=== PATIENT | female | born 1940 | race Caucasian/White ===

== ENCOUNTER 2020-06-20 18:23 | Inpatient (IN) ==
[2020-06-20] MEDS ORDERED: SODIUM CHLORIDE 0.9% 1000ML 500 ML IV ONE (19:05)
[2020-06-20] MEDS ORDERED: LORazepam 0.5 MG/1 ML VIAL IV STA (19:07)
[2020-06-20 19:38] LABS: Basophils # (auto) 0.02 K/uL (0-0.2); Basophils % (auto) 0.2 %; Eosinophils # (auto) 0.04 K/uL (0-0.5); Eosinophils % (auto) 0.4 %; Hematocrit (blood only) 38.5 % (37-47); Hemoglobin 12.8 g/dL (12.0-16.0); Immature Granulocytes # (auto) 0.06 K/uL (0.00-0.02); Immature Granulocytes % (auto) 0.6 %; Lymphocytes # (auto) 2.63 K/uL (1.2-3.4); Mean Corpuscular Hemoglobin 27.4 pg (25-34); Mean Corpuscular Hgb Conc 33.2 g/dL (32-36); Mean Corpuscular Volume 82.3 fL (80-100); Mean Platelet Volume 10.4 fL (7.4-10.4); Monocytes # (auto) 1.22 K/uL (0.11-0.59); Monocytes % (auto) 11.6 %; Neutrophils # (auto) 6.55 K/uL (1.4-6.5); Neutrophils % (auto) 62.2 %; Platelet Count 304 K/uL (130-400); RDW Coefficient of Variation 14.6 % (11.5-14.5); RDW Standard Deviation 43.8 fL (36.4-46.3); Red Blood Count 4.68 M/uL (4.2-5.4); White Blood Count 10.52 K/uL (4.8-10.8)
--- NOTE | 2020-06-20 19:46 | XRay Report ---
SINGLE VIEW CHEST CLINICAL HISTORY: Fall. FINDINGS: An AP, portable, upright chest radiograph is compared to study dated 10/11/2017. The heart is enlarged noting atherosclerotic calcification of the thoracic aorta. The pulmonary vasculature is no ncongested. The mitral annulus is densely calcified. Chronic interstitial thickening is similar to pr evious. There is bibasilar scarring/atelectasis. No airspace consolidation or large pleural effusion is identified. No pneumothorax is seen. The skeletal structures are osteopenic. The bony thorax is gr ossly intact. Degenerative change is noted throughout the thoracic spine. IMPRESSION: Cardiomegaly with no acute cardiopulmonary abnormality. ACT 112: Negative or not required by law. Electronically signed by: Joshua Long M.D. 06/20/2020 7:45 PM
--- NOTE | 2020-06-20 19:50 | CT Scan Report ---
CT SCAN OF THE BRAIN WITHOUT IV CONTRAST CLINICAL HISTORY: Fall. Dizziness. COMPARISON STUDY: CT of the brain dated 01/09/2007. TECHNIQUE: Unenhanced axial CT scan of the brain is performed from the vertex to the skull base. A do se lowering technique was utilized adhering to the principles of ALARA. CT DOSE: 537.48 mGy.cm FINDINGS: Brain parenchyma: There are age-related involutional changes noting moderate subcortical and periven tricular microangiopathic change. There is no hemorrhage, mass effect, or evidence of acute territori al ischemia by CT criteria. Strong-white matter differentiation is preserved. No extra-axial fluid selena ection is seen. Mineralization is noted in the basal ganglia. Ventricles, sulci, cisterns: Prominent secondary to involutional change. Intracranial vasculature: There is atherosclerotic calcification of the cavernous carotid and vertebr al arteries. Calvarium: The skeletal structures are osteopenic. No depressed calvarial fracture is identified. Sinuses and mastoids: The visualized paranasal sinuses are clear. The mastoid air cells are well pneu matized. Orbits: The bony orbits are grossly intact. There are bilateral ocular lens implants. IMPRESSION: There is no hemorrhage, mass effect, or evidence of acute territorial ischemia by CT ejssica rose. ACT 112: Negative or not required by law. Electronically signed by: Joshua Long M.D. 06/20/2020 7:49 PM
[2020-06-20 19:55] LABS: Alanine Aminotransferase 42 U/L (12-78); Albumin Level 3.1 gm/dl (3.4-5.0); Aspartate Aminotransferase 33 U/L (15-37); BUN Creatinine Ratio 18.8 (10-20); Blood Urea Nitrogen 50 mg/dl (7-18); Calcium 9.5 mg/dl (8.5-10.1); Carbon Dioxide 25 mmol/L (21-32); Chloride 104 mmol/L (98-107); Creatinine Clr Calc Pharmacy 18.2 ml/min; Est GFR (African American) 18.8; Est GFR (Non-African American) 16.3; Glucose 107 mg/dl (70-99); Potassium 3.5 mmol/L (3.5-5.1); Sodium 136 mmol/L (136-145)
[2020-06-20 19:59] LABS: Albumin Globulin Ratio 0.5 (0.9-2); Alkaline Phosphatase 190 U/L (45-117); Bilirubin,Total 0.7 mg/dl (0.2-1); Total Protein 9.1 gm/dl (6.4-8.2); Troponin I < 0.015 ng/ml (0-0.045)
[2020-06-20] MEDS: SODIUM CHLORIDE 0.9% 500 ML IV SCH (20:46)
[2020-06-20 20:58] LABS: Appearance Urine Cloudy (Clear); Bacteria Urine Automated 1+ (Negative); Bilirubin Urine Negative (Negative); Blood Urine 1+ (Negative); Color Urine Yellow; Epithelial Cell Urine Auto >30 /lpf (0-5); Glucose Urine UA Negative (Negative); Ketones Urine Negative (Negative); Leukocyte Esterase Urine 3+ (Negative); Nitrite Urine Negative (Negative); Protein Urine 1+ (Negative); RBC Urine Automated 0-4 /hpf (0-4); Specific Gravity Urine 1.019 (1.000-1.030); Urobilinogen Urine Negative (Negative); WBC Urine Automated >30 /hpf (0-5)
[2020-06-20] MEDS ORDERED: cefTRIAXone SODIUM 1,000 MG/50 ML BAG IV STA (21:19)
--- NOTE | 2020-06-21 01:09 | History and Physical Report ---
DATE OF ADMISSION: 06/20/2020 CHIEF COMPLAINT: Vertigo. HISTORY OF PRESENT ILLNESS: A 80-year-old female with past medical history significant for type 2 diabetes, Charcot foot, hyperlipidemia, irritable bowel syndrome, generalized anxiety disorder, who presents with a fall and dizziness at home. She says the vertigo has been going on for the last few days. She has a history of vertigo. She says meclizine` helps but sometimes it gets worse. She works in [employer]. She had to go home because of dizziness and she fell and hit the front of the head and right wrist, which is hurting. No loss of consciousness. Denies any fever, chills. No chest pain, no shortness of breath, no cough, no blurred visions, no runny nose, no sore throat. Appetite is okay. No dysphagia, no nausea, no abdominal pain. Normal bowel and bladder movements. No rash. Currently resting comfortably and hemodynamically stable. ALLERGIES: JAC INHIBITORS, LISINOPRIL, AZITHROMYCIN, DIPHENHYDRAMINE, AMOXICILLIN. PAST MEDICAL HISTORY: As mentioned above. PAST SURGICAL HISTORY: Left total knee arthroplasty, biopsy of uterus lining, ligation of oviducts. MEDICATIONS: The patient is on cetirizine 10 mg p.o. daily, Lomotil p.r.n., estradiol 1 mg p.o. a.m., lorazepam 1 mg p.o. t.i.d. p.r.n., meclizine 25 mg p.o. t.i.d. p.r.n., medroxyprogesterone 2.5 mg p.o. a.m., naproxen p.r.n., pravastatin 10 mg p.o. a.m., tramadol 50 mg p.o. q. 6 hours p.r.n., valsartan/hydrochlorothiazide 80/12.5 mg p.o. daily. FAMILY HISTORY: Significant for brother has diabetes and heart disorder; father has heart disorder; mother has heart disorder. SOCIAL HISTORY: Lives with daughter and grandkids. No smoking, alcohol rarely, no drug use. REVIEW OF SYSTEMS: As per HPI. Rest of the review of systems negative. PHYSICAL EXAMINATION: GENERAL: The patient is of moderate build, not in acute distress. VITAL SIGNS: Temperature 36.7, pulse 59, respiratory rate 14, blood pressure 127/67 and oxygen 98% on room air. HEENT: Pupils equal, round, reactive to light. Oral mucosa moist. NECK: No JVD, no neck masses. CARDIOVASCULAR: S1, S2 heard. Regular rate and rhythm. No murmur, no gallop. RESPIRATORY SYSTEM: Normal AP diameter. No accessory muscle use. No wheezing, no crackles. ABDOMEN: Soft, bowel sounds present, nontender. No distention. CENTRAL NERVOUS SYSTEM: Cranial nerves II-XII grossly intact. Nonfocal. EXTREMITIES: Mild pedal edema, no erythema. LABORATORY DATA: WBC 10.5, hemoglobin 12.8, hematocrit 38.5, platelets 304. Sodium 136, potassium 3.5, chloride 104, bicarbonate 25, BUN 50, creatinine 2.6, serum glucose 107, calcium 9.5, total bilirubin 0.7, AST 33, ALT 42, alkaline phosphatase 190. Urinalysis, cloudy, +3 leukocyte esterase. SARS-CoV-2 negative. IMAGING DATA: CT of the head, no acute findings. Chest x-ray, no acute findings. EKG: Sinus rhythm with PACs at the rate of 70, no acute ST changes seen. ASSESSMENT AND PLAN: This is a 80-year-old female who presents with vertigo, dizziness, and fall and found to have urinary tract infection. 1. Vertigo: The patient has history of vertigo and on meclizine prn at home. CT of the head is unremarkable. Urinary tract infection could be contributing. Will admit to med/tele. Closely monitor and will consult neurology in the a.m. Continue meclizine for now and gentle fluids. Check for orthostatics. 2. Urinary tract infection, on Rocephin. We will follow the cultures. 3. Fall secondary to vertigo: Will follow the right wrist and elbow x- ray.Pt/OT 4. Hypertension: Will hold Diovan HCT for richard. We will monitor the blood pressure. 5. Diabetes, not on any medications. Follow HbA1c levels. Placed on diabetic diet.ISS. 6. RICHARD. Presented of Cr 2.68. on fluids. Avoid nephrotoxic drugs. Will follow ct abd/pelvis. 7. Hyperlipidemia, on statin. 8. Generalized anxiety disorder, on Ativan p.r.n. 9. Deep venous thrombosis prophylaxis, sequential compression devices. DISPOSITION: Closely monitor in the med tele. Level 1 full code. Expect to discharge home and follow with family doctor. JENIFFER
--- NOTE | 2020-06-21 02:00 | Emergency Department Note ---
Impression & Plan Acute kidney injury, Orthostasis, Acute UTI, Fall, Sprain and strain of right wrist ED Provider Note NAME: EDGAR BRAUN AGE: 80 SEX: F ARRIVES VIA: Walk-In INFORMANT: Patient ED PROVIDER(S): Tasha Hayden MD CHIEF COMPLAINT: Vertigo, nausea PLAN: Disposition: Inpatient Condition: Fair Referral: Hospitalist MEDICAL DECISION MAKING: This patient was evaluated and appeared to be in no significant distress. IV access was obtained and laboratory work was drawn. An order for cardiac mon itoring was placed and the patient is noted to be in a normal sinus rhythm at 74 bpm. Patient was hydrated with normal saline solution after she was noted to be dry on exam and orthostatics were positive. Pt was noted to have an elevated creatinine at 2.68 which represents an RICHARD, likely prerenal. She was given 0.5 mg of IV Ativan for her complaints of vertigo. Patient is noted to have a UTI, was medicated with 1 g of IV ceftriaxone. Head CT and chest x-ray are negative for acute process. Case was discussed with Dr. Jansen of the hospitalist service who will evaluate the patient for admission and further management. Patient is aware of the plan and agrees. Triage Nursing notes reviewed. Prior medical records reviewed Vital Signs: reviewed and remarkable for no significant abnormalities Differential diagnosis: Benign positional vertigo, dehydration, hypovolemia, anemia, tumor, infection, hypoglycemia, electrolyte abnormalities, cardiac sources, intracerebral event, toxicologic, neurologic, as well as other pathologies. ER treatment provided: IV normal saline solution IV Ativan 0.5 mg IV ceftriaxone Diagnostics interpreted by me: ECG: Sinus rhythm with premature atrial contractions at 70 bpm. QTc is 466. Normal axis. Normal ST segments. Low voltage QRS. Cardiac Monitoring: An order for cardiac monitoring placed and the patient is in to be in a normal sinus rhythm at 74 bpm. Laboratory studies: See below Imaging studies: SINGLE VIEW CHEST CLINICAL HISTORY: Fall. FINDINGS: An AP, portable, upright chest radiograph is compared to study dated 10/11/2017. The heart is enlarged noting atherosclerotic calcification of the thoracic aorta. The pulmonary vasculature is noncongested. The mitral annulus is densely calcified. Chronic interstitial thickening is similar to previous. There is bibasilar scarring/atelectasis. No airspace consolidation or large pleural effusion is identified. No pneumothorax is seen. The skeletal structures are osteopenic. The bony thorax is grossly intact. Degenerative change is noted throughout the thoracic spine. IMPRESSION: Cardiomegaly with no acute cardiopulmonary abnormality. ACT 112: Negative or not required by law. Electronically signed by: Joshua Long M.D. 06/20/2020 7:45 PM Dictated: 06/20/201943Transcribed: 06/20/201943 CT SCAN OF THE BRAIN WITHOUT IV CONTRAST CLINICAL HISTORY: Fall. Dizziness. COMPARISON STUDY: CT of the brain dated 01/09/2007. TECHNIQUE: Unenhanced axial CT scan of the brain is performed from the vertex to the skull base. A dose lowering technique was utilized adhering to the principles of ALARA. CT DOSE: 537.48 mGy.cm FINDINGS: Brain parenchyma: There are age-related involutional changes noting moderate subcortical and periventricular microangiopathic change. There is no hemorrhage, mass effect, or evidence of acute territorial ischemia by CT criteria. Strong- white matter differentiation is preserved. No extra-axial fluid collection is seen. Mineralization is noted in the basal ganglia. Ventricles, sulci, cisterns: Prominent secondary to involutional change. Intracranial vasculature: There is atherosclerotic calcification of the cave rnous carotid and vertebral arteries. Calvarium: The skeletal structures are osteopenic. No depressed calvarial fracture is identified. Sinuses and mastoids: The visualized paranasal sinuses are clear. The mastoid air cells are well pneumatized. Orbits: The bony orbits are grossly intact. There are bilateral ocular lens implants. IMPRESSION: There is no hemorrhage, mass effect, or evidence of acute territorial ischemia by CT criteria. ACT 112: Negative or not required by law. Electronically signed by: Joshua Long M.D. 06/20/2020 7:49 PM Dictated: 06/20/201945Transcribed: 06/20/201945 XR elbow RT min 3V routine CLINICAL HISTORY: Right elbow pain following fall to COMPARISON: None FINDINGS: Alignment of the right elbow is anatomic. There is no acute fracture. There is no evidence for joint effusion. Minimal spurring of the olecranon is noted. IV is incidentally noted. No osseous lesion is identified. IMPRESSION: No acute fracture or joint effusion of the right elbow. ACT 112: Negative or not required by law. Electronically signed by: Rajat Beard M.D. 06/21/2020 7:26 AM Dictated: 06/21/20724Transcribed: 06/21/20724 XR wrist RT min 3V routine CLINICAL HISTORY: Right wrist pain following fall. COMPARISON: None FINDINGS: Alignment of the right wrist is anatomic. No acute fracture is identified. There is no osseous lesion. There is mild to moderate osteoarthritis within the right first carpometacarpal and triscaphe joints. There is mild radiocarpal joint osteoarthritis. IMPRESSION: No acute fracture or dislocation within the right wrist. ACT 112: Negative or not required by law. Electronically signed by: Rajat Beard M.D. 06/21/2020 6:46 AM Dictated: 06/21/20643Transcribed: 06/21/20643 HPI: 80/F arrives for evaluation of dizziness. Pt states she has a h/o vertigo and takes meclizine 25 mg twice a day, on a regular basis. For the last 5 days she has been in bed and hasn't eaten or had much to drink much. She is nauseated. Pt is unsteady when she walks, she did lose her balance today. She fell and hit her head, also c/o R wrist and elbow pain. Pt denies LOC or blood thinners, it seems she got herself up as her family was "downstairs" but the pt is not quite clear with her answers on this. Pt denies speech difficulties or confusion. She denies fever, cough, SOB, vomiting or diarrhea. ROS: See above HPI for pertinent positives & negatives. A total of 10 systems reviewed and were otherwise negative. PAST MEDICAL HISTORY:See Below PAST SURGICAL HISTORY:See Below FAMILY HISTORY:See Below SOCIAL HISTORY:See Below HOME MEDICATIONS:See Below ALLERGIES:See Below VITALS:See Below PHYSICAL EXAMINATION: Vital signs reviewed. Positive orthostatic vital signs. General: Elderly, chronically ill-appearing 80 yo female, in no significant distress. Somewhat disheveled HEENT: No scleral icterus, PERRLA, neck supple. Dry mucous membranes, atraumatic. No nystagmus appreciated. Cardiovascular: Regular rate and rhythm, no extra sounds. Pulmonary: Clear to auscultation bilaterally, normal work of breathing. Abdomen: Soft, nontender, nondistended, positive bowel sounds. Musculoskeletal: Atraumatic, no peripheral edema. 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 Right elbow with full range of motion, nontender. Neurologic: Patient awake alert and oriented x 3, full strength in all 4 extremities. Cranial nerves 2 through 12 grossly intact. Skin: Warm, dry, no rash Tasha Hayden MD Past Med/Surg History Medical History Diabetes mellitus DIET CONTROLLED Hypertension Osteoarthritis Surgical History History of bilateral tubal ligation History of total knee replacement LEFT Hx of right cataract extraction Family History Father Family history of diabetes mellitus Mother Family history of diabetes mellitus Brother Family history of diabetes mellitus Social History Smoking Status: Never smoker Tobacco Type: Cigarettes Second Hand Exposure: No; Do You Dip or Chew Tobacco: No; Tobacco Cessation Education Requested by Patient: No Hx Alcohol Use: No Hx Substance Use: No Preferred Language: [place] Communication Ability: Effective Vegetable I Farmworker Required: No Beliefs That Will Affect Care: Druze Druze Beliefs: Oriental Orthodox Current Living Situation: Family Other Information That Helps Us Care for You: No Feels Safe at Home: Yes Safety Concerns: Feels Safe At This Time Assistive Devices: Cane, Glasses and Walker Allergies Allergies Allergy/AdvReac Type Severity Reaction Status Date / Time JAC Inhibitors Allergy Unknown edema Verified 06/20/20 22:02 face/lips/tongue diphenhydramine AdvReac Unknown flushing, Verified 06/20/20 22:03 hyperactivity azithromycin AdvReac severe Verified 06/20/20 22:03 [From Zithromax Z-Devon] vertigo Home Meds Home Medications Medication Instructions Recorded Confirmed diphenoxylate-atropine 1 tab PO .UD PRN MDD 8 TABS 04/12/18 06/20/20 estradiol 1 mg PO QAM 04/12/18 06/20/20 meclizine 25 mg PO TID PRN 04/12/18 06/20/20 medroxyprogesterone 2.5 mg PO QAM 04/12/18 06/20/20 pravastatin 10 mg PO QAM 04/12/18 06/20/20 valsartan-hydrochlorothiazide 1 tab PO QAM 04/12/18 06/20/20 cetirizine 10 mg PO DAILY 10/11/18 06/20/20 lorazepam 1 mg PO TID PRN 06/20/20 06/20/20 naproxen 220 mg PO Q6H PRN 06/20/20 06/20/20 tramadol 50 mg PO Q6H PRN 06/20/20 06/20/20 Previous Rx's Medication Instructions Recorded cefuroxime axetil 250 mg PO BID 5 Days #10 tab 06/22/20 lorazepam 1 mg PO Q8H PRN #10 tab 06/22/20 Results & Data (ED) Vital Signs Vital Signs - 24 hr 06/20/20 18:26 06/20/20 19:14 06/20/20 20:01 Temperature 36.4 C L Temperature Source Oral Pulse Rate - Lying 74 Pulse Rate - Sitting 90 Pulse Rate - Standing 85 Pulse Rate 74 72 Pulse Rate [Left Apical] Pulse Rate from SpO2 Sensor 69 Pulse Rhythm [Left Apical] Pulse Strength [Left Apical] Respiratory Rate 20 16 Respiratory Effort / Characteristics Non-Labored Spontaneous Respiratory Depth Normal Respiratory Pattern Regular Blood Pressure - Lying 101/65 Blood Pressure - Sitting 108/62 Blood Pressure- Standing 87/60 L Blood Pressure 102/67 120/82 Blood Pressure [Left Arm] Blood Pressure Mean 78 94 Blood Pressure Mean [Left Arm] Blood Pressure Position [Left Arm] Pulse Oximetry 100 98 Oxygen Delivery Method Room Air Sepsis Recent Fever Within 48 Hours No Sepsis New/Unexplained Change in Mental Status N/A Sepsis Action Taken by Nursing No Action Required 06/20/20 21:33 06/20/20 21:34 06/20/20 22:00 Temperature 36.7 C Temperature Source Oral Pulse Rate - Lying Pulse Rate - Sitting Pulse Rate - Standing Pulse Rate 55 L 59 L Pulse Rate [Left Apical] 61 Pulse Rate from SpO2 Sensor 56 L Pulse Rhythm [Left Apical] Regular Pulse Strength [Left Apical] Normal Respiratory Rate 12 16 14 Respiratory Effort / Characteristics Non-Labored Spontaneous Respiratory Depth Normal Respiratory Pattern Regular Blood Pressure - Lying Blood Pressure - Sitting Blood Pressure- Standing Blood Pressure 129/92 127/67 Blood Pressure [Left Arm] 129/92 Blood Pressure Mean 104 87 Blood Pressure Mean [Left Arm] 104 Blood Pressure Position [Left Arm] Lying Pulse Oximetry 96 97 98 Oxygen Delivery Method Room Air Sepsis Recent Fever Within 48 Hours Sepsis New/Unexplained Change in Mental Status Sepsis Action Taken by Nursing 06/20/20 23:00 06/21/20 00:00 Temperature Temperature Source Pulse Rate - Lying Pulse Rate - Sitting Pulse Rate - Standing Pulse Rate 65 67 Pulse Rate [Left Apical] Pulse Rate from SpO2 Sensor Pulse Rhythm [Left Apical] Pulse Strength [Left Apical] Respiratory Rate 20 20 Respiratory Effort / Characteristics Respiratory Depth Respiratory Pattern Blood Pressure - Lying Blood Pressure - Sitting Blood Pressure- Standing Blood Pressure 120/70 Blood Pressure [Left Arm] Blood Pressure Mean 86 Blood Pressure Mean [Left Arm] Blood Pressure Position [Left Arm] Pulse Oximetry 98 Oxygen Delivery Method Sepsis Recent Fever Within 48 Hours Sepsis New/Unexplained Change in Mental Status Sepsis Action Taken by Usp Medications Current Medication List: was personally reviewed by me Laboratory Data Attestation: I reviewed the patient's lab results. Result diagrams: 06/22/20 07:08 06/22/20 07:08 Lab Results 06/20/20 06/20/20 06/20/20 Range/Units 19:20 19:26 20:40 WBC 10.52 (4.8-10.8) K/uL RBC 4.68 (4.2-5.4) M/uL Hgb 12.8 (12.0-16.0) g/dL Hct 38.5 (37-47) % MCV 82.3 (80-100) fL MCH 27.4 (25-34) pg MCHC 33.2 (32-36) g/dL RDW Std Deviation 43.8 (36.4-46.3) fL RDW Coeff of Higinio 14.6 H (11.5-14.5) % Plt Count 304 (130-400) K/uL MPV 10.4 (7.4-10.4) fL Immature Gran % (Auto) 0.6 % Neut % (Auto) 62.2 % Lymph % (Auto) 25.0 % Bladen % (Auto) 11.6 % Eos % (Auto) 0.4 % Baso % (Auto) 0.2 % Neut # (Auto) 6.55 H (1.4-6.5) K/uL Lymph # (Auto) 2.63 (1.2-3.4) K/uL Bladen # (Auto) 1.22 H (0.11-0.59) K/uL Eos # (Auto) 0.04 (0-0.5) K/uL Baso # (Auto) 0.02 (0-0.2) K/uL Immature Gran # (Auto) 0.06 H (0.00-0.02) K/uL Sodium 136 (136-145) mmol/L Potassium 3.5 (3.5-5.1) mmol/L Chloride 104 (98-107) mmol/L Carbon Dioxide 25 (21-32) mmol/L Anion Gap 7.0 (3-11) BUN 50 H (7-18) mg/dl Creatinine 2.68 H (0.6-1.2) mg/dl Est Cr Clr Drug Dosing 18.2 ml/min Est GFR ( Amer) 18.8 Est GFR (Non-Af Amer) 16.3 BUN/Creatinine Ratio 18.8 (10-20) Glucose 107 H (70-99) mg/dl Calcium 9.5 (8.5-10.1) mg/dl Total Bilirubin 0.7 (0.2-1) mg/dl AST 33 (15-37) U/L ALT 42 (12-78) U/L Alkaline Phosphatase 190 H (45-117) U/L Troponin I < 0.015 (0-0.045) ng/ml Total Protein 9.1 H (6.4-8.2) gm/dl Albumin 3.1 L (3.4-5.0) gm/dl Globulin 6.0 H (2.5-4.0) gm/dl Albumin/Globulin Ratio 0.5 L (0.9-2) Urine Color Yellow Urine Appearance Cloudy A (Clear) Urine pH 5.0 (4.5-7.5) Ur Specific [place] 1.019 (1.000-1.030) Urine Protein 1+ H (Negative) Urine Glucose (UA) Negative (Negative) Urine Ketones Negative (Negative) Urine Blood 1+ H (Negative) Urine Nitrite Negative (Negative) Urine Bilirubin Negative (Negative) Urine Urobilinogen Negative (Negative) Ur Leukocyte Esterase 3+ H (Negative) Urine WBC (Auto) >30 H (0-5) /hpf Urine RBC (Auto) 0-4 (0-4) /hpf U Hyaline Cast (Auto) 5-10 H (0-5) /lpf U Epithel Cells (Auto) >30 H (0-5) /lpf Urine Bacteria (Auto) 1+ H (Negative) COVID-19 Eval Order SARS-CoV-2, RNA, NAAT (NEGATIVE) 06/20/20 06/20/20 Range/Units 21:50 21:50 WBC (4.8-10.8) K/uL RBC (4.2-5.4) M/uL Hgb (12.0-16.0) g/dL Hct (37-47) % MCV (80-100) fL MCH (25-34) pg MCHC (32-36) g/dL RDW Std Deviation (36.4-46.3) fL RDW Coeff of Higinio (11.5-14.5) % Plt Count (130-400) K/uL MPV (7.4-10.4) fL Immature Gran % (Auto) % Neut % (Auto) % Lymph % (Auto) % Bladen % (Auto) % Eos % (Auto) % Baso % (Auto) % Neut # (Auto) (1.4-6.5) K/uL Lymph # (Auto) (1.2-3.4) K/uL Bladen # (Auto) (0.11-0.59) K/uL Eos # (Auto) (0-0.5) K/uL Baso # (Auto) (0-0.2) K/uL Immature Gran # (Auto) (0.00-0.02) K/uL Sodium (136-145) mmol/L Potassium (3.5-5.1) mmol/L Chloride (98-107) mmol/L Carbon Dioxide (21-32) mmol/L Anion Gap (3-11) BUN (7-18) mg/dl Creatinine (0.6-1.2) mg/dl Est Cr Clr Drug Dosing ml/min Est GFR ( Amer) Est GFR (Non-Af Amer) BUN/Creatinine Ratio (10-20) Glucose (70-99) mg/dl Calcium (8.5-10.1) mg/dl Total Bilirubin (0.2-1) mg/dl AST (15-37) U/L ALT (12-78) U/L Alkaline Phosphatase (45-117) U/L Troponin I (0-0.045) ng/ml Total Protein (6.4-8.2) gm/dl Albumin (3.4-5.0) gm/dl Globulin (2.5-4.0) gm/dl Albumin/Globulin Ratio (0.9-2) Urine Color Urine Appearance (Clear) Urine pH (4.5-7.5) Ur Specific [place] (1.000-1.030) Urine Protein (Negative) Urine Glucose (UA) (Negative) Urine Ketones (Negative) Urine Blood (Negative) Urine Nitrite (Negative) Urine Bilirubin (Negative) Urine Urobilinogen (Negative) Ur Leukocyte Esterase (Negative) Urine WBC (Auto) (0-5) /hpf Urine RBC (Auto) (0-4) /hpf U Hyaline Cast (Auto) (0-5) /lpf U Epithel Cells (Auto) (0-5) /lpf Urine Bacteria (Auto) (Negative) COVID-19 Eval Order Covid19 IDNow atMWIC SARS-CoV-2, RNA, NAAT NEGATIVE (NEGATIVE) Administered Medications Discontinued Medications Cetirizine HCl (Cetirizine Hcl 10 Mg Tablet) 10 mg PO DAILY [facility] Stop: 07/21/20 08:59 Last Admin: 06/22/20 08:57 Dose: 10 mg Documented by: [id number] Admin: 06/21/20 09:28 Dose: 10 mg Documented by: [id number] Sodium Chloride (Nss 1000ml) 500 mls @ 999 mls/hr IV .Q31M ONE Stop: 06/20/20 19:35 Last Infusion: 06/20/20 20:12 Dose: 0 mls/hr Documented by: [id number] Admin: 06/20/20 19:37 Dose: 999 mls/hr Documented by: [id number] Sodium Chloride (Nss) 500 mls @ 125 mls/hr IV .Q4H BILL Stop: 07/20/20 19:14 Last Admin: 06/21/20 02:06 Dose: Not Given Documented by: [id number] Infusion: 06/21/20 00:54 Dose: 0 mls/hr Documented by: [id number] Admin: 06/20/20 20:46 Dose: 125 mls/hr Documented by: [id number] Lorazepam (Ativan) 0.5 mg in 1 mls @ 1 mls/min IV NOW STA Stop: 06/20/20 19:08 Last Admin: 06/20/20 19:56 Dose: 1 mls/min Documented by: [id number] Ceftriaxone Sodium (Rocephin) 1,000 mg in 50 mls @ 100 mls/hr IV NOW STA Stop: 06/20/20 21:48 Last Infusion: 06/20/20 22:31 Dose: 0 mls/hr Documented by: [id number] Admin: 06/20/20 21:48 Dose: 100 mls/hr Documented by: [id number] Sodium Chloride (Nss 1000ml) 1,000 mls @ 80 mls/hr IV .[id number] BILL Stop: 07/21/20 02:03 Last Admin: 06/21/20 17:43 Dose: Not Given Documented by: [id number] Infusion: 06/21/20 17:41 Dose: 0 mls/hr Documented by: [id number] Infusion: 06/21/20 16:38 Dose: 80 mls/hr Documented by: [id number] Infusion: 06/21/20 13:30 Dose: 0 mls/hr Documented by: [id number] Admin: 06/21/20 02:11 Dose: 80 mls/hr Documented by: [id number] Ceftriaxone Sodium 2,000 mg/ (Dextrose) 70 mls @ 100 mls/hr IV Q24H BILL; Protocol Stop: 06/29/20 19:41 Last Infusion: 06/21/20 20:44 Dose: 0 mls/hr Documented by: [id number] Admin: 06/21/20 19:17 Dose: 100 mls/hr Documented by: [id number] Sodium Chloride (Nss 1000ml) 1,000 mls @ 80 mls/hr IV .[id number] BILL Stop: 07/21/20 21:29 Last Infusion: 06/22/20 09:15 Dose: 0 mls/hr Documented by: [id number] Admin: 06/21/20 22:04 Dose: 80 mls/hr Documented by: [id number] Insulin Aspart (Insulin Aspart 100 Units/Ml 3 Ml Pen) 0 units SC ACHS BILL Stop: 07/21/20 07:29 Last Admin: 06/22/20 11:38 Dose: Not Given Documented by: [id number] Admin: 06/22/20 08:23 Dose: Not Given Documented by: [id number] Admin: 06/21/20 20:45 Dose: Not Given Documented by: [id number] Admin: 06/21/20 17:38 Dose: Not Given Documented by: [id number] Admin: 06/21/20 12:33 Dose: Not Given Documented by: [id number] Admin: 06/21/20 09:30 Dose: Not Given Documented by: [id number] Lactobacillus Acidoph/Casei/Rhamnos (Advanced Probiotic 1250 Mg Capsule) 2 cap PO DAILY BILL Stop: 07/22/20 10:59 Last Admin: 06/22/20 11:56 Dose: 2 cap Documented by: [id number] Potassium Chloride (Potassium Chloride Crtab 20 Meq Tabcr) 40 meq PO NOW STA Stop: 06/21/20 07:07 Last Admin: 06/21/20 09:28 Dose: 40 meq Documented by: [id number] Potassium Chloride (Potassium Chloride Crtab 20 Meq Tabcr) 20 meq PO NOW STA Stop: 06/22/20 08:50 Last Admin: 06/22/20 09:15 Dose: 20 meq Documented by: [id number] Pravastatin Sodium (Pravastatin Sod 10 Mg Tab) 10 mg PO QAM BILL Stop: 07/21/20 08:59 Last Admin: 06/22/20 08:57 Dose: 10 mg Documented by: [id number] Admin: 06/21/20 09:28 Dose: 10 mg Documented by: [id number] Tramadol HCl (Tramadol Hcl 50 Mg Tablet) 50 mg PO Q6H PRN PRN Reason: Pain Stop: 07/21/20 02:03 Last Admin: 06/21/20 02:23 Dose: 50 mg Documented by: [id number] Discharge Plan Visit Data Chief Complaint: Vertigo Stated Complaint: VERTIGO ED Provider: Tasha Hayden Discharge Problem: Acute kidney injury, Orthostasis, Acute UTI, Fall, Sprain and strain of right wrist Patient Disposition: Admitted As Inpatient Discharge Instructions Interventions: ED Discharge Assessment Last Done: 06/21/20 01:25 Discharge Problem: Fall Qualifiers: Encounter type: initial encounter Qualified Code(s): W19.XXXA - Unspecified fall, initial encounter
[2020-06-21] MEDS ORDERED: DIPHENOXYLATE/ATROPINE 2.5/0.025MG TAB PO PRN (02:04)
[2020-06-21] MEDS ORDERED: traMADol HCL 50 MG TABLET PO PRN (02:04)
[2020-06-21] MEDS ORDERED: ACETAMINOPHEN 325 MG TAB PO PRN (02:04)
[2020-06-21] MEDS ORDERED: NITROGLYCERIN SL 0.4 MG/TAB TAB SL PRN (02:04)
[2020-06-21] MEDS ORDERED: POLYETHYLENE (MIRALAX) 17 GM PACK PO PRN (02:04)
[2020-06-21] MEDS ORDERED: ONDANSETRON INJ 2 MG/ML 2 ML VIAL IV PRN (02:04)
[2020-06-21] MEDS: SODIUM CHLORIDE 0.9% 500 ML IV SCH (02:06)
[2020-06-21] MEDS: SODIUM CHLORIDE 0.9% 1000ML 1,000 ML IV SCH ×2 (02:11→17:43)
[2020-06-21] MEDS ORDERED: LORazepam 1 MG TAB PO PRN (02:13)
[2020-06-21] MEDS ORDERED: MECLIZINE HCL 25 MG TAB PO PRN (02:13)
[2020-06-21 06:18] LABS: Basophils # (auto) 0.02 K/uL (0-0.2); Basophils % (auto) 0.2 %; Eosinophils # (auto) 0.12 K/uL (0-0.5); Eosinophils % (auto) 1.1 %; Hematocrit (blood only) 31.7 % (37-47); Hemoglobin 10.6 g/dL (12.0-16.0); Immature Granulocytes # (auto) 0.04 K/uL (0.00-0.02); Immature Granulocytes % (auto) 0.4 %; Lymphocytes # (auto) 2.54 K/uL (1.2-3.4); Lymphocytes % (auto) 23.6 %; Mean Corpuscular Hgb Conc 33.4 g/dL (32-36); Mean Corpuscular Volume 80.9 fL (80-100); Mean Platelet Volume 10.8 fL (7.4-10.4); Monocytes # (auto) 1.23 K/uL (0.11-0.59); Monocytes % (auto) 11.4 %; Neutrophils # (auto) 6.83 K/uL (1.4-6.5); Neutrophils % (auto) 63.3 %; Platelet Count 288 K/uL (130-400); RDW Coefficient of Variation 14.7 % (11.5-14.5); RDW Standard Deviation 43.1 fL (36.4-46.3); Red Blood Count 3.92 M/uL (4.2-5.4); White Blood Count 10.78 K/uL (4.8-10.8)
[2020-06-21 06:42] LABS: BUN Creatinine Ratio 25.9 (10-20); Creatinine Clr Calc Pharmacy 24.8 ml/min; Est GFR (African American) 29.1; Est GFR (Non-African American) 25.1; Magnesium 2.3 mg/dl (1.8-2.4); Potassium 3.2 mmol/L (3.5-5.1)
--- NOTE | 2020-06-21 06:47 | XRay Report ---
XR wrist RT min 3V routine CLINICAL HISTORY: Right wrist pain following fall. COMPARISON: None FINDINGS: Alignment of the right wrist is anatomic. No acute fracture is identified. There is no oss eous lesion. There is mild to moderate osteoarthritis within the right first carpometacarpal and juhi caphe joints. There is mild radiocarpal joint osteoarthritis. IMPRESSION: No acute fracture or dislocation within the right wrist. ACT 112: Negative or not required by law. Electronically signed by: Rajat Beard M.D. 06/21/2020 6:46 AM
[2020-06-21] MEDS ORDERED: POTASSIUM CHLORIDE CRTAB 20 MEQ TABCR PO STA (07:06)
--- NOTE | 2020-06-21 07:21 | CT Scan Report ---
CT OF THE ABDOMEN AND PELVIS WITHOUT CONTRAST CLINICAL HISTORY: Urinary tract infection. Acute kidney injury. COMPARISON STUDY: No previous studies for comparison. TECHNIQUE: Axial images of the abdomen and pelvis were obtained without IV contrast. Images were revi ewed in the axial, sagittal, and coronal planes. Automated exposure control was utilized for the kaia dy. A dose lowering technique was utilized adhering to the principles of ALARA. FINDINGS: No pneumatosis, free air or portal venous gas is present. There is extensive mitral annular calcification. Note is made of a large right renal staghorn calculus. This occupies the majority of the right renal collecting system. There is associated right collecting system dilatation. Extensive adjacent infiltration is noted. There is also urothelial thickening and infiltration adjacent to the proximal right ureter. Moderate to marked right renal atrophy is noted. No ureteral calculi are prese nt. There are no left-sided urinary calculi. Evaluation of the abdomen and pelvis is suboptimal on th is unenhanced examination. The liver, spleen, adrenal glands and pancreas are unremarkable. There are numerous gallstones within the gallbladder. There is no evidence for a bowel obstruction. The append ix is mildly dilated, measuring 8 mm in caliber. However, there is no periappendiceal infiltration. T his extensive colonic diverticulosis. Evidence for acute diverticulitis. Note is made of several mild ly enlarged retroperitoneal lymph nodes. Index aortocaval lymph node on image 144 of 431 measures 1.2 x 1 cm. Fat-containing umbilical hernia is present. There is no acute fracture or suspicious lesion within the visualized skeletal structures. There is no pelvic lymphadenopathy. There is no evidence f or a bowel obstruction. IMPRESSION: 1. Large right renal staghorn calculus with associated collecting system dilatation and extensive uro thelial thickening and adjacent infiltration of the right collecting system and proximal right ureter . These findings are age indeterminate and an acute infectious process cannot be excluded. Moderate t o marked right renal atrophy. No ureteral calculi. 2. Cholelithiasis. 3. Mildly dilated appendix. No adjacent infiltration to strongly suggest acute appendicitis. 4. Colonic diverticulosis without evidence for acute diverticulitis. ACT 112: Negative or not required by law. Electronically signed by: Rajat Beard M.D. 06/21/2020 7:19 AM
--- NOTE | 2020-06-21 07:27 | XRay Report ---
XR elbow RT min 3V routine CLINICAL HISTORY: Right elbow pain following fall to COMPARISON: None FINDINGS: Alignment of the right elbow is anatomic. There is no acute fracture. There is no evidence for joint effusion. Minimal spurring of the olecranon is noted. IV is incidentally noted. No osseous lesion is identified. IMPRESSION: No acute fracture or joint effusion of the right elbow. ACT 112: Negative or not required by law. Electronically signed by: Rajat Beard M.D. 06/21/2020 7:26 AM
[2020-06-21 07:32] LABS: Estimated Average Glucose 137 mg/dl; Hemoglobin A1C 6.4 % (4.5-5.6)
[2020-06-21] MEDS ORDERED: VALSARTAN/HCTZ 80/12.5MG TAB PO SCH (09:00)
[2020-06-21] MEDS: PRAVASTATIN SOD 10 MG TAB PO SCH (09:28)
[2020-06-21] MEDS: CETIRIZINE HCL 10 MG TABLET PO SCH (09:28)
[2020-06-21] MEDS: INSULIN ASPART 100 UNITS/ML 3 ML PEN SC SCH ×4 (09:30→20:45)
--- NOTE | 2020-06-21 10:18 | Hospitalist Progress Note ---
Date of Service June 21, 2020 Assessment & Plan (1) Vertigo: (2) Staghorn renal calculus: (3) Acute kidney injury: (4) Orthostasis: (5) Acute UTI: (6) Fall: This is a 80-year-old female who presents with vertigo, dizziness, and fall and found to have urinary tract infection, and staghorn renal calculus. 1. Vertigo: The patient has a history of vertigo and on meclizine prn at home as well as lorazepam prn. CT of the head unremarkable. MRI brain no acute CVA. Carotid US unremarkable. Orthostatic in the ED. Urinary tract infection could be contributing. Will admit to med/tele. Closely monitor. Neurology consulted. Continue meclizine, lorazepam for now and gentle fluids. Re- check orthostatics. 2. Urinary tract infection, on Rocephin. We will follow the cultures. 3. Fall secondary to vertigo: Right wrist and elbow x-ray unremarkable. PT/OT ordered 4. Hypertension: Will hold Diovan HCT for richard. We will monitor the blood pressure. 5. Diabetes, not on any medications. Current HbA1c 6.4%. Placed on diabetic diet.ISS. 6. RICHARD. Presented with Cr 2.68. Now Cr down to 1.8 after IVF. Partially pre-renal as pt reports poor oral intake for several days due to vertigo. Partially secondary to staghorn calculus and UTI. Urology consulted - plan for close outpt follow up. Cont gentle hydration. Avoid nephrotoxic drugs. Monitor BMP, will need outpt follow up 7. Hyperlipidemia, on statin. 8. Generalized anxiety disorder, on Ativan p.r.n. DVT prophylaxis, SCDs. DISPOSITION: Expect to discharge home and follow with family doctor. PT/OT eval pending Admission and Anticipated Discharge Date Admission Date: June 20, 2020 Subjective Pt seen in follow up of vertigo, fall, RICHARD Currently sitting up and eating, in NAD Reports she was laying flat not eating or drinking for several days due to vertigo, prior to admission No fevers or chills, chest pain, shortness of breath Vertigo better controlled now She is inquiring about going home tomorrow Review of Systems Review of Systems: All systems reviewed & are unremarkable except as noted in HPI & below Constitutional: no fever and no chills Respiratory: no cough and no dyspnea Cardiovascular: no chest pain and no palpitations Gastrointestinal: no abdominal pain, no nausea and no vomiting Neurologic: vertigo improved Physical Exam Physical Exam: GENERAL: The patient is of moderate build, not in acute distress. HEENT: Pupils equal, round, reactive to light. Oral mucosa moist. NECK: No JVD, no neck masses. CARDIOVASCULAR: S1, S2 heard. Regular rate and rhythm. No murmur, no gallop. RESPIRATORY SYSTEM: Normal AP diameter. No accessory muscle use. No wheezing, no crackles. ABDOMEN: Soft, bowel sounds present, nontender. No distention. CENTRAL NERVOUS SYSTEM: Alert and oriented x3, speech fluent, pt is answering questions appropriately, Cranial nerves II-XII grossly intact. Nonfocal. Moves extremities spontaneously EXTREMITIES: Mild pedal edema, no erythema. Results & Data Results & Data ([facility]) Vital Signs (Past 12 Hours) Vital Signs Temp Pulse Pulse Resp BP BP BP 06/21/20 08:00 73 06/21/20 07:40 36.9 C 68 17 114/72 06/21/20 04:30 74 06/21/20 03:42 37.1 C 73 18 129/75 06/21/20 02:03 37.2 C 72 18 135/70 06/21/20 00:00 67 20 120/70 06/20/20 23:00 65 20 Pulse Ox 06/21/20 08:00 06/21/20 07:40 94 06/21/20 04:30 06/21/20 03:42 96 06/21/20 02:03 96 06/21/20 00:00 98 06/20/20 23:00 Laboratory Results 06/21/20 06/21/20 06/21/20 Range/Units 07:47 05:04 05:04 WBC (4.8-10.8) K/uL RBC (4.2-5.4) M/uL Hgb (12.0-16.0) g/dL Hct (37-47) % MCV (80-100) fL MCH (25-34) pg MCHC (32-36) g/dL RDW Std Deviation (36.4-46.3) fL RDW Coeff of Higinio (11.5-14.5) % Plt Count (130-400) K/uL MPV (7.4-10.4) fL Immature Gran % (Auto) % Neut % (Auto) % Lymph % (Auto) % Gibson % (Auto) % Eos % (Auto) % Baso % (Auto) % Neut # (Auto) (1.4-6.5) K/uL Lymph # (Auto) (1.2-3.4) K/uL Gibson # (Auto) (0.11-0.59) K/uL Eos # (Auto) (0-0.5) K/uL Baso # (Auto) (0-0.2) K/uL Immature Gran # (Auto) (0.00-0.02) K/uL Sodium 141 (136-145) mmol/L Potassium 3.2 L (3.5-5.1) mmol/L Chloride 109 H (98-107) mmol/L Carbon Dioxide 23 (21-32) mmol/L Anion Gap 9.0 (3-11) BUN 48 H (7-18) mg/dl Creatinine 1.87 H D (0.6-1.2) mg/dl Est Cr Clr Drug Dosing 24.8 ml/min Est GFR ( Amer) 29.1 Est GFR (Non-Af Amer) 25.1 BUN/Creatinine Ratio 25.9 H (10-20) Glucose 102 H (70-99) mg/dl POC Glucose 101 H (70-99) mg/dl Estimat Average Glucose 137 mg/dl Hemoglobin A1c 6.4 H (4.5-5.6) % Calcium 8.0 L D (8.5-10.1) mg/dl Magnesium 2.3 (1.8-2.4) mg/dl Total Bilirubin (0.2-1) mg/dl AST (15-37) U/L ALT (12-78) U/L Alkaline Phosphatase (45-117) U/L Troponin I (0-0.045) ng/ml Total Protein (6.4-8.2) gm/dl Albumin (3.4-5.0) gm/dl Globulin (2.5-4.0) gm/dl Albumin/Globulin Ratio (0.9-2) Urine Color Urine Appearance (Clear) Urine pH (4.5-7.5) Ur Specific [place] (1.000-1.030) Urine Protein (Negative) Urine Glucose (UA) (Negative) Urine Ketones (Negative) Urine Blood (Negative) Urine Nitrite (Negative) Urine Bilirubin (Negative) Urine Urobilinogen (Negative) Ur Leukocyte Esterase (Negative) Urine WBC (Auto) (0-5) /hpf Urine RBC (Auto) (0-4) /hpf U Hyaline Cast (Auto) (0-5) /lpf U Epithel Cells (Auto) (0-5) /lpf Urine Bacteria (Auto) (Negative) COVID-19 Eval Order SARS-CoV-2, RNA, NAAT (NEGATIVE) 06/21/20 06/20/20 06/20/20 Range/Units 05:04 21:50 21:50 WBC 10.78 (4.8-10.8) K/uL RBC 3.92 L (4.2-5.4) M/uL Hgb 10.6 L (12.0-16.0) g/dL Hct 31.7 L (37-47) % MCV 80.9 (80-100) fL MCH 27.0 (25-34) pg MCHC 33.4 (32-36) g/dL RDW Std Deviation 43.1 (36.4-46.3) fL RDW Coeff of Higinio 14.7 H (11.5-14.5) % Plt Count 288 (130-400) K/uL MPV 10.8 H (7.4-10.4) fL Immature Gran % (Auto) 0.4 % Neut % (Auto) 63.3 % Lymph % (Auto) 23.6 % Gibson % (Auto) 11.4 % Eos % (Auto) 1.1 % Baso % (Auto) 0.2 % Neut # (Auto) 6.83 H (1.4-6.5) K/uL Lymph # (Auto) 2.54 (1.2-3.4) K/uL Gibson # (Auto) 1.23 H (0.11-0.59) K/uL Eos # (Auto) 0.12 (0-0.5) K/uL Baso # (Auto) 0.02 (0-0.2) K/uL Immature Gran # (Auto) 0.04 H (0.00-0.02) K/uL Sodium (136-145) mmol/L Potassium (3.5-5.1) mmol/L Chloride (98-107) mmol/L Carbon Dioxide (21-32) mmol/L Anion Gap (3-11) BUN (7-18) mg/dl Creatinine (0.6-1.2) mg/dl Est Cr Clr Drug Dosing ml/min Est GFR ( Amer) Est GFR (Non-Af Amer) BUN/Creatinine Ratio (10-20) Glucose (70-99) mg/dl POC Glucose (70-99) mg/dl Estimat Average Glucose mg/dl Hemoglobin A1c (4.5-5.6) % Calcium (8.5-10.1) mg/dl Magnesium (1.8-2.4) mg/dl Total Bilirubin (0.2-1) mg/dl AST (15-37) U/L ALT (12-78) U/L Alkaline Phosphatase (45-117) U/L Troponin I (0-0.045) ng/ml Total Protein (6.4-8.2) gm/dl Albumin (3.4-5.0) gm/dl Globulin (2.5-4.0) gm/dl Albumin/Globulin Ratio (0.9-2) Urine Color Urine Appearance (Clear) Urine pH (4.5-7.5) Ur Specific [place] (1.000-1.030) Urine Protein (Negative) Urine Glucose (UA) (Negative) Urine Ketones (Negative) Urine Blood (Negative) Urine Nitrite (Negative) Urine Bilirubin (Negative) Urine Urobilinogen (Negative) Ur Leukocyte Esterase (Negative) Urine WBC (Auto) (0-5) /hpf Urine RBC (Auto) (0-4) /hpf U Hyaline Cast (Auto) (0-5) /lpf U Epithel Cells (Auto) (0-5) /lpf Urine Bacteria (Auto) (Negative) COVID-19 Eval Order Covid19 [facility] SARS-CoV-2, RNA, NAAT NEGATIVE (NEGATIVE) 06/20/20 06/20/20 06/20/20 Range/Units 20:40 19:26 19:20 WBC 10.52 (4.8-10.8) K/uL RBC 4.68 (4.2-5.4) M/uL Hgb 12.8 (12.0-16.0) g/dL Hct 38.5 (37-47) % MCV 82.3 (80-100) fL MCH 27.4 (25-34) pg MCHC 33.2 (32-36) g/dL RDW Std Deviation 43.8 (36.4-46.3) fL RDW Coeff of Higinio 14.6 H (11.5-14.5) % Plt Count 304 (130-400) K/uL MPV 10.4 (7.4-10.4) fL Immature Gran % (Auto) 0.6 % Neut % (Auto) 62.2 % Lymph % (Auto) 25.0 % Gibson % (Auto) 11.6 % Eos % (Auto) 0.4 % Baso % (Auto) 0.2 % Neut # (Auto) 6.55 H (1.4-6.5) K/uL Lymph # (Auto) 2.63 (1.2-3.4) K/uL Gibson # (Auto) 1.22 H (0.11-0.59) K/uL Eos # (Auto) 0.04 (0-0.5) K/uL Baso # (Auto) 0.02 (0-0.2) K/uL Immature Gran # (Auto) 0.06 H (0.00-0.02) K/uL Sodium 136 (136-145) mmol/L Potassium 3.5 (3.5-5.1) mmol/L Chloride 104 (98-107) mmol/L Carbon Dioxide 25 (21-32) mmol/L Anion Gap 7.0 (3-11) BUN 50 H (7-18) mg/dl Creatinine 2.68 H (0.6-1.2) mg/dl Est Cr Clr Drug Dosing 18.2 ml/min Est GFR ( Amer) 18.8 Est GFR (Non-Af Amer) 16.3 BUN/Creatinine Ratio 18.8 (10-20) Glucose 107 H (70-99) mg/dl POC Glucose (70-99) mg/dl Estimat Average Glucose mg/dl Hemoglobin A1c (4.5-5.6) % Calcium 9.5 (8.5-10.1) mg/dl Magnesium (1.8-2.4) mg/dl Total Bilirubin 0.7 (0.2-1) mg/dl AST 33 (15-37) U/L ALT 42 (12-78) U/L Alkaline Phosphatase 190 H (45-117) U/L Troponin I < 0.015 (0-0.045) ng/ml Total Protein 9.1 H (6.4-8.2) gm/dl Albumin 3.1 L (3.4-5.0) gm/dl Globulin 6.0 H (2.5-4.0) gm/dl Albumin/Globulin Ratio 0.5 L (0.9-2) Urine Color Yellow Urine Appearance Cloudy A (Clear) Urine pH 5.0 (4.5-7.5) Ur Specific [place] 1.019 (1.000-1.030) Urine Protein 1+ H (Negative) Urine Glucose (UA) Negative (Negative) Urine Ketones Negative (Negative) Urine Blood 1+ H (Negative) Urine Nitrite Negative (Negative) Urine Bilirubin Negative (Negative) Urine Urobilinogen Negative (Negative) Ur Leukocyte Esterase 3+ H (Negative) Urine WBC (Auto) >30 H (0-5) /hpf Urine RBC (Auto) 0-4 (0-4) /hpf U Hyaline Cast (Auto) 5-10 H (0-5) /lpf U Epithel Cells (Auto) >30 H (0-5) /lpf Urine Bacteria (Auto) 1+ H (Negative) COVID-19 Eval Order SARS-CoV-2, RNA, NAAT (NEGATIVE) Medications Administered Current Inpatient Medications Acetaminophen (Acetaminophen 325 Mg Tab) 650 mg PO Q4H PRN PRN Reason: Pain or Fever Stop: 07/21/20 02:03 Cetirizine HCl (Cetirizine Hcl 10 Mg Tablet) 10 mg PO DAILY [facility] Stop: 07/21/20 08:59 Last Admin: 06/21/20 09:28 Dose: 10 mg Documented by: Diphenoxylate HCl/Atropine (Diphenoxylate/Atropine 2.5/0.025mg Tab) 1 tab PO PRN PRN PRN Reason: Diarrhea Stop: 07/21/20 02:03 Sodium Chloride (Nss 1000ml) 1,000 mls @ 80 mls/hr IV .[id number] [facility] Stop: 07/21/20 02:03 Last Admin: 06/21/20 02:11 Dose: 80 mls/hr Documented by: Ceftriaxone Sodium 2,000 mg/ (Dextrose) 70 mls @ 100 mls/hr IV Q24H [facility]; Protocol Stop: 06/29/20 19:41 Insulin Aspart (Insulin Aspart 100 Units/Ml 3 Ml Pen) 0 units SC ACHS [facility] Stop: 07/21/20 07:29 Last Admin: 06/21/20 09:30 Dose: Not Given Documented by: Lorazepam (Lorazepam 1 Mg Tab) 1 mg PO TID PRN PRN Reason: Anxiety Stop: 07/21/20 02:12 Meclizine HCl (Meclizine Hcl 25 Mg Tab) 25 mg PO TID PRN PRN Reason: Dizziness Or Vertigo Stop: 07/21/20 02:12 Nitroglycerin (Nitroglycerin Sl 0.4 Mg/Tab Tab) 0.4 mg SL UD PRN PRN Reason: Chest Pain Stop: 07/21/20 02:03 Ondansetron HCl (Ondansetron Inj 2 Mg/Ml 2 Ml Vial) 4 mg IV Q6H PRN PRN Reason: Nausea Stop: 07/21/20 02:03 Polyethylene Glycol (Polyethylene (Miralax) 17 Gm Pack) 17 gm PO DAILY PRN PRN Reason: Constipation Stop: 07/21/20 02:03 Pravastatin Sodium (Pravastatin Sod 10 Mg Tab) 10 mg PO QAM [facility] Stop: 07/21/20 08:59 Last Admin: 06/21/20 09:28 Dose: 10 mg Documented by: Tramadol HCl (Tramadol Hcl 50 Mg Tablet) 50 mg PO Q6H PRN PRN Reason: Pain Stop: 07/21/20 02:03 Last Admin: 06/21/20 02:23 Dose: 50 mg Documented by: Valsartan (Valsartan/Hctz 80/12.5mg Tab) 1 tab PO QAM [facility] Stop: 07/21/20 08:59 (1) Fall Encounter type: initial encounter Qualified Code(s): W19.XXXA - Unspecified fall, initial encounter
--- NOTE | 2020-06-21 10:38 | Urology Consultation ---
Date of Consultation June 21, 2020 Assessment & Plan (1) Staghorn renal calculus: (2) Fall: 80 year-old female patient, with multiple comorbidities, admitted s/p fall secondary to dizziness and presumed UTI. -Plan of care reviewed with Dr. Newman. -Patient afebrile, non-toxic on exam. -Labs reviewed - white count normal, creatinine elevated however improving. -Imaging reviewed - large staghorn right renal calculus with right renal atrophy, consistent with chronic disease/infection/stone. -As she is currently without fever or flank pain, recommend continued observation. -Urine culture pending, await results. -Continue with antibiotic therapy while culture pending. -If patient develops fevers or acute changes in clinical status, consider stent placement. -Patient will need close follow-up as outpatient with urology service once discharged. -Will continue to follow while inpatient. Please consult our service urgently if patient develops fever >101F, intractable pain or nausea, as this will necessitate urgent surgical intervention. History of Present Illness Reason for Consultation: Kidney stone Attending Physician: Adrián Foster MD History of Present Illness 80-year-old female patient, with past medical history significant for type 2 diabetes, Charcot foot, hyperlipidemia, irritable bowel syndrome, generalized anxiety disorder, and vertigo, who presented to the emergency room status post fall and secondary to dizziness. Patient reports she fell after work and hit the front of her head at home. Denies loss of consciousness during fall. She was presumed to have a urinary tract infection and was admitted for further evaluation. Urology consulted due to large right staghorn calculus. Patient reports she does not currently follow with urology. She has a remote history of kidney stones roughly 50 years ago after the of her daughter. She did spontaneously pass those stones without any surgical intervention. Chart review: Afebrile. Blood pressure stable. Wbc 10.78 Hgb 10.6 Creatinine 1.87 (previously 2.68 on 06/20) Urinalysis nitrate negative, +3 leukocytes, >30 wbc, 0-4 rbc, >30 epithelial cells, +1 bacteria. Urine culture pending. Patient currently on IV Ceftriaxone. Imaging - CT abd/pelvis without contrast - IMPRESSION: 1. Large right renal staghorn calculus with associated collecting system dilatation and extensive urothelial thickening and adjacent infiltration of the right collecting system and proximal right ureter. These findings are age indeterminate and an acute infectious process cannot be excluded. Moderate to marked right renal atrophy. No ureteral calculi. 2. Cholelithiasis. 3. Mildly dilated appendix. No adjacent infiltration to strongly suggest acute appendicitis. 4. Colonic diverticulosis without evidence for acute diverticulitis. Patient examined at bedside. She was resting comfortably, non-toxic on exam. She currently denies flank or abdominal pain. She denies dysuria or hematuria. Nocturia 0-2 per night on average. Does report baseline urinary frequency, denies urgency. Feels she empties her bladder well. Denies bladder pain or pressure. Denies fevers. Does report pain in her left shoulder. Continues to have some symptoms of vertigo. Denies nausea or vomiting, did eat breakfast this morning. She reports she currently does not feel ill. Denies additional urologic concerns today. Allergies Allergy/AdvReac Type Severity Reaction Status Date / Time JAC Inhibitors Allergy Unknown edema Verified 06/20/20 22:02 face/lips/tongue diphenhydramine AdvReac Unknown flushing, Verified 06/20/20 22:03 hyperactivity azithromycin AdvReac severe Verified 06/20/20 22:03 [From Zithromax Z-Devon] vertigo Home Medications Medication Instructions Recorded Confirmed Type diphenoxylate-atropine 1 tab PO .UD PRN MDD 8 TABS 04/12/18 06/20/20 History estradiol 1 mg PO QAM 04/12/18 06/20/20 History meclizine 25 mg PO TID PRN 04/12/18 06/20/20 History medroxyprogesterone 2.5 mg PO QAM 04/12/18 06/20/20 History pravastatin 10 mg PO QAM 04/12/18 06/20/20 History valsartan-hydrochlorothiazide 1 tab PO QAM 04/12/18 06/20/20 History cetirizine 10 mg PO DAILY 10/11/18 06/20/20 History lorazepam 1 mg PO TID PRN 06/20/20 06/20/20 History naproxen 220 mg PO Q6H PRN 06/20/20 06/20/20 History tramadol 50 mg PO Q6H PRN 06/20/20 06/20/20 History Patient History Medical History (Updated 06/21/20 @ 10:33 by RACHEAL Young) Diabetes mellitus DIET CONTROLLED Hypertension Osteoarthritis Surgical History History of bilateral tubal ligation History of total knee replacement LEFT Hx of right cataract extraction Family History Father Family history of diabetes mellitus Mother Family history of diabetes mellitus Brother Family history of diabetes mellitus Social History Smoking Status: Never smoker Tobacco Type: Cigarettes Second Hand Exposure: No; Do You Dip or Chew Tobacco: No; Tobacco Cessation Education Requested by Patient: No Hx Alcohol Use: No Hx Substance Use: No Preferred Language: Egyptian Communication Ability: Effective Design Director Required: No Beliefs That Will Affect Care: Uatsdin Uatsdin Beliefs: Christianity Current Living Situation: Family Other Information That Helps Us Care for You: No Feels Safe at Home: Yes Safety Concerns: Feels Safe At This Time Assistive Devices: Cane, Glasses and Walker Review of Systems Constitutional: as per Subjective / HPI; no fever and no chills Eyes: no problem reported Ear, Nose, Mouth, Throat: as per Subjective / HPI Respiratory: + dyspnea on exertion; no cough Cardiovascular: no chest pain and no edema Gastrointestinal: as per Subjective / HPI Genitourinary: as per Subjective / HPI Musculoskeletal: as per Subjective / HPI Neurologic: as per Subjective / HPI Endocrine: no problem reported Hematologic / Lymphatic: no easy bleeding and no easy bruising Physical Exam Constitutional: well developed and well nourished; no acute distress and not ill appearing ENMT: Ears: no external ear abnormality Nose: no external nose abnormality Neck: normal visual inspection and trachea midline Respiratory: normal respiratory effort and able to speak in complete sentences; no respiratory distress and no audible wheezes Cardiovascular: Extremities: + edema (Non pitting edema to b/l lower extremities); no calf tenderness Gastrointestinal (Abdomen): Inspection/Auscultation: abdomen normal to inspection; abdomen not distended Percussion/Palpation: abdomen soft; abdomen nontender and no guarding Musculoskeletal: Moves all extremities without difficulty. Skin: No visible rashes, lesions, or wounds noted. Neurologic: moves all extremities and awake Psychiatric: Orientation: alert, oriented x 3 and cooperative Affect: euthymic affect Genitourinary: no CVA tenderness Results & Data ([facility]) Vital Signs (Past 12 Hours) Vital Signs Temp Pulse Pulse Resp BP BP BP 06/21/20 08:00 73 06/21/20 07:40 36.9 C 68 17 114/72 06/21/20 04:30 74 06/21/20 03:42 37.1 C 73 18 129/75 06/21/20 02:03 37.2 C 72 18 135/70 06/21/20 00:00 67 20 120/70 06/20/20 23:00 65 20 06/20/20 22:00 59 L 14 127/67 Pulse Ox 06/21/20 08:00 06/21/20 07:40 94 06/21/20 04:30 06/21/20 03:42 96 06/21/20 02:03 96 06/21/20 00:00 98 06/20/20 23:00 06/20/20 22:00 98 PG Care Time/CCT Total # of Minutes Spent Total Time Spent with Patient: Total time spent is greater than 50% in coordination of care (as documented) at patient's floor/unit and/or counseling patient: Coding Level of Care Code 71329 Initial Inpt Care Lvl 2 Diagnoses Staghorn renal calculus N20.0 Fall W19.XXXA Encounter type: initial encounter (1) Fall Encounter type: initial encounter Qualified Code(s): W19.XXXA - Unspecified fall, initial encounter
--- NOTE | 2020-06-21 14:07 | Magnetic Resonance Report ---
MRI OF THE BRAIN WITHOUT CONTRAST CLINICAL HISTORY: vertigo/ poss. seizure COMPARISON STUDY: CT scan dated 06/20/2020, MRI the brain dated 01/10/2007 FINDINGS: Sagittal T1, axial diffusion, proton density and T2 weighted axial, coronal FLAIR, and axial T1-weigh devin images were acquired. No intra or extra-axial mass lesions are visualized Axial diffusion-weighted images reveal no evidence of acute or subacute infarction. There is no evidence of ventricular dilatation. Proton density T2-weighted and FLAIR images reveal moderate foci of increased T2 signal within the wh ite matter, likely on a small vessel basis. These progressive when compared the preceding 2006 study. There are no abnormal flow voids. There is an enlarging 19 mm cystic lesion within the left parotid gland with dependent debris. This l esion measured 11 mm in 2006. The slow interval growth favors a benign lesion IMPRESSION: 1. No acute intracranial findings 2. No evidence of intracranial mass 3. No evidence of acute or subacute infarction 4. White matter disease likely on a small vessel basis. This is progressive compared the prior 2006 s tudy 5. Enlarging 19 mm cystic left parotid lesion with dependent debris/calcification. ACT 112: Negative or not required by law. Electronically signed by: Neville Murdock M.D. 06/21/2020 2:06 PM
--- NOTE | 2020-06-21 16:08 | Ultrasound Report ---
ULTRASOUND OF THE CAROTID ARTERIES CLINICAL HISTORY: Fall. Vertigo. COMPARISON STUDY: No priors. TECHNIQUE: Real-time, grayscale, and color Doppler sonography of the carotid arteries is performed. I mages are reviewed in the transverse and longitudinal planes. FINDINGS: Blood pressures were not assessed due to the presence of IV catheters. The carotid arteries are patent bilaterally and demonstrate antegrade flow. There is mild atheroscler otic plaque seen in the carotid bulbs, right greater than left. Normal doppler arterial waveforms are seen throughout. Velocity measurements are listed below. Common carotid peak systolic velocity (cm/sec): RIGHT: 84 LEFT: 103 ICA proximal peak systolic velocity (cm/sec): RIGHT: 53 LEFT: 48 ICA mid peak systolic velocity (cm/sec): RIGHT: 27 LEFT: 60 ICA distal peak systolic velocity (cm/sec): RIGHT: 53 LEFT: 64 ICA/CC peak systolic ratio: RIGHT: 0.6 LEFT: 0.6 Antegrade flow was shown in the vertebral arteries. The external carotid arteries are patent. IMPRESSION: 1. There is no sonographic evidence of hemodynamically significant stenosis in the right or left stern tid arterial system. 2. Antegrade flow is shown in the vertebral arteries. ACT 112: Negative or not required by law. Electronically signed by: Joshua Long M.D. 06/21/2020 4:06 PM
--- NOTE | 2020-06-21 16:20 | Neurology Consultation ---
Date of Consultation June 21, 2020 Assessment & Plan (1) Vertigo: 1. continue meclizine TID prn 2. follow up with ENT for further evaluation- if needed 3. lorazapam prn for severe symptoms 4. PT - Davida and home exercises 5. no follow up with neurology needed will sign off for now will be available as needed. Present on Admission?: Yes (2) Acute UTI: 1. 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 She has a number of other medical problems as outlined She was admitted to the hospital for intractable vertigo despite her use of meclizine [id number] at home. She apparently was unable to obtain her usual lorazepam whose prescription had run out and also seemingly has had a urinary tract infection of recent origin based on the laboratory studies We elected to try to establish whether or not she had a vascular event involving the brainstem or cerebellum and an MRI is normal with the exception of some white matter changes of chronic type not inconsistent with her age and a duplex of the carotids shows good vertebral flow. We initially wanted to do a CT angiographic study but her attending physician became a little concerned about the elevated creatinine at 1.8 and canceled the studies and canceled the enhanced portion of the MRI. At this point I think it is essential we try to get these examinations as the noncontrast MRI is essentially clean for an acute CVA and the duplex does not reveal any significant flow reduction Her exam is really pretty stable she does not have any nystagmus she can induce vertigo by rotating her head from side to side but she is able to ambulate in the room and feels that she is much better subjectively and getting close to her old baseline At this point neurology does not have a lot more to offer other than what the in ternal medicine service is already offering i.e. meclizine as needed and Ativan as needed and obviously treatment of the urinary tract infection is felt to be significant as this "toxic" factor could have set off a pre-existing tendency for vertigo which is clearly present historically in his case We are going to sign off and we will be happy to reassess her in the future if necessary during this hospital stay if things change but I do not believe we need to follow her regularly in the clinic Delvin Sánchez MD History of Present Illness Reason for Consultation: vertigo Requesting Physician: Adrián Foster MD Attending Physician: Adrián Foster MD History of Present Illness Marcy is a 80 year old female with PMH- DM2, Charcot foot, HLD, IBS, SAIMA, who presents with a fall and was dizziness at home. She has a history of vertigo has been going on for the last few days. She says meclizine` helps but sometimes it gets worse and still works at [employer]. She had to go home because of dizziness and she fell and hit the front of the head and right wrist, which is hurting. She states the lorazapam usually stops it but she could not find her pills. She has had a significant work up in the past for vertigo and no cause was found. denies CP, SOB, abdominal pain, +R wrist pain. Allergies Allergy/AdvReac Type Severity Reaction Status Date / Time JAC Inhibitors Allergy Unknown edema Verified 06/20/20 22:02 face/lips/tongue diphenhydramine AdvReac Unknown flushing, Verified 06/20/20 22:03 hyperactivity azithromycin AdvReac severe Verified 06/20/20 22:03 [From Zithromax Z-Devon] vertigo Home Medications Medication Instructions Recorded Confirmed Type diphenoxylate-atropine 1 tab PO .UD PRN MDD 8 TABS 04/12/18 06/20/20 History estradiol 1 mg PO QAM 04/12/18 06/20/20 History meclizine 25 mg PO TID PRN 04/12/18 06/20/20 History medroxyprogesterone 2.5 mg PO QAM 04/12/18 06/20/20 History pravastatin 10 mg PO QAM 04/12/18 06/20/20 History valsartan-hydrochlorothiazide 1 tab PO QAM 04/12/18 06/20/20 History cetirizine 10 mg PO DAILY 10/11/18 06/20/20 History lorazepam 1 mg PO TID PRN 06/20/20 06/20/20 History naproxen 220 mg PO Q6H PRN 06/20/20 06/20/20 History tramadol 50 mg PO Q6H PRN 06/20/20 06/20/20 History Patient History Medical History (Updated 06/21/20 @ 16:25 by Bebe Gomes PA-C) Diabetes mellitus DIET CONTROLLED Hypertension Osteoarthritis Surgical History History of bilateral tubal ligation History of total knee replacement LEFT Hx of right cataract extraction Family History Father Family history of diabetes mellitus Mother Family history of diabetes mellitus Brother Family history of diabetes mellitus Social History Smoking Status: Never smoker Tobacco Type: Cigarettes Second Hand Exposure: No; Do You Dip or Chew Tobacco: No; Tobacco Cessation Education Requested by Patient: No Hx Alcohol Use: No Hx Substance Use: No Preferred Language: Russian Communication Ability: Effective Dairy Farm Manager Required: No Beliefs That Will Affect Care: Amish Amish Beliefs: Bahai Current Living Situation: Family Other Information That Helps Us Care for You: No Feels Safe at Home: Yes Safety Concerns: Feels Safe At This Time Assistive Devices: Cane, Glasses and Walker Review of Systems Review of Systems: All systems reviewed & are unremarkable except as noted in HPI & below Physical Exam Physical Exam: Physical Exam: Constitutional: appearance over nourished, healthy Ears, Nose, Mouth and Throat: mucous membranes moist, no injection and skin normal, eyes normal Cardiovascular: normal S-1 and S-2 and regular rate and rhythm Respiratory: clear to auscultation (CTA) and no rales, rhonchi or wheeze Musculoskeletal: no peripheral edema and good distal pulses Skin: no stigmata of neurocutaneous disease noted and normal and intact Eyes: extraocular muscles intact (EOMI) and pupils equal, round and reactive to light (PERRL) no nystagmus NEUROLOGIC EXAMINATION: Mental status: Alert and interactive Oriented to full date and location Oriented to person Speech fluent with no evidence of aphasia Cranial Nerves facial symmetry Sensory: light cool touch Coordination: finger to nose no bi pass Gait/Stance: Posture normal. Gait normal: with steady with steps, base, turning and tandem gait. Motor: Negative for pronator drift of out stretched arms with eyes closed. 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 polisher apprentice biceps triceps 5/5 bilaterally, get up and walks with no assistance Results & Data ([facility]) Vital Signs (Past 12 Hours) Vital Signs Temp Pulse Pulse Resp BP Pulse Ox 06/21/20 15:57 36.6 C 76 18 126/73 95 06/21/20 11:08 37.0 C 77 20 108/67 92 06/21/20 08:00 73 06/21/20 07:40 36.9 C 68 17 114/72 94 06/21/20 04:30 74 Laboratory Results Abnormal lab results 06/20/20 06/20/20 06/20/20 Range/Units 19:20 19:26 20:40 RBC (4.2-5.4) M/uL Hgb (12.0-16.0) g/dL Hct (37-47) % RDW Coeff of Higinio 14.6 H (11.5-14.5) % MPV (7.4-10.4) fL Neut # (Auto) 6.55 H (1.4-6.5) K/uL [place] # (Auto) 1.22 H (0.11-0.59) K/uL Immature Gran # (Auto) 0.06 H (0.00-0.02) K/uL Potassium (3.5-5.1) mmol/L Chloride (98-107) mmol/L BUN 50 H (7-18) mg/dl Creatinine 2.68 H (0.6-1.2) mg/dl BUN/Creatinine Ratio (10-20) Glucose 107 H (70-99) mg/dl POC Glucose (70-99) mg/dl Hemoglobin A1c (4.5-5.6) % Calcium (8.5-10.1) mg/dl Alkaline Phosphatase 190 H (45-117) U/L Total Protein 9.1 H (6.4-8.2) gm/dl Albumin 3.1 L (3.4-5.0) gm/dl Globulin 6.0 H (2.5-4.0) gm/dl Albumin/Globulin Ratio 0.5 L (0.9-2) Urine Appearance Cloudy A (Clear) Urine Protein 1+ H (Negative) Urine Blood 1+ H (Negative) Ur Leukocyte Esterase 3+ H (Negative) Urine WBC (Auto) >30 H (0-5) /hpf U Hyaline Cast (Auto) 5-10 H (0-5) /lpf U Epithel Cells (Auto) >30 H (0-5) /lpf Urine Bacteria (Auto) 1+ H (Negative) 06/21/20 06/21/20 06/21/20 Range/Units 05:04 05:04 05:04 RBC 3.92 L (4.2-5.4) M/uL Hgb 10.6 L (12.0-16.0) g/dL Hct 31.7 L (37-47) % RDW Coeff of Higinio 14.7 H (11.5-14.5) % MPV 10.8 H (7.4-10.4) fL Neut # (Auto) 6.83 H (1.4-6.5) K/uL [place] # (Auto) 1.23 H (0.11-0.59) K/uL Immature Gran # (Auto) 0.04 H (0.00-0.02) K/uL Potassium 3.2 L (3.5-5.1) mmol/L Chloride 109 H (98-107) mmol/L BUN 48 H (7-18) mg/dl Creatinine 1.87 H D (0.6-1.2) mg/dl BUN/Creatinine Ratio 25.9 H (10-20) Glucose 102 H (70-99) mg/dl POC Glucose (70-99) mg/dl Hemoglobin A1c 6.4 H (4.5-5.6) % Calcium 8.0 L D (8.5-10.1) mg/dl Alkaline Phosphatase (45-117) U/L Total Protein (6.4-8.2) gm/dl Albumin (3.4-5.0) gm/dl Globulin (2.5-4.0) gm/dl Albumin/Globulin Ratio (0.9-2) Urine Appearance (Clear) Urine Protein (Negative) Urine Blood (Negative) Ur Leukocyte Esterase (Negative) Urine WBC (Auto) (0-5) /hpf U Hyaline Cast (Auto) (0-5) /lpf U Epithel Cells (Auto) (0-5) /lpf Urine Bacteria (Auto) (Negative) 06/21/20 06/21/20 Range/Units 07:47 11:25 RBC (4.2-5.4) M/uL Hgb (12.0-16.0) g/dL Hct (37-47) % RDW Coeff of Higinio (11.5-14.5) % MPV (7.4-10.4) fL Neut # (Auto) (1.4-6.5) K/uL [place] # (Auto) (0.11-0.59) K/uL Immature Gran # (Auto) (0.00-0.02) K/uL Potassium (3.5-5.1) mmol/L Chloride (98-107) mmol/L BUN (7-18) mg/dl Creatinine (0.6-1.2) mg/dl BUN/Creatinine Ratio (10-20) Glucose (70-99) mg/dl POC Glucose 101 H 117 H (70-99) mg/dl Hemoglobin A1c (4.5-5.6) % Calcium (8.5-10.1) mg/dl Alkaline Phosphatase (45-117) U/L Total Protein (6.4-8.2) gm/dl Albumin (3.4-5.0) gm/dl Globulin (2.5-4.0) gm/dl Albumin/Globulin Ratio (0.9-2) Urine Appearance (Clear) Urine Protein (Negative) Urine Blood (Negative) Ur Leukocyte Esterase (Negative) Urine WBC (Auto) (0-5) /hpf U Hyaline Cast (Auto) (0-5) /lpf U Epithel Cells (Auto) (0-5) /lpf Urine Bacteria (Auto) (Negative) Diagnostic Findings Carotid doppler-There is no sonographic evidence of hemodynamically significant stenosis in the right or left carotid arterial system. Antegrade flow is shown in the vertebral arteries. MRI brain- No acute intracranial findings No evidence of intracranial mass No evidence of acute or subacute infarction White matter disease likely on a small vessel basis. This is progressive compared the prior 2006 study Enlarging 19 mm cystic left parotid lesion with dependent debris/calcification.
[2020-06-21] MEDS ORDERED: cefTRIAXone SODIUM 2,000 MG in DEXTROSE 5% 50 ML IV SCH (19:00)
[2020-06-21] MEDS ORDERED: SODIUM CHLORIDE 0.9% 1000ML 1,000 ML IV SCH (21:30)
[2020-06-21 21:46] LABS: Hematocrit (blood only) 34.1 % (37-47); Hemoglobin 11.3 g/dL (12.0-16.0)
--- NOTE | 2020-06-22 05:40 | Electrocardiogram Report ---
Test Reason : Blood Pressure : / mmHG Vent. Rate : 070 BPM Atrial Rate : 070 BPM P-R Int : 128 ms QRS Dur : 076 ms QT Int : 432 ms P-R-T Axes : 051 032 033 degrees QTc Int : 466 ms Sinus rhythm with Premature atrial complexes Low voltage QRS Borderline ECG When compared with ECG of 11-OCT-2017 11:47, Premature atrial complexes are now Present Confirmed by Chirag Pascual ([id number]) on 06/22/2020 5:39:55 AM Referred By: REFERRED SELF Confirmed By:Chirag Pascual
[2020-06-22 07:34] LABS: Hematocrit (blood only) 31.1 % (37-47); Hemoglobin 10.4 g/dL (12.0-16.0); Mean Corpuscular Hemoglobin 27.2 pg (25-34); Mean Corpuscular Hgb Conc 33.4 g/dL (32-36); Mean Corpuscular Volume 81.4 fL (80-100); Mean Platelet Volume 10.2 fL (7.4-10.4); Platelet Count 266 K/uL (130-400); RDW Coefficient of Variation 14.7 % (11.5-14.5); RDW Standard Deviation 44.1 fL (36.4-46.3); Red Blood Count 3.82 M/uL (4.2-5.4); White Blood Count 10.01 K/uL (4.8-10.8)
--- NOTE | 2020-06-22 07:47 | Urology Progress Note ---
Date of Service June 22, 2020 Assessment & Plan (1) Staghorn renal calculus: (2) Fall: 80 year-old female patient, with multiple comorbidities, admitted s/p fall secondary to dizziness and presumed UTI. -Plan of care reviewed with Dr. Newman. -Patient afebrile, non-toxic on exam. -Labs reviewed - white count remains normal, creatinine now normal. -Imaging reviewed - large staghorn right renal calculus with right renal atrophy, consistent with chronic disease/infection/stone. -As she is currently without fever or flank pain, recommend continued observation. -Preliminary urine culture with gram negative bacilli, await final. -Continue with IV antibiotic therapy while culture pending, transition to PO based on sensitivities. -If patient develops fevers or acute changes in clinical status, consider stent placement. -Patient will need close follow-up as outpatient with urology service once discharged, will arrange. -Will continue to follow while inpatient. Please consult our service urgently if patient develops fever >101F, intractable pain or nausea, as this will necessitate urgent surgical intervention. Admission and Anticipated Discharge Date Admission Date: June 20, 2020 Subjective Patient examined at bedside, alert and awake. She was resting comfortably, non-toxic on exam. She currently denies flank or abdominal pain. She denies dysuria or hematuria. Does report baseline urinary frequency, denies urgency. Denies bladder pain or pressure. Denies fevers or chills. Denies nausea or vomiting. She reports her weakness has significant improved along with the dizziness. Has been up ambulating without significant symptoms. Overall, has had improvement in symptoms. Chart review: Afebrile Wbc 10.01 Hgb 10.4 Creatinine 1.05 (previously 1.87) Preliminary urine culture with gram negative bacilli. Patient currently on IV Ceftriaxone. Denies additional urologic concerns today. Review of Systems Constitutional: as per Subjective / HPI; no fever and no chills Gastrointestinal: as per Subjective / HPI; no nausea and no vomiting Genitourinary: as per Subjective / HPI Neurologic: as per Subjective / HPI Physical Exam Constitutional: well developed and well nourished; no acute distress and not ill appearing Respiratory: normal respiratory effort and able to speak in complete sentences; no respiratory distress and no audible wheezes Gastrointestinal (Abdomen): Inspection/Auscultation: abdomen normal to inspection; abdomen not distended Percussion/Palpation: abdomen soft; abdomen nontender and no guarding Psychiatric: Orientation: alert, oriented x 3 and cooperative Affect: euthymic affect Genitourinary: no CVA tenderness Results & Data ([facility]) Vital Signs (Past 12 Hours) Vital Signs Temp Pulse Pulse Resp BP Pulse Ox 06/22/20 07:13 74 06/22/20 04:00 37.1 C 87 18 105/67 94 06/21/20 23:00 37.0 C 80 18 108/69 94 PG Care Time/CCT Total # of Minutes Spent Total Time Spent with Patient: Total time spent is greater than 50% in coordination of care (as documented) at patient's floor/unit and/or counseling patient: Coding Level of Care Code 49313 Subseq Hosp Care Lvl 2 Diagnoses Staghorn renal calculus N20.0 Fall W19.XXXA Encounter type: initial encounter (1) Fall Encounter type: initial encounter Qualified Code(s): W19.XXXA - Unspecified fall, initial encounter
[2020-06-22 08:19] LABS: BUN Creatinine Ratio 30.6 (10-20); Calcium 8.5 mg/dl (8.5-10.1); Creatinine Clr Calc Pharmacy 44.3 ml/min; Est GFR (African American) 58.5; Est GFR (Non-African American) 50.5; Phosphorus 3.2 mg/dl (2.5-4.9); Potassium 3.7 mmol/L (3.5-5.1)
[2020-06-22] MEDS: INSULIN ASPART 100 UNITS/ML 3 ML PEN SC SCH ×2 (08:23→11:38)
[2020-06-22] MEDS ORDERED: POTASSIUM CHLORIDE CRTAB 20 MEQ TABCR PO STA (08:49)
--- NOTE | 2020-06-22 08:56 | Hospitalist Progress Note ---
Date of Service June 22, 2020 Assessment & Plan (1) Vertigo: (2) Staghorn renal calculus: (3) Acute kidney injury: (4) Orthostasis: (5) Acute UTI: (6) Fall: This is a 80-year-old female who presents with vertigo, dizziness, and fall and found to have urinary tract infection, and staghorn renal calculus. 1. Vertigo: The patient has a history of vertigo and on meclizine prn at home as well as lorazepam prn. CT of the head unremarkable. MRI brain no acute CVA. Carotid US unremarkable. Echo - left ventricle normal in size. Mild concentric LVH. LV wall motion is normal. EF 55 to 60%. Left atrium is mildly dilated. Aortic valve sclerosis mild, without significant aortic valvular stenosis. There is moderate mitral annular calcification. There is trace mitral regurg. Was found Orthostatic in the ED. Urinary tract infection could be contributing. Will admit to med/tele. Closely monitor. Neurology consulted. Continue meclizine, lorazepam for now and gentle fluids. Re- checked orthostatics after IVF - no more orthostatic 2. Urinary tract infection, on Rocephin. Urine culture positive for E. coli, pansensitive, will continue treatment with p.o. antibiotic on discharge, cefuroxime. 3. Fall secondary to vertigo: Right wrist and elbow x-ray unremarkable. PT/OT evaluation obtained, recommend outpatient PT for Bartlett-Daroff habituation exercises for her chronic vertigo and to work on her balance 4. Hypertension: Will hold Diovan HCT for richard. We will monitor the blood pressure. BP on lower side. Recommend to hold Diovan for next 2 days/over the weekend 5. Diabetes, not on any medications. Current HbA1c 6.4%. Placed on diabetic diet.ISS. 6. RICHARD. Presented with Cr 2.68. then Cr down to 1.8 after IVF. Now 1.08 Resolved Partially pre-renal as pt reports poor oral intake for several days due to vertigo. Partially secondary to staghorn calculus and UTI. Urology consulted - plan for close outpt follow up. Cont gentle hydration while inpt. Avoid nephrotoxic drugs. Monitor BMP, will need outpt follow up 7. Hyperlipidemia, on statin. 8. Generalized anxiety disorder, on Ativan p.r.n. DVT prophylaxis, SCDs. DISPOSITION: Plan to discharge home and follow with family doctor. Admission and Anticipated Discharge Date Admission Date: June 20, 2020 Subjective Pt seen in follow up of vertigo, fall, RICHARD Currently laying in bed, in NAD No fevers or chills, chest pain, shortness of breath Vertigo better controlled now She is inquiring about going home today Review of Systems Review of Systems: All systems reviewed & are unremarkable except as noted in HPI & below Constitutional: no fever and no chills Respiratory: no cough and no dyspnea Cardiovascular: no chest pain and no palpitations Gastrointestinal: no abdominal pain, no nausea and no vomiting Physical Exam Physical Exam: GENERAL: The patient is of moderate build, not in acute distress. HEENT: Pupils equal, round, reactive to light. Oral mucosa moist. NECK: No JVD, no neck masses. CARDIOVASCULAR: S1, S2 heard. Regular rate and rhythm. No murmur, no gallop. RESPIRATORY SYSTEM: Normal AP diameter. No accessory muscle use. No wheezing, no crackles. ABDOMEN: Soft, bowel sounds present, nontender. No distention. CENTRAL NERVOUS SYSTEM: Alert and oriented x3, speech fluent, pt is answering questions appropriately, Cranial nerves II-XII grossly intact. Nonfocal. Moves extremities spontaneously EXTREMITIES: Mild pedal edema, no erythema. Results & Data Results & Data ([facility]) Vital Signs (Past 12 Hours) Vital Signs Temp Pulse Pulse Resp BP Pulse Ox 06/22/20 08:00 37.2 C 81 18 103/66 94 06/22/20 07:13 74 06/22/20 04:00 37.1 C 87 18 105/67 94 06/21/20 23:00 37.0 C 80 18 108/69 94 Laboratory Results 06/22/20 06/22/20 06/22/20 Range/Units 07:55 07:08 07:08 WBC 10.01 (4.8-10.8) K/uL RBC 3.82 L (4.2-5.4) M/uL Hgb 10.4 L (12.0-16.0) g/dL Hct 31.1 L (37-47) % MCV 81.4 (80-100) fL MCH 27.2 (25-34) pg MCHC 33.4 (32-36) g/dL RDW Std Deviation 44.1 (36.4-46.3) fL RDW Coeff of Higinio 14.7 H (11.5-14.5) % Plt Count 266 (130-400) K/uL MPV 10.2 (7.4-10.4) fL Sodium 142 (136-145) mmol/L Potassium 3.7 D (3.5-5.1) mmol/L Chloride 112 H (98-107) mmol/L Carbon Dioxide 21 (21-32) mmol/L Anion Gap 8.0 (3-11) BUN 32 H (7-18) mg/dl Creatinine 1.05 (0.6-1.2) mg/dl Est Cr Clr Drug Dosing 44.3 ml/min Est GFR ( Amer) 58.5 Est GFR (Non-Af Amer) 50.5 BUN/Creatinine Ratio 30.6 H (10-20) Glucose 93 (70-99) mg/dl POC Glucose 94 (70-99) mg/dl Calcium 8.5 (8.5-10.1) mg/dl Phosphorus 3.2 (2.5-4.9) mg/dl Magnesium 2.0 (1.8-2.4) mg/dl 06/21/20 06/21/20 06/21/20 Range/Units 21:38 20:37 16:37 WBC (4.8-10.8) K/uL RBC (4.2-5.4) M/uL Hgb 11.3 L (12.0-16.0) g/dL Hct 34.1 L (37-47) % MCV (80-100) fL MCH (25-34) pg MCHC (32-36) g/dL RDW Std Deviation (36.4-46.3) fL RDW Coeff of Higinio (11.5-14.5) % Plt Count (130-400) K/uL MPV (7.4-10.4) fL Sodium (136-145) mmol/L Potassium (3.5-5.1) mmol/L Chloride (98-107) mmol/L Carbon Dioxide (21-32) mmol/L Anion Gap (3-11) BUN (7-18) mg/dl Creatinine (0.6-1.2) mg/dl Est Cr Clr Drug Dosing ml/min Est GFR ( Amer) Est GFR (Non-Af Amer) BUN/Creatinine Ratio (10-20) Glucose (70-99) mg/dl POC Glucose 171 H 127 H (70-99) mg/dl Calcium (8.5-10.1) mg/dl Phosphorus (2.5-4.9) mg/dl Magnesium (1.8-2.4) mg/dl 06/21/20 Range/Units 11:25 WBC (4.8-10.8) K/uL RBC (4.2-5.4) M/uL Hgb (12.0-16.0) g/dL Hct (37-47) % MCV (80-100) fL MCH (25-34) pg MCHC (32-36) g/dL RDW Std Deviation (36.4-46.3) fL RDW Coeff of Higinio (11.5-14.5) % Plt Count (130-400) K/uL MPV (7.4-10.4) fL Sodium (136-145) mmol/L Potassium (3.5-5.1) mmol/L Chloride (98-107) mmol/L Carbon Dioxide (21-32) mmol/L Anion Gap (3-11) BUN (7-18) mg/dl Creatinine (0.6-1.2) mg/dl Est Cr Clr Drug Dosing ml/min Est GFR ( Amer) Est GFR (Non-Af Amer) BUN/Creatinine Ratio (10-20) Glucose (70-99) mg/dl POC Glucose 117 H (70-99) mg/dl Calcium (8.5-10.1) mg/dl Phosphorus (2.5-4.9) mg/dl Magnesium (1.8-2.4) mg/dl Medications Administered Current Inpatient Medications Acetaminophen (Acetaminophen 325 Mg Tab) 650 mg PO Q4H PRN PRN Reason: Pain or Fever Stop: 07/21/20 02:03 Cetirizine HCl (Cetirizine Hcl 10 Mg Tablet) 10 mg PO DAILY [facility] Stop: 07/21/20 08:59 Last Admin: 06/21/20 09:28 Dose: 10 mg Documented by: Diphenoxylate HCl/Atropine (Diphenoxylate/Atropine 2.5/0.025mg Tab) 1 tab PO PRN PRN PRN Reason: Diarrhea Stop: 07/21/20 02:03 Ceftriaxone Sodium 2,000 mg/ (Dextrose) 70 mls @ 100 mls/hr IV Q24H [facility]; Protocol Stop: 06/29/20 19:41 Last Infusion: 06/21/20 20:44 Dose: Infused Documented by: Insulin Aspart (Insulin Aspart 100 Units/Ml 3 Ml Pen) 0 units SC ACHS [facility] Stop: 07/21/20 07:29 Last Admin: 06/22/20 08:23 Dose: Not Given Documented by: Lorazepam (Lorazepam 1 Mg Tab) 1 mg PO TID PRN PRN Reason: Anxiety Stop: 07/21/20 02:12 Meclizine HCl (Meclizine Hcl 25 Mg Tab) 25 mg PO TID PRN PRN Reason: Dizziness Or Vertigo Stop: 07/21/20 02:12 Nitroglycerin (Nitroglycerin Sl 0.4 Mg/Tab Tab) 0.4 mg SL UD PRN PRN Reason: Chest Pain Stop: 07/21/20 02:03 Ondansetron HCl (Ondansetron Inj 2 Mg/Ml 2 Ml Vial) 4 mg IV Q6H PRN PRN Reason: Nausea Stop: 07/21/20 02:03 Polyethylene Glycol (Polyethylene (Miralax) 17 Gm Pack) 17 gm PO DAILY PRN PRN Reason: Constipation Stop: 07/21/20 02:03 Pravastatin Sodium (Pravastatin Sod 10 Mg Tab) 10 mg PO QAM [facility] Stop: 07/21/20 08:59 Last Admin: 06/21/20 09:28 Dose: 10 mg Documented by: Tramadol HCl (Tramadol Hcl 50 Mg Tablet) 50 mg PO Q6H PRN PRN Reason: Pain Stop: 07/21/20 02:03 Last Admin: 06/21/20 02:23 Dose: 50 mg Documented by: Valsartan (Valsartan/Hctz 80/12.5mg Tab) 1 tab PO QAM [facility] Stop: 07/21/20 08:59 (1) Fall Encounter type: initial encounter Qualified Code(s): W19.XXXA - Unspecified fall, initial encounter
[2020-06-22] MEDS: CETIRIZINE HCL 10 MG TABLET PO SCH (08:57)
[2020-06-22] MEDS: PRAVASTATIN SOD 10 MG TAB PO SCH (08:57)
--- NOTE | 2020-06-22 10:46 | Discharge Summary ---
Date of Service June 22, 2020 Admission HPI Per Admitting Provider A 80-year-old female with past medical history significant for type 2 diabetes, Charcot foot, hyperlipidemia, irritable bowel syndrome, generalized anxiety disorder, who presents with a fall and dizziness at home. She says the vertigo has been going on for the last few days. She has a history of vertigo. She says meclizine` helps but sometimes it gets worse. She works in [employer]. She had to go home because of dizziness and she fell and hit the front of the head and right wrist, which is hurting. No loss of consciousness. Denies any fever, chills. No chest pain, no shortness of breath, no cough, no blurred visions, no runny nose, no sore throat. Appetite is okay. No dysphagia, no nausea, no abdominal pain. Normal bowel and bladder movements. No rash. Currently resting comfortably and hemodynamically stable. Admission Exam Per Admitting Provider GENERAL: The patient is of moderate build, not in acute distress. VITAL SIGNS: Temperature 36.7, pulse 59, respiratory rate 14, blood pressure 127/67 and oxygen 98% on room air. HEENT: Pupils equal, round, reactive to light. Oral mucosa moist. NECK: No JVD, no neck masses. CARDIOVASCULAR: S1, S2 heard. Regular rate and rhythm. No murmur, no gallop. RESPIRATORY SYSTEM: Normal AP diameter. No accessory muscle use. No wheezing, no crackles. ABDOMEN: Soft, bowel sounds present, nontender. No distention. CENTRAL NERVOUS SYSTEM: Cranial nerves II-XII grossly intact. Nonfocal. EXTREMITIES: Mild pedal edema, no erythema. Principal Diagnosis Verigo Fall RICHARD UTI Staghorn renal calculus Discharge Exam GENERAL: The patient is of moderate build, not in acute distress. HEENT: Pupils equal, round, reactive to light. Oral mucosa moist. NECK: No JVD, no neck masses. CARDIOVASCULAR: S1, S2 heard. Regular rate and rhythm. No murmur, no gallop. RESPIRATORY SYSTEM: Normal AP diameter. No accessory muscle use. No wheezing, no crackles. ABDOMEN: Soft, bowel sounds present, nontender. No distention. CENTRAL NERVOUS SYSTEM: Alert and oriented x3, speech fluent, pt is answering questions appropriately, Cranial nerves II-XII grossly intact. Nonfocal. Moves extremities spontaneously EXTREMITIES: Mild pedal edema, no erythema. Discharge Data Allergies Allergy/AdvReac Type Severity Reaction Status Date / Time JAC Inhibitors Allergy Unknown edema Verified 06/20/20 22:02 face/lips/tongue diphenhydramine AdvReac Unknown flushing, Verified 06/20/20 22:03 hyperactivity azithromycin AdvReac severe Verified 06/20/20 22:03 [From Zithromax Z-Devon] vertigo Consultations 06/20/20 21:20 ED Decision to Admit Stat 06/21/20 02:04 Consult Case Management - Discharge Planning Routine 06/21/20 08:00 Consult Neurology Routine Consult Urology Routine Ordered Studies 06/20/20 19:06 CT head/brain wo con Stat IMPRESSION: There is no hemorrhage, mass effect, or evidence of acute territorial ischemia by CT criteria. 06/21/20 00:03 CT abd pelvis wo con Urgent IMPRESSION: 1. Large right renal staghorn calculus with associated collecting system dilatation and extensive urothelial thickening and adjacent infiltration of the right collecting system and proximal right ureter. These findings are age indeterminate and an acute infectious process cannot be excluded. Moderate to marked right renal atrophy. No ureteral calculi. 2. Cholelithiasis. 3. Mildly dilated appendix. No adjacent infiltration to strongly suggest acute appendicitis. 4. Colonic diverticulosis without evidence for acute diverticulitis. 06/21/20 08:34 MR brain wo con Routine IMPRESSION: 1. No acute intracranial findings 2. No evidence of intracranial mass 3. No evidence of acute or subacute infarction 4. White matter disease likely on a small vessel basis. This is progressive compared the prior 2006 study 5. Enlarging 19 mm cystic left parotid lesion with dependent debris/calcification. 06/21/20 10:16 US carotid doppler BI Routine IMPRESSION: 1. There is no sonographic evidence of hemodynamically significant stenosis in the right or left carotid arterial system. 2. Antegrade flow is shown in the vertebral arteries. Hospital Course (1) Vertigo: (2) Staghorn renal calculus: (3) Acute kidney injury: (4) Orthostasis: (5) Acute UTI: (6) Fall: This is a 80-year-old female who presents with vertigo, dizziness, and fall and found to have urinary tract infection, and staghorn renal calculus. 1. Vertigo: The patient has a history of vertigo and on meclizine prn at home as well as lorazepam prn. CT of the head unremarkable. MRI brain no acute CVA. Carotid US unremarkable. Echo - left ventricle normal in size. Mild concentric LVH. LV wall motion is normal. EF 55 to 60%. Left atrium is mildly dilated. Aortic valve sclerosis mild, without significant aortic valvular stenosis. There is moderate mitral annular calcification. There is trace mitral regurg. Was found Orthostatic in the ED. Urinary tract infection could be contributing. Will admit to med/tele. Closely monitor. Neurology consulted. Continue meclizine, lorazepam for now and gentle fluids. Re- checked orthostatics after IVF - no more orthostatic 2. Urinary tract infection, on Rocephin. Urine culture positive for E. coli, pansensitive, will continue treatment with p.o. antibiotic on discharge, cefuroxime. 3. Fall secondary to vertigo: Right wrist and elbow x-ray unremarkable. PT/OT evaluation obtained, recommend outpatient PT for Bartlett-Daroff habituation exercises for her chronic vertigo and to work on her balance 4. Hypertension: Will hold Diovan HCT for richard. We will monitor the blood pressure. BP on lower side. Recommend to hold Diovan for next 2 days/over the weekend 5. Diabetes, not on any medications. Current HbA1c 6.4%. Placed on diabetic diet.ISS. 6. RICHARD. Presented with Cr 2.68. then Cr down to 1.8 after IVF. Now 1.08 Resolved Partially pre-renal as pt reports poor oral intake for several days due to v ertigo. Partially secondary to staghorn calculus and UTI. Urology consulted - plan for close outpt follow up. Cont gentle hydration while inpt. Avoid nephrotoxic drugs. Monitor BMP, will need outpt follow up 7. Hyperlipidemia, on statin. 8. Generalized anxiety disorder, on Ativan p.r.n. DISPOSITION: Plan to discharge home and follow with family doctor. Total Time Total Time Spent Total Time Spent (In Minutes): 40 Total Time Includes: Examination of the Patient, Discharge Planning, Medication Reconciliation and Communication With Other Providers Discharge Plan Discharge Items Patient Disposition: Home - Self-Care Reason For Visit: VERTIGO Discharge Diagnosis: Verigo Fall RICHARD UTI Staghorn renal calculus Activity: Per Instructions section Non-emergency contact: Primary Care Provider Call non-emergency contact if: you have any medication questions and your symptoms worsen Follow-up/Referrals: Stu Eisenberg MD [Primary Care Provider] - (Date & Time 06/27/2020 11:00 AM Provider Stu Eisenberg MD Department [facility] ) Diet: Carb Consistent or DM2 and Heart Healthy Addtl Attending Provider Instructions: Follow-up with your primary care provider, the appointment was scheduled for you for June 27. Take antibiotic, cefuroxime, as prescribed for your UTI. Recommend taking probiotics for next week or two, this can be obtained over-the- counter at any pharmacy. Do not take Diovan over the weekend, restart using it on Thursday, June 25. It would be recommended that you check your blood pressure at home if you can and monitor your blood pressure. Discuss with your family doctor if your blood pressure medications need to be adjusted. You may also benefit from further evaluation by physical therapist, regarding your vertigo. You will need to follow-up with urology, you will be contacted about the appointment. Pending Studies at Discharge: No Stand-Alone Forms: My [facility] [employer], Smoking Cessation Medications and DC Order Prescriptions: New cefuroxime axetil 250 mg tablet 250 mg PO BID 5 Days Qty: 10 RF: 0 lorazepam 1 mg tablet 1 mg PO Q8H PRN (Reason: anxiety) Qty: 10 RF: 0 Continued medroxyprogesterone 2.5 mg Tablet 2.5 mg PO QAM RF: 0 diphenoxylate-atropine 2.5-0.025 mg Tablet 1 tab PO .UD MDD 8 TABS PRN (Reason: Diarrhea) RF: 0 valsartan-hydrochlorothiazide 80-12.5 mg Tablet 1 tab PO QAM RF: 0 estradiol 1 mg Tablet 1 mg PO QAM RF: 0 pravastatin 10 mg Tablet 10 mg PO QAM RF: 0 meclizine 25 mg Tablet 25 mg PO TID PRN (Reason: Dizziness Or Vertigo) RF: 0 cetirizine 10 mg Tablet 10 mg PO DAILY RF: 0 lorazepam 1 mg tablet 1 mg PO TID PRN (Reason: Anxiety) RF: 0 tramadol 50 mg tablet 50 mg PO Q6H PRN (Reason: Pain) RF: 0 naproxen tablet 220 mg PO Q6H PRN (Reason: Pain) RF: 0 Discharge Orders: Discharge Order (Routine); Ordered 06/22/20 Ordered By: Adrián Hernandez/Other Patient Handouts: Prediabetes, 5 Steps for Eating Healthier, A1C Admission Data Admit Date/Time: 06/20/20 23:28 Attending Provider: Adrián Foster Admit Provider: Tam Jansen Primary Care Provider: Stu Eisenberg Other Providers: Tam Jansen ; Bebe Gomes ; Delvin Sánchez ; Bebe Perdue ; Mynor Herrera ; Andrea Delgado ; Dean Peralta ; Wolfgang Simpson ; Claudine Whatley ; Francisco Newman ; Bernarda Villatoro ; Shala Lugo ; Dayan Knapp ; Ra Martin ; Fauzia Betancourt ; Alka Cali
[2020-06-22] MEDS ORDERED: ADVANCED PROBIOTIC 1250 MG CAPSULE PO SCH (11:00)
== END 2020-06-22 13:39 | disposition home or self-care (01) | DRG 683 ==
LOC: ED 18:23 → 2N 23:28

== ENCOUNTER 2021-07-25 11:05 | Inpatient (IN) ==
[2021-07-25] MEDS ORDERED: SODIUM CHLORIDE 0.9% 500 ML IV ONE (11:19)
[2021-07-25] MEDS ORDERED: MECLIZINE HCL 25 MG TAB PO STA (11:19)
--- NOTE | 2021-07-25 11:21 | Emergency Department Note ---
Impression & Plan Vertigo, Atrial fibrillation, new onset ADMIT ED Provider Note HPI: The patient is an 81-year-old female with history of hypertension, newly diagnosed type 2 diabetes, presents emergency department with a chief complaint of dizziness for the past 3 days. Patient states that she has felt a sensation of dizziness for 3 days now, states it has been constant, patient states her symptoms were acutely worse this morning to the point where she did not feel that she can ambulate. She has had nausea and vomiting this morning as well. Arrival to the ED the patient is hemodynamically stable, she is in mild distress secondary to her dizziness and nausea on my initial assessment but she is saturating well on room air, she does not exhibit any focal deficits on arrival. ROS: -Neuro: Dizziness x3 days -GI: Vomiting *10 point review systems was conducted and is otherwise negative unless stated above *Outpatient medications and allergy history reviewed PE: General: Alert, NAD HEENT: Normocephalic, atraumatic Eyes: Extraocular eye movement is intact, no scleral erythema Pulmonary: Clear to auscultation bilaterally, no wheezing Cardio: Regular rate and rhythm GI: Abdomen is soft, nontender : No suprapubic tenderness MSK: No evidence of trauma or malformation of the extremities, no edema Skin: No evidence of rash Neuro: Alert, no focal deficits Psychiatric: Cooperative youth nutritional monitor: - An order was placed for continuous cardiac monitoring - Patient was noted to be in atrial fibrillation with rate of 105 EKG: Rate: 109 Rhythm: Atrial fibrillation Intervals: Within normal limits ST changes: No ST elevation Time: 1107 NIH STROKE SCALE: 1A: Level of consciousness Alert; keenly responsive 0 1B: Ask month and age Both questions right 0 1C: 'Blink eyes' & 'squeeze hands' Performs both tasks 0 2: Horizontal extraocular movements Normal 0 3: Visual little No visual loss 0 4: Facial palsy Normal symmetry 0 5A: Left arm motor drift No drift for 10 seconds 0 5B: Right arm motor drift No drift for 10 seconds 0 6A: Left leg motor drift No drift for 5 seconds 0 6B: Right leg motor drift No drift for 5 seconds 0 7: Limb Ataxia No ataxia 0 8: Sensation Normal; no sensory loss 0 9: Language/aphasia Normal; no aphasia 0 10: Dysarthria Normal 0 11: Extinction/inattention No abnormality 0 TOTAL NIH SCORE = 0 Medical Decision Making: Patient presented to the emergency department with a chief complaint of 3 days of ongoing dizziness. She does have a history of vertigo, states that it is usually not this severe, did not respond well to her meclizine which she took this morning at home and therefore she presented to the ED for further evaluation. She has had nausea and vomiting. On arrival here to the ED she is hemodynamically stable, she does not have any focal deficits on my initial evaluation and NIH stroke scale is 0 although the patient is symptomatic from the standpoint of dizziness and nausea. IV was established, lab work obtained, CT imaging of the head as well as CT angiography of the head were ordered and do not show any evidence of acute stroke or large vessel occlusion. Patient was given IV fluids, lab work shows evidence of a leukocytosis greater than 16,000, hypokalemia 3.0 which was repleted orally in the ED, mild acute kidney injury with creatinine 1.48, urinalysis is consistent with infection, blood cultures were drawn and patient was treated with IV ceftriaxone. EKG does not show any acute ischemic changes, does show atrial fibrillation that appears to be new onset, high-sensitivity troponin is slightly elevated at 14.9, will repeat, patient denies any chest pain. Patient was given IV fluids and Zofran for dizziness, on my reassessment she states that she still has some mild symptoms although they are improving. She does have multiple issues including new onset atrial fibrillation in addition to type 2 diabetes, I do feel that she would benefit from further evaluation both for her new onset atrial fibrillation and possibly MRI imaging to rule out posterior circulation stroke. She was ordered aspirin in the ED. Patient is in agreement for admission. Case was discussed with the on-call midlevel provider for [facility], Laurel Barton, and the patient was admitted in stable condition for further care. Diagnosis: 1. Dizziness, acute on chronic 2. Nausea and vomiting 3. Urinary tract infection 4. Leukocytosis 5. Hypokalemia 6. Elevated high-sensitivity troponin level 7. Mild acute kidney injury Disposition: Admission Jose Biswas DO Emergency Medicine Past Med/Surg History Medical History Actinic keratosis Diabetes mellitus Hypertension Osteoarthritis Surgical History History of bilateral tubal ligation History of total knee replacement Hx of right cataract extraction Family History Father Family history of diabetes mellitus Mother Family history of diabetes mellitus Brother Family history of diabetes mellitus Social History Smoking Status: Never smoker Tobacco Type: Cigarettes Second Hand Exposure: No; Hx Alcohol Use: No Hx Substance Use: No Preferred Language: Kittitian Communication Ability: Effective Network Design Architect Required: No Beliefs That Will Affect Care: Druze Druze Beliefs: Sikh Current Living Situation: Family Feels Safe at Home: Yes Assistive Devices: Cane, Glasses and Walker Allergies Allergies Allergy/AdvReac Type Severity Reaction Status Date / Time JAC Inhibitors Allergy Unknown edema Verified 07/25/21 14:01 face/lips/tongue diphenhydramine AdvReac Unknown flushing, Verified 07/25/21 14:01 hyperactivity azithromycin AdvReac severe Verified 07/25/21 14:01 [From Zithromax Z-Devon] vertigo Home Meds Home Medications Medication Instructions Recorded Confirmed diphenoxylate-atropine 2.5 1 tab PO .UD PRN MDD 8 TABS 04/12/18 07/25/21 mg-0.025 mg tablet estradiol 1 mg tablet 1 mg PO QAM 04/12/18 07/25/21 meclizine 25 mg tablet 25 mg PO TID PRN 04/12/18 07/25/21 medroxyprogesterone 2.5 mg tablet 2.5 mg PO QAM 04/12/18 07/25/21 pravastatin 10 mg tablet 10 mg PO QAM 04/12/18 07/25/21 valsartan 80 1 tab PO QAM 04/12/18 07/25/21 mg-hydrochlorothiazide 12.5 mg tablet cetirizine 10 mg tablet 10 mg PO QAM 10/11/18 07/25/21 tramadol 50 mg tablet 50 mg PO Q6H PRN 06/20/20 07/25/21 magnesium 250 mg tablet 0 mg PO QAM 07/25/21 07/25/21 multivitamin 1 tab PO QAM 07/25/21 07/25/21 Previous Rx's Medication Instructions Recorded lorazepam 1 mg tablet 1 mg PO Q8H PRN #10 tab 06/22/20 Results & Data (ED) Vital Signs Vital Signs - 24 hr 07/25/21 11:01 07/25/21 11:18 07/25/21 12:52 Temperature 37.0 C Temperature Source Oral Pulse Rate 113 H Pulse Rate [Left Radial] 106 H 90 Pulse Rhythm Regular Pulse Rhythm [Left Radial] Regular Irregular Pulse Strength Normal Pulse Strength [Left Radial] Normal Respiratory Rate 20 20 20 Respiratory Effort / Characteristics Non-Labored Non-Labored Non-Labored Respiratory Depth Normal Normal Normal Respiratory Pattern Regular Regular Blood Pressure 118/66 Blood Pressure [Left Arm] 119/78 Blood Pressure Mean 83 Blood Pressure Mean [Left Arm] 91 Blood Pressure Position Lying Pulse Oximetry 96 96 97 Oxygen Delivery Method Room Air Room Air Room Air Sepsis Recent Fever Within 48 Hours No Sepsis New/Unexplained Change in Mental Status No Sepsis Action Taken by Nursing No Action Required Laboratory Data Result diagrams: 07/25/21 11:17 07/25/21 11:17 Lab Results 07/25/21 07/25/21 07/25/21 Range/Units 11:17 11:17 11:17 WBC 16.22 H (4.8-10.8) K/uL RBC 3.94 L (4.2-5.4) M/uL Hgb 10.6 L (12.0-16.0) g/dL Hct 32.5 L (37-47) % MCV 82.5 (80-100) fL MCH 26.9 (25-34) pg MCHC 32.6 (32-36) g/dL RDW Std Deviation 46.2 (36.4-46.3) fL RDW Coeff of Higinio 15.2 H (11.5-14.5) % Plt Count 306 (130-400) K/uL MPV 10.1 (7.4-10.4) fL Immature Gran % (Auto) 0.2 % Neut % (Auto) 80.3 % Lymph % (Auto) 9.5 % Ray % (Auto) 9.4 % Eos % (Auto) 0.4 % Baso % (Auto) 0.2 % Neut # (Auto) 13.01 H (1.4-6.5) K/uL Lymph # (Auto) 1.54 (1.2-3.4) K/uL Ray # (Auto) 1.53 H (0.11-0.59) K/uL Eos # (Auto) 0.07 (0-0.5) K/uL Baso # (Auto) 0.03 (0-0.2) K/uL Immature Gran # (Auto) 0.04 H (0.00-0.02) K/uL PT 11.2 (9.0-12.0) Seconds INR 1.1 (0.9-1.1) APTT 24.3 (21.0-31.0) Seconds PTT Ratio 0.9 Sodium 135 L (136-145) mmol/L Potassium 3.0 L (3.5-5.1) mmol/L Chloride 103 (98-107) mmol/L Carbon Dioxide 20 L (21-32) mmol/L Anion Gap 12 H (3-11) BUN 40 H (6-23) mg/dl Creatinine 1.48 H (0.6-1.2) mg/dl Est Cr Clr Drug Dosing 32.5 ml/min Est GFR ( Amer) 38.4 ml/min Est GFR (Non-Af Amer) 33.1 ml/min BUN/Creatinine Ratio 27.0 H (10-20) Glucose 177 H (70-99(Fasting)) mg/dl Calcium 8.5 (8.5-10.1) mg/dl Magnesium 2.0 (1.7-2.4) mg/dl Total Bilirubin 0.7 (0.2-1.0) mg/dl AST 17 (13-39) U/L ALT 16 (7-52) U/L Alkaline Phosphatase 104 (34-104) U/L Troponin I High Sens 14.9 H (0-14) pg/ml Total Protein 7.9 (6.0-8.3) gm/dl Albumin 3.2 L (3.4-5.0) gm/dl Globulin 4.7 H (2.5-4.0) gm/dl Albumin/Globulin Ratio 0.7 L (0.9-2) Urine Color Urine Appearance (Clear) Urine pH (4.5-7.5) Ur Specific [place] (1.000-1.030) Urine Protein (Negative) Urine Glucose (UA) (Negative) Urine Ketones (Negative) Urine Blood (Negative) Urine Nitrite (Negative) Urine Bilirubin (Negative) Urine Urobilinogen (Negative) Ur Leukocyte Esterase (Negative) Urine WBC (Auto) (0-5) /hpf Urine RBC (Auto) (0-4) /hpf U Hyaline Cast (Auto) (0-5) /lpf U Epithel Cells (Auto) (0-5) /lpf Urine Bacteria (Auto) (Negative) 07/25/21 Range/Units 13:03 WBC (4.8-10.8) K/uL RBC (4.2-5.4) M/uL Hgb (12.0-16.0) g/dL Hct (37-47) % MCV (80-100) fL MCH (25-34) pg MCHC (32-36) g/dL RDW Std Deviation (36.4-46.3) fL RDW Coeff of Higinio (11.5-14.5) % Plt Count (130-400) K/uL MPV (7.4-10.4) fL Immature Gran % (Auto) % Neut % (Auto) % Lymph % (Auto) % Ray % (Auto) % Eos % (Auto) % Baso % (Auto) % Neut # (Auto) (1.4-6.5) K/uL Lymph # (Auto) (1.2-3.4) K/uL Ray # (Auto) (0.11-0.59) K/uL Eos # (Auto) (0-0.5) K/uL Baso # (Auto) (0-0.2) K/uL Immature Gran # (Auto) (0.00-0.02) K/uL PT (9.0-12.0) Seconds INR (0.9-1.1) APTT (21.0-31.0) Seconds PTT Ratio Sodium (136-145) mmol/L Potassium (3.5-5.1) mmol/L Chloride (98-107) mmol/L Carbon Dioxide (21-32) mmol/L Anion Gap (3-11) BUN (6-23) mg/dl Creatinine (0.6-1.2) mg/dl Est Cr Clr Drug Dosing ml/min Est GFR ( Amer) ml/min Est GFR (Non-Af Amer) ml/min BUN/Creatinine Ratio (10-20) Glucose (70-99(Fasting)) mg/dl Calcium (8.5-10.1) mg/dl Magnesium (1.7-2.4) mg/dl Total Bilirubin (0.2-1.0) mg/dl AST (13-39) U/L ALT (7-52) U/L Alkaline Phosphatase (34-104) U/L Troponin I High Sens (0-14) pg/ml Total Protein (6.0-8.3) gm/dl Albumin (3.4-5.0) gm/dl Globulin (2.5-4.0) gm/dl Albumin/Globulin Ratio (0.9-2) Urine Color Yellow Urine Appearance Cloudy A (Clear) Urine pH 5.5 (4.5-7.5) Ur Specific [place] 1.014 (1.000-1.030) Urine Protein 1+ H (Negative) Urine Glucose (UA) Negative (Negative) Urine Ketones Negative (Negative) Urine Blood 1+ H (Negative) Urine Nitrite Positive A (Negative) Urine Bilirubin Negative (Negative) Urine Urobilinogen Negative (Negative) Ur Leukocyte Esterase 2+ H (Negative) Urine WBC (Auto) >30 H (0-5) /hpf Urine RBC (Auto) 0-4 (0-4) /hpf U Hyaline Cast (Auto) 0 (0-5) /lpf U Epithel Cells (Auto) 0-5 (0-5) /lpf Urine Bacteria (Auto) 4+ H (Negative) Administered Medications Discontinued Medications Sodium Chloride (Nss) 500 mls @ 999 mls/hr IV .Q31M ONE Stop: 07/25/21 11:49 Last Infusion: 07/25/21 12:01 Dose: 0 mls/hr Documented by: [id number] Admin: 07/25/21 11:29 Dose: 999 mls/hr Documented by: [id number] Meclizine HCl (Meclizine Hcl 25 Mg Tab) 25 mg PO NOW STA Stop: 07/25/21 11:20 Last Admin: 07/25/21 11:29 Dose: Not Given Documented by: [id number] Imaging Data Radiologist's Impression: Head CT 07/25/21 11:18 CT OF THE HEAD WITHOUT CONTRAST CLINICAL HISTORY: Stroke like symptoms. Dizziness, nausea and vomiting. COMPARISON STUDY: Head CT June 20, 2017. MRI of the brain June 21, 2020. TECHNIQUE: Helical axial images of the head were obtained without IV contrast. Automated exposure control was utilized for the study. A dose lowering technique was utilized adhering to the principles of ALARA. FINDINGS: No acute intracranial hemorrhage, midline shift or mass effect is present. White matter hypodensities are similar to prior exam and favor small vessel disease. The ventricular system is unremarkable. The basal cisterns are patent. No extra-axial collections are present. There are no findings to suggest acute dural sinus thrombosis or acute territorial infarct. No significant calvarial abnormalities are present. Visualized portions of the sinuses and mastoid air cells are clear. IMPRESSION: No acute intracranial findings. No change in appearance of the brain. ACT 112: Negative or not required by law. Electronically signed by: Rajat Beard M.D. 07/25/2021 12:54 PM Head CTA 07/25/21 11:18 HEAD CTA HISTORY: Dizziness. Stroke Like Symptoms TECHNIQUE: Multiaxial CT images of the head were performed following the intravenous administration of contrast to evaluate the major cerebral vessels. Maximum intensity projection images were also obtained. A dose lowering technique was utilized adhering to the principles of ALARA. COMPARISON: Noncontrast head CT 07/25/2021. FINDINGS: There is no mass, hematoma, midline shift, or acute infarct. Visualized intracranial internal carotid arteries, distal vertebral arteries, and basilar artery are widely patent. There is no significant stenosis, occlusion, or aneurysm seen within the bilateral ACAs, MCAs, or quality process engineer. There is a partially visualized 1.9 cm nodule within the left parotid gland. This remains stable compared to 2014 examination and is therefore of doubtful clinical significance. Mucosal thickening and a small fluid level within the right maxillary sinus. The mastoid air cells are clear. There is a persistent right posterior circulation considered to be a normal variant. The major dural venous sinuses are patent. IMPRESSION: 1. No significant stenosis, occlusion, or aneurysm within the [place]. 2. Mild acute right maxillary sinusitis. ACT 112: Negative or not required by law. Electronically signed by: Cyril Herrera M.D. 07/25/2021 1:11 PM Neck CTA 07/25/21 11:18 CT ANGIOGRAPHY OF THE NECK WITH CONTRAST CLINICAL HISTORY: Stroke Like Symptoms COMPARISON STUDY: Carotid ultrasound June 21, 2020. Technique: CT angiography of the carotid and vertebral arteries was obtained using Optiray and 3D reconstruction on an independent workstation. NASCET criteria was utilized. Automated exposure control was utilized for the study. A dose lowering technique was utilized adhering to the principles of ALARA. CT DOSE: 985.59 mGy.cm Findings: A 1.9 cm left parotid gland lesion with layering hyperdense material is similar to MRI of June 21, 2020. This was portions of the lung apices are unremarkable. There is no cervical spine fracture. No cervical lymphadenopathy is present. There is moderate calcified plaque within the proximal right internal carotid artery without stenosis. Minimal plaque within the left carotid bifurcation is noted without stenosis. Bilateral vertebral arteries are patent. There is no dissection within the major vessels of the neck. No aneurysm within the neck is noted. CTA of the head will be reported separately. IMPRESSION: No stenosis or dissection within the bilateral common carotid, cervical internal carotid or vertebral arteries. ACT 112: Negative or not required by law. Electronically signed by: Rajat Beard M.D. 07/25/2021 1:11 PM Chest X-Ray 07/25/21 12:03 XR chest 1V portable CLINICAL HISTORY: weak, N/V COMPARISON STUDY: Chest radiograph June 20, 2020. FINDINGS: Lung volumes are diminished. This likely accounts bibasilar opacities. Note is made of cardiomegaly with extensive coronary artery calcification. No evidence for pulmonary edema. No pneumothorax or pleural effusion. IMPRESSION: 1. Lung volumes with bibasilar opacities suggestive of atelectasis. 2. Cardiomegaly. No evidence for pulmonary edema. ACT 112: Negative or not required by law. Electronically signed by: Rajat Beard M.D. 07/25/2021 12:30 PM Discharge Plan Visit Data Chief Complaint: Dizziness ED Provider: Jose Biswas Discharge Problem: Vertigo, Atrial fibrillation, new onset Forms Stand Alone Forms: [facility] [place] [employer] Prescriptions Prescriptions: No Action medroxyprogesterone 2.5 mg Tablet 2.5 mg PO QAM RF: 0 diphenoxylate-atropine 2.5-0.025 mg Tablet 1 tab PO .UD MDD 8 TABS PRN (Reason: Diarrhea) RF: 0 valsartan-hydrochlorothiazide 80-12.5 mg Tablet 1 tab PO QAM RF: 0 estradiol 1 mg Tablet 1 mg PO QAM RF: 0 pravastatin 10 mg Tablet 10 mg PO QAM RF: 0 meclizine 25 mg Tablet 25 mg PO TID PRN (Reason: Dizziness Or Vertigo) RF: 0 cetirizine 10 mg Tablet 10 mg PO QAM RF: 0 tramadol 50 mg tablet 50 mg PO Q6H PRN (Reason: Pain) RF: 0 lorazepam 1 mg tablet 1 mg PO Q8H PRN (Reason: anxiety) Qty: 10 RF: 0 multivitamin Tablet 1 tab PO QAM RF: 0 magnesium 250 mg Tablet 0 mg PO QAM RF: 0 Referrals Referrals: Bhavya Lafleur, [Primary Care Provider] -
[2021-07-25 11:36] LABS: Basophils # (auto) 0.03 K/uL (0-0.2); Basophils % (auto) 0.2 %; Eosinophils # (auto) 0.07 K/uL (0-0.5); Eosinophils % (auto) 0.4 %; Hematocrit (blood only) 32.5 % (37-47); Hemoglobin 10.6 g/dL (12.0-16.0); Immature Granulocytes # (auto) 0.04 K/uL (0.00-0.02); Immature Granulocytes % (auto) 0.2 %; Lymphocytes # (auto) 1.54 K/uL (1.2-3.4); Lymphocytes % (auto) 9.5 %; Mean Corpuscular Hemoglobin 26.9 pg (25-34); Mean Corpuscular Hgb Conc 32.6 g/dL (32-36); Mean Corpuscular Volume 82.5 fL (80-100); Mean Platelet Volume 10.1 fL (7.4-10.4); Monocytes # (auto) 1.53 K/uL (0.11-0.59); Monocytes % (auto) 9.4 %; Neutrophils # (auto) 13.01 K/uL (1.4-6.5); Neutrophils % (auto) 80.3 %; Platelet Count 306 K/uL (130-400); RDW Coefficient of Variation 15.2 % (11.5-14.5); RDW Standard Deviation 46.2 fL (36.4-46.3); Red Blood Count 3.94 M/uL (4.2-5.4); White Blood Count 16.22 K/uL (4.8-10.8)
[2021-07-25 11:49] LABS: INR 1.1 (0.9-1.1); Partial Thromboplastin Ratio 0.9; Partial Thromboplastin Time 24.3 Seconds (21.0-31.0); Prothrombin Time 11.2 Seconds (9.0-12.0)
[2021-07-25 12:08] LABS: Albumin Globulin Ratio 0.7 (0.9-2); Albumin Level 3.2 gm/dl (3.4-5.0); Bilirubin,Total 0.7 mg/dl (0.2-1.0); Calcium 8.5 mg/dl (8.5-10.1); Creatinine Clr Calc Pharmacy 32.5 ml/min; Est GFR (African American) 38.4 ml/min; Est GFR (Non-African American) 33.1 ml/min; Globulin 4.7 gm/dl (2.5-4.0); Total Protein 7.9 gm/dl (6.0-8.3)
[2021-07-25 12:10] LABS: Troponin I High Sensitivity 14.9 pg/ml (0-14)
--- NOTE | 2021-07-25 12:32 | XRay Report ---
XR chest 1V portable CLINICAL HISTORY: weak, N/V COMPARISON STUDY: Chest radiograph June 20, 2020. FINDINGS: Lung volumes are diminished. This likely accounts bibasilar opacities. Note is made of card iomegaly with extensive coronary artery calcification. No evidence for pulmonary edema. No pneumothor ax or pleural effusion. IMPRESSION: 1. Lung volumes with bibasilar opacities suggestive of atelectasis. 2. Cardiomegaly. No evidence for pulmonary edema. ACT 112: Negative or not required by law. Electronically signed by: Rajat Beard M.D. 07/25/2021 12:30 PM
--- NOTE | 2021-07-25 12:55 | CT Scan Report ---
CT OF THE HEAD WITHOUT CONTRAST CLINICAL HISTORY: Stroke like symptoms. Dizziness, nausea and vomiting. COMPARISON STUDY: Head CT June 20, 2017. MRI of the brain June 21, 2020. TECHNIQUE: Helical axial images of the head were obtained without IV contrast. Automated exposure con trol was utilized for the study. A dose lowering technique was utilized adhering to the principles o f ALARA. FINDINGS: No acute intracranial hemorrhage, midline shift or mass effect is present. White matter hyp odensities are similar to prior exam and favor small vessel disease. The ventricular system is unrema rkable. The basal cisterns are patent. No extra-axial collections are present. There are no findings to suggest acute dural sinus thrombosis or acute territorial infarct. No significant calvarial abnorm alities are present. Visualized portions of the sinuses and mastoid air cells are clear. IMPRESSION: No acute intracranial findings. No change in appearance of the brain. ACT 112: Negative or not required by law. Electronically signed by: Rajat Beard M.D. 07/25/2021 12:54 PM
--- NOTE | 2021-07-25 13:12 | CT Scan Report ---
CT ANGIOGRAPHY OF THE NECK WITH CONTRAST CLINICAL HISTORY: Stroke Like Symptoms COMPARISON STUDY: Carotid ultrasound June 21, 2020. Technique: CT angiography of the carotid and vertebral arteries was obtained using Optiray and 3D rec onstruction on an independent workstation. NASCET criteria was utilized. Automated exposure control was utilized for the study. A dose lowering technique was utilized adhering to the principles of ALA RA. CT DOSE: 985.59 mGy.cm Findings: A 1.9 cm left parotid gland lesion with layering hyperdense material is similar to MRI of 2020. This was portions of the lung apices are unremarkable. There is no cervical spine frac ture. No cervical lymphadenopathy is present. There is moderate calcified plaque within the proximal right internal carotid artery without stenosis. Minimal plaque within the left carotid bifurcation is noted without stenosis. Bilateral vertebral arteries are patent. There is no dissection within the m ajor vessels of the neck. No aneurysm within the neck is noted. CTA of the head will be reported sepa rately. IMPRESSION: No stenosis or dissection within the bilateral common carotid, cervical internal carotid or vertebral arteries. ACT 112: Negative or not required by law. Electronically signed by: Rajat Beard M.D. 07/25/2021 1:11 PM
--- NOTE | 2021-07-25 13:12 | CT Scan Report ---
HEAD CTA HISTORY: Dizziness. Stroke Like Symptoms TECHNIQUE: Multiaxial CT images of the head were performed following the intravenous administration o f contrast to evaluate the major cerebral vessels. Maximum intensity projection images were also obta ined. A dose lowering technique was utilized adhering to the principles of ALARA. COMPARISON: Noncontrast head CT 07/25/2021. FINDINGS: There is no mass, hematoma, midline shift, or acute infarct. Visualized intracranial human resource internship al carotid arteries, distal vertebral arteries, and basilar artery are widely patent. There is no sig nificant stenosis, occlusion, or aneurysm seen within the bilateral ACAs, MCAs, or population health coach. There is a p artially visualized 1.9 cm nodule within the left parotid gland. This remains stable compared to 2014 examination and is therefore of doubtful clinical significance. Mucosal thickening and a small fluid level within the right maxillary sinus. The mastoid air cells are clear. There is a persistent right posterior circulation considered to be a normal variant. The major dural venous sinuses are pa tent. IMPRESSION: 1. No significant stenosis, occlusion, or aneurysm within the [place] of [place]. 2. Mild acute right maxillary sinusitis. ACT 112: Negative or not required by law. Electronically signed by: Cyril Herrera M.D. 07/25/2021 1:11 PM
[2021-07-25 13:29] LABS: Appearance Urine Cloudy (Clear); Bacteria Urine Automated 4+ (Negative); Bilirubin Urine Negative (Negative); Blood Urine 1+ (Negative); Cast Urine Automated 0 /lpf (0-5); Color Urine Yellow; Epithelial Cell Urine Auto 0-5 /lpf (0-5); Glucose Urine UA Negative (Negative); Ketones Urine Negative (Negative); Leukocyte Esterase Urine 2+ (Negative); Nitrite Urine Positive (Negative); Protein Urine 1+ (Negative); RBC Urine Automated 0-4 /hpf (0-4); Specific Gravity Urine 1.014 (1.000-1.030); Urobilinogen Urine Negative (Negative); WBC Urine Automated >30 /hpf (0-5); pH Urine 5.5 (4.5-7.5)
[2021-07-25] MEDS ORDERED: ONDANSETRON INJ 2 MG/ML 2 ML VIAL IV STA (13:51)
[2021-07-25] MEDS ORDERED: ASPIRIN CHEW 324 MG PO STA (13:51)
[2021-07-25] MEDS ORDERED: POTASSIUM CHLORIDE CRTAB 20 MEQ TABCR PO STA ×2 (13:53→20:18)
[2021-07-25] MEDS ORDERED: cefTRIAXone SODIUM 1,000 MG/50 ML BAG IV STA (13:54)
--- NOTE | 2021-07-25 14:11 | History & Physical Report ---
Date of Service July 25, 2021 Assessment & Plan (1) Atrial fibrillation, new onset: Plan: - Admit to tele - Appears to be new finding on EKG, rates have been in the low 100s since arrival to the Er - Not on rate controlling medication at baseline, rates in mid 90s at bedside. - Pt is not on anticoagulation at baseline, will start heparin gtt for now. Given full dose asa in the ER. - Consult cardiology - Dr. Lanza - Acute infection with UTI likely potentiating this this but will need to r/o other etiology - Last Echo was from 2007 which was normal, will repeat today - Give another 1L NSS at 100ml/hr, already given 1 L in the ER, if no improvement then consider rate controlling medications - Prolonged QTC seen on EKG, avoid QT prolonging agents - troponin HS is 14-->13 - Check TSH and free T4 (2) Vertigo: Plan: - Taking meclizine, had 3 tablets this morning - Hold tramadol and ibuprofen for now - can resume tramadol if vertigo improves and needs this for arthritis pain. PDMP reviewed personally. - CT head and neck are negative for acute neurological findings - Check MRI brain with new onset afib - Recent upper respiratory cold and sinusitis possibly caused labyrinthitis worsening vertigo - PT/OT consults, walks at baseline without difficulty, no ambulatory devices used, no falls (3) UTI (urinary tract infection): Plan: - UA appears to be grossly infected, will follow culture - Continue ceftriaxone IV - WBC elevated at 16.22 with left shift on admission - Treat with 1x dose of fluconazole for likely yeast infection (4) CKD (chronic kidney disease), stage III: Plan: - Hold valsartan/hctz - may resume pending improvement of sx and cr/GFR - Cr was elevated at 2.0 as outpatient on 07/22, today is 1.48, and appears that her outpatient baseline is around 1.0, will trend - Hx of staghorn calculi which has been followed by urology (5) DM type 2 (diabetes mellitus, type 2): Plan: - ISS with accuchecks achs, last A1C was 6.9 on 07/22/21 - Pt is using diet control, not on any oral antihyperglycemic meds or insulin (6) Hypokalemia: Plan: - K+ is 3.0 on admission, given 40 meq in the ER, follow with am labs - Will give additional 20 meq IV now (7) Obesity (BMI 35.0-39.9 without comorbidity): Plan: - Diet and exercise to be encouraged throughout stay - BMI 35.7 (8) Right maxillary sinusitis: Plan: - Noted on imaging of the CT head, no other acute findings on ROS, possibly related to the vertigo? 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 Pt states " I've barely been able to do anything". She reports ports feeling dizzy whenever she gets up from a lying or sitting position and that causes her more severe symptoms. She has had difficulty tolerating oral intake due to nausea and dizziness, and this morning vomited twice after attempting to drink a small amount of gatorade. She reports a history of vertigo and that typically she uses meclizine which improves her symptoms; this morning she took 3 tablets and it did seem to make things slightly better. She denies any chest complaints including pressure, palpitations, flutter, pain or shortness of breath despite having an irregular rhythm on monitor. To her knowledge, she has no known history of atrial fibrillation. Pt states she's never had any issues with her heart before. Patient lives at home by herself, however has her daughter and grandson in a unit within the home. None of her morning medications were taken today excluding meclizine as mentioned above. She was scheduled to follow-up with her PCP soon in regards to kidney function recently, as she has a staghorn calculi and only 1 working kidney. She denies any recent changes in urination, but admits to chronic incontinence. She wears a large pad daily which she states is changed 2-3 times per day. Denies any burning with urination or increased frequency. With previous UTIs, she does not normally experience these symptoms. She has current complaints of itching of her vaginal area that has been going on for few days, and is requesting something for yeast infection. Last week she had a bad cold but seems to be improving now, her only left over symptoms include minor sinus congestion. Denies any recent fever, chills or sweats. She takes two ibuprofen tablets on a daily basis for her arthritis, and tells me it's like a blood thinner, but isn't on any other form of anticoagulation. Allergies Allergy/AdvReac Type Severity Reaction Status Date / Time JAC Inhibitors Allergy Intermediate edema Verified 07/25/21 15:07 face/lips/tongue azithromycin AdvReac Intermediate severe Verified 07/25/21 15:07 [From Zithromax Z-Devon] vertigo diphenhydramine AdvReac Mild flushing, Verified 07/25/21 15:07 hyperactivity Home Medications Medication Instructions Recorded Confirmed Type diphenoxylate-atropine 2.5 1 tab PO .UD PRN MDD 8 TABS 04/12/18 07/25/21 History mg-0.025 mg tablet estradiol 1 mg tablet 1 mg PO QAM 04/12/18 07/25/21 History meclizine 25 mg tablet 25 mg PO TID PRN 04/12/18 07/25/21 History medroxyprogesterone 2.5 mg tablet 2.5 mg PO QAM 04/12/18 07/25/21 History pravastatin 10 mg tablet 10 mg PO QAM 04/12/18 07/25/21 History valsartan 80 1 tab PO QAM 04/12/18 07/25/21 History mg-hydrochlorothiazide 12.5 mg tablet cetirizine 10 mg tablet 10 mg PO QAM 10/11/18 07/25/21 History tramadol 50 mg tablet 50 mg PO Q6H PRN 06/20/20 07/25/21 History lorazepam 1 mg tablet 1 mg PO Q8H PRN #10 tab 06/22/20 07/25/21 Rx ibuprofen 200 mg tablet 400 mg PO DAILY PRN 07/25/21 07/25/21 History magnesium 250 mg tablet 0 mg PO QAM 07/25/21 07/25/21 History multivitamin 1 tab PO QAM 07/25/21 07/25/21 History Past Med/Surg History Medical History Actinic keratosis Diabetes mellitus Hypertension Osteoarthritis Surgical History History of bilateral tubal ligation History of total knee replacement Hx of right cataract extraction Family History Father Family history of diabetes mellitus Mother Family history of diabetes mellitus Brother Family history of diabetes mellitus Social History Smoking Status: Never smoker Tobacco Type: Cigarettes Second Hand Exposure: No; Do You Dip or Chew Tobacco: No; Tobacco Cessation Education Requested by Patient: No Hx Alcohol Use: No Hx Substance Use: No Preferred Language: Nepali Communication Ability: Effective Tc Operator Required: No Beliefs That Will Affect Care: None Current Living Situation: Alone Current Living Situation Comment: DAUGHTER & GRANDSON NEARBY Other Information That Helps Us Care for You: No Feels Safe at Home: Yes Safety Concerns: Feels Safe At This Time Assistive Devices: Cane Review of Systems Review of Systems: Constitutional: No fever, sweats or chills, + dizziness as per HPI. Eyes: No diplopia, no worsening or blurred vision ENT: normal hearing, no trouble swallowing, + as per HPI, +sinus congestion Respiratory: No cough, sputum, dyspnea at rest or on exertion Cardiovascular: No chest pain, tightness or palpitations Abdomen: No pain,+ nausea, +vomiting, diarrhea, +last BM was a few days ago, reports mild constipation Musculoskeletal: No joint pain, calf pain, swelling Neurologic: No weakness, numbness/tingling, + dizziness, no balance problems at baseline, no use of ambulatory assistive device Psychiatric: No anxiety or depression Skin: No rash or itch Physical Exam Physical Exam: General: awake, alert, no apparent distress, + obese with BMI of 35.7 Head: Normocephalic, atraumatic ENT: PERRL, EOMI, no pharyngeal exudate, mucous membranes slightly dry Chest: Clear to auscultation, on room air, no adventitious breath sounds Cardiac: Irregularly irregular, HR in mid 90s to low 100s at bedside, no murmur, no JVD, normal peripheral pulses, good capillary refill Abdominal: NABS x 4 quadrants, soft, nondistended, nontender to palpation, no rebound or guarding Extremities: Normal inspection, no peripheral edema or erythema, calfs nontender to palpation Psych: Normal mood and affect Neuro: AAO x 3, strength intact bilaterally and rated 5/5, no focal deficits, no gross motor deficits, speech is clear, no peripheral sensory deficits Results & Data Results & Data ([facility]) Vital Signs (Past 12 Hours) Vital Signs Temp Pulse Pulse Resp BP BP Pulse Ox 07/25/21 12:52 90 20 119/78 97 07/25/21 11:18 37.0 C 113 H 20 118/66 96 07/25/21 11:01 106 H 20 96 Laboratory Results 07/25/21 13:03 Urine Culture - Pending Urine,Clean Catch 07/25/21 07/25/21 07/25/21 13:03 11:17 11:17 WBC RBC Hgb Hct MCV MCH MCHC RDW Std Deviation RDW Coeff of Higinio Plt Count MPV Immature Gran % (Auto) Neut % (Auto) Lymph % (Auto) Bartholomew % (Auto) Eos % (Auto) Baso % (Auto) Neut # (Auto) Lymph # (Auto) Bartholomew # (Auto) Eos # (Auto) Baso # (Auto) Immature Gran # (Auto) PT 11.2 INR 1.1 APTT 24.3 PTT Ratio 0.9 Sodium 135 L Potassium 3.0 L Chloride 103 Carbon Dioxide 20 L Anion Gap 12 H BUN 40 H Creatinine 1.48 H Est Cr Clr Drug Dosing 32.5 Est GFR ( Amer) 38.4 Est GFR (Non-Af Amer) 33.1 BUN/Creatinine Ratio 27.0 H Glucose 177 H Calcium 8.5 Magnesium 2.0 Total Bilirubin 0.7 AST 17 ALT 16 Alkaline Phosphatase 104 Troponin I High Sens 14.9 H Total Protein 7.9 Albumin 3.2 L Globulin 4.7 H Albumin/Globulin Ratio 0.7 L Urine Color Yellow Urine Appearance Cloudy A Urine pH 5.5 Ur Specific Weaver 1.014 Urine Protein 1+ H Urine Glucose (UA) Negative Urine Ketones Negative Urine Blood 1+ H Urine Nitrite Positive A Urine Bilirubin Negative Urine Urobilinogen Negative Ur Leukocyte Esterase 2+ H Urine WBC (Auto) >30 H Urine RBC (Auto) 0-4 U Hyaline Cast (Auto) 0 U Epithel Cells (Auto) 0-5 Urine Bacteria (Auto) 4+ H 07/25/21 11:17 WBC 16.22 H RBC 3.94 L Hgb 10.6 L Hct 32.5 L MCV 82.5 MCH 26.9 MCHC 32.6 RDW Std Deviation 46.2 RDW Coeff of Higinio 15.2 H Plt Count 306 MPV 10.1 Immature Gran % (Auto) 0.2 Neut % (Auto) 80.3 Lymph % (Auto) 9.5 Bartholomew % (Auto) 9.4 Eos % (Auto) 0.4 Baso % (Auto) 0.2 Neut # (Auto) 13.01 H Lymph # (Auto) 1.54 Bartholomew # (Auto) 1.53 H Eos # (Auto) 0.07 Baso # (Auto) 0.03 Immature Gran # (Auto) 0.04 H PT INR APTT PTT Ratio Sodium Potassium Chloride Carbon Dioxide Anion Gap BUN Creatinine Est Cr Clr Drug Dosing Est GFR ( Amer) Est GFR (Non-Af Amer) BUN/Creatinine Ratio Glucose Calcium Magnesium Total Bilirubin AST ALT Alkaline Phosphatase Troponin I High Sens Total Protein Albumin Globulin Albumin/Globulin Ratio Urine Color Urine Appearance Urine pH Ur Specific Weaver Urine Protein Urine Glucose (UA) Urine Ketones Urine Blood Urine Nitrite Urine Bilirubin Urine Urobilinogen Ur Leukocyte Esterase Urine WBC (Auto) Urine RBC (Auto) U Hyaline Cast (Auto) U Epithel Cells (Auto) Urine Bacteria (Auto) Diagnostic Findings Head CT 07/25/21 11:18 CT OF THE HEAD WITHOUT CONTRAST CLINICAL HISTORY: Stroke like symptoms. Dizziness, nausea and vomiting. COMPARISON STUDY: Head CT June 20, 2017. MRI of the brain June 21, 2020. TECHNIQUE: Helical axial images of the head were obtained without IV contrast. Automated exposure control was utilized for the study. A dose lowering technique was utilized adhering to the principles of ALARA. FINDINGS: No acute intracranial hemorrhage, midline shift or mass effect is present. White matter hypodensities are similar to prior exam and favor small vessel disease. The ventricular system is unremarkable. The basal cisterns are patent. No extra-axial collections are present. There are no findings to suggest acute dural sinus thrombosis or acute territorial infarct. No significant calvarial abnormalities are present. Visualized portions of the sinuses and mastoid air cells are clear. IMPRESSION: No acute intracranial findings. No change in appearance of the brain. ACT 112: Negative or not required by law. Electronically signed by: Rajat Beard M.D. 07/25/2021 12:54 PM Head CTA 07/25/21 11:18 HEAD CTA HISTORY: Dizziness. Stroke Like Symptoms TECHNIQUE: Multiaxial CT images of the head were performed following the intravenous administration of contrast to evaluate the major cerebral vessels. Maximum intensity projection images were also obtained. A dose lowering technique was utilized adhering to the principles of ALARA. COMPARISON: Noncontrast head CT 07/25/2021. FINDINGS: There is no mass, hematoma, midline shift, or acute infarct. Visualized intracranial internal carotid arteries, distal vertebral arteries, and basilar artery are widely patent. There is no significant stenosis, occl usion, or aneurysm seen within the bilateral ACAs, MCAs, or abnormal psychology teacher. There is a partially visualized 1.9 cm nodule within the left parotid gland. This remains stable compared to 2014 examination and is therefore of doubtful clinical significance. Mucosal thickening and a small fluid level within the right maxillary sinus. The mastoid air cells are clear. There is a persistent right posterior circulation considered to be a normal variant. The major dural venous sinuses are patent. IMPRESSION: 1. No significant stenosis, occlusion, or aneurysm within the saxman of [place]. 2. Mild acute right maxillary sinusitis. ACT 112: Negative or not required by law. Electronically signed by: Cyril Herrera M.D. 07/25/2021 1:11 PM Neck CTA 07/25/21 11:18 CT ANGIOGRAPHY OF THE NECK WITH CONTRAST CLINICAL HISTORY: Stroke Like Symptoms COMPARISON STUDY: Carotid ultrasound June 21, 2020. Technique: CT angiography of the carotid and vertebral arteries was obtained using Optir[employer] and 3D reconstruction on an independent workstation. NASCET criteria was utilized. Automated exposure control was utilized for the study. A dose lowering technique was utilized adhering to the principles of ALARA. CT DOSE: 985.59 mGy.cm Findings: A 1.9 cm left parotid gland lesion with layering hyperdense material is similar to MRI of June 21, 2020. This was portions of the lung apices are unremarkable. There is no cervical spine fracture. No cervical lymphadenopathy is present. There is moderate calcified plaque within the proximal right internal carotid artery without stenosis. Minimal plaque within the left carotid bifurcation is noted without stenosis. Bilateral vertebral arteries are patent. There is no dissection within the major vessels of the neck. No aneurysm within the neck is noted. CTA of the head will be reported separately. IMPRESSION: No stenosis or dissection within the bilateral common carotid, cervical internal carotid or vertebral arteries. ACT 112: Negative or not required by law. Electronically signed by: Rajat Beard M.D. 07/25/2021 1:11 PM Chest X-Ray 07/25/21 12:03 XR chest 1V portable CLINICAL HISTORY: weak, N/V COMPARISON STUDY: Chest radiograph June 20, 2020. FINDINGS: Lung volumes are diminished. This likely accounts bibasilar opacities. Note is made of cardiomegaly with extensive coronary artery calcification. No evidence for pulmonary edema. No pneumothorax or pleural effusion. IMPRESSION: 1. Lung volumes with bibasilar opacities suggestive of atelectasis. 2. Cardiomegaly. No evidence for pulmonary edema. ACT 112: Negative or not required by law. Electronically signed by: Rajat Beard M.D. 07/25/2021 12:30 PM ECG Additional Comments: 25-JUL-2021 11:07:11 [facility]-EDSTAT ROUTINE RETRIEVAL Atrial fibrillation with rapid ventricular response Abnormal ECG When compared with ECG of 20-JUN-2020 19:21, Atrial fibrillation has replaced Sinus rhythm Vent. rate has increased BY 39 BPM 25mm/s10mm/[id number]: [id number] by: REFERRED SELF Unconfirmed Vent. rate 109 BPM AL interval * ms QRS duration 88 ms QT/QTc 364/490 ms Code Status & VTE Plan Code Status DNR/DNI- discussed with the patient at bedside Supervising Physician Co-Signing Physician Notes I have seen and examined the patient and have discussed the case with the provider above. I agree with the assessment and plan as stated with the following exceptions. 81 yo F with a h/o BPPV presents with intermittent vertigo since Thursday morning, associated with two episodes of vomiting in the last 24 hours, and dehydration. She denies any palpitations, chest pain, SOB and was found to have new onset atrial fibrillation with a heart rate in the low 100s. Echo is pending. She denies any neck pain, ear pain, headache, sinus pain, sore throat, fevers or chills. She does report a severe head cold approximately two weeks ago where she had a copious runny nose for two days followed by a small productive cough. These symptoms have resolved. She also was found to have a UTI and reports chronic urinary incontinence without dysuria or pelvic pain. She notably reports that she cut carbs out of her diet two weeks ago in order to improve her blood sugar. She doesn't eat fresh food, depending mostly on frozen foods instead. She lives alone and doesn't cook for herself. On physical exam she is WNWD and is oriented and spry. She is in NAD and is able to sit up independently with ease. Notably she ambulates independently at baseline but gait was not assessed today 2/2 fall risk. There was no maxillary or frontal sinus TTP, OP was clear, no cervical or submandibular LAD, R ear was clear with pearly TM, L TM was dusky however, with a serous fluid in middle ear- no erythema seen. Lungs were clear to auscultation throughout. Cardiac auscultation with S1/2 heard and no murmurs, gallops or rubs. She had an irregularly irregular rhythm and was mildly tachycardic. Abdomen was soft, NTND. Extremities were warm and well perfused and she examined as euvolemic. EOMI, CN 2-12 grossly intact. Strength 5/5 throughout, sensation intact. No gross focal deficits. Lab work was notable for WBC 16K with small left shift, mild anemia with H?H at baseline (10.6/32), K 3.0, and an RICHARD with BUN 40, creat 1.48 (normal baseline). HS trop neg x 2, EKG atrial fibrillation with HR [address] changes, TSH pending. +UA, Echo from 2020 with normal EF and no significant valvular disease. 81 yo F with vertigo, likely of peripheral etiology. Suspect vestibular neuritis, dehydration, electrolyte disturbance, RICHARD, UTI and new onset atrial fibrillation all contributing in setting of known h/o BPPV. Still, with the asymptomatic afib and new vertigo, want to rule out stroke, so will proceed with a noncontrast MRI while continuing with efforts to rehydrate, give abx for UTI, and palliate her so she can eat some food and help us correct her electrolyte deficiency. This may help her to feel better overall. If vertigo persists despite this, prednisone may be helpful, but would not give in the setting of known infection. Repeat echo pending for help with new onset afib workup and she has been started on a heparin drip. Rate fairly stable for now, will defer to cardiology for additional management and recommendations for long-term anticoagulation. DO Jackson
[2021-07-25] MEDS ORDERED: Heparin IV Adult Wt-Based Standard *NO* Bolus Protocol ONE (14:31)
[2021-07-25] MEDS ORDERED: POTASSIUM CHLORIDE / WTR 10 MEQ/100 ML PLCT IV STA (14:31)
[2021-07-25] MEDS ORDERED: FLUCONAZOLE 50 MG TAB PO ONE (15:14)
[2021-07-25] MEDS ORDERED: MECLIZINE HCL 25 MG TAB PO PRN (15:19)
[2021-07-25] MEDS ORDERED: LORazepam 1 MG TAB PO PRN (15:19)
[2021-07-25] MEDS: HEPARIN SODIUM/DEXTROSE 25,000 UNITS/500 ML BAG IV SCH (15:31)
[2021-07-25] MEDS ORDERED: PNEUMOCOCCAL POLYSACCHARIDES 25 MCG/0.5 ML VIAL/SYR IM ONE (16:54)
[2021-07-25] MEDS ORDERED: GLUCOSE 10 TABS/TUBE PO PRN (17:21)
[2021-07-25] MEDS ORDERED: GLUCOSE 40% GEL 15 GM TUBE PO PRN (17:21)
[2021-07-25] MEDS ORDERED: DEXTROSE 50% 50 ML SYRINGE IV PRN (17:21)
[2021-07-25] MEDS ORDERED: GLUCAGON FOR INJ 1 MG VIAL SQ PRN (17:21)
[2021-07-25] MEDS ORDERED: CARBOHYDRATES FOR HYPOGLYCEMIA PO PRN (17:21)
[2021-07-25] MEDS: INSULIN ASPART PER UNIT SC SCH ×2 (17:53→20:42)
--- NOTE | 2021-07-25 18:07 | Electrocardiogram Report ---
Test Reason : Blood Pressure : / mmHG Vent. Rate : 109 BPM Atrial Rate : 086 BPM P-R Int : 000 ms QRS Dur : 088 ms QT Int : 364 ms P-R-T Axes : 000 006 009 degrees QTc Int : 490 ms Atrial fibrillation with rapid ventricular response Abnormal ECG When compared with ECG of 20-JUN-2020 19:21, Atrial fibrillation has replaced Sinus rhythm Vent. rate has increased BY 39 BPM Confirmed by Nixon Chew ([id number]) on 07/25/2021 6:07:22 PM Referred By: REFERRED SELF Confirmed By:Richi Chew
[2021-07-25] MEDS ORDERED: LACTATED RINGER'S 1,000 ML IV ONE (20:18)
--- NOTE | 2021-07-25 20:39 | Magnetic Resonance Report ---
Brain MRI WITHOUT CONTRAST HISTORY: Dizziness. new onset atrial fibrillation, r/o cva TECHNIQUE: Multiplanar multisequence MRI of the brain was performed without the use of contrast. COMPARISON STUDY: Brain MRI 01/10/2007. FINDINGS: There is no mass, hematoma, midline shift, or acute infarct. The mastoid air cells are karina r. The ventricles and sulci demonstrate mild age-related involutional changes. Scattered foci of T2 h yperintensity seen within the periventricular and subcortical white matter are nonspecific but sugges tive of mild microvascular ischemic changes. The major vascular flow voids at the skull base are well -maintained. Evidence for bilateral lens repair. Small fluid level and mild mucosal thickening within the right maxillary sinus. There is a 2.3 cm left parotid cyst. This remains unchanged. IMPRESSION: 1. No acute intracranial abnormality. 2. Scattered foci of T2 hyperintensity seen within the periventricular and subcortical white matter a re nonspecific but favor microvascular ischemic change. 3. Small fluid level within the right maxillary sinus suggesting acute sinusitis. ACT 112: Negative or not required by law. Electronically signed by: Cyril Herrera M.D. 07/25/2021 8:37 PM
[2021-07-25] MEDS ORDERED: INSULIN ASPART PER UNIT SC SCH (21:00)
[2021-07-25] MEDS ORDERED: MELATONIN 3 MG TAB PO PRN (21:31)
[2021-07-25] MEDS ORDERED: POLYETHYLENE (MIRALAX) 17 GM PACK PO PRN (21:31)
[2021-07-25] MEDS ORDERED: POLYETHYLENE (MIRALAX) 17 GM PACK PO STA (21:31)
[2021-07-25] MEDS: DOCUSATE SODIUM/SENNA 50/8.6MG TAB PO SCH (21:48)
[2021-07-25 22:01] LABS: Partial Thromboplastin Ratio 1.2; Partial Thromboplastin Time 32.7 Seconds (21.0-31.0)
[2021-07-26 07:28] LABS: Partial Thromboplastin Ratio 1.5; Partial Thromboplastin Time 41.1 Seconds (21.0-31.0)
[2021-07-26] MEDS: INSULIN ASPART PER UNIT SC SCH ×4 (09:08→20:58)
[2021-07-26] MEDS: MAGNESIUM OXIDE 400 MG TAB PO SCH (09:09)
[2021-07-26] MEDS: DOCUSATE SODIUM/SENNA 50/8.6MG TAB PO SCH (09:09)
[2021-07-26] MEDS: estradioL 1 MG TAB PO SCH (09:09)
[2021-07-26] MEDS: PRAVASTATIN SOD 10 MG TAB PO SCH (09:09)
[2021-07-26] MEDS: MULTIVITAMIN TAB PO SCH (09:09)
[2021-07-26] MEDS: CETIRIZINE HCL 10 MG TABLET PO SCH (09:09)
--- NOTE | 2021-07-26 09:56 | Cardiology Consultation ---
Date of Consultation July 26, 2021 Assessment & Plan (1) Atrial fibrillation, new onset: (2) Vertigo: (3) UTI (urinary tract infection): (4) CKD (chronic kidney disease), stage III: (5) Right maxillary sinusitis: (6) Hypokalemia: (1) Atrial fibrillation, new onset: -Although patient has history of dizziness, she has not had recent falls, and given her risk factors including female sex, age of [age] years old, diabetes, recommend anticoagulation for stroke prophylaxis. Currently she is on a heparin infusion. Given recent variations in her renal function, best approach would likely be to proceed with Coumadin. -No rate control medications were initiated on presentation as her systolic blood pressure is on the lower side in the 90s. And she had subjective dizziness. At present, I believe now, while hospitalized, it is the time to proceed with trial of metoprolol, which anticipate lower her blood pressure to a significant degree. (2) Vertigo: -Improved at present. Question of her right maxillary sinus findings are relat ed to her worsening recent vertigo. She has not had any bradycardia to correlate with the dizziness. (3) UTI (urinary tract infection): Urinalysis suggestive of UTI. Culture currently pending. She received a dose of Rocephin. Will defer whether or not additional antibiotics are indicated to the hospitalist service (4) CKD (chronic kidney disease), stage III: -Per review of outpatient records, her estimated GFR is typically in the upper 50s. She had an acute change however observed on 07/22/2021, with creatinine of 2 mg/dL at that time EGFR 24. Currently creatinine improved to 1.48. As noted, with the varying degrees of renal insufficiency, she is considered to not be an ideal candidate for a direct oral anticoagulant at present, and will therefore start with Coumadin. Depending upon affordability, and the stability of her kidney function in the future, can always consider transitioning her to a direct oral anticoagulant agent in the future as an outpatient. (5) Right maxillary sinusitis: -As noted above (6) Hypokalemia: Potassium level 3 mmol/L on presentation yesterday. Received oral replacement. Repeat level has not yet been resulted. Basic metabolic panel ordered. Anticipate need for ongoing hospital stay. Repeat blood work including INR ordered for tomorrow. History of Present Illness Attending Physician: Jayson Oshea MD History of Present Illness Marcy Lundberg is an 81 year old female seen in cardiology consultation per the request of Prasanth Jameson PA-C for the evaluation of new onset atrial fibrillation. 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 She has a previous longstanding history of dizziness in the past considered consistent with vertigo. Patient notes onset of recurrent debilitating dizziness approximately 5 days ago. She works at [employer], and her symptoms of dizziness were significant enough that she cannot go to work 2 times this week. If she notes the symptoms when she gets up. She takes meclizine on a chronic basis. She denies any dysuria. She does not have any subjective symptoms of feeling like her heart rate is elevated or worsening shortness of breath. She notes a recent "cold "but denies any current sinus pressure or drainage. On arrival to the emergency room yesterday, EKG performed 07/25/2021 at 11:07 AM revealed the presence of atrial fibrillation with mildly elevated ventricular response at [address] changes. Compared to the previous tracing performed 06/20/2020, atrial fibrillation has replaced sinus rhythm and the ventricular rate has increased by 39 bpm. The patient was placed on a heparin infusion. Currently she is feeling well in the bedside chair. Her dizziness is improved. She remains in atrial fibrillation, with ventricular rates ranging from 80 bpm upwards to 160 bpm with ambulation. Allergies Allergy/AdvReac Type Severity Reaction Status Date / Time JAC Inhibitors Allergy Intermediate edema Verified 07/25/21 15:07 face/lips/tongue azithromycin AdvReac Intermediate severe Verified 07/25/21 15:07 [From Zithromax Z-Devon] vertigo diphenhydramine AdvReac Mild flushing, Verified 07/25/21 15:07 hyperactivity Home Medications Medication Instructions Recorded Confirmed Type diphenoxylate-atropine 2.5 1 tab PO .UD PRN MDD 8 TABS 04/12/18 07/25/21 History mg-0.025 mg tablet estradiol 1 mg tablet 1 mg PO QAM 04/12/18 07/25/21 History meclizine 25 mg tablet 25 mg PO TID PRN 04/12/18 07/25/21 History medroxyprogesterone 2.5 mg tablet 2.5 mg PO QAM 04/12/18 07/25/21 History pravastatin 10 mg tablet 10 mg PO QAM 04/12/18 07/25/21 History valsartan 80 1 tab PO QAM 04/12/18 07/25/21 History mg-hydrochlorothiazide 12.5 mg tablet cetirizine 10 mg tablet 10 mg PO QAM 10/11/18 07/25/21 History tramadol 50 mg tablet 50 mg PO Q6H PRN 06/20/20 07/25/21 History lorazepam 1 mg tablet 1 mg PO Q8H PRN #10 tab 06/22/20 07/25/21 Rx ibuprofen 200 mg tablet 400 mg PO DAILY PRN 07/25/21 07/25/21 History magnesium 250 mg tablet 0 mg PO QAM 07/25/21 07/25/21 History multivitamin 1 tab PO QAM 07/25/21 07/25/21 History Patient History Medical History Actinic keratosis Diabetes mellitus DIET CONTROLLED Hypertension Osteoarthritis Surgical History History of bilateral tubal ligation History of total knee replacement LEFT Hx of right cataract extraction Family History Father Family history of diabetes mellitus Mother Family history of diabetes mellitus Brother Family history of diabetes mellitus Social History Smoking Status: Never smoker Tobacco Type: Cigarettes Second Hand Exposure: No; Do You Dip or Chew Tobacco: No; Tobacco Cessation Education Requested by Patient: No Hx Alcohol Use: No Hx Substance Use: No Preferred Language: Icelandic Communication Ability: Effective Data Collection Associate Required: No Beliefs That Will Affect Care: None Current Living Situation: Alone Current Living Situation Comment: DAUGHTER & GRANDSON NEARBY Other Information That Helps Us Care for You: No Feels Safe at Home: Yes Safety Concerns: Feels Safe At This Time Assistive Devices: Cane Review of Systems Review of Systems: All systems reviewed & are unremarkable except as noted in HPI & below Physical Exam Constitutional: WD/WN, vitals as above Respiratory: normal respiratory effort, lungs clear to auscultation Cardiovascular: Rate/Rhythm: + tachycardic and + irregularly irregular Heart Sounds: no murmur Vessels: + JVD Extremities: no edema Gastrointestinal (Abdomen): normal bowel sounds, soft, nontender, no hepatosplenomegaly Neurologic: PERRL, EOMI, accommodation nl, no face palsy, no dysarthria Results & Data ([facility]) Vital Signs (Past 12 Hours) Vital Signs Temp Pulse Pulse Resp BP BP Pulse Ox 07/26/21 07:33 36.9 C 95 H 16 99/60 L 94 07/26/21 04:07 36.8 C 75 17 109/64 98 07/25/21 23:35 83 07/25/21 23:18 36.8 C 78 18 86/48 L 98 Laboratory Results Cardiac Enzymes 07/25/21 Range/Units 11:17 AST 17 (13-39) U/L Coagulation 07/25/21 07/25/21 07/26/21 Range/Units 11:17 21:35 06:12 PT 11.2 (9.0-12.0) Seconds APTT 24.3 32.7 H 41.1 H (21.0-31.0) Seconds CBC 07/25/21 Range/Units 11:17 WBC 16.22 H (4.8-10.8) K/uL RBC 3.94 L (4.2-5.4) M/uL Hgb 10.6 L (12.0-16.0) g/dL Hct 32.5 L (37-47) % Plt Count 306 (130-400) K/uL Neut # (Auto) 13.01 H (1.4-6.5) K/uL Lymph # (Auto) 1.54 (1.2-3.4) K/uL [place] # (Auto) 1.53 H (0.11-0.59) K/uL Eos # (Auto) 0.07 (0-0.5) K/uL Baso # (Auto) 0.03 (0-0.2) K/uL Comprehensive Metabolic Panel 07/25/21 Range/Units 11:17 Sodium 135 L (136-145) mmol/L Potassium 3.0 L (3.5-5.1) mmol/L Chloride 103 (98-107) mmol/L Carbon Dioxide 20 L (21-32) mmol/L BUN 40 H (6-23) mg/dl Creatinine 1.48 H (0.6-1.2) mg/dl Glucose 177 H (70-99(Fasting)) mg/dl Calcium 8.5 (8.5-10.1) mg/dl AST 17 (13-39) U/L ALT 16 (7-52) U/L Alkaline Phosphatase 104 (34-104) U/L Total Protein 7.9 (6.0-8.3) gm/dl Albumin 3.2 L (3.4-5.0) gm/dl Intake and Output 07/25/21 07/26/21 07/26/21 22:59 06:59 14:59 Intake Total 350 / 2281.2 1431.2 / 2281.2 254.7 / 254.7 Balance 350 / 2281.2 1431.2 / 2281.2 254.7 / 254.7 Intake: IV 150 / 1831.2 1181.2 / 1831.2 254.7 / 254.7 Heparin Sodium/Dextrose 25,000 181.2 / 181.2 254.7 / 254.7 units In 500 ml @ 1,350 UNITS/ HR 27 mls/hr IV .[id number] BILL Rx #:[id number] Lactated Ringer's 1,000 ml @ 1000 / 1000 200 mls/hr IV .Q5H ONE Rx#: [id number] Potassium Chloride / Wtr 10 meq 100 / 100 In 100 ml @ 100 mls/hr IV Q1H STA Rx#:[id number] cefTRIAXone SODIUM 1,000 mg In 50 / 50 50 ml @ 100 mls/hr IV NOW STA Rx#:[id number] Oral 200 / 450 250 / 450 Other: # Unmeasured Voids 1 2 Weight 89.6 kg Weight Measurement Method Built in [facility] Diagnostic Findings High-sensitivity troponin measurements 14.9, 13, 11.6, stable. EKG as outlined in the HPI. Echocardiogram performed today and reviewed independently revealed normal left ventricular wall motion, LVEF 55 to 60%, moderate mitral annular calcification, mild aortic valve sclerosis without stenosis. Mild left atrial dilatation. Relatively unchanged compared to the previous study performed 06/22/2020. MRI of the brain, no acute intracranial process per radiology report, microvascular ischemic change noted, small fluid level within the right maxillary sinus suggestive of acute sinusitis
[2021-07-26 10:47] LABS: Hematocrit (blood only) 30.1 % (37-47); Hemoglobin 9.6 g/dL (12.0-16.0); Mean Corpuscular Hgb Conc 31.9 g/dL (32-36); Mean Corpuscular Volume 84.6 fL (80-100); Platelet Count 312 K/uL (130-400); RDW Coefficient of Variation 15.7 % (11.5-14.5); RDW Standard Deviation 48.7 fL (36.4-46.3); Red Blood Count 3.56 M/uL (4.2-5.4); White Blood Count 10.14 K/uL (4.8-10.8)
[2021-07-26 11:07] LABS: BUN Creatinine Ratio 23.6 (10-20); Calcium 8.3 mg/dl (8.5-10.1); Est GFR (Non-African American) 35.4 ml/min; Potassium 3.6 mmol/L (3.5-5.1)
[2021-07-26] MEDS ORDERED: VANCOMYCIN CONSULT ACTIVE PRN (11:27)
[2021-07-26] MEDS ORDERED: VANCOMYCIN HCL 2,000 MG in SODIUM CHLORIDE 0.9% 500 ML IV ONE (11:45)
[2021-07-26] MEDS: HEPARIN SODIUM/DEXTROSE 25,000 UNITS/500 ML BAG IV SCH ×2 (12:41→16:59)
[2021-07-26] MEDS: cefTRIAXone SODIUM 2,000 MG in DEXTROSE 5% 50 ML IV SCH (12:42)
--- NOTE | 2021-07-26 12:58 | Pharmacy Report ---
Pharmacy Vanc AUC Short Note - Date of Service July 26, 2021 - Assessment & Plan Assessment 81 year old F ordered empiric vancomycin and ceftriaxone for treatment of UTI and possible bacteremia vs. contamination (1 of 2 blood cultures). Pertinent microbiologic data includes: 1 of 2 blood cultures (4) - gram-positive cocci. Baseline SCr appears to be near 1 mg/dL, currently 1.4 mg/dL. Improvement in leukocytosis overnight (16 -> 10 K) following one dose of ceftriaxone yesterday. Empiric vancomycin okay for now, follow cultures. Day # 1 of vancomycin therapy. Plan Vancomycin * AUC/DANNY is the preferred PK/PD target for vancomycin * AUC guided dosing is effective and associated with decreased risk of nephrotoxicity compared to traditional trough targets * Loading dose of 2 g (22 mg/kg) IV x 1 * Maintenance dose of 1250 mg IV q24h to be ordered ongoing, predicted to achieve target AUC/DANNY with limited risk of nephrotoxicity * Will reassess renal function tomorrow with AM labs and order and reassess appropriateness of regimen Ceftriaxone * 2 g IV q24h - appropriate Pharmacy will continue to follow and will adjust dose/frequency as necessary. Thank you.
[2021-07-26] MEDS: METOPROLOL TARTRATE 25 MG TAB PO SCH ×3 (13:57→20:58)
[2021-07-26 14:51] LABS: Partial Thromboplastin Ratio 1.4; Partial Thromboplastin Time 39.1 Seconds (21.0-31.0)
[2021-07-26] MEDS: WARFARIN SOD 5 MG TAB PO SCH (17:28)
[2021-07-26] MEDS: MIDODRINE HCL 2.5 MG TAB PO SCH (17:54)
[2021-07-26 21:07] LABS: Partial Thromboplastin Ratio 1.5; Partial Thromboplastin Time 41.8 Seconds (21.0-31.0)
[2021-07-26] MEDS: MELATONIN 3 MG TAB PO PRN (22:29)
--- NOTE | 2021-07-26 23:49 | Hospitalist Progress Note ---
Date of Service July 26, 2021 Assessment & Plan (1) Atrial fibrillation, new onset: Plan: Present on admission with worsening dizziness She was found to be on Afib with RVR on admission Currently rate control Cardiology on board Plan to initiate on low dose metoprolol if BP stable Currently on Heparin drip, starting on coumadin since pt is not a good candidate for the DOAC due to renal failure Echo showed left ventricular wall motion is normal with ejection fraction 55 to 60% Clinically stable Continue monitor in tele (2) Vertigo: Plan: Worsening dizziness possible related to labyrinthitis due to recent URI CT head showed No acute intracranial findings. No change in appearance of the brain. CTA head and neck showed No significant stenosis, occlusion, or aneurysm within the [place]. MRI brain showed no acute intracranial abnormality. Clinically improves Fall precaution (3) UTI (urinary tract infection): Plan: UA positive for nitrite, leukocyte and bacteria Currently on IV ceftriaxone WBC trending down to normal Urine culture positive for gram-negative bacilli We will follow urine sensitivity (4) Bacteremia: Plan: Blood culture grew gram-positive cocci We will start IV vancomycin Patient had echo done that did not note any vegetation We will repeat blood culture in a.m. Continue monitor closely (5) CKD (chronic kidney disease), stage III: Plan: Creatinine on admission 1.4, most recent outpatient on 07/20 creatinine was 2 Continue to hold valsartan/hctz Avoid nephrotoxic agent Continue monitor BMP (6) DM type 2 (diabetes mellitus, type 2): Plan: Most recent hemoglobin A1c 6.9 on 07/22/2021 Pt is using diet control, not on any oral antihyperglycemic meds or insulin (7) Hypokalemia: Plan: K+ is 3.0 on admission Potassium 3.6 Today Stable (8) Obesity (BMI 35.0-39.9 without comorbidity): Plan: - Diet and exercise to be encouraged throughout stay - BMI 35.7 (9) Right maxillary sinusitis: Plan: - Noted on imaging of the CT head Currently on ceftriaxone and IV Vanco for UTI and bacteremia respectively DVT ppx: On IV heparin drip CODE: DNR/DNI Admission and Anticipated Discharge Date Admission Date: July 25, 2021 Subjective Patient was seen and examined for follow-up of dizziness Sitting in chair with no acute distress She said she did not sleep well last night due to being in the hospital Patient said dizziness much better today Denies any chest pain, palpitation, shortness of breath. Review of Systems Review of Systems: All systems reviewed & are unremarkable except as noted in Subjective Physical Exam Physical Exam: General- No acute distress Head- atraumatic Eyes- PERRL, EOMI, ENT- oropharynx clear Neck- supple, no JVD Lungs- clear to auscultation Heart- irregular rhythm; no murmur Abdomen- normal bowel sounds, soft, nontender Extremities- no calf tenderness Neuro- alert, oriented x 3; PERRL, EOMI; no facial palsy; no dysarthria Skin- warm & dry Results & Data Results & Data ([facility]) Vital Signs (Past 12 Hours) Vital Signs Temp Pulse Resp BP Pulse Ox 07/26/21 20:11 36.8 C 87 18 110/64 97 07/26/21 16:22 36.9 C 99 H 18 92/60 L 97 07/26/21 12:36 36.8 C 80 18 91/59 L 97
[2021-07-27 05:34] LABS: Hematocrit (blood only) 27.3 % (37-47); Hemoglobin 8.5 g/dL (12.0-16.0); Mean Corpuscular Hemoglobin 26.3 pg (25-34); Mean Corpuscular Hgb Conc 31.1 g/dL (32-36); Mean Corpuscular Volume 84.5 fL (80-100); Mean Platelet Volume 10.5 fL (7.4-10.4); Platelet Count 358 K/uL (130-400); RDW Coefficient of Variation 15.7 % (11.5-14.5); RDW Standard Deviation 48.7 fL (36.4-46.3); Red Blood Count 3.23 M/uL (4.2-5.4)
[2021-07-27] MEDS: HEPARIN SODIUM/DEXTROSE 25,000 UNITS/500 ML BAG IV SCH ×2 (05:54→23:22)
[2021-07-27 06:06] LABS: Albumin Globulin Ratio 0.7 (0.9-2); Albumin Level 2.7 gm/dl (3.4-5.0); BUN Creatinine Ratio 26.2 (10-20); Bilirubin,Total 0.3 mg/dl (0.2-1.0); Calcium 8.3 mg/dl (8.5-10.1); Creatinine Clr Calc Pharmacy 37.8 ml/min; Est GFR (African American) 46.6 ml/min; Est GFR (Non-African American) 40.2 ml/min; Magnesium 1.9 mg/dl (1.7-2.4); Potassium 3.9 mmol/L (3.5-5.1); Total Protein 6.7 gm/dl (6.0-8.3)
[2021-07-27] MEDS: INSULIN ASPART PER UNIT SC SCH ×4 (08:51→20:40)
[2021-07-27] MEDS: MAGNESIUM OXIDE 400 MG TAB PO SCH (08:55)
[2021-07-27] MEDS: estradioL 1 MG TAB PO SCH (08:55)
[2021-07-27] MEDS: CETIRIZINE HCL 10 MG TABLET PO SCH (08:55)
[2021-07-27] MEDS: DOCUSATE SODIUM/SENNA 50/8.6MG TAB PO SCH (08:55)
[2021-07-27] MEDS: PRAVASTATIN SOD 10 MG TAB PO SCH (08:56)
[2021-07-27] MEDS: MULTIVITAMIN TAB PO SCH (08:56)
[2021-07-27] MEDS ORDERED: VANCOMYCIN HCL 1,250 MG in SODIUM CHLORIDE 0.9% 250 ML IV SCH (09:00)
[2021-07-27 09:23] LABS: Partial Thromboplastin Time 53.8 Seconds (21.0-31.0)
[2021-07-27] MEDS: MIDODRINE HCL 2.5 MG TAB PO SCH ×3 (09:55→17:53)
[2021-07-27] MEDS: METOPROLOL TARTRATE 25 MG TAB PO SCH ×2 (09:55→20:39)
--- NOTE | 2021-07-27 12:48 | Cardiology Progress Note ---
Date of Service July 27, 2021 Assessment & Plan (1) Atrial fibrillation, new onset: (2) Vertigo: (3) UTI (urinary tract infection): (4) CKD (chronic kidney disease), stage III: (5) Right maxillary sinusitis: (6) Hypokalemia: Plan: (1) Atrial fibrillation, new onset: -Early this am 07/27/21, at 3:25 am , pt converted from AF to sinus rhythm with a 1.8 s conversion pause. -Continue heparin and coumadin. Check INR 07/28/21. -Reduce metoprolol tartrate to 12.5 mg BID with holds. (2) Vertigo: -Improved at present. Question of her right maxillary sinus findings are related to her worsening recent vertigo. She has not had any bradycardia to correlate with the dizziness. (3) UTI (urinary tract infection): Urine culture =sensitive Klebsiella. Continue IV rocephin. (4) CKD (chronic kidney disease), stage III: -Creatinine improved to 1.26. Given labile renal function, coumadin favored over DOAC. (5) Right maxillary sinusitis: -As noted above (6) Hypokalemia: Resolved. (7) Low BP. Valsartan , HCTZ on hold. Trial of low dose midodrine started given chronic dizziness. May need diuretic for edema related to venous insufficiency , but hold today. Anticipate need for ongoing hospital stay. Repeat INR ordered for tomorrow. Admission and Anticipated Discharge Date Admission Date: July 25, 2021 Subjective Pt seen in cardiology follow up of atrial fibrillation. Denies complaints. Denies dizziness. Physical Exam Constitutional: WD/WN, vitals as above Respiratory: normal respiratory effort, lungs clear to auscultation Cardiovascular: Rate/Rhythm: + tachycardic and + irregularly irregular Heart Sounds: no murmur Vessels: + JVD Extremities: no edema Gastrointestinal (Abdomen): normal bowel sounds, soft, nontender, no hepatosplenomegaly Neurologic: PERRL, EOMI, accommodation nl, no face palsy, no dysarthria Results & Data ([facility]) Vital Signs (Past 12 Hours) Vital Signs Temp Pulse Resp BP BP Pulse Ox 07/27/21 12:04 36.7 C 66 19 94/58 L 97 07/27/21 07:56 37.1 C 72 19 97/61 L 96 07/27/21 04:33 37.2 C 73 22 95/59 L 96 Laboratory Results Cardiac Enzymes 07/27/21 Range/Units 04:38 AST 50 H (13-39) U/L Coagulation 07/26/21 07/26/21 07/27/21 Range/Units 14:25 20:32 04:38 PT Cancelled APTT 39.1 H 41.8 H (21.0-31.0) Seconds 07/27/21 Range/Units 04:38 PT APTT 53.8 H* (21.0-31.0) Seconds CBC 07/27/21 Range/Units 04:38 WBC 10.80 (4.8-10.8) K/uL RBC 3.23 L (4.2-5.4) M/uL Hgb 8.5 L (12.0-16.0) g/dL Hct 27.3 L (37-47) % Plt Count 358 (130-400) K/uL Comprehensive Metabolic Panel 07/27/21 Range/Units 04:38 Sodium 138 (136-145) mmol/L Potassium 3.9 (3.5-5.1) mmol/L Chloride 108 H (98-107) mmol/L Carbon Dioxide 21 (21-32) mmol/L BUN 33 H (6-23) mg/dl Creatinine 1.26 H (0.6-1.2) mg/dl Glucose 100 H (70-99(Fasting)) mg/dl Calcium 8.3 L (8.5-10.1) mg/dl AST 50 H (13-39) U/L ALT 45 (7-52) U/L Alkaline Phosphatase 103 (34-104) U/L Total Protein 6.7 (6.0-8.3) gm/dl Albumin 2.7 L (3.4-5.0) gm/dl Intake and Output 07/26/21 07/27/21 07/27/21 22:59 06:59 14:59 Intake Total 866.300 / 1643.667 388.567 / 1643.667 275 / 275 Balance 866.300 / 1643.667 388.567 / 1643.667 275 / 275 Intake: IV 766.300 / 1493.667 338.567 / 1493.667 275 / 275 Heparin Sodium/Dextrose 25,000 226.300 / 883.667 338.567 / 883.667 units In 500 ml @ 1,500 UNITS/ HR 30 mls/hr IV .[id number] [facility] Rx #:[id number] Vancomycin HCl 1,250 mg In 275 / 275 Sodium Chloride 0.9% 250 ml @ 200 mls/hr IV Q24H [facility] Rx#: [id number] Vancomycin HCl 2,000 mg In 540 / 540 Sodium Chloride 0.9% 500 ml @ 200 mls/hr IV ONE ONE Rx#: [id number] Oral 100 / 150 50 / 150 Other: # Unmeasured Voids 1 Weight 92.3 kg
[2021-07-27] MEDS: cefTRIAXone SODIUM 2,000 MG in DEXTROSE 5% 50 ML IV SCH (13:22)
--- NOTE | 2021-07-27 17:28 | Hospitalist Progress Note ---
Date of Service July 27, 2021 Assessment & Plan (1) Atrial fibrillation, new onset: Plan: Present on admission with worsening dizziness She was found to be on Afib with RVR on admission Converted to NSR at 3am rate control Cardiology on board Continue low dose metoprolol 12.5 mg BID Currently on Heparin drip bridge with coumadin since pt is not a good candidate for the DOAC due to renal failure Echo showed left ventricular wall motion is normal with ejection fraction 55 to 60% Continue monitor PT/INR Clinically improves (2) Vertigo: Plan: Worsening dizziness possible related to labyrinthitis due to recent URI CT head showed No acute intracranial findings. No change in appearance of the brain. CTA head and neck showed No significant stenosis, occlusion, or aneurysm within the [place] of [place]. MRI brain showed no acute intracranial abnormality. Clinically improves Fall precaution Resolved (3) UTI (urinary tract infection): Plan: UA positive for nitrite, leukocyte and bacteria WBC trending down to normal Urine culture positive for gram-negative bacilli- Klebsiella Continue Rocephin IV (4) Bacteremia: Plan: coag negative staph not lugdunensis and staph species MRSA screen negative On IV vancomycin, will discontinue it Patient had echo done that did not note any vegetation Repeat blood culture collected - Pending Continue monitor closely (5) CKD (chronic kidney disease), stage III: Plan: Creatinine on admission 1.4, most recent outpatient on 07/20 creatinine was 2 Continue to hold valsartan/hctz Creatinine 1.2 today Avoid nephrotoxic agent Continue monitor BMP (6) DM type 2 (diabetes mellitus, type 2): Plan: Most recent hemoglobin A1c 6.9 on 07/22/2021 Pt is using diet control, not on any oral antihyperglycemic meds or insulin (7) Hypokalemia: Plan: K+ is 3.0 on admission Potassium 3.9 Today Stable (8) Obesity (BMI 35.0-39.9 without comorbidity): Plan: - Diet and exercise to be encouraged throughout stay - BMI 35.7 (9) Right maxillary sinusitis: Plan: - Noted on imaging of the CT head Currently on ceftriaxone for UTI and possible bacteremia DVT ppx: On IV heparin drip CODE: DNR/DNI Admission and Anticipated Discharge Date Admission Date: July 25, 2021 Subjective Patient was seen and examined for follow-up of dizziness, bacteremia Lying in bed with no acute distress She said that she is not having any more dizziness She was converted to NSR at 3AM Denies any chest pain, palpitation, shortness of breath. Review of Systems Review of Systems: All systems reviewed & are unremarkable except as noted in Subjective Physical Exam Physical Exam: General- No acute distress Head- atraumatic Eyes- PERRL, EOMI, ENT- oropharynx clear Neck- supple, no JVD Lungs- clear to auscultation Heart- irregular rhythm; no murmur Abdomen- normal bowel sounds, soft, nontender Extremities- no calf tenderness Neuro- alert, oriented x 3; PERRL, EOMI; no facial palsy; no dysarthria Skin- warm & dry Results & Data Results & Data ([facility]) Vital Signs (Past 12 Hours) Vital Signs Temp Pulse Pulse Resp BP Pulse Ox 07/27/21 16:04 36.8 C 68 19 106/66 96 07/27/21 13:48 75 07/27/21 12:04 36.7 C 66 19 94/58 L 97 07/27/21 07:56 37.1 C 72 19 97/61 L 96
[2021-07-27] MEDS: WARFARIN SOD 5 MG TAB PO SCH (18:10)
[2021-07-27] MEDS: MELATONIN 3 MG TAB PO PRN (20:39)
[2021-07-28 07:03] LABS: Hematocrit (blood only) 26.9 % (37-47); Hemoglobin 8.6 g/dL (12.0-16.0); Mean Corpuscular Hemoglobin 26.5 pg (25-34); Mean Platelet Volume 9.9 fL (7.4-10.4); Platelet Count 324 K/uL (130-400); RDW Coefficient of Variation 15.7 % (11.5-14.5); RDW Standard Deviation 47.9 fL (36.4-46.3); Red Blood Count 3.24 M/uL (4.2-5.4)
[2021-07-28 07:19] LABS: INR 1.1 (0.9-1.1); Prothrombin Time 11.4 Seconds (9.0-12.0)
[2021-07-28 07:26] LABS: BUN Creatinine Ratio 25.7 (10-20); Calcium 8.6 mg/dl (8.5-10.1); Creatinine Clr Calc Pharmacy 43.2 ml/min; Est GFR (African American) 53.2 ml/min; Est GFR (Non-African American) 45.9 ml/min; Potassium 4.3 mmol/L (3.5-5.1)
[2021-07-28 07:44] LABS: Partial Thromboplastin Ratio 2.1
[2021-07-28 07:56] LABS: Partial Thromboplastin Time 58.1 Seconds (21.0-31.0)
[2021-07-28] MEDS: CETIRIZINE HCL 10 MG TABLET PO SCH (08:14)
[2021-07-28] MEDS: MIDODRINE HCL 2.5 MG TAB PO SCH ×4 (08:14→16:32)
[2021-07-28] MEDS: DOCUSATE SODIUM/SENNA 50/8.6MG TAB PO SCH (08:15)
[2021-07-28] MEDS: MAGNESIUM OXIDE 400 MG TAB PO SCH (08:15)
[2021-07-28] MEDS: estradioL 1 MG TAB PO SCH (08:15)
[2021-07-28] MEDS: METOPROLOL TARTRATE 25 MG TAB PO SCH ×2 (08:15→20:08)
[2021-07-28] MEDS: PRAVASTATIN SOD 10 MG TAB PO SCH (08:16)
[2021-07-28] MEDS: INSULIN ASPART PER UNIT SC SCH ×4 (08:38→20:10)
[2021-07-28] MEDS: MULTIVITAMIN TAB PO SCH (08:53)
--- NOTE | 2021-07-28 10:12 | Cardiology Progress Note ---
Date of Service July 28, 2021 Assessment & Plan (1) Atrial fibrillation, new onset: (2) Vertigo: (3) UTI (urinary tract infection): (4) CKD (chronic kidney disease), stage III: (5) Right maxillary sinusitis: (6) Hypokalemia: Plan: (1) Atrial fibrillation, new onset: -Early this am 07/27/21, at 3:25 am , pt converted from AF to sinus rhythm with a 1.8 s conversion pause. -Continue heparin and coumadin. Check INR 07/28/21. Anemia noted. Hgb on 07/25/21 was 10.6 g/dl , down to 8.6 07/28/21. If Hgb declines more, will have low threshold to stop heparin. -metoprolol tartrate to 12.5 mg BID with holds. (2) Vertigo: -Improved at present. Question of her right maxillary sinus findings are related to her worsening recent vertigo. She has not had any bradycardia to correlate with the dizziness. (3) UTI (urinary tract infection): Urine culture =sensitive Klebsiella. Continue IV rocephin. (4) CKD (chronic kidney disease), stage III: -Creatinine improved to 1.13. Given labile renal function, coumadin favored over DOAC. (5) Right maxillary sinusitis: -As noted above (6) Hypokalemia: Resolved. (7) Low BP. Valsartan , HCTZ on hold. Trial of low dose midodrine started given chronic dizziness. May need diuretic for edema related to venous insufficiency , but hold today. Anticipate need for ongoing hospital stay. Repeat INR ordered for tomorrow. Admission and Anticipated Discharge Date Admission Date: July 25, 2021 Subjective Pt seen in cardiology follow up of atrial fibrillation.Pt remains in SR in the 60s. Physical Exam Constitutional: WD/WN, vitals as above Respiratory: normal respiratory effort, lungs clear to auscultation Cardiovascular: Rate/Rhythm: regular rate Heart Sounds: no murmur Vessels: + JVD Extremities: no edema Gastrointestinal (Abdomen): normal bowel sounds, soft, nontender, no hepatosplenomegaly Neurologic: PERRL, EOMI, accommodation nl, no face palsy, no dysarthria Results & Data ([facility]) Vital Signs (Past 12 Hours) Vital Signs Temp Pulse Pulse Resp BP BP Pulse Ox 07/28/21 07:58 71 07/28/21 07:39 37.5 C 70 18 122/72 96 07/28/21 03:00 36.9 C 96 H 20 101/65 92 07/27/21 23:22 37.2 C 72 16 112/69 96 07/27/21 22:20 73
--- NOTE | 2021-07-28 12:04 | Electrocardiogram Report ---
Test Reason : Blood Pressure : / mmHG Vent. Rate : 069 BPM Atrial Rate : 069 BPM P-R Int : 144 ms QRS Dur : 080 ms QT Int : 432 ms P-R-T Axes : 036 040 039 degrees QTc Int : 462 ms Normal sinus rhythm Low voltage QRS Abnormal ECG When compared with ECG of 25-JUL-2021 11:07, Sinus rhythm has replaced Atrial fibrillation Vent. rate has decreased BY 40 BPM T wave amplitude has increased in Anterior leads Confirmed by Sam Wilkins ([id number]) on 07/28/2021 12:03:52 PM Referred By: REFERRED SELF Confirmed By:Sam Wilkins
[2021-07-28] MEDS: cefTRIAXone SODIUM 2,000 MG in DEXTROSE 5% 50 ML IV SCH (12:23)
[2021-07-28] MEDS: HEPARIN SODIUM/DEXTROSE 25,000 UNITS/500 ML BAG IV SCH ×2 (16:30→16:44)
[2021-07-28] MEDS: WARFARIN SOD 5 MG TAB PO SCH (16:32)
[2021-07-28] MEDS: MELATONIN 3 MG TAB PO PRN (20:12)
--- NOTE | 2021-07-28 23:40 | Hospitalist Progress Note ---
Date of Service July 28, 2021 Assessment & Plan (1) Atrial fibrillation, new onset: Plan: Present on admission with worsening dizziness She was found to be on Afib with RVR on admission Converted to NSR at 3am rate control Cardiology on board Continue low dose metoprolol 12.5 mg BID Currently on Heparin drip bridge with coumadin since pt is not a good candidate for the DOAC due to renal failure Echo showed left ventricular wall motion is normal with ejection fraction 55 to 60% Continue monitor PT/INR Clinically improves (2) Vertigo: Plan: Worsening dizziness possible related to labyrinthitis due to recent URI CT head showed No acute intracranial findings. No change in appearance of the brain. CTA head and neck showed No significant stenosis, occlusion, or aneurysm within the [place]. MRI brain showed no acute intracranial abnormality. Clinically improves Fall precaution Resolved (3) UTI (urinary tract infection): Plan: UA positive for nitrite, leukocyte and bacteria WBC trending down to normal Urine culture positive for gram-negative bacilli- Klebsiella Continue Rocephin IV (4) Bacteremia: Plan: coag negative staph not lugdunensis and staph species ( mostly contamination) MRSA screen negative On IV vancomycin, will discontinue it Patient had echo done that did not note any vegetation Repeat blood culture collected - no growth Continue monitor closely (5) Anemia: Plan: Hgb 8.6 today Continue monitor H/H while on heparin drip Check iron study (6) CKD (chronic kidney disease), stage III: Plan: Creatinine on admission 1.4, most recent outpatient on 07/20 creatinine was 2 Continue to hold valsartan/hctz Creatinine 1.2 today Avoid nephrotoxic agent Continue monitor BMP (7) DM type 2 (diabetes mellitus, type 2): Plan: Most recent hemoglobin A1c 6.9 on 07/22/2021 Pt is using diet control, not on any oral antihyperglycemic meds or insulin (8) Hypokalemia: Plan: K+ is 3.0 on admission Potassium 4.3 Today Stable (9) Obesity (BMI 35.0-39.9 without comorbidity): Plan: - Diet and exercise to be encouraged throughout stay - BMI 35.7 (10) Right maxillary sinusitis: Plan: - Noted on imaging of the CT head Currently on ceftriaxone for UTI and possible bacteremia DVT ppx: On IV heparin drip CODE: DNR/DNI Admission and Anticipated Discharge Date Admission Date: July 25, 2021 Subjective Patient was seen and examined for follow-up of dizziness, bacteremia Lying in bed with no acute distress Denies any chest pain, palpitation, shortness of breath and dizziness Review of Systems Review of Systems: All systems reviewed & are unremarkable except as noted in Subjective Physical Exam Physical Exam: General- No acute distress Head- atraumatic Eyes- PERRL, EOMI, ENT- oropharynx clear Neck- supple, no JVD Lungs- clear to auscultation Heart- irregular rhythm; no murmur Abdomen- normal bowel sounds, soft, nontender Extremities- no calf tenderness Neuro- alert, oriented x 3; PERRL, EOMI; no facial palsy; no dysarthria Skin- warm & dry Results & Data Results & Data ([facility]) Vital Signs (Past 12 Hours) Vital Signs Temp Pulse Pulse Resp BP Pulse Ox 07/28/21 23:02 36.7 C 72 18 121/75 96 07/28/21 22:42 66 07/28/21 15:58 36.7 C 76 18 130/72 97 07/28/21 14:48 67
[2021-07-29] MEDS: HEPARIN SODIUM/DEXTROSE 25,000 UNITS/500 ML BAG IV SCH (05:31)
[2021-07-29 07:35] LABS: Hematocrit (blood only) 26.2 % (37-47); Hemoglobin 8.3 g/dL (12.0-16.0); Mean Corpuscular Hemoglobin 26.9 pg (25-34); Mean Corpuscular Hgb Conc 31.7 g/dL (32-36); Mean Corpuscular Volume 85.1 fL (80-100); Mean Platelet Volume 9.7 fL (7.4-10.4); Platelet Count 334 K/uL (130-400); RDW Standard Deviation 49.2 fL (36.4-46.3); Red Blood Count 3.08 M/uL (4.2-5.4); White Blood Count 11.61 K/uL (4.8-10.8)
[2021-07-29 07:55] LABS: BUN Creatinine Ratio 20.2 (10-20); Calcium 8.5 mg/dl (8.5-10.1); Creatinine Clr Calc Pharmacy 44.8 ml/min; Est GFR (African American) 55.5 ml/min; Est GFR (Non-African American) 47.9 ml/min; Potassium 4.1 mmol/L (3.5-5.1)
[2021-07-29] MEDS: INSULIN ASPART PER UNIT SC SCH ×3 (07:55→16:46)
[2021-07-29] MEDS: MIDODRINE HCL 2.5 MG TAB PO SCH (08:00)
[2021-07-29] MEDS: CETIRIZINE HCL 10 MG TABLET PO SCH (08:00)
[2021-07-29] MEDS: METOPROLOL TARTRATE 25 MG TAB PO SCH (08:01)
[2021-07-29] MEDS: estradioL 1 MG TAB PO SCH (08:01)
[2021-07-29] MEDS: DOCUSATE SODIUM/SENNA 50/8.6MG TAB PO SCH (08:01)
[2021-07-29] MEDS: MAGNESIUM OXIDE 400 MG TAB PO SCH (08:01)
[2021-07-29] MEDS: MULTIVITAMIN TAB PO SCH (08:02)
[2021-07-29] MEDS: PRAVASTATIN SOD 10 MG TAB PO SCH (08:03)
[2021-07-29 08:04] LABS: INR 1.2 (0.9-1.1); Partial Thromboplastin Ratio 2.2; Prothrombin Time 12.4 Seconds (9.0-12.0)
[2021-07-29 08:20] LABS: Partial Thromboplastin Time 61.7 Seconds (21.0-31.0)
--- NOTE | 2021-07-29 11:46 | Cardiology Progress Note ---
Date of Service July 29, 2021 Assessment & Plan (1) Atrial fibrillation, new onset: Plan: -spontaneously converted to SR on oral metoprolol. Stop heparin out of caution given Hgb of 8.3. INR 1.2. Continue coumadin. Coumadin chosen over DOAC given recent labile creatinine levels. Increase activity today. Discharge on coumadin 5 mg , follow up with Anticoag clinic as outpatient ([facility] or ). Discharge on metoprolol succinate 25 mg daily, HCTZ 12.5 mg daily. DC PATTERN SETTER valsartan. DC midodrine. Antibiotics for UTI as per hospitalist service. Outpt cardio follow up within a month. Admission and Anticipated Discharge Date Admission Date: July 25, 2021 Subjective Pt seen in follow up. Feeling well. Telemetry reveals ongoing SR in the 60s. Physical Exam Constitutional: WD/WN, vitals as above Respiratory: normal respiratory effort, lungs clear to auscultation Cardiovascular: RRR, no murmur, no edema Neurologic: PERRL, EOMI, accommodation nl, no face palsy, no dysarthria Results & Data ([facility]) Vital Signs (Past 12 Hours) Vital Signs Temp Pulse Pulse Resp BP Pulse Ox 07/29/21 07:38 36.7 C 65 18 122/74 93 07/29/21 07:31 69 07/29/21 03:41 36.9 C 72 18 112/67 94
[2021-07-29] MEDS: cefTRIAXone SODIUM 2,000 MG in DEXTROSE 5% 50 ML IV SCH (12:34)
[2021-07-29] MEDS: WARFARIN SOD 5 MG TAB PO SCH (16:53)
[2021-07-30] MEDS ORDERED: METOPROLOL SUCC 25MG EXT REL TAB PO SCH (09:00)
--- NOTE | 2021-08-01 08:32 | Discharge Summary ---
Date of Service July 29, 2021 Admission HPI Per Admitting Provider This is an 81 yo F with PMhx of DM type II, HLD, CKD stage III, vertigo, irritable bowel syndrome, Charcot foot due to diabetes, who presents with acute onset of dizziness, nausea and vomiting for the past 3-4 days. Pt states " I've barely been able to do anything". She reports ports feeling dizzy whenever she gets up from a lying or sitting position and that causes her more severe symptoms. She has had difficulty tolerating oral intake due to nausea and dizziness, and this morning vomited twice after attempting to drink a small amount of gatorade. She reports a history of vertigo and that typically she uses meclizine which improves her symptoms; this morning she took 3 tablets and it did seem to make things slightly better. She denies any chest complaints including pressure, palpitations, flutter, pain or shortness of breath despite having an irregular rhythm on monitor. To her knowledge, she has no known history of atrial fibrillation. Pt states she's never had any issues with her heart before. Patient lives at home by herself, however has her daughter and grandson in a unit within the home. None of her morning medications were taken today excluding meclizine as mentioned above. She was scheduled to follow-up with her PCP soon in regards to kidney function recently, as she has a staghorn calculi and only 1 working kidney. She denies any recent changes in urination, but admits to chronic incontinence. She wears a large pad daily which she states is changed 2-3 times per day. Denies any burning with urination or increased frequency. With previous UTIs, she does not normally experience these symptoms. She has current complaints of itching of her vaginal area that has been going on for few days, and is requesting something for yeast infection. Last week she had a bad cold but seems to be improving now, her only left over symptoms include minor sinus congestion. Denies any recent fever, chills or sweats. She takes two ibuprofen tablets on a daily basis for her arthritis, and tells me it's like a blood thinner, but isn't on any other form of anticoagulation. Admission Exam Per Admitting Provider General: awake, alert, no apparent distress, + obese with BMI of 35.7 Head: Normocephalic, atraumatic ENT: PERRL, EOMI, no pharyngeal exudate, mucous membranes slightly dry Chest: Clear to auscultation, on room air, no adventitious breath sounds Cardiac: Irregularly irregular, HR in mid 90s to low 100s at bedside, no murmur, no JVD, normal peripheral pulses, good capillary refill Abdominal: NABS x 4 quadrants, soft, nondistended, nontender to palpation, no rebound or guarding Extremities: Normal inspection, no peripheral edema or erythema, calfs nontender to palpation Psych: Normal mood and affect Neuro: AAO x 3, strength intact bilaterally and rated 5/5, no focal deficits, no gross motor deficits, speech is clear, no peripheral sensory deficits Principal Diagnosis Atrial fibrillation, new onset: Vertigo: UTI (urinary tract infection): Anemia: CKD (chronic kidney disease), stage III: DM type 2 (diabetes mellitus, type 2): Hypokalemia: Right maxillary sinusitis: Discharge Exam General- No acute distress Head- atraumatic Eyes- PERRL, EOMI, ENT- oropharynx clear Neck- supple, no JVD Lungs- clear to auscultation Heart- irregular rhythm; no murmur Abdomen- normal bowel sounds, soft, nontender Extremities- no calf tenderness Neuro- alert, oriented x 3; PERRL, EOMI; no facial palsy; no dysarthria Skin- warm & dry Discharge Data Allergies Allergy/AdvReac Type Severity Reaction Status Date / Time JAC Inhibitors Allergy Intermediate edema Verified 07/25/21 15:07 face/lips/tongue azithromycin AdvReac Intermediate severe Verified 07/25/21 15:07 [From Zithromax Z-Devon] vertigo diphenhydramine AdvReac Mild flushing, Verified 07/25/21 15:07 hyperactivity Consultations 07/25/21 14:08 ED Decision to Admit Stat 07/25/21 14:31 Consult Cardiology Routine 07/25/21 14:34 ED Decision to Admit Stat Ordered Studies 07/25/21 11:18 CT angio head w con Stat CT angio neck with con Stat CT head/brain wo con Stat 07/25/21 15:40 MR brain wo con Stat Brain MRI WITHOUT CONTRAST HISTORY: Dizziness. new onset atrial fibrillation, r/o cva TECHNIQUE: Multiplanar multisequence MRI of the brain was performed without the use of contrast. COMPARISON STUDY: Brain MRI 01/10/2007. FINDINGS: There is no mass, hematoma, midline shift, or acute infarct. The mastoid air cells are clear. The ventricles and sulci demonstrate mild age- related involutional changes. Scattered foci of T2 hyperintensity seen within the periventricular and subcortical white matter are nonspecific but suggestive of mild microvascular ischemic changes. The major vascular flow voids at the skull base are well-maintained. Evidence for bilateral lens repair. Small fluid level and mild mucosal thickening within the right maxillary sinus. There is a 2.3 cm left parotid cyst. This remains unchanged. IMPRESSION: 1. No acute intracranial abnormality. 2. Scattered foci of T2 hyperintensity seen within the periventricular and subcortical white matter are nonspecific but favor microvascular ischemic change. 3. Small fluid level within the right maxillary sinus suggesting acute sinusitis. ACT 112: Negative or not required by law. Electronically signed by: Cyril Herrera M.D. 07/25/2021 8:37 PM Dictated:07/25/212029 Transcribed: 07/25/212029 XR chest 1V portable CLINICAL HISTORY: weak, N/V COMPARISON STUDY: Chest radiograph June 20, 2020. FINDINGS: Lung volumes are diminished. This likely accounts bibasilar opacities. Note is made of cardiomegaly with extensive coronary artery calcification. No evidence for pulmonary edema. No pneumothorax or pleural effusion. IMPRESSION: 1. Lung volumes with bibasilar opacities suggestive of atelectasis. 2. Cardiomegaly. No evidence for pulmonary edema. ACT 112: Negative or not required by law. Electronically signed by: Rajat Beard M.D. 07/25/2021 12:30 PM Dictated:07/25/21 1230 Transcribed: 07/25/[address] ANGIOGRAPHY OF THE NECK WITH CONTRAST CLINICAL HISTORY: Stroke Like Symptoms COMPARISON STUDY: Carotid ultrasound June 21, 2020. Technique: CT angiography of the carotid and vertebral arteries was obtained using Optir[employer] and 3D reconstruction on an independent workstation. NASCET criteria was utilized. Automated exposure control was utilized for the study. A dose lowering technique was utilized adhering to the principles of ALARA. CT DOSE: 985.59 mGy.cm Findings: A 1.9 cm left parotid gland lesion with layering hyperdense material is similar to MRI of June 21, 2020. This was portions of the lung apices are unremarkable. There is no cervical spine fracture. No cervical lymphadenopathy is present. There is moderate calcified plaque within the proximal right internal carotid artery without stenosis. Minimal plaque within the left carotid bifurcation is noted without stenosis. Bilateral vertebral arteries are patent. There is no dissection within the major vessels of the neck. No aneurysm within the neck is noted. CTA of the head will be reported separately. IMPRESSION: No stenosis or dissection within the bilateral common carotid, cervical internal carotid or vertebral arteries. ACT 112: Negative or not required by law. Electronically signed by: Rajat Beard M.D. 07/25/2021 1:11 PM Dictated:07/25/21 1254 Transcribed: 07/25/21 1306 HEAD CTA HISTORY: Dizziness. Stroke Like Symptoms TECHNIQUE: Multiaxial CT images of the head were performed following the intravenous administration of contrast to evaluate the major cerebral vessels. Maximum intensity projection images were also obtained. A dose lowering technique was utilized adhering to the principles of ALARA. COMPARISON: Noncontrast head CT 07/25/2021. FINDINGS: There is no mass, hematoma, midline shift, or acute infarct. Visualized intracranial internal carotid arteries, distal vertebral arteries, and basilar artery are widely patent. There is no significant stenosis, occlusion, or aneurysm seen within the bilateral ACAs, MCAs, or wiener packer. There is a partially visualized 1.9 cm nodule within the left parotid gland. This remains stable compared to 2014 examination and is therefore of doubtful clinical significance. Mucosal thickening and a small fluid level within the right maxillary sinus. The mastoid air cells are clear. There is a persistent right posterior circulation considered to be a normal variant. The major dural venous sinuses are patent. IMPRESSION: 1. No significant stenosis, occlusion, or aneurysm within the [place]. 2. Mild acute right maxillary sinusitis. ACT 112: Negative or not required by law. Electronically signed by: Cyril Herrera M.D. 07/25/2021 1:11 PM Dictated:07/25/21 1259 Transcribed: 07/25/[address] OF THE HEAD WITHOUT CONTRAST CLINICAL HISTORY: Stroke like symptoms. Dizziness, nausea and vomiting. COMPARISON STUDY: Head CT June 20, 2017. MRI of the brain June 21, 2020. TECHNIQUE: Helical axial images of the head were obtained without IV contrast. Automated exposure control was utilized for the study. A dose lowering technique was utilized adhering to the principles of ALARA. FINDINGS: No acute intracranial hemorrhage, midline shift or mass effect is present. White matter hypodensities are similar to prior exam and favor small vessel disease. The ventricular system is unremarkable. The basal cisterns are patent. No extra-axial collections are present. There are no findings to suggest acute dural sinus thrombosis or acute territorial infarct. No significant calvarial abnormalities are present. Visualized portions of the sinuses and mastoid air cells are clear. IMPRESSION: No acute intracranial findings. No change in appearance of the brain. ACT 112: Negative or not required by law. Electronically signed by: Rajat Beard M.D. 07/25/2021 12:54 PM Dictated:07/25/21 1250 Transcribed: 07/25/21 1250 Hospital Course (1) Atrial fibrillation, new onset: Present on admission with worsening dizziness She was found to be on Afib with RVR on admission Converted to NSR at 3am rate control Cardiology on board Continue low dose metoprolol 12.5 mg BID Currently on Heparin drip bridge with coumadin since pt is not a good candidate for the DOAC due to renal failure Echo showed left ventricular wall motion is normal with ejection fraction 55 to 60% Hgb 8.3 today Case discussed with cardiology. Will D/C heparin drip and continue coumadin o up with the coumadin clinic to monitor PT/INR OK from cardiology standpoint to discharge home (2) Vertigo: Worsening dizziness possible related to labyrinthitis due to recent URI CT head showed No acute intracranial findings. No change in appearance of the brain. CTA head and neck showed No significant stenosis, occlusion, or aneurysm within the [place]. MRI brain showed no acute intracranial abnormality. Clinically improves Fall precaution Resolved (3) UTI (urinary tract infection): UA positive for nitrite, leukocyte and bacteria WBC trending down to normal Urine culture positive for gram-negative bacilli- Klebsiella On Rocephin IV, will transition to Keflex to complete the course (4) Bacteremia: coag negative staph not lugdunensis and staph species ( mostly contamination) MRSA screen negative She was on IV vancomycin that was discontinued Patient had echo done that did not note any vegetation Repeat blood culture collected - no growth Continue monitor closely (5) Anemia: Hgb 8.3 today Continue monitor H/H while on anticoagulant Check iron study outpatient (6) CKD (chronic kidney disease), stage III: Creatinine on admission 1.4, most recent outpatient on 07/20 creatinine was 2 Continue to hold valsartan/hctz Creatinine 1.2 today Valsartan discontinued on discharge Will resume HCTZ on discharge Avoid nephrotoxic agent Continue monitor BMP (7) DM type 2 (diabetes mellitus, type 2): Most recent hemoglobin A1c 6.9 on 07/22/2021 Pt is using diet control, not on any oral antihyperglycemic meds or insulin (8) Hypokalemia: K+ is 3.0 on admission Potassium 4.3 Today Stable (9) Obesity (BMI 35.0-39.9 without comorbidity): - Diet and exercise to be encouraged throughout stay - BMI 35.7 (10) Right maxillary sinusitis: - Noted on imaging of the CT head Received ceftriaxone for UTI , will transition to keflex DVT ppx: On IV heparin drip CODE: DNR/DNI Total Time Total Time Spent Total Time Spent (In Minutes): 35 minutes Discharge Plan Discharge Items Patient Disposition: Home - Self-Care Reason For Visit: AFIB RVR, UTI, HYPOKALEMIA Discharge Diagnosis: Atrial fibrillation, new onset: Vertigo: UTI (urinary tract infection): Bacteremia: Anemia: CKD (chronic kidney disease), stage III: DM type 2 (diabetes mellitus, type 2): Hypokalemia: Right maxillary sinusitis: Activity: Resume your previous activity Non-emergency contact: Primary Care Provider and Dock Guard Call non-emergency contact if: you have any medication questions and your symptoms worsen Follow-up/Referrals: Usman Hancock DO [Dock Guard] - Bhavya Lafleur DO [Primary Care Provider] - 08/01/21 2:00 pm (Date & Time 08/01/2021 2:00 PM Provider Itzel Ortiz PA-C Department [facility] ) Diet: Carb Consistent or DM2 Addtl Attending Provider Instructions: Follow up with primary care provider Angel FARR on 08/01/2021 @ 2:00 PM @ [facility] Follow up with cardiology Dr. Hancock or his colleagues in 4 weeks Follow up with the coumadin clinic to monitor your PT/INR (Check INR in 3 to 4 days) Check CBC within 1 week week to monitor your hemoglobin Check BMP in 1 week to monitor your electrolytes Complete the course of the antibiotic with keflex Seek medical attention if you develop any abnormal bleeding ( such as blood in stool and urine ) Avoid any NSAID (Such as Motrin, Aleve, Naproxen, Ibuprofen, Advil,...) due to risk of bleeding while on coumadin Valsartan/hydrochlorothiazide changed to Hydrochlorothiazide 12.5 mg daily Medication Instructions: Coumadin Warfarin is a medicine prescribed to prevent clots and stroke Warfarin will thin your blood and help prevent new clots Take your medications exactly as directed Never skip a dose. Never take a double dose. If you miss a dose, take it as soon as you remember It is important for your doctor to monitor your prothrombin time (PT). This is a lab test Keep your appointment for lab tests Risk of Adverse Drug Reactions and Interactions: Warfarin increases your risk of bleeding The food you eat and other medications you take can affect how Warfarin works in your body Ask your doctor about daily aspirin therapy It is very important to talk with your doctor about all of the other medicines, antibiotics, vitamins or herbal products that you are taking All of your medication must be approved by your doctor, including new medicines, as well as medicines you have taken before you started taking Warfarin Avoid NSAIDs (Motrin, Aleve, Naproxen, Ibuprofen, Advil, Meloxicam,..) due to risks of bleeding Diet: In order for Warfarin to work properly, it is important to keep your intake of Vitamin K as consistent as possible You should avoid any sudden change in Vitamin K intake Report any significant changes in your diet or weight to your doctor Call your Primary Care doctor if you experience any of the following: Swelling or Pain in your leg Sudden, continuous pain deep in a muscle Pain that worsens when you are active or when you stand still for a long time Chest Pain Sudden Shortness of Breath Rapid or pounding heart beat Fainting Dizziness Cough with blood or bloody sputum Sweating more than normal Bruises Heavy or uncontrolled bleeding Blood in your urine, stool or vomit Black or tarry stools Pending Studies at Discharge: No Stand-Alone Forms: My [employer], Smoking Cessation Medications and DC Order Prescriptions: New metoprolol succinate 25 mg Tablet Extended Release 24 Hr 25 mg PO QAM 30 Days Qty: 30 RF: 0 hydrochlorothiazide 12.5 mg tablet 12.5 mg PO DAILY Qty: 30 RF: 0 warfarin 5 mg tablet 5 mg PO DAILY Qty: 30 RF: 0 Continued medroxyprogesterone 2.5 mg Tablet 2.5 mg PO QAM RF: 0 diphenoxylate-atropine 2.5-0.025 mg Tablet 1 tab PO .UD MDD 8 TABS PRN (Reason: Diarrhea) RF: 0 estradiol 1 mg Tablet 1 mg PO QAM RF: 0 pravastatin 10 mg Tablet 10 mg PO QAM RF: 0 meclizine 25 mg Tablet 25 mg PO TID PRN (Reason: Dizziness Or Vertigo) RF: 0 cetirizine 10 mg Tablet 10 mg PO QAM RF: 0 tramadol 50 mg tablet 50 mg PO Q6H PRN (Reason: Pain) RF: 0 lorazepam 1 mg tablet 1 mg PO Q8H PRN (Reason: anxiety) Qty: 10 RF: 0 multivitamin Tablet 1 tab PO QAM RF: 0 magnesium 250 mg Tablet 0 mg PO QAM RF: 0 Discontinued valsartan-hydrochlorothiazide 80-12.5 mg Tablet 1 tab PO QAM RF: 0 ibuprofen 200 mg Tablet 400 mg PO DAILY PRN (Reason: Pain) RF: 0 Discharge Orders: Discharge Order (Routine); Ordered 07/29/21 Ordered By: Jayson Hernandez/Other Patient Handouts: 5 Steps for Eating Healthier, Exercise: Why Fitness Matters, Type 2 Diabetes Admission Data Admit Date/Time: 07/25/21 14:31 Attending Provider: Jayson Oshea Admit Provider: Cuca Paz Primary Care Provider: Bhavya Lafleur Other Providers: Cuca Paz ; Alex Lanza Other Interventions: Discharge Summary Assessment (RN) Last Done: 07/29/21 17:33
== END 2021-07-29 18:29 | disposition home or self-care (01) | DRG 309 ==
LOC: ED 11:05 → 2S 14:31 → SUATTDRO 14:31 → 2S 16:21

== ENCOUNTER 2022-04-21 15:08 | Inpatient (IN) ==
--- NOTE | 2022-04-21 15:27 | Emergency Department Note ---
Impression & Plan Acute right ankle pain, Fall, Hyperglycemia, Leukocytosis ED Provider Note ED Provider Note NAME: EDGAR BRAUN AGE:81 SEX: Female : 1940 ARRIVES VIA: EMS INFORMANT: Patient ED PROVIDER(s): Rina Narvaez DO CHIEF COMPLAINT: Fall, right ankle pain HPI: This is an 81-year-old female brought in by EMS from home after a fall with subsequent concern for acute right ankle pain and deformity. Patient states she usually uses a cane with ambulation as she has a history of vertigo and becomes unsteady. She states she was walking out a sliding door and believes her cane got caught in the track which caused her to wobble and fall. Patient states her right ankle is chronically weak and chronically slightly deformed/rotated. She states when she fell that deformity appeared more severe and she had increased pain. She denies any head injury or LOC with the fall. Denies any other pain or concern for injury. Patient states she does use anticoagulation due to history of atrial fibrillation. PAST MEDICAL HISTORY:See Below PAST SURGICAL HISTORY:See Below FAMILY HISTORY:See Below SOCIAL HISTORY:See Below HOME MEDICATIONS:See Below, includes Eliquis ALLERGIES:See Below VITALS:See Below PHYSICAL EXAMINATION: GENERAL: alert, unwell appearing, well nourished, no distress, non-toxic EYE EXAM: normal conjunctiva, PERRL and EOM's grossly intact OROPHARYNX: no exudate, no erythema, lips, buccal mucosa, and tongue normal and mucous membranes are moist NECK: supple, no nuchal rigidity, no adenopathy, non-tender LUNGS: Clear to auscultation. Normal chest wall mechanics, no w/r/r HEART: no murmurs, S1 normal and S2 normal ABDOMEN: abdomen soft, non-tender, normo-active bowel sounds, no masses, no rebound or guarding. BACK: Back is symmetrical on inspection and there is no deformity, no midline tenderness, no CVA tenderness. SKIN: no rashes, petechiae, orbruising UPPER EXTREMITIES: upper extremities are grossly normal. FROM, nml pulses b/l. LOWER EXTREMITIES: No pitting edema. FROM LLE, nml pulses b/l. Sensation intact bilaterally. Obvious deformity noted at right ankle. No pain or deformity more proximal in the right lower extremity. No pain with palpation of the right knee or right hip. No joint effusions. NEURO EXAM: Normal sensorium, cranial nerves II-XII grossly intact, normal speech, no facial droop,nogross weakness of arms, no gross weakness of legs. Gross sensation intact. No ataxia. Vital Signs: reviewed and remarkable Differential Diagnosis: Fracture, subluxation, dislocation, contusion, ligamentous injury, neurovascular, compartment syndrome, rhabdomyolysis, as well as other pathologie s. MEDICAL DECISION MAKING: This is an 81-year-old female who presents via EMS following a fall with concern for acute right ankle injury and pain. IV established, labs drawn and sent, patient given IV fentanyl for pain. X-ray obtained which did reveal bimalleolar fracture. Patient was neurovascularly intact. Patient given additional fentanyl and IV acetaminophen prior to splinting. Splinting performed at bedside by myself and EITAN Sheridan. Patient neurovascularly intact following splinting he did report improvement of pain. Case discussed with on-call ortho pedics as well as hospitalist service. Hyperglycemia noted in the patient is a known diabetic, no evidence of DKA. Leukocytosis noted, likely reactive secondary to fall and trauma. At this time I have low suspicion for any additional occult traumatic injury. Consultation(s): 1700: Discussed with melva Crespo. 1730: Discussed with RICHAR Gaytan hospitalist service. ER Treatment Provided: NSS, fentanyl, IV acetaminophen, splinting Diagnostics Interpreted By Me: -ECG: Atrial fibrillation at 94, normal QRS and QTc, normal axis, nonspecific ST/T wave change -Cardiac Monitoring: An order was placed for continuous cardiac monitoring. The monitor shows a rate of 108 with atrial fibrillation rhythm. -Laboratory studies: As stated above and show below. -Imaging studies: X-rays as below Triage Nursing Note Reviewed Prior/Outside Records Reviewed Procedures: Past Med/Surg History Medical History Actinic keratosis Atrial fibrillation, new onset Diabetes mellitus DIET CONTROLLED DM type 2 (diabetes mellitus, type 2) Hypertension Osteoarthritis Vertigo Surgical History History of bilateral tubal ligation History of total knee replacement LEFT Hx of right cataract extraction Family History Father Family history of diabetes mellitus Mother Family history of diabetes mellitus Brother Family history of diabetes mellitus Social History Smoking Status: Never smoker Tobacco Type: Cigarettes Second Hand Exposure: No; Hx Alcohol Use: No Hx Substance Use: No Preferred Language: Bruneian Communication Ability: Effective Access Services Librarian Required: No Beliefs That Will Affect Care: None Current Living Situation: Alone Current Living Situation Comment: DAUGHTER & GRANDSON NEARBY Other Information That Helps Us Care for You: No Feels Safe at Home: Yes Safety Concerns: Feels Safe At This Time Assistive Devices: Cane and Walker Allergies Allergies Allergy/AdvReac Type Severity Reaction Status Date / Time JAC Inhibitors Allergy Intermediate edema Verified 04/21/22 17:24 face/lips/tongue azithromycin AdvReac Intermediate severe Verified 04/21/22 17:24 [From Zithromax Z-Devon] vertigo diphenhydramine AdvReac Mild flushing, Verified 04/21/22 17:24 hyperactivity Home Meds Home Medications Medication Instructions Recorded Confirmed diphenoxylate-atropine 2.5 1 tab PO .UD PRN Diarrhea 04/12/18 04/21/22 mg-0.025 mg tablet meclizine 25 mg tablet 25 mg PO TID PRN Dizziness Or 04/12/18 04/21/22 Vertigo tramadol 50 mg tablet 50 mg PO Q6H PRN Pain,severe' 06/20/20 04/21/22 multivitamin 1 tab PO QAM 07/25/21 04/21/22 apixaban 2.5 mg tablet (Eliquis) 2.5 mg PO AMHS 04/21/22 04/21/22 diltiazem HCl 240 mg 240 mg PO QAM 04/21/22 04/21/22 capsule,extended release 24 hr (Cardizem CD) lorazepam 1 mg tablet 1 mg PO TID PRN extreme vertigo 04/21/22 04/21/22 rosuvastatin 10 mg tablet 10 mg PO QAM 04/21/22 04/21/22 Results & Data (ED) Vital Signs Vital Signs - 24 hr 04/21/22 15:21 Temperature 36.9 C Temperature Source Oral Pulse Rate 110 H Pulse Rhythm Regular Pulse Strength Normal Respiratory Rate 19 Respiratory Effort / Characteristics Non-Labored Spontaneous Respiratory Depth Normal Respiratory Pattern Regular Blood Pressure 112/83 Blood Pressure Mean 92 Blood Pressure Position Lying Pulse Oximetry 97 Oxygen Delivery Method Room Air Sepsis Recent Fever Within 48 Hours No Sepsis New/Unexplained Change in Mental Status No Sepsis Action Taken by Nursing No Action Required Laboratory Data 04/21/22 15:41 04/21/22 15:41 Lab Results 04/21/22 04/21/22 04/21/22 Range/Units 15:41 15:41 15:41 WBC 14.68 H (4.8-10.8) K/ul RBC 4.35 (3.93-5.22) M/uL Hgb 11.0 L (12.0-16.0) g/dl Hct 35.1 (34.1-44.9) % MCV 80.7 (80.0-100.0) fL MCH 25.3 (25.0-34.0) pg MCHC 31.3 L (32.0-36.0) g/dL RDW Std Deviation 48.2 H (36.4-46.3) fL RDW Coeff of Higinio 16.3 H (11.5-14.5) % Plt Count 453 H (130-400) K/uL MPV 9.2 L (9.4-12.3) fL Immature Gran % (Auto) 0.5 % Neut % (Auto) 74.6 % Lymph % (Auto) 18.7 % [place] % (Auto) 5.3 % Eos % (Auto) 0.5 % Baso % (Auto) 0.4 % Neut # (Auto) 10.95 H (1.4-6.5) K/uL Lymph # (Auto) 2.74 (1.2-3.4) K/uL [place] # (Auto) 0.78 (0.24-0.82) K/uL Eos # (Auto) 0.07 (0-0.50) K/uL Baso # (Auto) 0.06 (0-0.2) K/uL Immature Gran # (Auto) 0.08 H (0.00-0.02) K/uL PT 12.1 H (9.0-12.0) Seconds INR 1.1 (0.9-1.1) Sodium 135 L (136-145) mmol/L Potassium 3.9 (3.5-5.1) mmol/L Chloride 100 (98-107) mmol/L Carbon Dioxide 24 (21-32) mmol/L Anion Gap 11 (3-11) BUN 12 (6-23) mg/dl Creatinine 1.04 (0.6-1.2) mg/dl Est Cr Clr Drug Dosing 40.5 ml/min Est GFR ( Amer) 58.8 ml/min Est GFR (Non-Af Amer) 50.7 ml/min BUN/Creatinine Ratio 11.5 (10-20) Glucose 221 H (70-99(Fasting)) mg/dl Calcium 9.6 (8.5-10.1) mg/dl Magnesium 1.8 (1.7-2.4) mg/dl Total Bilirubin 0.7 (0.2-1.0) mg/dl AST 15 (13-39) U/L ALT 7 (7-52) U/L Alkaline Phosphatase 175 H (34-104) U/L Total Creatine Kinase 29 (26-192) U/L Troponin I High Sens 12.1 (0-14) pg/ml Total Protein 8.1 (6.0-8.3) gm/dl Albumin 2.8 L (3.4-5.0) gm/dl Globulin 5.3 H (2.5-4.0) gm/dl Albumin/Globulin Ratio 0.5 L (0.9-2) TSH (0.300-4.500) uIu/ml SARS-CoV-2, RNA, NAAT (NEGATIVE) 04/21/22 04/21/22 Range/Units 15:41 17:05 WBC (4.8-10.8) K/ul RBC (3.93-5.22) M/uL Hgb (12.0-16.0) g/dl Hct (34.1-44.9) % MCV (80.0-100.0) fL MCH (25.0-34.0) pg MCHC (32.0-36.0) g/dL RDW Std Deviation (36.4-46.3) fL RDW Coeff of Higinio (11.5-14.5) % Plt Count (130-400) K/uL MPV (9.4-12.3) fL Immature Gran % (Auto) % Neut % (Auto) % Lymph % (Auto) % [place] % (Auto) % Eos % (Auto) % Baso % (Auto) % Neut # (Auto) (1.4-6.5) K/uL Lymph # (Auto) (1.2-3.4) K/uL [place] # (Auto) (0.24-0.82) K/uL Eos # (Auto) (0-0.50) K/uL Baso # (Auto) (0-0.2) K/uL Immature Gran # (Auto) (0.00-0.02) K/uL PT (9.0-12.0) Seconds INR (0.9-1.1) Sodium (136-145) mmol/L Potassium (3.5-5.1) mmol/L Chloride (98-107) mmol/L Carbon Dioxide (21-32) mmol/L Anion Gap (3-11) BUN (6-23) mg/dl Creatinine (0.6-1.2) mg/dl Est Cr Clr Drug Dosing ml/min Est GFR ( Amer) ml/min Est GFR (Non-Af Amer) ml/min BUN/Creatinine Ratio (10-20) Glucose (70-99(Fasting)) mg/dl Calcium (8.5-10.1) mg/dl Magnesium (1.7-2.4) mg/dl Total Bilirubin (0.2-1.0) mg/dl AST (13-39) U/L ALT (7-52) U/L Alkaline Phosphatase (34-104) U/L Total Creatine Kinase (26-192) U/L Troponin I High Sens (0-14) pg/ml Total Protein (6.0-8.3) gm/dl Albumin (3.4-5.0) gm/dl Globulin (2.5-4.0) gm/dl Albumin/Globulin Ratio (0.9-2) TSH 2.558 (0.300-4.500) uIu/ml SARS-CoV-2, RNA, NAAT NEGATIVE (NEGATIVE) Administered Medications Sodium Chloride (Nss 1000ml) 1,000 mls @ 125 mls/hr IV .Q8H BILL Stop: 05/21/22 15:29 Last Admin: 04/21/22 21:28 Dose: 125 mls/hr Documented By: Infusion: 04/21/22 21:28 Dose: 125 mls/hr Documented By: Admin: 04/21/22 15:45 Dose: 125 mls/hr Documented By: ROYA Tramadol HCl (Tramadol Hcl 50 Mg Tablet) 50 mg PO Q6H PRN PRN Reason: Pain,severe' Stop: 05/21/22 21:08 Last Admin: 04/21/22 21:27 Dose: 50 mg Documented By: FRANCES Discontinued Medications Fentanyl Citrate (Fentanyl Citrate 100 Mcg/2 Ml Vial) 25 mcg IV Q15M PRN PRN Reason: Pain Stop: 05/05/22 15:22 Last Admin: 04/21/22 17:35 Dose: 25 mcg Documented By: Admin: 04/21/22 15:48 Dose: 25 mcg Documented By: ROYA Acetaminophen (Ofirmev) 1,000 mg in 100 mls @ 400 mls/hr IV NOW STA Stop: 04/21/22 16:49 Last Infusion: 04/21/22 17:19 Dose: 0 mls/hr Documented By: Admin: 04/21/22 16:55 Dose: 400 mls/hr Documented By: ART Imaging Data Radiologist's Impression: Ankle X-Ray 04/21/22 15:23 XR ankle RT min 3V routine CLINICAL HISTORY: pain, trauma TECHNIQUE: 3 views of the right ankle were obtained. Comparison: None available at the time of this dictation. FINDINGS: Exam is limited due to patient positioning. There is a fracture of the fibula at the level of the ankle mortise. There is a fracture of the medial malleolus as well. Degenerative changes are seen. Ankle mortise is difficult to evaluate due to limitations in patient positioning. Soft tissue swelling is seen about the ankle. IMPRESSION: Bimalleolar fracture is seen with a Dyer B fracture of the fibula and medial malleolus fracture. Exam is limited by patient positioning. ACT 112: Negative or not required by law. Electronically signed by: Miki Ren M.D. 04/21/2022 4:06 PM Discharge Plan Visit Data Chief Complaint: Fall ED Provider: Rina Narvaez Discharge Problem: Acute right ankle pain, Fall, Hyperglycemia, Leukocytosis Patient Disposition: Admitted As Inpatient Discharge Instructions Interventions: ED Discharge Assessment Last Done: 04/21/22 18:18
[2022-04-21] MEDS: SODIUM CHLORIDE 0.9% 1000ML 1,000 ML IV SCH ×2 (15:45→21:28)
[2022-04-21] MEDS: fentaNYL citrate 100 MCG/2 ML VIAL IV PRN ×2 (15:48→17:35)
[2022-04-21 15:53] LABS: Basophils # (auto) 0.06 K/uL (0-0.2); Basophils % (auto) 0.4 %; Eosinophils # (auto) 0.07 K/uL (0-0.50); Eosinophils % (auto) 0.5 %; Hematocrit (blood only) 35.1 % (34.1-44.9); Immature Granulocytes # (auto) 0.08 K/uL (0.00-0.02); Immature Granulocytes % (auto) 0.5 %; Lymphocytes # (auto) 2.74 K/uL (1.2-3.4); Lymphocytes % (auto) 18.7 %; Mean Corpuscular Hemoglobin 25.3 pg (25.0-34.0); Mean Corpuscular Hgb Conc 31.3 g/dL (32.0-36.0); Mean Corpuscular Volume 80.7 fL (80.0-100.0); Mean Platelet Volume 9.2 fL (9.4-12.3); Monocytes # (auto) 0.78 K/uL (0.24-0.82); Monocytes % (auto) 5.3 %; Neutrophils # (auto) 10.95 K/uL (1.4-6.5); Neutrophils % (auto) 74.6 %; Platelet Count 453 K/uL (130-400); RDW Coefficient of Variation 16.3 % (11.5-14.5); RDW Standard Deviation 48.2 fL (36.4-46.3); Red Blood Count 4.35 M/uL (3.93-5.22); White Blood Count 14.68 K/ul (4.8-10.8)
--- NOTE | 2022-04-21 16:08 | XRay Report ---
XR ankle RT min 3V routine CLINICAL HISTORY: pain, trauma TECHNIQUE: 3 views of the right ankle were obtained. Comparison: None available at the time of this dictation. FINDINGS: Exam is limited due to patient positioning. There is a fracture of the fibula at the level of the ank le mortise. There is a fracture of the medial malleolus as well. Degenerative changes are seen. Ankle mortise is difficult to evaluate due to limitations in patient positioning. Soft tissue swelling is seen about the ankle. IMPRESSION: Bimalleolar fracture is seen with a Dyer B fracture of the fibula and medial malleolus fracture. Exa m is limited by patient positioning. ACT 112: Negative or not required by law. Electronically signed by: Miki Ren M.D. 04/21/2022 4:06 PM
[2022-04-21 16:12] LABS: INR 1.1 (0.9-1.1); Prothrombin Time 12.1 Seconds (9.0-12.0)
[2022-04-21 16:23] LABS: Troponin I High Sensitivity 12.1 pg/ml (0-14)
[2022-04-21 16:35] LABS: Albumin Globulin Ratio 0.5 (0.9-2); Albumin Level 2.8 gm/dl (3.4-5.0); BUN Creatinine Ratio 11.5 (10-20); Bilirubin,Total 0.7 mg/dl (0.2-1.0); Calcium 9.6 mg/dl (8.5-10.1); Creatinine Clr Calc Pharmacy 40.5 ml/min; Est GFR (African American) 58.8 ml/min; Est GFR (Non-African American) 50.7 ml/min; Globulin 5.3 gm/dl (2.5-4.0); Magnesium 1.8 mg/dl (1.7-2.4); Potassium 3.9 mmol/L (3.5-5.1); Total Protein 8.1 gm/dl (6.0-8.3)
[2022-04-21] MEDS ORDERED: ACETAMINOPHEN 1,000 MG/100 ML VIAL IV STA (16:35)
[2022-04-21] MEDS ORDERED: MAGNESIUM HYDROXIDE SUSP 30 ML UDC PO PRN (17:35)
[2022-04-21] MEDS ORDERED: POLYETHYLENE (MIRALAX) 17 GM PACK PO PRN (17:35)
[2022-04-21] MEDS ORDERED: ALUMINUM/MAGNESIUM SUSP 30 ML UDC PO PRN (17:35)
[2022-04-21] MEDS ORDERED: ONDANSETRON INJ 2 MG/ML 2 ML VIAL IV PRN (17:35)
--- NOTE | 2022-04-21 18:14 | History & Physical Report ---
Date of Service April 21, 2022 Assessment & Plan (1) Closed right ankle fracture: Plan: 81-year-old female with history of diabetes type 2, atrial fibrillation on Eliquis, irritable bowel syndrome, CKD stage III, vertigo, etc. Presenting with mechanical fall, and resultant ankle fracture. Right ankle fracture Status post mechanical fall Right ankle x-ray: Bimalleolar fracture is seen with a Dyer B fracture of the fibula and medial malleolus fracture. Exam is limited by patient positioning. Pain control, bedrest for now Orthopedic service consult N.p.o. after midnight No medical contraindications for possible orthopedic surgery, patient low to moderate risk for cardiopulmonary complications given age, and other comorbidities Atrial fibrillation on Eliquis EKG pending Continue diltiazem 240 mg daily Hold Eliquis 2.5 mg twice daily for possible surgery tomorrow CKD stage III At baseline History of diabetes type 2 Not on any medications History of vertigo As needed meclizine DVT prophylaxis SCDs for now Disposition May need acute rehab or fdc facility History of Present Illness Chief Complaint: R ankle pain Primary Care Provider: Bhavya Lafleur DO 81-year-old female with history of diabetes type 2, atrial fibrillation on Eliquis, irritable bowel syndrome, CKD stage III, vertigo, etc. Presenting with mechanical fall, and resultant ankle fracture. Patient was walking with her cane, tripped over her sliding door, and fell on the ground. Patient then developed pain over the right foot. Denies head trauma, loss of consciousness, chest pain, shortness of breath, palpitations, dizziness. At the ER, patient was found to have bimalleolar fracture on the right ankle per x-ray. Orthopedic service noted. Hospitalist consulted for admission. Seen resting in bed, comfortable, not in distress States right ankle pain is improving after splinting done No active shortness of breath, chest pain, palpitations, dizziness, nausea vomiting No chest pain, shortness of breath while ambulating at home Allergies Allergy/AdvReac Type Severity Reaction Status Date / Time JAC Inhibitors Allergy Intermediate edema Verified 04/21/22 17:24 face/lips/tongue azithromycin AdvReac Intermediate severe Verified 04/21/22 17:24 [From Zithromax Z-Devon] vertigo diphenhydramine AdvReac Mild flushing, Verified 04/21/22 17:24 hyperactivity Home Medications Medication Instructions Recorded Confirmed Type diphenoxylate-atropine 2.5 1 tab PO .UD PRN Diarrhea 04/12/18 04/21/22 History mg-0.025 mg tablet meclizine 25 mg tablet 25 mg PO TID PRN Dizziness Or 04/12/18 04/21/22 History Vertigo tramadol 50 mg tablet 50 mg PO Q6H PRN Pain,severe' 06/20/20 04/21/22 History multivitamin 1 tab PO QAM 07/25/21 04/21/22 History apixaban 2.5 mg tablet (Eliquis) 2.5 mg PO AMHS 04/21/22 04/21/22 History diltiazem HCl 240 mg 240 mg PO QAM 04/21/22 04/21/22 History capsule,extended release 24 hr (Cardizem CD) lorazepam 1 mg tablet 1 mg PO TID PRN extreme vertigo 04/21/22 04/21/22 History rosuvastatin 10 mg tablet 10 mg PO QAM 04/21/22 04/21/22 History Past Med/Surg History Medical History Actinic keratosis Diabetes mellitus DIET CONTROLLED Hypertension Osteoarthritis Surgical History History of bilateral tubal ligation History of total knee replacement LEFT Hx of right cataract extraction Family History Father Family history of diabetes mellitus Mother Family history of diabetes mellitus Brother Family history of diabetes mellitus Social History Smoking Status: Never smoker Tobacco Type: Cigarettes Second Hand Exposure: No; Hx Alcohol Use: No Hx Substance Use: No Preferred Language: Citizen Of [place] Communication Ability: Effective Lithographic Plate Maker Required: No Beliefs That Will Affect Care: None Current Living Situation: Alone Current Living Situation Comment: DAUGHTER & GRANDSON NEARBY Feels Safe at Home: Yes Assistive Devices: Cane Review of Systems Review of Systems: all noted and negative except for above Physical Exam Physical Exam: General- oriented x 3, not in distress, speaks in sentences with no effort or accessory muscle use Head- atraumatic Eyes- PERRL, EOMI, anicteric ENT- oropharynx clear Neck- supple, no JVD, no adenopathy, no thyromegaly; carotids +2/2, no bruits appreciated Lungs- clear to auscultation bilaterally, no rales/wheezes Heart- normal rate, regular rhythm; no murmur, no gallop, no rub appreciated Abdomen- normal bowel sounds, nondistended, soft, nontender, no masses or hepatosplenomegaly Extremities- Neuro- alert, oriented x 3; CN 2-12 grossly intact; motor 5/5 bilaterally;sensation 100% on all extremities; no other gross focal neurologic deficits Skin- warm & dry Results & Data Results & Data ([facility]) Vital Signs (Past 12 Hours) Vital Signs Temp Pulse Resp BP Pulse Ox O2 Del Method 04/21/22 15:21 36.9 C 110 H 19 112/83 97 Room Air all noted and reviewed including below Code Status & VTE Plan VTE Prophylaxis Plan VTE Prophylaxis will be ordered: Yes
[2022-04-21 19:52] LABS: Appearance Urine Turbid (Clear); Bacteria Urine Automated Negative (Negative); Bilirubin Urine Negative (Negative); Blood Urine 1+ (Negative); Cast Urine Automated 0 /lpf (0-5); Color Urine Dark Yellow; Glucose Urine UA Negative (Negative); Ketones Urine Negative (Negative); Leukocyte Esterase Urine 2+ (Negative); Nitrite Urine Negative (Negative); Protein Urine 1+ (Negative); RBC Urine Automated 0-4 /hpf (0-4); Specific Gravity Urine 1.023 (1.000-1.030); Urobilinogen Urine Negative (Negative); WBC Urine Automated >30 /hpf (0-5)
--- NOTE | 2022-04-21 20:32 | XRay Report ---
SINGLE VIEW CHEST CLINICAL HISTORY: Preoperative examination FINDINGS: An AP, portable, upright chest radiograph is compared to study dated 12/10/2021. The heart is mildly enlarged noting atherosclerotic calcification of the thoracic aorta. Pulmonary vasculature is noncongested. Chronic interstitial thickening is similar to previous. The lungs and pleural spaces a re clear noting bibasilar atelectasis. No pneumothorax is seen. The skeletal structures are osteopeni c. The bony thorax is grossly intact. IMPRESSION: No active disease in the chest. ACT 112: Negative or not required by law. Electronically signed by: Joshua Long M.D. 04/21/2022 8:31 PM
[2022-04-21] MEDS: traMADol HCL 50 MG TABLET PO PRN (21:27)
[2022-04-22 04:15] LABS: Hematocrit (blood only) 31.7 % (34.1-44.9); Hemoglobin 9.9 g/dl (12.0-16.0); Mean Corpuscular Hemoglobin 24.9 pg (25.0-34.0); Mean Corpuscular Hgb Conc 31.2 g/dL (32.0-36.0); Mean Corpuscular Volume 79.8 fL (80.0-100.0); Mean Platelet Volume 9.6 fL (9.4-12.3); Platelet Count 457 K/uL (130-400); RDW Coefficient of Variation 16.4 % (11.5-14.5); RDW Standard Deviation 47.1 fL (36.4-46.3); Red Blood Count 3.97 M/uL (3.93-5.22); White Blood Count 11.24 K/ul (4.8-10.8)
[2022-04-22 04:44] LABS: BUN Creatinine Ratio 21.3 (10-20); Calcium 8.8 mg/dl (8.5-10.1); Creatinine Clr Calc Pharmacy 56.1 ml/min; Est GFR (African American) 87.3 ml/min; Est GFR (Non-African American) 75.3 ml/min; Magnesium 1.8 mg/dl (1.7-2.4); Phosphorus 3.7 mg/dl (2.5-4.9); Potassium 3.7 mmol/L (3.5-5.1)
[2022-04-22] MEDS ORDERED: POTASSIUM CHLORIDE CRTAB 20 MEQ TABCR PO STA (04:49)
[2022-04-22] MEDS ORDERED: LACTATED RINGER'S 1,000 ML IV ONE (04:49)
[2022-04-22] MEDS ORDERED: ACETAMINOPHEN 325 MG TAB PO STA (04:50)
--- NOTE | 2022-04-22 04:50 | Communication Note ---
Date of Service: April 22, 2022 Patient with temperature elevation and tachycardic. UA WBC positive Patient denies abdominal/flank pain as per RN. AP Sepsis secondary to complicated UTI Past history ESBL E. coli UTI (2014) CS, Ertapenem on the basis of microbiologic history
[2022-04-22] MEDS ORDERED: MAGNESIUM SULFATE / D5W 1 GM/100 ML BAG IV ONE (05:15)
[2022-04-22] MEDS: ERTAPENEM SODIUM 1,000 MG in SYRINGE 0 ML IV SCH (05:24)
[2022-04-22] MEDS: traMADol HCL 50 MG TABLET PO PRN (06:32)
[2022-04-22] MEDS: LORazepam 1 MG TAB PO PRN (07:00)
[2022-04-22] MEDS ORDERED: MoRPHine SULFATE 2 MG/ML CARP IV PRN (07:05)
[2022-04-22] MEDS ORDERED: KETOROLAC TROMETHAMINE 15 MG/ML VIAL IV ONE (07:06)
[2022-04-22] MEDS: dilTIAZem HCL 240 MG CAPCR PO SCH (07:25)
[2022-04-22] MEDS: MULTIVITAMIN TAB PO SCH (07:26)
[2022-04-22] MEDS: ROSUVASTATIN CALCIUM 10 MG TAB PO SCH (07:26)
--- NOTE | 2022-04-22 13:00 | Hospitalist Progress Note ---
Date of Service April 22, 2022 Assessment & Plan (1) Closed right ankle fracture: Plan: per Dr. Melvin's notes with addendum: 81-year-old female with history of diabetes type 2, atrial fibrillation on Eliquis, irritable bowel syndrome, CKD stage III, vertigo, etc. Presenting with mechanical fall, and resultant ankle fracture. Right ankle fracture Status post mechanical fall Age-related osteoporosis with current pathologic fracture, R bimalleolar Right ankle x-ray: Bimalleolar fracture is seen with a Dyer B fracture of the fibula and medial malleolus fracture. Exam is limited by patient positioning. Pain control, bedrest for now Orthopedic service consult N.p.o. after midnight No medical contraindications for possible orthopedic surgery, patient low to moderate risk for cardiopulmonary complications given age, and other comorbidities 05/01 Fever likely secondary to Pneumonia denies cough, dysphagia blood culture pending urine culture pending IV Cefepime Day 1 IV fluids repeat CXR in 2-3 days to monitor effusion Ch[place] Atrial fibrillation on Eliquis Permanent Atrial Fibrillation Continue diltiazem 240 mg daily on Eliquis CKD stage III At baseline History of diabetes type 2 Not on any medications History of vertigo As needed meclizine DVT prophylaxis Eliquis Disposition will need acute rehab or longterm facility Admission and Anticipated Discharge Date Admission Date: April 21, 2022 Subjective ff up for s/p R ankle surgery, etc seen resting in bed, comfortable states she feels ok overall, just bored spiking fever denies shortness of breath, cough, problems with swallowing denies abdominal pain, dysuria, nausea/vomiting, diarrhea no other symptoms Review of Systems Review of Systems: all noted and negative except for above Physical Exam Physical Exam: General- oriented x 3, not in distress, speaks in sentences with no effort or accessory muscle use Eyes- anicteric Neck- no JVD Lungs- clear BS bilaterally, no rales/wheezes Heart- normal rate, regular rhythm; no murmurs Abdomen- normal bowel sounds, nondistended, soft, nontender Extremities- no pretibial edema, no calf tenderness RLE- cast in place no edema Neuro- alert, oriented x 3; no gross focal neurologic deficits Skin- warm & dry Results & Data Results & Data ([facility]) Vital Signs (Past 12 Hours) Vital Signs Temp Pulse Resp BP Pulse Ox 04/22/22 09:00 124 H 18 92 04/22/22 08:00 117 H 15 97 04/22/22 08:00 111/84 04/22/22 07:00 118 H 34 H 97 04/22/22 09:11 125 H 04/22/22 08:00 36.8 C 04/22/22 04:41 37.6 C H 04/22/22 04:00 38.0 C H 104 H 12 134/80 97 04/22/22 01:26 112 H all noted and reviewed including below
--- NOTE | 2022-04-22 16:01 | Orthopedic Consultation ---
Date of Consultation April 22, 2022 Assessment & Plan (1) Closed right ankle fracture: Right bimalleolar ankle fracture. X-rays reviewed with Dr. Payne. Initially it was found that the patient was on twice daily Eliquis. However, the patient states that she has not had her Eliquis since the weekend secondary to immobility. Dr. Payne has been discussing the case with [facility] podiatry. Patient will need an ORIF of her bimalleolar ankle fracture however with her current deformity, question of need for hindfoot reconstruction or ankle fusion. After discussing it with the patient early on, she has been dealing with this foot for approximately 10 years and instead of any kind of corrective surgery, stated she would like to get the ankle fracture fixed and return to her normal state with the possibility of getting a new orthotic for that foot. Patient was sent to the surgical ICU for question of sepsis. We will need to await blood cultures before doing any internal fixation of her ankle. Most likely this will be . We will follow for now and plan for ORIF on with [facility] Physician. History of Present Illness Reason for Consultation: Right bimalleolar ankle fracture Attending Physician: Jeffry Morris MD History of Present Illness Patient is a 81-year-old female with history of diabetes type 2, atrial fibrillation on Eliquis, irritable bowel syndrome, CKD stage III, vertigo, etc. patient presented to the emergency room with painful right ankle. She states that she was ambulating in her home and as she was going through a certain doorway, her cane caught in the door jam area on the floor and she lost her balance. This caused her ankle to buckle and she fell to the floor. She had immediate pain in her right ankle and was unable to ambulate. She was brought to the emergency room here at [facility] and was seen by the staff. X-rays were taken and was found that she had bimalleolar ankle fracture of the right ankle. She was admitted by the hospitalist service and we have been asked to take care of her. 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 She states that her right foot has turned to the lateral aspect for many years. She has dealt with it for 10 years and at one point had an offset brace/boot sometime ago but she no longer has it. She has been able to bear weight on that right foot and ankle but notes that it is her weaker foot and ankle. Currently her pain is controlled and she has no other complaints. Allergies Allergy/AdvReac Type Severity Reaction Status Date / Time JAC Inhibitors Allergy Intermediate edema Verified 04/21/22 17:24 face/lips/tongue azithromycin AdvReac Intermediate severe Verified 04/21/22 17:24 [From Zithromax Z-Devon] vertigo diphenhydramine AdvReac Mild flushing, Verified 04/21/22 17:24 hyperactivity Home Medications Medication Instructions Recorded Confirmed Type diphenoxylate-atropine 2.5 1 tab PO .UD PRN Diarrhea 04/12/18 04/21/22 History mg-0.025 mg tablet meclizine 25 mg tablet 25 mg PO TID PRN Dizziness Or 04/12/18 04/21/22 History Vertigo tramadol 50 mg tablet 50 mg PO Q6H PRN Pain,severe' 06/20/20 04/21/22 History multivitamin 1 tab PO QAM 07/25/21 04/21/22 History apixaban 2.5 mg tablet (Eliquis) 2.5 mg PO AMHS 04/21/22 04/21/22 History diltiazem HCl 240 mg 240 mg PO QAM 04/21/22 04/21/22 History capsule,extended release 24 hr (Cardizem CD) lorazepam 1 mg tablet 1 mg PO TID PRN extreme vertigo 04/21/22 04/21/22 History rosuvastatin 10 mg tablet 10 mg PO QAM 04/21/22 04/21/22 History Patient History Medical History Actinic keratosis Atrial fibrillation, new onset Diabetes mellitus DIET CONTROLLED DM type 2 (diabetes mellitus, type 2) Hypertension Osteoarthritis Vertigo Surgical History History of bilateral tubal ligation History of total knee replacement LEFT Hx of right cataract extraction Family History Father Family history of diabetes mellitus Mother Family history of diabetes mellitus Brother Family history of diabetes mellitus Social History Smoking Status: Never smoker Tobacco Type: Cigarettes Second Hand Exposure: No; Hx Alcohol Use: No Hx Substance Use: No Preferred Language: Polish Communication Ability: Effective Waste Reclaimer Required: No Beliefs That Will Affect Care: None Current Living Situation: Alone Current Living Situation Comment: DAUGHTER & GRANDSON NEARBY Other Information That Helps Us Care for You: No Feels Safe at Home: Yes Safety Concerns: Feels Safe At This Time Assistive Devices: Cane Physical Exam Physical Exam: On examination, the patient is lying in bed in the surgical ICU awake and alert. She is oriented to person and place. No acute distress. Pleasant cooperative. On examination of her right lower extremity, she has a splint/dressing on the right foot and ankle. There is a posterior splint with medial/lateral stirrup. Toes are pink and warm. She is able to move the toes well. She has good sensation. She denies pain in the right knee and/or hip. Left lower extremity and bilateral upper extremities are unaffected at this time and range of motion is within normal limits. She denies any new or increased cervical, thoracic, low back pain. No gross motor or sensory loss at this time. Results & Data ([facility]) Vital Signs (Past 12 Hours) Vital Signs Temp Pulse Resp BP Pulse Ox O2 Del Method 04/22/22 12:01 99/55 L 04/22/22 12:01 77 13 97 Room Air 04/22/22 12:00 77 18 86 L Room Air 04/22/22 10:00 101 H 16 94 Room Air 04/22/22 10:00 106/62 04/22/22 09:00 124 H 18 92 04/22/22 08:00 117 H 15 97 04/22/22 08:00 111/84 04/22/22 07:00 118 H 34 H 97 04/22/22 09:11 125 H 04/22/22 08:00 36.8 C 04/22/22 04:41 37.6 C H 04/22/22 04:00 38.0 C H 104 H 12 134/80 97 Laboratory Results Laboratory Results WBC 11.24 K/ul (4.8-10.8) H 04/22/22 03:46 RBC 3.97 M/uL (3.93-5.22) 04/22/22 03:46 Hgb 9.9 g/dl (12.0-16.0) L 04/22/22 03:46 Hct 31.7 % (34.1-44.9) L 04/22/22 03:46 MCV 79.8 fL (80.0-100.0) L 04/22/22 03:46 MCH 24.9 pg (25.0-34.0) L 04/22/22 03:46 MCHC 31.2 g/dL (32.0-36.0) L 04/22/22 03:46 RDW Std Deviation 47.1 fL (36.4-46.3) H 04/22/22 03:46 RDW Coeff of Higinio 16.4 % (11.5-14.5) H 04/22/22 03:46 Plt Count 457 K/uL (130-400) H 04/22/22 03:46 MPV 9.6 fL (9.4-12.3) 04/22/22 03:46 Immature Gran % (Auto) 0.5 % 04/21/22 15:41 Neut % (Auto) 74.6 % 04/21/22 15:41 Lymph % (Auto) 18.7 % 04/21/22 15:41 [place] % (Auto) 5.3 % 04/21/22 15:41 Eos % (Auto) 0.5 % 04/21/22 15:41 Baso % (Auto) 0.4 % 04/21/22 15:41 Neut # (Auto) 10.95 K/uL (1.4-6.5) H 04/21/22 15:41 Lymph # (Auto) 2.74 K/uL (1.2-3.4) 04/21/22 15:41 [place] # (Auto) 0.78 K/uL (0.24-0.82) 04/21/22 15:41 Eos # (Auto) 0.07 K/uL (0-0.50) 04/21/22 15:41 Baso # (Auto) 0.06 K/uL (0-0.2) 04/21/22 15:41 Immature Gran # (Auto) 0.08 K/uL (0.00-0.02) H 04/21/22 15:41 PT 12.1 Seconds (9.0-12.0) H 04/21/22 15:41 INR 1.1 (0.9-1.1) 04/21/22 15:41 Sodium 138 mmol/L (136-145) 04/22/22 03:46 Potassium 3.7 mmol/L (3.5-5.1) 04/22/22 03:46 Chloride 103 mmol/L (98-107) 04/22/22 03:46 Carbon Dioxide 29 mmol/L (21-32) 04/22/22 03:46 Anion Gap 6 (3-11) 04/22/22 03:46 BUN 16 mg/dl (6-23) 04/22/22 03:46 Creatinine 0.75 mg/dl (0.6-1.2) 04/22/22 03:46 Est Cr Clr Drug Dosing 56.1 ml/min 04/22/22 03:46 Est GFR ( Amer) 87.3 ml/min 04/22/22 03:46 Est GFR (Non-Af Amer) 75.3 ml/min 04/22/22 03:46 BUN/Creatinine Ratio 21.3 (10-20) H 04/22/22 03:46 Glucose 100 mg/dl (70-99(Fasting)) H 04/22/22 03:46 POC Glucose 114 mg/dl (70-99) H 04/22/22 12:59 Lactate 0.9 mmol/L (0.4-2.0) 04/22/22 05:54 Calcium 8.8 mg/dl (8.5-10.1) 04/22/22 03:46 Phosphorus 3.7 mg/dl (2.5-4.9) 04/22/22 03:46 Magnesium 1.8 mg/dl (1.7-2.4) 04/22/22 03:46 Total Bilirubin 0.7 mg/dl (0.2-1.0) 04/21/22 15:41 AST 15 U/L (13-39) 04/21/22 15:41 ALT 7 U/L (7-52) 04/21/22 15:41 Alkaline Phosphatase 175 U/L (34-104) H 04/21/22 15:41 Total Creatine Kinase 29 U/L (26-192) 04/21/22 15:41 Troponin I High Sens 12.1 pg/ml (0-14) 04/21/22 15:41 Total Protein 8.1 gm/dl (6.0-8.3) 04/21/22 15:41 Albumin 2.8 gm/dl (3.4-5.0) L 04/21/22 15:41 Globulin 5.3 gm/dl (2.5-4.0) H 04/21/22 15:41 Albumin/Globulin Ratio 0.5 (0.9-2) L 04/21/22 15:41 Procalcitonin 0.15 ng/ml (0-0.5) 04/22/22 03:46 TSH 2.558 uIu/ml (0.300-4.500) 04/21/22 15:41 Urine Color Dark Yellow 04/21/22 19:30 Urine Appearance Turbid (Clear) A 04/21/22 19:30 Urine pH 6.0 (4.5-7.5) 04/21/22 19:30 Ur Specific [place] 1.023 (1.000-1.030) 04/21/22 19:30 Urine Protein 1+ (Negative) H 04/21/22 19:30 Urine Glucose (UA) Negative (Negative) 04/21/22 19: Urine Ketones Negative (Negative) 04/21/22 19: Urine Blood 1+ (Negative) H 04/21/22 19:30 Urine Nitrite Negative (Negative) 04/21/22 19:30 Urine Bilirubin Negative (Negative) 04/21/22 19: Urine Urobilinogen Negative (Negative) 04/21/22 19:30 Ur Leukocyte Esterase 2+ (Negative) H 04/21/22 19:30 Urine WBC (Auto) >30 /hpf (0-5) H 04/21/22 19:30 Urine RBC (Auto) 0-4 /hpf (0-4) 04/21/22 19: U Hyaline Cast (Auto) 0 /lpf (0-5) 04/21/22 19:30 U Epithel Cells (Auto) 5-10 /lpf (0-5) H 04/21/22 19:30 Urine Bacteria (Auto) Negative (Negative) 04/21/22 19: Urine Yeast Not Reportable 04/21/22 19:30 Nasal Screen MRSA (PCR) Negative (Negative) 04/22/22 00:00 SARS-CoV-2, RNA, NAAT NEGATIVE (NEGATIVE) 04/21/22 17:05 Impressions Ankle X-Ray 04/21/22 15:23 XR ankle RT min 3V routine CLINICAL HISTORY: pain, trauma TECHNIQUE: 3 views of the right ankle were obtained. Comparison: None available at the time of this dictation. FINDINGS: Exam is limited due to patient positioning. There is a fracture of the fibula at the level of the ankle mortise. There is a fracture of the medial malleolus as well. Degenerative changes are seen. Ankle mortise is difficult to evaluate due to limitations in patient positioning. Soft tissue swelling is seen about the ankle. IMPRESSION: Bimalleolar fracture is seen with a Dyer B fracture of the fibula and medial malleolus fracture. Exam is limited by patient positioning. ACT 112: Negative or not required by law. Electronically signed by: Miki Ren M.D. 04/21/2022 4:06 PM
[2022-04-22] MEDS: SODIUM CHLORIDE 0.9% 1000ML 1,000 ML IV SCH (19:55)
[2022-04-23] MEDS: ERTAPENEM SODIUM 1,000 MG in SYRINGE 0 ML IV SCH (04:22)
[2022-04-23] MEDS: LORazepam 1 MG TAB PO PRN (07:04)
[2022-04-23] MEDS: ROSUVASTATIN CALCIUM 10 MG TAB PO SCH (09:27)
[2022-04-23] MEDS: dilTIAZem HCL 240 MG CAPCR PO SCH (09:27)
[2022-04-23] MEDS: MULTIVITAMIN TAB PO SCH (09:27)
[2022-04-23] MEDS ORDERED: MoRPHine SULFATE 2 MG/ML CARP IV PRN (10:32)
--- NOTE | 2022-04-23 13:11 | Communication Note ---
Date of Service: April 23, 2022 Pt lying in bed sleeping. Easily awoken. States he has good pain control at rest currently. Dressings split over the dorsum of the foot and ankle to assess swelling. Some swelling over the anterior aspect of the leg but medial/lateral sides don't seem to have too much swelling. Cap refill less than 2 seconds. Sensation intact. Afshin wrap and additional cotton roll placed on the splint. Plan for OR tomorrow for ORIF Right ankle at 1600.
[2022-04-23 13:29] LABS: Partial Thromboplastin Time 27.3 Seconds (21.0-31.0)
[2022-04-23] MEDS: SODIUM CHLORIDE 0.9% 1000ML 1,000 ML IV SCH (13:54)
--- NOTE | 2022-04-23 15:06 | Hospitalist Progress Note ---
Date of Service April 23, 2022 Assessment & Plan (1) Closed right ankle fracture: Plan: 81-year-old female with history of diabetes type 2, atrial fibrillation on Eliquis, irritable bowel syndrome, CKD stage III, vertigo, etc. Presenting with mechanical fall, and resultant ankle fracture. Right ankle fracture Status post mechanical fall Age-related osteoporosis with current pathologic fracture, R bimalleolar Right ankle x-ray: Bimalleolar fracture is seen with a Dyer B fracture of the fibula and medial malleolus fracture. Exam is limited by patient positioning. Pain control, bedrest for now Orthopedics on board; plan for OR tomorrow for ORIF of right ankle. No medical contraindications for possible orthopedic surgery, patient low to moderate risk for cardiopulmonary complications given age, and other comorbidities Chornic Atrial fibrillation on Eliquis Permanent Atrial Fibrillation Atrial fibrillation with controlled ventricular rate on Cardizem Eliquis on hold for possible surgery. Elevated temperature Low-grade temperature of 38.0 C Blood culture does not show any growth in last 24 hours. Urine culture showed different organisms; repeat urine culture ordered. Currently on ertapenem; will DC if blood culture continues to be negative till tomorrow. CKD stage III At baseline History of diabetes type 2 Not on any medications History of vertigo As needed meclizine DVT prophylaxis SCDs for now Disposition May need acute rehab or fdc facility. PT OT after surgery. Admission and Anticipated Discharge Date Admission Date: April 21, 2022 Subjective Patient seen and examined at bedside. Still sleepy but awake able to voice. She reports that pain is well controlled on current medication. Telemetry showed atrial fibrillation with controlled ventricular rate. Review of Systems Review of Systems: All systems reviewed & are unremarkable except as noted in Subjective Physical Exam Physical Exam: Constitutional: Sleepy but awake able to voice. Respiratory: normal respiratory effort, lungs clear to auscultation, no wheeze, rales, rhonchi. Normal insp/exp effort, no accessory muscle use Cardiovascular: Irregular, no murmur, no edema Vessels: no JVD or carotid bruit Chest: normal inspection of chest Abdomen: normal bowel sounds, soft, nontender, no hepatosplenomegaly Musculoskeletal: Right foot externally rotated; Kerlix bandages in place. Skin: no rashes, warm and dry normal turgor Neurologic: PERRL, EOMI, accommodation nl, no face palsy, no dysarthria CN's II- XI intact bilaterally and moves all extremities Psychiatric: A+Ox3, euthymic affect : deferred Results & Data Results & Data ([facility]) Vital Signs (Past 12 Hours) Vital Signs Temp Pulse Resp BP Pulse Ox 04/23/22 14:00 38.0 C H 78 22 93 04/23/22 14:00 103/59 L 04/23/22 12:00 37.8 C H 93 H 17 94 04/23/22 12:00 124/68 04/23/22 11:00 87 22 91 04/23/22 10:00 101 H 22 93 04/23/22 10:00 104/63 04/23/22 08:00 105 H 24 91 04/23/22 08:00 104/66 04/23/22 07:00 108 H 20 95 04/23/22 08:00 146 H 04/23/22 06:00 108 H 19 91 04/23/22 06:00 114/69 04/23/22 05:00 107 H 18 91 04/23/22 04:00 97 H 20 93 04/23/22 04:00 118/65 04/23/22 03:00 91 H 18 93 04/23/22 03:00 36.7 C Laboratory Results Laboratory Results WBC 11.24 K/ul (4.8-10.8) H 04/22/22 03:46 RBC 3.97 M/uL (3.93-5.22) 04/22/22 03:46 Hgb 9.9 g/dl (12.0-16.0) L 04/22/22 03:46 Hct 31.7 % (34.1-44.9) L 04/22/22 03:46 MCV 79.8 fL (80.0-100.0) L 04/22/22 03:46 MCH 24.9 pg (25.0-34.0) L 04/22/22 03:46 MCHC 31.2 g/dL (32.0-36.0) L 04/22/22 03:46 RDW Std Deviation 47.1 fL (36.4-46.3) H 04/22/22 03:46 RDW Coeff of Higinio 16.4 % (11.5-14.5) H 04/22/22 03:46 Plt Count 457 K/uL (130-400) H 04/22/22 03:46 MPV 9.6 fL (9.4-12.3) 04/22/22 03:46 Immature Gran % (Auto) 0.5 % 04/21/22 15:41 Neut % (Auto) 74.6 % 04/21/22 15:41 Lymph % (Auto) 18.7 % 04/21/22 15:41 [place] % (Auto) 5.3 % 04/21/22 15:41 Eos % (Auto) 0.5 % 04/21/22 15:41 Baso % (Auto) 0.4 % 04/21/22 15:41 Neut # (Auto) 10.95 K/uL (1.4-6.5) H 04/21/22 15:41 Lymph # (Auto) 2.74 K/uL (1.2-3.4) 04/21/22 15:41 [place] # (Auto) 0.78 K/uL (0.24-0.82) 04/21/22 15:41 Eos # (Auto) 0.07 K/uL (0-0.50) 04/21/22 15:41 Baso # (Auto) 0.06 K/uL (0-0.2) 04/21/22 15:41 Immature Gran # (Auto) 0.08 K/uL (0.00-0.02) H 04/21/22 15:41 PT 12.1 Seconds (9.0-12.0) H 04/21/22 15:41 INR 1.1 (0.9-1.1) 04/21/22 15:41 APTT 27.3 Seconds (21.0-31.0) 04/23/22 12:42 PTT Ratio 1.0 04/23/22 12:42 Sodium 138 mmol/L (136-145) 04/22/22 03:46 Potassium 3.7 mmol/L (3.5-5.1) 04/22/22 03:46 Chloride 103 mmol/L (98-107) 04/22/22 03:46 Carbon Dioxide 29 mmol/L (21-32) 04/22/22 03:46 Anion Gap 6 (3-11) 04/22/22 03:46 BUN 16 mg/dl (6-23) 04/22/22 03:46 Creatinine 0.75 mg/dl (0.6-1.2) 04/22/22 03:46 Est Cr Clr Drug Dosing 56.1 ml/min 04/22/22 03:46 Est GFR ( Amer) 87.3 ml/min 04/22/22 03:46 Est GFR (Non-Af Amer) 75.3 ml/min 04/22/22 03:46 BUN/Creatinine Ratio 21.3 (10-20) H 04/22/22 03:46 Glucose 100 mg/dl (70-99(Fasting)) H 04/22/22 03:46 POC Glucose 100 mg/dl (70-99) H 04/23/22 11:23 Lactate 0.9 mmol/L (0.4-2.0) 04/22/22 05:54 Calcium 8.8 mg/dl (8.5-10.1) 04/22/22 03:46 Phosphorus 3.7 mg/dl (2.5-4.9) 04/22/22 03:46 Magnesium 1.8 mg/dl (1.7-2.4) 04/22/22 03:46 Total Bilirubin 0.7 mg/dl (0.2-1.0) 04/21/22 15:41 AST 15 U/L (13-39) 04/21/22 15:41 ALT 7 U/L (7-52) 04/21/22 15:41 Alkaline Phosphatase 175 U/L (34-104) H 04/21/22 15:41 Total Creatine Kinase 29 U/L (26-192) 04/21/22 15:41 Troponin I High Sens 12.1 pg/ml (0-14) 04/21/22 15:41 Total Protein 8.1 gm/dl (6.0-8.3) 04/21/22 15:41 Albumin 2.8 gm/dl (3.4-5.0) L 04/21/22 15:41 Globulin 5.3 gm/dl (2.5-4.0) H 04/21/22 15:41 Albumin/Globulin Ratio 0.5 (0.9-2) L 04/21/22 15:41 Procalcitonin 0.15 ng/ml (0-0.5) 04/22/22 03:46 TSH 2.558 uIu/ml (0.300-4.500) 04/21/22 15:41 Urine Color Dark Yellow 04/21/22 19:30 Urine Appearance Turbid (Clear) A 04/21/22 19:30 Urine pH 6.0 (4.5-7.5) 04/21/22 19:30 Ur Specific [place] 1.023 (1.000-1.030) 04/21/22 19:30 Urine Protein 1+ (Negative) H 04/21/22 19:30 Urine Glucose (UA) Negative (Negative) 04/21/22 19:30 Urine Ketones Negative (Negative) 04/21/22 19: Urine Blood 1+ (Negative) H 04/21/22 19:30 Urine Nitrite Negative (Negative) 04/21/22 19: Urine Bilirubin Negative (Negative) 04/21/22 19: Urine Urobilinogen Negative (Negative) 04/21/22 19:30 Ur Leukocyte Esterase 2+ (Negative) H 04/21/22 19:30 Urine WBC (Auto) >30 /hpf (0-5) H 04/21/22 19:30 Urine RBC (Auto) 0-4 /hpf (0-4) 04/21/22 19: U Hyaline Cast (Auto) 0 /lpf (0-5) 04/21/22 19:30 U Epithel Cells (Auto) 5-10 /lpf (0-5) H 04/21/22 19:30 Urine Bacteria (Auto) Negative (Negative) 04/21/22 19:30 Urine Yeast Not Reportable 04/21/22 19:30 Nasal Screen MRSA (PCR) Negative (Negative) 04/22/22 00:00 SARS-CoV-2, RNA, NAAT NEGATIVE (NEGATIVE) 04/21/22 17:05 Impressions Ankle X-Ray 04/21/22 15:23 XR ankle RT min 3V routine CLINICAL HISTORY: pain, trauma TECHNIQUE: 3 views of the right ankle were obtained. Comparison: None available at the time of this dictation. FINDINGS: Exam is limited due to patient positioning. There is a fracture of the fibula at the level of the ankle mortise. There is a fracture of the medial malleolus as well. Degenerative changes are seen. Ankle mortise is difficult to evaluate due to limitations in patient positioning. Soft tissue swelling is seen about the ankle. IMPRESSION: Bimalleolar fracture is seen with a Dyer B fracture of the fibula and medial malleolus fracture. Exam is limited by patient positioning. ACT 112: Negative or not required by law. Electronically signed by: Miki Ren M.D. 04/21/2022 4:06 PM Chest X-Ray 04/21/22 19:06 SINGLE VIEW CHEST CLINICAL HISTORY: Preoperative examination FINDINGS: An AP, portable, upright chest radiograph is compared to study dated 12/10/2021. The heart is mildly enlarged noting atherosclerotic calcification of the thoracic aorta. Pulmonary vasculature is noncongested. Chronic interstitial thickening is similar to previous. The lungs and pleural spaces are clear noting bibasilar atelectasis. No pneumothorax is seen. The skeletal structures are osteopenic. The bony thorax is grossly intact. IMPRESSION: No active disease in the chest. ACT 112: Negative or not required by law. Electronically signed by: Joshua Long M.D. 04/21/2022 8:31 PM
[2022-04-24] MEDS ORDERED: ACETAMINOPHEN 1,000 MG/100 ML VIAL IV STA (02:15)
[2022-04-24 03:40] LABS: Basophils # (auto) 0.03 K/uL (0-0.2); Basophils % (auto) 0.2 %; Eosinophils # (auto) 0.13 K/uL (0-0.50); Hematocrit (blood only) 29.1 % (34.1-44.9); Immature Granulocytes # (auto) 0.07 K/uL (0.00-0.02); Immature Granulocytes % (auto) 0.6 %; Lymphocytes # (auto) 2.99 K/uL (1.2-3.4); Lymphocytes % (auto) 23.8 %; Mean Corpuscular Hemoglobin 24.6 pg (25.0-34.0); Mean Corpuscular Hgb Conc 30.9 g/dL (32.0-36.0); Mean Corpuscular Volume 79.5 fL (80.0-100.0); Mean Platelet Volume 9.5 fL (9.4-12.3); Neutrophils # (auto) 8.35 K/uL (1.4-6.5); Neutrophils % (auto) 66.4 %; Platelet Count 447 K/uL (130-400); RDW Coefficient of Variation 16.3 % (11.5-14.5); RDW Standard Deviation 47.2 fL (36.4-46.3); Red Blood Count 3.66 M/uL (3.93-5.22); White Blood Count 12.57 K/ul (4.8-10.8)
[2022-04-24 04:12] LABS: Albumin Level 2.5 gm/dl (3.4-5.0); Bilirubin,Total 0.5 mg/dl (0.2-1.0); Calcium 8.7 mg/dl (8.5-10.1); Potassium 4.2 mmol/L (3.5-5.1)
[2022-04-24 04:18] LABS: Albumin Globulin Ratio 0.5 (0.9-2); BUN Creatinine Ratio 15.9 (10-20); Creatinine Clr Calc Pharmacy 54.1 ml/min; Est GFR (African American) 78.3 ml/min; Est GFR (Non-African American) 67.6 ml/min; Globulin 4.7 gm/dl (2.5-4.0); Total Protein 7.2 gm/dl (6.0-8.3)
--- NOTE | 2022-04-24 05:39 | Electrocardiogram Report ---
Test Reason : Blood Pressure : / mmHG Vent. Rate : 094 BPM Atrial Rate : 156 BPM P-R Int : 000 ms QRS Dur : 086 ms QT Int : 376 ms P-R-T Axes : 000 023 030 degrees QTc Int : 470 ms Atrial fibrillation Low voltage QRS Abnormal ECG When compared with ECG of 10-DEC-2021 15:34, No significant change was found Confirmed by Chirag Pascual ([id number]) on 04/24/2022 5:38:33 AM Referred By: REFERRED SELF Confirmed By:Chirag Pascual
[2022-04-24] MEDS: ERTAPENEM SODIUM 1,000 MG in SYRINGE 0 ML IV SCH (05:56)
[2022-04-24] MEDS: dilTIAZem HCL 240 MG CAPCR PO SCH (08:15)
[2022-04-24] MEDS: MULTIVITAMIN TAB PO SCH (08:15)
[2022-04-24] MEDS: ROSUVASTATIN CALCIUM 10 MG TAB PO SCH (08:15)
--- NOTE | 2022-04-24 08:51 | Anesthesiology Consultation ---
Date of Service April 24, 2022 Assessment & Plan Chart Review Chart Review: Acceptable Risk for Surgery and Patient NOT seen in Pre Admission Testing Consults Requested none History Surgery Operation Date: 04/24/22 08:20 Proposed Procedures p Right Open Reduction Internal Fixation Ankle - Chivo Payne DO Height/Weight Height: 5 ft 3 in Weight: 73.8 kg Allergies Allergy/AdvReac Type Severity Reaction Status Date / Time JAC Inhibitors Allergy Intermediate edema Verified 04/21/22 17:24 face/lips/tongue azithromycin AdvReac Intermediate severe Verified 04/21/22 17:24 [From Zithromax Z-Devon] vertigo diphenhydramine AdvReac Mild flushing, Verified 04/21/22 17:24 hyperactivity Medications Home Medications Medication Instructions Recorded Confirmed Last Taken diphenoxylate-atropine 2.5 1 tab PO .UD PRN Diarrhea 04/12/18 04/21/22 07/24/21 mg-0.025 mg tablet meclizine 25 mg tablet 25 mg PO TID PRN Dizziness Or 04/12/18 04/21/22 04/21/22 Vertigo am tramadol 50 mg tablet 50 mg PO Q6H PRN Pain,severe' 06/20/20 04/21/22 04/21/22 am multivitamin 1 tab PO QAM 07/25/21 04/21/22 04/21/22 apixaban 2.5 mg tablet (Eliquis) 2.5 mg PO AMHS 04/21/22 04/21/22 04/21/22 am diltiazem HCl 240 mg 240 mg PO QAM 04/21/22 04/21/22 04/21/22 capsule,extended release 24 hr (Cardizem CD) lorazepam 1 mg tablet 1 mg PO TID PRN extreme vertigo 04/21/22 04/21/22 Unknown rosuvastatin 10 mg tablet 10 mg PO QAM 04/21/22 04/21/22 04/21/22 Active Medications Generic Name Dose Route Start Last Admin Trade Name Freq PRN Reason Stop Dose Admin Diltiazem HCl 240 mg 04/22/22 09:00 04/24/22 08:15 Diltiazem Hcl 240 Mg Capcr PO 05/22/22 08:59 [facility] Ertapenem 1,000 mg/ Syringe 10 mls @ 2 mls/min 04/22/22 05:00 04/24/22 05:56 IV 05/02/22 04:59 2 mls/min Q24H BILL Administration Multivitamins 1 tab 04/22/22 09:00 04/24/22 08:15 Multivitamin Tab PO 05/22/22 08:59 Not Given QAM BILL Rosuvastatin Calcium 10 mg 04/22/22 09:00 04/24/22 08:15 Rosuvastatin Calcium 10 Mg Tab PO 05/22/22 08:59 Not Given QAM BILL Tramadol HCl 50 mg 04/21/22 21:09 04/22/22 06:32 Tramadol Hcl 50 Mg Tablet PO 05/21/22 21:08 50 mg Q6H PRN Administration Pain,severe' Past Medical History Medical History Actinic keratosis Atrial fibrillation, new onset Diabetes mellitus DIET CONTROLLED DM type 2 (diabetes mellitus, type 2) Hypertension Osteoarthritis Vertigo Past Family History Family History Father Family history of diabetes mellitus Mother Family history of diabetes mellitus Brother Family history of diabetes mellitus Past Surgical History Surgical History History of bilateral tubal ligation History of total knee replacement LEFT Hx of right cataract extraction Social History Smoking Status: Never smoker Hx Alcohol Use: No Hx Substance Use: No substance use type: does not use Physical Exam Vital Signs Last Vital Signs Temp 36.2 C L 04/24/22 08:00 Pulse 101 H 04/24/22 08:00 Resp 23 04/24/22 08:00 BP 96/65 L 04/24/22 08:00 Pulse Ox 94 04/24/22 08:00 O2 Del Method 04/24/22 07:00 Testing Laboratory Results 04/24/22 02:55 04/24/22 02:55 PT 12.1 Seconds (9.0-12.0) H 04/21/22 15:41 INR 1.1 (0.9-1.1) 04/21/22 15:41 APTT 27.3 Seconds (21.0-31.0) 04/23/22 12:42 Urine Color Dark Yellow 04/21/22 19:30 Urine Appearance Turbid (Clear) A 04/21/22 19:30 Urine pH 6.0 (4.5-7.5) 04/21/22 19:30 Ur Specific [place] 1.023 (1.000-1.030) 04/21/22 19:30 Urine Protein 1+ (Negative) H 04/21/22 19:30 Urine Glucose (UA) Negative (Negative) 04/21/22 19:30 Urine Ketones Negative (Negative) 04/21/22 19:30 Urine Nitrite Negative (Negative) 04/21/22 19:30 Ur Leukocyte Esterase 2+ (Negative) H 04/21/22 19:30 Urine WBC (Auto) >30 /hpf (0-5) H 04/21/22 19:30 Urine RBC (Auto) 0-4 /hpf (0-4) 04/21/22 19:30 U Hyaline Cast (Auto) 0 /lpf (0-5) 04/21/22 19:30 U Epithel Cells (Auto) 5-10 /lpf (0-5) H 04/21/22 19:30 Urine Bacteria (Auto) Negative (Negative) 04/21/22 19:30 04/22/22 05:46 Aerobic Blood Culture - Preliminary Blood No growth in Aerobic bottle after 48 hours. Anaerobic Blood Culture - Preliminary No growth in Anaerobic bottle after 48 hours. 04/22/22 05:55 Aerobic Blood Culture - Preliminary Blood No growth in Aerobic bottle after 48 hours. Anaerobic Blood Culture - Preliminary No growth in Anaerobic bottle after 48 hours. 04/21/22 19:30 Urine Culture - Final Urine,Clean Catch Three types of organisms present, all moderate counts. Repeat collection recommended. No further identifications or sensitivities to follow. Electrocardiogram Date: 04/21/22 Findings: + AFIB @ Chest X-Ray Date: 04/21/22 Findings: + NAD Echocardiogram Date: 07/26/21 EF: 55-60 LV Function: normal Valvular Disease: + no significant valvular disease rate controlled afib
--- NOTE | 2022-04-24 11:14 | Hospitalist Progress Note ---
Date of Service April 24, 2022 Assessment & Plan (1) Closed right ankle fracture: Plan: 81-year-old female with history of diabetes type 2, atrial fibrillation on Eliquis, irritable bowel syndrome, CKD stage III, vertigo, etc. Presenting with mechanical fall, and resultant ankle fracture. Right ankle fracture Status post mechanical fall Age-related osteoporosis with current pathologic fracture, R bimalleolar Right ankle x-ray: Bimalleolar fracture is seen with a Dyer B fracture of the fibula and medial malleolus fracture. Exam is limited by patient positioning. Pain control, bedrest for now Orthopedics on board; plan for OR tomorrow for ORIF of right ankle. No medical contraindications for possible orthopedic surgery, patient low to moderate risk for cardiopulmonary complications given age, and other comorbidities Chornic Atrial fibrillation on Eliquis Permanent Atrial Fibrillation Atrial fibrillation with controlled ventricular rate on Cardizem Eliquis on hold for possible surgery. Elevated temperature Low-grade temperature of 38.0 C Blood culture does not show any growth in last 47 hours. Urine culture showed different organisms; repeat urine culture ordered. Currently on ertapenem; will discontinue if blood cultures are negative. CKD stage III At baseline History of diabetes type 2 Not on any medications History of vertigo As needed meclizine DVT prophylaxis SCDs for now Disposition May need acute rehab or fdc facility. PT OT after surgery. Admission and Anticipated Discharge Date Admission Date: April 21, 2022 Subjective Patient seen and examined at bedside. She is awake, alert, oriented to time place and person. She is n.p.o. for surgery today. Review of Systems Review of Systems: All systems reviewed & are unremarkable except as noted in Subjective Physical Exam Physical Exam: Constitutional: Awake, alert orient x3. Comfortable. Respiratory: normal respiratory effort, lungs clear to auscultation, no wheeze, rales, rhonchi. Normal insp/exp effort, no accessory muscle use Cardiovascular: Irregular, no murmur, no edema Vessels: no JVD or carotid bruit Chest: normal inspection of chest Abdomen: normal bowel sounds, soft, nontender, no hepatosplenomegaly Musculoskeletal: Right foot externally rotated; Kerlix bandages in place. Skin: no rashes, warm and dry normal turgor Neurologic: PERRL, EOMI, accommodation nl, no face palsy, no dysarthria CN's II- XI intact bilaterally and moves all extremities Psychiatric: A+Ox3, euthymic affect : deferred Results & Data Results & Data ([facility]) Vital Signs (Past 12 Hours) Vital Signs Temp Pulse Resp BP Pulse Ox O2 Del Method 04/24/22 08:00 81 04/24/22 10:00 36.0 C L 73 14 97 Room Air 04/24/22 10:00 105/64 04/24/22 09:00 36.2 C L 76 18 94 04/24/22 08:00 36.2 C L 101 H 23 94 04/24/22 08:00 96/65 L 04/24/22 07:44 101/63 04/24/22 07:44 82 20 04/24/22 07:00 36.3 C L 72 19 96/65 L 95 Room Air 04/24/22 06:01 110/64 04/24/22 06:01 36.4 C L 98 H 16 97 04/24/22 06:00 36.4 C L 96 H 17 95 04/24/22 05:00 36.8 C 84 19 92 04/24/22 04:00 37.9 C H 77 20 92 04/24/22 04:00 100/60 04/24/22 03:00 38.1 C H 84 20 95 04/24/22 02:00 38.0 C H 81 19 91 04/24/22 02:00 108/65 04/24/22 01:00 37.7 C H 80 18 91 04/24/22 00:00 37.6 C H 89 18 93 04/24/22 00:00 100/61 04/24/22 00:00 87 Laboratory Results Laboratory Results WBC 12.57 K/ul (4.8-10.8) H 04/24/22 02:55 RBC 3.66 M/uL (3.93-5.22) L 04/24/22 02:55 Hgb 9.0 g/dl (12.0-16.0) L 04/24/22 02:55 Hct 29.1 % (34.1-44.9) L 04/24/22 02:55 MCV 79.5 fL (80.0-100.0) L 04/24/22 02:55 MCH 24.6 pg (25.0-34.0) L 04/24/22 02:55 MCHC 30.9 g/dL (32.0-36.0) L 04/24/22 02:55 RDW Std Deviation 47.2 fL (36.4-46.3) H 04/24/22 02:55 RDW Coeff of Higinio 16.3 % (11.5-14.5) H 04/24/22 02:55 Plt Count 447 K/uL (130-400) H 04/24/22 02:55 MPV 9.5 fL (9.4-12.3) 04/24/22 02:55 Immature Gran % (Auto) 0.6 % 04/24/22 02:55 Neut % (Auto) 66.4 % 04/24/22 02:55 Lymph % (Auto) 23.8 % 04/24/22 02:55 [place] % (Auto) 8.0 % 04/24/22 02:55 Eos % (Auto) 1.0 % 04/24/22 02:55 Baso % (Auto) 0.2 % 04/24/22 02:55 Neut # (Auto) 8.35 K/uL (1.4-6.5) H 04/24/22 02:55 Lymph # (Auto) 2.99 K/uL (1.2-3.4) 04/24/22 02:55 [place] # (Auto) 1.00 K/uL (0.24-0.82) H 04/24/22 02:55 Eos # (Auto) 0.13 K/uL (0-0.50) 04/24/22 02:55 Baso # (Auto) 0.03 K/uL (0-0.2) 04/24/22 02:55 Immature Gran # (Auto) 0.07 K/uL (0.00-0.02) H 04/24/22 02:55 PT 12.1 Seconds (9.0-12.0) H 04/21/22 15:41 INR 1.1 (0.9-1.1) 04/21/22 15:41 APTT 27.3 Seconds (21.0-31.0) 04/23/22 12:42 PTT Ratio 1.0 04/23/22 12:42 Sodium 137 mmol/L (136-145) 04/24/22 02:55 Potassium 4.2 mmol/L (3.5-5.1) 04/24/22 02:55 Chloride 105 mmol/L (98-107) 04/24/22 02:55 Carbon Dioxide 25 mmol/L (21-32) 04/24/22 02:55 Anion Gap 7 (3-11) 04/24/22 02:55 BUN 13 mg/dl (6-23) 04/24/22 02:55 Creatinine 0.82 mg/dl (0.6-1.2) 04/24/22 02:55 Est Cr Clr Drug Dosing 54.1 ml/min 04/24/22 02:55 Est GFR ( Amer) 78.3 ml/min 04/24/22 02:55 Est GFR (Non-Af Amer) 67.6 ml/min 04/24/22 02:55 BUN/Creatinine Ratio 15.9 (10-20) 04/24/22 02:55 Glucose 94 mg/dl (70-99(Fasting)) 04/24/22 02:55 POC Glucose 91 mg/dl (70-99) 04/24/22 11:17 Lactate 0.9 mmol/L (0.4-2.0) 04/22/22 05:54 Calcium 8.7 mg/dl (8.5-10.1) 04/24/22 02:55 Phosphorus 3.7 mg/dl (2.5-4.9) 04/22/22 03:46 Magnesium 1.8 mg/dl (1.7-2.4) 04/22/22 03:46 Total Bilirubin 0.5 mg/dl (0.2-1.0) 04/24/22 02:55 AST 43 U/L (13-39) H 04/24/22 02:55 ALT 16 U/L (7-52) 04/24/22 02:55 Alkaline Phosphatase 156 U/L (34-104) H 04/24/22 02:55 Total Creatine Kinase 29 U/L (26-192) 04/21/22 15:41 Troponin I High Sens 12.1 pg/ml (0-14) 04/21/22 15:41 Total Protein 7.2 gm/dl (6.0-8.3) 04/24/22 02:55 Albumin 2.5 gm/dl (3.4-5.0) L 04/24/22 02:55 Globulin 4.7 gm/dl (2.5-4.0) H 04/24/22 02:55 Albumin/Globulin Ratio 0.5 (0.9-2) L 04/24/22 02:55 Procalcitonin 0.15 ng/ml (0-0.5) 04/22/22 03:46 TSH 2.558 uIu/ml (0.300-4.500) 04/21/22 15:41 Urine Color Dark Yellow 04/21/22 19:30 Urine Appearance Turbid (Clear) A 04/21/22 19:30 Urine pH 6.0 (4.5-7.5) 04/21/22 19:30 Ur Specific [place] 1.023 (1.000-1.030) 04/21/22 19:30 Urine Protein 1+ (Negative) H 04/21/22 19:30 Urine Glucose (UA) Negative (Negative) 04/21/22 19:30 Urine Ketones Negative (Negative) 04/21/22 19:30 Urine Blood 1+ (Negative) H 04/21/22 19:30 Urine Nitrite Negative (Negative) 04/21/22 19:30 Urine Bilirubin Negative (Negative) 04/21/22 19:30 Urine Urobilinogen Negative (Negative) 04/21/22 19:30 Ur Leukocyte Esterase 2+ (Negative) H 04/21/22 19:30 Urine WBC (Auto) >30 /hpf (0-5) H 04/21/22 19:30 Urine RBC (Auto) 0-4 /hpf (0-4) 04/21/22 19:30 U Hyaline Cast (Auto) 0 /lpf (0-5) 04/21/22 19:30 U Epithel Cells (Auto) 5-10 /lpf (0-5) H 04/21/22 19:30 Urine Bacteria (Auto) Negative (Negative) 04/21/22 19:30 Urine Yeast Not Reportable 04/21/22 19:30 Nasal Screen MRSA (PCR) Negative (Negative) 04/22/22 00:00 SARS-CoV-2, RNA, NAAT NEGATIVE (NEGATIVE) 04/21/22 17:05 Impressions Ankle X-Ray 04/21/22 15:23 XR ankle RT min 3V routine CLINICAL HISTORY: pain, trauma TECHNIQUE: 3 views of the right ankle were obtained. Comparison: None available at the time of this dictation. FINDINGS: Exam is limited due to patient positioning. There is a fracture of the fibula at the level of the ankle mortise. There is a fracture of the medial malleolus as well. Degenerative changes are seen. Ankle mortise is difficult to evaluate due to limitations in patient positioning. Soft tissue swelling is seen about the ankle. IMPRESSION: Bimalleolar fracture is seen with a Dyer B fracture of the fibula and medial malleolus fracture. Exam is limited by patient positioning. ACT 112: Negative or not required by law. Electronically signed by: Miki Ren M.D. 04/21/2022 4:06 PM Chest X-Ray 04/21/22 19:06 SINGLE VIEW CHEST CLINICAL HISTORY: Preoperative examination FINDINGS: An AP, portable, upright chest radiograph is compared to study dated 12/10/2021. The heart is mildly enlarged noting atherosclerotic calcification of the thoracic aorta. Pulmonary vasculature is noncongested. Chronic interstitial thickening is similar to previous. The lungs and pleural spaces are clear noting bibasilar atelectasis. No pneumothorax is seen. The skeletal structures are osteopenic. The bony thorax is grossly intact. IMPRESSION: No active disease in the chest. ACT 112: Negative or not required by law. Electronically signed by: Joshua Long M.D. 04/21/2022 8:31 PM
[2022-04-24] MEDS ORDERED: ROPIVACAINE 0.5% 5 MG/ML 30 ML VIAL ONE (14:37)
[2022-04-24] MEDS: ACETAMINOPHEN 325 MG TAB PO PRN (21:09)
[2022-04-24] MEDS: HEPARIN SOD 5,000 UNIT/0.5 ML VIAL SQ SCH (21:10)
[2022-04-25 04:57] LABS: Basophils # (auto) 0.04 K/uL (0-0.2); Basophils % (auto) 0.4 %; Eosinophils # (auto) 0.19 K/uL (0-0.50); Eosinophils % (auto) 1.8 %; Immature Granulocytes # (auto) 0.03 K/uL (0.00-0.02); Immature Granulocytes % (auto) 0.3 %; Lymphocytes # (auto) 2.99 K/uL (1.2-3.4); Mean Corpuscular Hemoglobin 24.9 pg (25.0-34.0); Mean Corpuscular Volume 80.3 fL (80.0-100.0); Mean Platelet Volume 9.2 fL (9.4-12.3); Monocytes # (auto) 0.76 K/uL (0.24-0.82); Monocytes % (auto) 7.4 %; Neutrophils % (auto) 61.1 %; Platelet Count 400 K/uL (130-400); RDW Coefficient of Variation 16.3 % (11.5-14.5); RDW Standard Deviation 47.8 fL (36.4-46.3); Red Blood Count 3.61 M/uL (3.93-5.22); White Blood Count 10.31 K/ul (4.8-10.8)
[2022-04-25 05:20] LABS: Albumin Level 2.5 gm/dl (3.4-5.0); Bilirubin,Total 0.5 mg/dl (0.2-1.0); Calcium 8.9 mg/dl (8.5-10.1)
[2022-04-25 05:26] LABS: Albumin Globulin Ratio 0.6 (0.9-2); BUN Creatinine Ratio 15.9 (10-20); Creatinine Clr Calc Pharmacy 52.7 ml/min; Est GFR (African American) 78.3 ml/min; Est GFR (Non-African American) 67.6 ml/min; Globulin 4.2 gm/dl (2.5-4.0); Total Protein 6.7 gm/dl (6.0-8.3)
[2022-04-25] MEDS: ERTAPENEM SODIUM 1,000 MG in SYRINGE 0 ML IV SCH (05:53)
[2022-04-25] MEDS: HEPARIN SOD 5,000 UNIT/0.5 ML VIAL SQ SCH ×2 (05:53→13:34)
[2022-04-25] MEDS: ROSUVASTATIN CALCIUM 10 MG TAB PO SCH (08:44)
[2022-04-25] MEDS: MULTIVITAMIN TAB PO SCH (08:44)
[2022-04-25] MEDS: dilTIAZem HCL 240 MG CAPCR PO SCH (08:44)
--- NOTE | 2022-04-25 09:56 | Communication Note ---
Date of Service: April 25, 2022 Surgery cancelled yesterday due to increased amount of add on cases in the OR. Case timing would have been very late in the evening. Plans to do surgery tomorrow, 04/26/22, in the AM with Dr. Payne. Pt currently resting comfortably. States currently she has good pain control. No new complaints. Splint intact. Toes pink/warm. Sensation intact. Plan for OR tomorrow AM.
[2022-04-25] MEDS ORDERED: Nursing to Pharmacy Communication SCH (14:00)
--- NOTE | 2022-04-25 14:00 | Hospitalist Progress Note ---
Date of Service April 25, 2022 Assessment & Plan (1) Closed right ankle fracture: Plan: 81-year-old female with history of diabetes type 2, atrial fibrillation on Eliquis, irritable bowel syndrome, CKD stage III, vertigo, etc. Presenting with mechanical fall, and resultant ankle fracture. Right ankle fracture Status post mechanical fall Age-related osteoporosis with current pathologic fracture, R bimalleolar Right ankle x-ray: Bimalleolar fracture is seen with a Dyer B fracture of the fibula and medial malleolus fracture. Exam is limited by patient positioning. Pain control, bedrest for now Orthopedics on board; plan for OR tomorrow for ORIF of right ankle. No medical contraindications for possible orthopedic surgery, patient low to moderate risk for cardiopulmonary complications given age, and other comorbidities Chornic Atrial fibrillation on Eliquis Permanent Atrial Fibrillation Atrial fibrillation with controlled ventricular rate on Cardizem Eliquis on hold for possible surgery. Elevated temperature Low-grade temperature of 38.0 C Blood culture does not show any growth. Urine culture showed different organisms; repeat urine culture ordered which is also negative. Currently on ertapenem; will discontinue if latest blood culture is negative for 24 hours. CKD stage III At baseline History of diabetes type 2 Not on any medications History of vertigo As needed meclizine DVT prophylaxis Heparin Disposition May need acute rehab or correction facility. PT OT after surgery. Admission and Anticipated Discharge Date Admission Date: April 21, 2022 Subjective Patient seen and examined at bedside. She is comfortably lying on the bed; not in any distress. Telemetry shows A. fib with well-controlled ventricular rates. Review of Systems Review of Systems: All systems reviewed & are unremarkable except as noted in Subjective Physical Exam Physical Exam: Constitutional: Awake, alert orient x3. Comfortable. Respiratory: normal respiratory effort, lungs clear to auscultation, no wheeze, rales, rhonchi. Normal insp/exp effort, no accessory muscle use Cardiovascular: Irregular, no murmur, no edema Vessels: no JVD or carotid bruit Chest: normal inspection of chest Abdomen: normal bowel sounds, soft, nontender, no hepatosplenomegaly Musculoskeletal: Right foot externally rotated; Kerlix bandages in place. Skin: no rashes, warm and dry normal turgor Neurologic: PERRL, EOMI, accommodation nl, no face palsy, no dysarthria CN's II- XI intact bilaterally and moves all extremities Psychiatric: A+Ox3, euthymic affect : deferred Results & Data Results & Data ([facility]) Vital Signs (Past 12 Hours) Vital Signs Temp Pulse Resp BP Pulse Ox O2 Del Method 04/25/22 11:58 36.8 C 93 H 16 104/67 95 04/25/22 09:49 Room Air 04/25/22 08:00 92 H 04/25/22 07:48 37.4 C 97 H 14 121/78 94 04/25/22 03:20 36.9 C 86 18 109/64 91 Laboratory Results Laboratory Results WBC 10.31 K/ul (4.8-10.8) 04/25/22 04:38 RBC 3.61 M/uL (3.93-5.22) L 04/25/22 04:38 Hgb 9.0 g/dl (12.0-16.0) L 04/25/22 04:38 Hct 29.0 % (34.1-44.9) L 04/25/22 04:38 MCV 80.3 fL (80.0-100.0) 04/25/22 04:38 MCH 24.9 pg (25.0-34.0) L 04/25/22 04:38 MCHC 31.0 g/dL (32.0-36.0) L 04/25/22 04:38 RDW Std Deviation 47.8 fL (36.4-46.3) H 04/25/22 04:38 RDW Coeff of Higinio 16.3 % (11.5-14.5) H 04/25/22 04:38 Plt Count 400 K/uL (130-400) 04/25/22 04:38 MPV 9.2 fL (9.4-12.3) L 04/25/22 04:38 Immature Gran % (Auto) 0.3 % 04/25/22 04:38 Neut % (Auto) 61.1 % 04/25/22 04:38 Lymph % (Auto) 29.0 % 04/25/22 04:38 [place] % (Auto) 7.4 % 04/25/22 04:38 Eos % (Auto) 1.8 % 04/25/22 04:38 Baso % (Auto) 0.4 % 04/25/22 04:38 Neut # (Auto) 6.30 K/uL (1.4-6.5) 04/25/22 04:38 Lymph # (Auto) 2.99 K/uL (1.2-3.4) 04/25/22 04:38 [place] # (Auto) 0.76 K/uL (0.24-0.82) 04/25/22 04:38 Eos # (Auto) 0.19 K/uL (0-0.50) 04/25/22 04:38 Baso # (Auto) 0.04 K/uL (0-0.2) 04/25/22 04:38 Immature Gran # (Auto) 0.03 K/uL (0.00-0.02) H 04/25/22 04:38 PT 12.1 Seconds (9.0-12.0) H 04/21/22 15:41 INR 1.1 (0.9-1.1) 04/21/22 15:41 APTT 27.3 Seconds (21.0-31.0) 04/23/22 12:42 PTT Ratio 1.0 04/23/22 12:42 Sodium 139 mmol/L (136-145) 04/25/22 04:38 Potassium 4.0 mmol/L (3.5-5.1) 04/25/22 04:38 Chloride 106 mmol/L (98-107) 04/25/22 04:38 Carbon Dioxide 28 mmol/L (21-32) 04/25/22 04:38 Anion Gap 5 (3-11) 04/25/22 04:38 BUN 13 mg/dl (6-23) 04/25/22 04:38 Creatinine 0.82 mg/dl (0.6-1.2) 04/25/22 04:38 Est Cr Clr Drug Dosing 52.7 ml/min 04/25/22 04:38 Est GFR ( Amer) 78.3 ml/min 04/25/22 04:38 Est GFR (Non-Af Amer) 67.6 ml/min 04/25/22 04:38 BUN/Creatinine Ratio 15.9 (10-20) 04/25/22 04:38 Glucose 84 mg/dl (70-99(Fasting)) 04/25/22 04:38 POC Glucose 85 mg/dl (70-99) 04/25/22 07:28 Lactate 0.9 mmol/L (0.4-2.0) 04/22/22 05:54 Calcium 8.9 mg/dl (8.5-10.1) 04/25/22 04:38 Phosphorus 3.7 mg/dl (2.5-4.9) 04/22/22 03:46 Magnesium 1.8 mg/dl (1.7-2.4) 04/22/22 03:46 Total Bilirubin 0.5 mg/dl (0.2-1.0) 04/25/22 04:38 AST 37 U/L (13-39) 04/25/22 04:38 ALT 16 U/L (7-52) 04/25/22 04:38 Alkaline Phosphatase 151 U/L (34-104) H 04/25/22 04:38 Total Creatine Kinase 29 U/L (26-192) 04/21/22 15:41 Troponin I High Sens 12.1 pg/ml (0-14) 04/21/22 15:41 Total Protein 6.7 gm/dl (6.0-8.3) 04/25/22 04:38 Albumin 2.5 gm/dl (3.4-5.0) L 04/25/22 04:38 Globulin 4.2 gm/dl (2.5-4.0) H 04/25/22 04:38 Albumin/Globulin Ratio 0.6 (0.9-2) L 04/25/22 04:38 Procalcitonin 0.15 ng/ml (0-0.5) 04/22/22 03:46 TSH 2.558 uIu/ml (0.300-4.500) 04/21/22 15:41 Urine Color Dark Yellow 04/21/22 19:30 Urine Appearance Turbid (Clear) A 04/21/22 19:30 Urine pH 6.0 (4.5-7.5) 04/21/22 19:30 Ur Specific [place] 1.023 (1.000-1.030) 04/21/22 19:30 Urine Protein 1+ (Negative) H 04/21/22 19:30 Urine Glucose (UA) Negative (Negative) 04/21/22 19:30 Urine Ketones Negative (Negative) 04/21/22 19:30 Urine Blood 1+ (Negative) H 04/21/22 19:30 Urine Nitrite Negative (Negative) 04/21/22 19:30 Urine Bilirubin Negative (Negative) 04/21/22 19:30 Urine Urobilinogen Negative (Negative) 04/21/22 19:30 Ur Leukocyte Esterase 2+ (Negative) H 04/21/22 19:30 Urine WBC (Auto) >30 /hpf (0-5) H 04/21/22 19:30 Urine RBC (Auto) 0-4 /hpf (0-4) 04/21/22 19:30 U Hyaline Cast (Auto) 0 /lpf (0-5) 04/21/22 19:30 U Epithel Cells (Auto) 5-10 /lpf (0-5) H 04/21/22 19:30 Urine Bacteria (Auto) Negative (Negative) 04/21/22 19:30 Urine Yeast Not Reportable 04/21/22 19:30 Nasal Screen MRSA (PCR) Negative (Negative) 04/22/22 00:00 SARS-CoV-2, RNA, NAAT NEGATIVE (NEGATIVE) 04/21/22 17:05 Impressions Ankle X-Ray 04/21/22 15:23 XR ankle RT min 3V routine CLINICAL HISTORY: pain, trauma TECHNIQUE: 3 views of the right ankle were obtained. Comparison: None available at the time of this dictation. FINDINGS: Exam is limited due to patient positioning. There is a fracture of the fibula at the level of the ankle mortise. There is a fracture of the medial malleolus as well. Degenerative changes are seen. Ankle mortise is difficult to evaluate due to limitations in patient positioning. Soft tissue swelling is seen about the ankle. IMPRESSION: Bimalleolar fracture is seen with a Dyer B fracture of the fibula and medial malleolus fracture. Exam is limited by patient positioning. ACT 112: Negative or not required by law. Electronically signed by: Miki Ren M.D. 04/21/2022 4:06 PM Chest X-Ray 04/21/22 19:06 SINGLE VIEW CHEST CLINICAL HISTORY: Preoperative examination FINDINGS: An AP, portable, upright chest radiograph is compared to study dated 12/10/2021. The heart is mildly enlarged noting atherosclerotic calcification of the thoracic aorta. Pulmonary vasculature is noncongested. Chronic interstitial thickening is similar to previous. The lungs and pleural spaces are clear noting bibasilar atelectasis. No pneumothorax is seen. The skeletal structures are osteopenic. The bony thorax is grossly intact. IMPRESSION: No active disease in the chest. ACT 112: Negative or not required by law. Electronically signed by: Joshua Long M.D. 04/21/2022 8:31 PM
[2022-04-25] MEDS: traMADol HCL 50 MG TABLET PO PRN ×2 (20:06)
[2022-04-26] MEDS ORDERED: BUPIVACAINE/EPINEPHRINE 0.5% MPF 1:200,000 30 ML VIAL ONE ×2 (06:54→07:43)
[2022-04-26] MEDS ORDERED: fentaNYL citrate 100 MCG/2 ML VIAL ONE ×2 (06:57→09:38)
[2022-04-26] MEDS ORDERED: MIDAZOLAM HCL 1 MG/ML 2ML VIAL ONE (06:58)
[2022-04-26] MEDS ORDERED: LIDOCAINE 2% MPF LOCAL 5 ML VIAL INFIL ONE (07:05)
[2022-04-26] MEDS ORDERED: ONDANSETRON INJ 2 MG/ML 2 ML VIAL ONE (07:05)
[2022-04-26] MEDS ORDERED: PROPOFOL IV EMULSION 10 MG/ML 20 ML VIAL IV ONE (07:05)
[2022-04-26] MEDS ORDERED: ceFAZolin 2000MG 2,000 MG/15 ML SYR IV ONE (07:40)
[2022-04-26 07:47] LABS: Basophils # (auto) 0.04 K/uL (0-0.2); Basophils % (auto) 0.3 %; Eosinophils # (auto) 0.15 K/uL (0-0.50); Eosinophils % (auto) 1.2 %; Hematocrit (blood only) 28.4 % (34.1-44.9); Hemoglobin 8.8 g/dl (12.0-16.0); Immature Granulocytes # (auto) 0.05 K/uL (0.00-0.02); Immature Granulocytes % (auto) 0.4 %; Lymphocytes # (auto) 3.37 K/uL (1.2-3.4); Lymphocytes % (auto) 27.4 %; Mean Corpuscular Hemoglobin 25.1 pg (25.0-34.0); Mean Corpuscular Volume 81.1 fL (80.0-100.0); Mean Platelet Volume 9.7 fL (9.4-12.3); Monocytes # (auto) 0.97 K/uL (0.24-0.82); Monocytes % (auto) 7.9 %; Neutrophils # (auto) 7.71 K/uL (1.4-6.5); Neutrophils % (auto) 62.8 %; Platelet Count 409 K/uL (130-400); RDW Coefficient of Variation 16.4 % (11.5-14.5); RDW Standard Deviation 48.4 fL (36.4-46.3); White Blood Count 12.29 K/ul (4.8-10.8)
--- NOTE | 2022-04-26 07:50 | History & Physical Bridge Note ---
Date of Service April 26, 2022 History & Physical Bridge Note I have examined the patient, reviewed the History & Physical and in the interval since the performance of the History & Physical I have noted the following changes of clinical significance: no changes noted. I do lengthy discussion with the patient regarding risk benefits potential complications of right ankle open reduction internal fixation versus placement of external fixator. These include but are not limited to infection, neurovascular injury, DVT, nonunion, malunion, wound complications and need for future surgery. After reviewing these she has elected proceed with surgical intervention and written consent was obtained.
[2022-04-26 08:16] LABS: Albumin Level 2.4 gm/dl (3.4-5.0); Bilirubin,Total 0.5 mg/dl (0.2-1.0); Calcium 8.8 mg/dl (8.5-10.1)
[2022-04-26 08:22] LABS: Albumin Globulin Ratio 0.6 (0.9-2); BUN Creatinine Ratio 20.3 (10-20); Creatinine Clr Calc Pharmacy 53.3 ml/min; Est GFR (African American) 81.9 ml/min; Est GFR (Non-African American) 70.7 ml/min; Globulin 4.2 gm/dl (2.5-4.0); Total Protein 6.6 gm/dl (6.0-8.3)
[2022-04-26] MEDS ORDERED: ceFAZolin 330 MG/ML 1 GM VIAL ONE (08:27)
[2022-04-26] MEDS ORDERED: NEOSTIGMINE METHYLSULFATE 1 MG/ML 10ML VIAL ONE (08:43)
[2022-04-26] MEDS ORDERED: GLYCOPYRROLATE 0.2 MG/ML VIAL ONE (08:43)
[2022-04-26] MEDS ORDERED: ROCURONIUM BROMIDE 10 MG/ML 5 ML VIAL IV ONE (08:43)
[2022-04-26] MEDS ORDERED: PHENYLEPHRINE 100MCG/ML 5ML SYR ONE (08:44)
[2022-04-26] MEDS ORDERED: PHENYLEPHRINE HCL 10 MG/ML VIAL ONE (08:44)
--- NOTE | 2022-04-26 09:43 | Fluoroscopy Report ---
FL ankle RT min 3V RTN CLINICAL HISTORY: ORIF RT ANKLE TECHNIQUE: 5 views were obtained with the C-arm in the OR with the above procedure. Total fluoroscopy time was 4.7 seconds. Radiation dose was 1.33 mGy. Comparison: None available at the time of this dictation. FINDINGS/IMPRESSION: Intraoperative images were obtained of right ankle open reduction internal fixat ion. Please correlate with intraoperative fluoroscopy and operative report. ACT 112: Negative or not required by law. Electronically signed by: Miki Ren M.D. 04/26/2022 9:41 AM
--- NOTE | 2022-04-26 09:55 | Post Operative Brief Note ---
Immediate Post Op Note v1 Date of Surgery April 26, 2022 Pre & Post Diagnosis Operation Date: 04/26/22 07:30 Pre-Op Diagnosis: Right ankle fracture Post-Op Diagnosis: Right ankle fracture I identified the patient and participated in the time-out.: Yes Procedure Operation Date: 04/26/22 07:30 Actual Procedures p Right Open Reduction Internal Fixation Ankle(Right) - Chivo Payne DO Surgeon Chivo Payne DO Director Of Midwifery/Staff Midwife none Estimated Blood Loss 20 Findings Consistent with Post-Op Diagnosis see dictation Drains Vogel Catheter (remains intact from floor ) Complications none
[2022-04-26] MEDS ORDERED: NALOXONE HCL 0.4 MG/1 ML VIAL/CARP IV PRN (09:57)
--- NOTE | 2022-04-26 10:05 | Operative Report ---
Post Operative Report Pre & Post Diagnosis Operation Date: 04/26/22 07:30 Pre-Op Diagnosis: Right ankle fracture Post-Op Diagnosis: Right ankle fracture I identified the patient and participated in the time-out.: Yes Procedure Operation Date: 04/26/22 07:30 Actual Procedures p Right Open Reduction Internal Fixation Ankle(Right) - Chivo Payne DO Surgeon Chivo Payne DO Tobacco Sampler none Estimated Blood Loss 20 Findings Consistent with Post-Op Diagnosis See dictation Specimens None Complications None Indications 81-year-old female who presented after sustaining a ground-level fall with injury to her right lower extremity. She does have a history of Charcot foot and chronic deformity. Radiographs demonstrate a bimalleolar ankle fracture. She was placed in a splint and admitted to medical service. Orthopedics was consulted for operative management. I do lengthy discussion with her regarding risk benefits potential complications of right ankle open reduction internal fixation. There is include but are not limited to infection, neurovascular injury, DVT, nonunion, malunion, hardware failure and wound complications with need for future surgery. After reviewing these she elected to proceed with surgical intervention and written consent was obtained. Description of Procedure Implants: Synthes 2.7 mm / 3.5 mm 5 hole distal fibular locking plate, 2 3.5 mm cortical screws, one 3.5 mm cortical locking screw, five 2.7 mm locking screws, 2 partially threaded 4.0 mm cannulated screws, one 3.5 mm cortical lag screws. Patient was appropriate identified in the preoperative holding area and the right lower extremity was marked. She received regional anesthesia per anesthesia. She received antibiotics per protocol. She was then taken back to the operative suite and transferred over to the regular OR table. Bone foam was placed under the right lower extremity as well as a nonsterile thigh tourniquet. She was then prepped and draped in the standard orthopedic fashion timeout was then performed. Esmarch was used to exsanguinate the right lower extremity and tourniquet was inflated to 250 mmHg. A 7 cm incision was then made over the distal fibula laterally. Metzenbaum scissors were used to dissect down through subcutaneous tissue down to the lateral aspect of the fibula as well as the fracture site. Fracture hematoma was present. Using a combination of dental pi ck and curette the fracture hematoma was then cleared. The area was then irrigated. A lobster tenaculum was then used to reduce the fracture and a 3.5 mm lag screw was then placed. A 5 hole locking distal fibular plate was then pinned into position and noted to have good fit and placement over the lateral distal fibula. 3.5 cortical screw was then placed proximally and a provisional wire was placed distally. Radiographs confirmed good positioning of the plate and reduction of the fracture. 2 additional 3.5 millimeter screws were placed in the proximal aspect of the plate with 1 of those being a locking screw, five 2.7 millimeter screws were then placed in the distal aspect of the plate. This provided excellent reduction of the fracture. Radiographs were obtained demonstrating good position of the plate with no intra-articular penetration. Attention was then turned to the medial malleolus fragment. A 1 cm incision was made over the medial malleolus and to threaded guidewires were then placed through the tip of the medial malleolus into the distal tibia. Position was confirmed on AP and lateral radiographs. Two 44 mm partially-threaded 4 oh cannulated screws were then placed. This provided excellent compression of the fracture. Guidewires were then removed. Wounds were then copiously irrigated and final radiographs were obtained. Tourniquet was then deflated and any bleeding areas were cauterized using electrocautery. Subcutaneous tissues were then closed using 2-0 Vicryl followed by 3-0 nylon sutures for the skin. A sterile dressing of Xeroform 4 x 4 gauze web roll Padilla cotton and a 3 sided Ortho-Glass trauma splint were then applied. Patient tolerated the procedure well and was taken to recovery room in hemodynamically stable condition. I attest to the content of the Intraoperative Record and any orders documented therein. Any exceptions are noted below.
--- NOTE | 2022-04-26 10:34 | Anesthesiology Consultation ---
Date of Service April 26, 2022 Assessment & Plan Chart Review Chart Review: Acceptable Risk for Surgery Consults Requested none History Surgery Operation Date: 04/26/22 07:30 Proposed Procedures p Right Open Reduction Internal Fixation Aram - Chivo Payne DO Height/Weight Height: 5 ft 3 in Weight: 69.9 kg Allergies Allergy/AdvReac Type Severity Reaction Status Date / Time JAC Inhibitors Allergy Intermediate edema Verified 04/21/22 17:24 face/lips/tongue azithromycin AdvReac Intermediate severe Verified 04/21/22 17:24 [From Zithromax Z-Devon] vertigo diphenhydramine AdvReac Mild flushing, Verified 04/21/22 17:24 hyperactivity Medications Home Medications Medication Instructions Recorded Confirmed Last Taken diphenoxylate-atropine 2.5 1 tab PO .UD PRN Diarrhea 04/12/18 04/21/22 07/24/21 mg-0.025 mg tablet meclizine 25 mg tablet 25 mg PO TID PRN Dizziness Or 04/12/18 04/21/22 04/21/22 Vertigo am tramadol 50 mg tablet 50 mg PO Q6H PRN Pain,severe' 06/20/20 04/21/22 04/21/22 am multivitamin 1 tab PO QAM 07/25/21 04/21/22 04/21/22 apixaban 2.5 mg tablet (Eliquis) 2.5 mg PO AMHS 04/21/22 04/21/22 04/21/22 am diltiazem HCl 240 mg 240 mg PO QAM 04/21/22 04/21/22 04/21/22 capsule,extended release 24 hr (Cardizem CD) lorazepam 1 mg tablet 1 mg PO TID PRN extreme vertigo 04/21/22 04/21/22 Unknown rosuvastatin 10 mg tablet 10 mg PO QAM 04/21/22 04/21/22 04/21/22 Active Medications Generic Name Dose Route Start Last Admin Trade Name Freq PRN Reason Stop Dose Admin Acetaminophen 650 mg 04/21/22 17:35 04/24/22 21:09 Acetaminophen 325 Mg Tab PO 05/21/22 17:34 650 mg Q4H PRN Administration pain/fever Diltiazem HCl 240 mg 04/22/22 09:00 04/25/22 08:44 Diltiazem Hcl 240 Mg Capcr PO 05/22/22 08:59 240 mg QAM BILL Administration Multivitamins 1 tab 04/22/22 09:00 04/25/22 08:44 Multivitamin Tab PO 05/22/22 08:59 1 tab QAM BILL Administration Rosuvastatin Calcium 10 mg 04/22/22 09:00 04/25/22 08:44 Rosuvastatin Calcium 10 Mg Tab PO 05/22/22 08:59 10 mg QAM BILL Administration Tramadol HCl 50 mg 04/21/22 21:09 04/25/22 20:06 Tramadol Hcl 50 Mg Tablet PO 05/21/22 21:08 50 mg Q6H PRN Administration Pain,severe' NPO Date Last Intake of Fluids: 04/25/22 Time Last Intake of Fluids: 22:00 Date Last Intake of Solids: 04/25/22 Time Last Intake of Solids: 22:00 Past Medical History Medical History Actinic keratosis Atrial fibrillation, new onset Diabetes mellitus DIET CONTROLLED DM type 2 (diabetes mellitus, type 2) Hypertension Osteoarthritis Vertigo Past Family History Family History Father Family history of diabetes mellitus Mother Family history of diabetes mellitus Brother Family history of diabetes mellitus Past Surgical History Surgical History History of bilateral tubal ligation History of total knee replacement LEFT Hx of right cataract extraction Social History Smoking Status: Never smoker Hx Alcohol Use: No Hx Substance Use: No substance use type: does not use Physical Exam Vital Signs Last Vital Signs Temp 36.4 C L 04/26/22 10:20 Pulse 87 04/26/22 10:30 Resp 18 04/26/22 10:30 BP 103/54 L 04/26/22 10:30 Pulse Ox 94 04/26/22 10:30 O2 Del Method 04/26/22 10:30 O2 Flow Rate 3 04/26/22 10:30 Testing Laboratory Results 04/26/22 06:33 04/26/22 06:33 PT 12.1 Seconds (9.0-12.0) H 04/21/22 15:41 INR 1.1 (0.9-1.1) 04/21/22 15:41 APTT 27.3 Seconds (21.0-31.0) 04/23/22 12:42 Urine Color Dark Yellow 04/21/22 19:30 Urine Appearance Turbid (Clear) A 04/21/22 19:30 Urine pH 6.0 (4.5-7.5) 04/21/22 19:30 Ur Specific [place] 1.023 (1.000-1.030) 04/21/22 19:30 Urine Protein 1+ (Negative) H 04/21/22 19:30 Urine Glucose (UA) Negative (Negative) 04/21/22 19: Urine Ketones Negative (Negative) 04/21/22 19: Urine Nitrite Negative (Negative) 04/21/22 19: Ur Leukocyte Esterase 2+ (Negative) H 04/21/22 19:30 Urine WBC (Auto) >30 /hpf (0-5) H 04/21/22 19:30 Urine RBC (Auto) 0-4 /hpf (0-4) 04/21/22 19:30 U Hyaline Cast (Auto) 0 /lpf (0-5) 04/21/22 19:30 U Epithel Cells (Auto) 5-10 /lpf (0-5) H 04/21/22 19:30 Urine Bacteria (Auto) Negative (Negative) 04/21/22 19:30 04/24/22 03:05 Aerobic Blood Culture - Preliminary Blood No growth in Aerobic bottle after 48 hours. Anaerobic Blood Culture - Preliminary No growth in Anaerobic bottle after 48 hours. 04/24/22 02:55 Aerobic Blood Culture - Preliminary Blood No growth in Aerobic bottle after 48 hours. Anaerobic Blood Culture - Preliminary No growth in Anaerobic bottle after 48 hours. 04/23/22 Unknown Urine Culture - Final Urine,Clean Catch No growth - less than 1,000 colonies/mL. 04/22/22 05:46 Aerobic Blood Culture - Preliminary Blood No growth in Aerobic bottle after 48 hours. Anaerobic Blood Culture - Preliminary No growth in Anaerobic bottle after 48 hours. 04/22/22 05:55 Aerobic Blood Culture - Preliminary Blood No growth in Aerobic bottle after 48 hours. Anaerobic Blood Culture - Preliminary No growth in Anaerobic bottle after 48 hours. 04/21/22 19:30 Urine Culture - Final Urine,Clean Catch Three types of organisms present, all moderate counts. Repeat collection recommended. No further identifications or sensitivities to follow.
--- NOTE | 2022-04-26 10:41 | Anesthesiology Progress Note ---
Date of Service April 26, 2022 Anesthesia Post Procedure Vital Signs Vital Signs: Temp Pulse Pulse Pulse Resp BP BP 04/26/22 10:30 87 18 103/54 L 04/26/22 10:20 36.4 C L 89 18 102/53 L 04/26/22 10:10 97 H 18 96/68 L 04/26/22 10:00 36.5 C 96 H 12 93/58 L 04/26/22 06:49 81 04/26/22 03:39 37.1 C 77 18 102/59 L 04/25/22 22:57 37.3 C 86 18 102/63 04/25/22 22:05 92 H 04/25/22 19:00 37.2 C 86 18 04/25/22 16:00 80 04/25/22 16:24 37.0 C 81 18 04/25/22 15:06 04/25/22 11:58 36.8 C 93 H 16 104/67 BP Pulse Ox O2 Del Method O2 Flow Rate 04/26/22 10:30 94 Nasal Cannula 3 04/26/22 10:20 94 Room Air 04/26/22 10:10 96 Oxymask 3 04/26/22 10:00 96 Oxymask 3 04/26/22 06:49 04/26/22 03:39 93 Room Air 04/25/22 22:57 93 Room Air 04/25/22 22:05 04/25/22 19:00 102/66 93 Room Air 04/25/22 16:00 04/25/22 16:24 102/66 91 Room Air 04/25/22 15:06 Room Air 04/25/22 11:58 95 Pain Intensity Right Ankle: Pain Intensity: 2 Transfer of Care Handoff Completed per policy Notes Mental Status: alert / awake / arousable and participated in evaluation Patient Amnestic to Procedure: Yes Nausea / Vomiting: adequately controlled Pain: adequately controlled Airway Patency, RR, SpO2: stable & adequate BP & HR: stable & adequate Hydration State: stable & adequate Anesthetic Complications: no major complications apparent
[2022-04-26] MEDS: oxyCODONE HCL IR 5 MG TAB (IMMEDIATE RELEASE) PO PRN ×3 (12:10→22:31)
--- NOTE | 2022-04-26 13:04 | Hospitalist Progress Note ---
Date of Service April 26, 2022 Assessment & Plan (1) Closed right ankle fracture: Plan: 81-year-old female with history of diabetes type 2, atrial fibrillation on Eliquis, irritable bowel syndrome, CKD stage III, vertigo, etc. Presenting with mechanical fall, and resultant ankle fracture. Mechanical fall Right ankle fracture Age-related osteoporosis with current pathologic fracture, R bimalleolar Right ankle x-ray: Bimalleolar fracture is seen with a Dyer B fracture of the fibula and medial malleolus fracture. Exam is limited by patient positioning. Pain control, bedrest for now Underwent open reduction and internal fixation on April 26 2022 Plan: Pain control PT OT evaluation Remove Vogel; trial of void Will start on Eliquis after getting clearance from orthopedic. Chornic Atrial fibrillation on Eliquis Permanent Atrial Fibrillation Atrial fibrillation with controlled ventricular rate on Cardizem Eliquis on hold currently Elevated temperature Low-grade temperature of 38.0 C 2 blood cultures done since admission on April 22 and ; both are negative. Urine culture showed different organisms; repeat urine culture ordered which is also negative. Received ertapenem earlier in the hospitalization; discontinued. CKD stage III At baseline History of diabetes type 2 Not on any medications History of vertigo As needed meclizine DVT prophylaxis SCDs for now; will restart home Eliquis Disposition PT OT evaluation Admission and Anticipated Discharge Date Admission Date: April 21, 2022 Subjective Patient seen and examined after the OR. She is lying in the bed comfortably; not in any distress. She denies any chest pain, shortness of breath, abdominal pain. Review of Systems Review of Systems: All systems reviewed & are unremarkable except as noted in Subjective Physical Exam Physical Exam: Constitutional: Awake, alert orient x3. Comfortable. Respiratory: normal respiratory effort, lungs clear to auscultation, no wheeze, rales, rhonchi. Normal insp/exp effort, no accessory muscle use Cardiovascular: Irregular, no murmur, no edema Vessels: no JVD or carotid bruit Chest: normal inspection of chest Abdomen: normal bowel sounds, soft, nontender, no hepatosplenomegaly Musculoskeletal: Bandage well intact on right foot. Skin: no rashes, warm and dry normal turgor Neurologic: PERRL, EOMI, accommodation nl, no face palsy, no dysarthria CN's II- XI intact bilaterally and moves all extremities Psychiatric: A+Ox3, euthymic affect : deferred Results & Data Results & Data ([facility]) Vital Signs (Past 12 Hours) Vital Signs Temp Pulse Pulse Pulse Resp BP Pulse Ox 04/26/22 12:29 36.5 C 86 20 100/65 98 04/26/22 11:16 97 04/26/22 11:15 36.5 C 71 18 100/65 95 04/26/22 10:56 78 04/26/22 10:48 04/26/22 10:47 36.5 C 89 18 98/62 L 97 04/26/22 10:30 87 18 103/54 L 94 04/26/22 10:20 36.4 C L 89 18 102/53 L 94 04/26/22 10:10 97 H 18 96/68 L 96 04/26/22 10:00 36.5 C 96 H 12 93/58 L 96 04/26/22 06:49 81 04/26/22 03:39 37.1 C 77 18 102/59 L 93 O2 Del Method O2 Flow Rate 04/26/22 12:29 Room Air 04/26/22 11:16 Nasal Cannula 2 04/26/22 11:15 Nasal Cannula 1 04/26/22 10:56 04/26/22 10:48 Nasal Cannula 2 04/26/22 10:47 Nasal Cannula 2 04/26/22 10:30 Nasal Cannula 3 04/26/22 10:20 Room Air 04/26/22 10:10 Oxymask 3 04/26/22 10:00 Oxymask 3 04/26/22 06:49 04/26/22 03:39 Room Air Laboratory Results Laboratory Results WBC 12.29 K/ul (4.8-10.8) H 04/26/22 06:33 RBC 3.50 M/uL (3.93-5.22) L 04/26/22 06:33 Hgb 8.8 g/dl (12.0-16.0) L 04/26/22 06:33 Hct 28.4 % (34.1-44.9) L 04/26/22 06:33 MCV 81.1 fL (80.0-100.0) 04/26/22 06:33 MCH 25.1 pg (25.0-34.0) 04/26/22 06:33 MCHC 31.0 g/dL (32.0-36.0) L 04/26/22 06:33 RDW Std Deviation 48.4 fL (36.4-46.3) H 04/26/22 06:33 RDW Coeff of Higinio 16.4 % (11.5-14.5) H 04/26/22 06:33 Plt Count 409 K/uL (130-400) H 04/26/22 06:33 MPV 9.7 fL (9.4-12.3) 04/26/22 06:33 Immature Gran % (Auto) 0.4 % 04/26/22 06:33 Neut % (Auto) 62.8 % 04/26/22 06:33 Lymph % (Auto) 27.4 % 04/26/22 06:33 [place] % (Auto) 7.9 % 04/26/22 06:33 Eos % (Auto) 1.2 % 04/26/22 06:33 Baso % (Auto) 0.3 % 04/26/22 06:33 Neut # (Auto) 7.71 K/uL (1.4-6.5) H 04/26/22 06:33 Lymph # (Auto) 3.37 K/uL (1.2-3.4) 04/26/22 06:33 [place] # (Auto) 0.97 K/uL (0.24-0.82) H 04/26/22 06:33 Eos # (Auto) 0.15 K/uL (0-0.50) 04/26/22 06:33 Baso # (Auto) 0.04 K/uL (0-0.2) 04/26/22 06:33 Immature Gran # (Auto) 0.05 K/uL (0.00-0.02) H 04/26/22 06:33 PT 12.1 Seconds (9.0-12.0) H 04/21/22 15:41 INR 1.1 (0.9-1.1) 04/21/22 15:41 APTT 27.3 Seconds (21.0-31.0) 04/23/22 12:42 PTT Ratio 1.0 04/23/22 12:42 Sodium 137 mmol/L (136-145) 04/26/22 06:33 Potassium 4.0 mmol/L (3.5-5.1) 04/26/22 06:33 Chloride 103 mmol/L (98-107) 04/26/22 06:33 Carbon Dioxide 29 mmol/L (21-32) 04/26/22 06:33 Anion Gap 5 (3-11) 04/26/22 06:33 BUN 16 mg/dl (6-23) 04/26/22 06:33 Creatinine 0.79 mg/dl (0.6-1.2) 04/26/22 06:33 Est Cr Clr Drug Dosing 53.3 ml/min 04/26/22 06:33 Est GFR ( Amer) 81.9 ml/min 04/26/22 06:33 Est GFR (Non-Af Amer) 70.7 ml/min 04/26/22 06:33 BUN/Creatinine Ratio 20.3 (10-20) H 04/26/22 06:33 Glucose 85 mg/dl (70-99(Fasting)) 04/26/22 06:33 POC Glucose 96 mg/dl (70-99) 04/26/22 11:20 Lactate 0.9 mmol/L (0.4-2.0) 04/22/22 05:54 Calcium 8.8 mg/dl (8.5-10.1) 04/26/22 06:33 Phosphorus 3.7 mg/dl (2.5-4.9) 04/22/22 03:46 Magnesium 1.8 mg/dl (1.7-2.4) 04/22/22 03:46 Total Bilirubin 0.5 mg/dl (0.2-1.0) 04/26/22 06:33 AST 45 U/L (13-39) H 04/26/22 06:33 ALT 20 U/L (7-52) 04/26/22 06:33 Alkaline Phosphatase 174 U/L (34-104) H 04/26/22 06:33 Total Creatine Kinase 29 U/L (26-192) 04/21/22 15:41 Troponin I High Sens 12.1 pg/ml (0-14) 04/21/22 15:41 Total Protein 6.6 gm/dl (6.0-8.3) 04/26/22 06:33 Albumin 2.4 gm/dl (3.4-5.0) L 04/26/22 06:33 Globulin 4.2 gm/dl (2.5-4.0) H 04/26/22 06:33 Albumin/Globulin Ratio 0.6 (0.9-2) L 04/26/22 06:33 Procalcitonin 0.15 ng/ml (0-0.5) 04/22/22 03:46 TSH 2.558 uIu/ml (0.300-4.500) 04/21/22 15:41 Urine Color Dark Yellow 04/21/22 19:30 Urine Appearance Turbid (Clear) A 04/21/22 19:30 Urine pH 6.0 (4.5-7.5) 04/21/22 19:30 Ur Specific [place] 1.023 (1.000-1.030) 04/21/22 19:30 Urine Protein 1+ (Negative) H 04/21/22 19:30 Urine Glucose (UA) Negative (Negative) 04/21/22 19:30 Urine Ketones Negative (Negative) 04/21/22 19:30 Urine Blood 1+ (Negative) H 04/21/22 19:30 Urine Nitrite Negative (Negative) 04/21/22 19:30 Urine Bilirubin Negative (Negative) 04/21/22 19:30 Urine Urobilinogen Negative (Negative) 04/21/22 19:30 Ur Leukocyte Esterase 2+ (Negative) H 04/21/22 19:30 Urine WBC (Auto) >30 /hpf (0-5) H 04/21/22 19:30 Urine RBC (Auto) 0-4 /hpf (0-4) 04/21/22 19:30 U Hyaline Cast (Auto) 0 /lpf (0-5) 04/21/22 19:30 U Epithel Cells (Auto) 5-10 /lpf (0-5) H 04/21/22 19:30 Urine Bacteria (Auto) Negative (Negative) 04/21/22 19: Urine Yeast Not Reportable 04/21/22 19:30 Nasal Screen MRSA (PCR) Negative (Negative) 04/22/22 00:00 SARS-CoV-2, RNA, NAAT NEGATIVE (NEGATIVE) 04/21/22 17:05 Impressions Chest X-Ray 04/21/22 19:06 SINGLE VIEW CHEST CLINICAL HISTORY: Preoperative examination FINDINGS: An AP, portable, upright chest radiograph is compared to study dated 12/10/2021. The heart is mildly enlarged noting atherosclerotic calcification of the thoracic aorta. Pulmonary vasculature is noncongested. Chronic interstitial thickening is similar to previous. The lungs and pleural spaces are clear noting bibasilar atelectasis. No pneumothorax is seen. The skeletal structures are osteopenic. The bony thorax is grossly intact. IMPRESSION: No active disease in the chest. ACT 112: Negative or not required by law. Electronically signed by: Joshua Long M.D. 04/21/2022 8:31 PM Ankle X-Ray 04/26/22 00:00 FL ankle RT min 3V RTN CLINICAL HISTORY: ORIF RT ANKLE TECHNIQUE: 5 views were obtained with the C-arm in the OR with the above procedure. Total fluoroscopy time was 4.7 seconds. Radiation dose was 1.33 mGy. Comparison: None available at the time of this dictation. FINDINGS/IMPRESSION: Intraoperative images were obtained of right ankle open reduction internal fixation. Please correlate with intraoperative fluoroscopy and operative report. ACT 112: Negative or not required by law. Electronically signed by: Miki Ren M.D. 04/26/2022 9:41 AM
[2022-04-26] MEDS: dilTIAZem HCL 240 MG CAPCR PO SCH (14:02)
[2022-04-26] MEDS: ROSUVASTATIN CALCIUM 10 MG TAB PO SCH (14:03)
[2022-04-26] MEDS: MULTIVITAMIN TAB PO SCH (14:03)
[2022-04-26] MEDS: ceFAZolin 2000MG 2,000 MG/15 ML SYR IV SCH (16:16)
[2022-04-27] MEDS: ceFAZolin 2000MG 2,000 MG/15 ML SYR IV SCH (00:07)
[2022-04-27] MEDS: oxyCODONE HCL IR 5 MG TAB (IMMEDIATE RELEASE) PO PRN ×2 (06:32→13:51)
[2022-04-27 07:07] LABS: Basophils # (auto) 0.05 K/uL (0-0.2); Basophils % (auto) 0.4 %; Eosinophils # (auto) 0.13 K/uL (0-0.50); Eosinophils % (auto) 0.9 %; Hematocrit (blood only) 27.6 % (34.1-44.9); Hemoglobin 8.5 g/dl (12.0-16.0); Immature Granulocytes # (auto) 0.07 K/uL (0.00-0.02); Immature Granulocytes % (auto) 0.5 %; Lymphocytes # (auto) 3.64 K/uL (1.2-3.4); Mean Corpuscular Hemoglobin 24.4 pg (25.0-34.0); Mean Corpuscular Hgb Conc 30.8 g/dL (32.0-36.0); Mean Corpuscular Volume 79.3 fL (80.0-100.0); Mean Platelet Volume 9.8 fL (9.4-12.3); Monocytes # (auto) 1.42 K/uL (0.24-0.82); Monocytes % (auto) 10.2 %; Neutrophils # (auto) 8.67 K/uL (1.4-6.5); Platelet Count 358 K/uL (130-400); RDW Coefficient of Variation 16.4 % (11.5-14.5); RDW Standard Deviation 47.1 fL (36.4-46.3); Red Blood Count 3.48 M/uL (3.93-5.22); White Blood Count 13.98 K/ul (4.8-10.8)
[2022-04-27 08:01] LABS: Albumin Level 2.4 gm/dl (3.4-5.0); Bilirubin,Total 0.7 mg/dl (0.2-1.0); Calcium 8.8 mg/dl (8.5-10.1); Potassium 4.2 mmol/L (3.5-5.1)
[2022-04-27 08:06] LABS: Albumin Globulin Ratio 0.6 (0.9-2); BUN Creatinine Ratio 16.8 (10-20); Creatinine Clr Calc Pharmacy 44.7 ml/min; Est GFR (African American) 65.6 ml/min; Est GFR (Non-African American) 56.6 ml/min; Globulin 4.1 gm/dl (2.5-4.0); Total Protein 6.5 gm/dl (6.0-8.3)
--- NOTE | 2022-04-27 09:00 | Orthopedic Progress Note ---
Date of Service April 27, 2022 Assessment & Plan (1) Closed right ankle fracture: Plan: 81 yo female stable POD #1 s/p ORIF right ankle, anemia stable and present on admission 1. Med management 2. DVT prophylaxis- resume Eliquis, SCDs 3. PT/OT 4. D/C planning- pt to require rehab/SNF, ortho to sign off, follow-up with Dr Payne ~ 10-14 days, instructions in discharge Admission and Anticipated Discharge Date Admission Date: April 21, 2022 Subjective Pt resting in bed, denies complaints, pain controlled Physical Exam Physical Exam: Lower leg splint intact, toes mobile, NVI Results & Data ([facility]) Vital Signs (Past 12 Hours) Vital Signs Temp Pulse Pulse Resp BP Pulse Ox O2 Del Method 04/27/22 08:43 37.7 C H 84 22 96/60 L 88 L Nasal Cannula 04/27/22 07:55 Nasal Cannula 04/27/22 07:26 37.7 C H 86 22 92/56 L 93 Nasal Cannula 04/27/22 06:02 94 H 04/27/22 02:58 37.7 C H 92 H 16 103/68 94 Nasal Cannula 04/26/22 22:00 88 04/26/22 21:30 Nasal Cannula 04/26/22 22:37 37.4 C 90 18 102/64 93 Nasal Cannula O2 Flow Rate 04/27/22 08:43 1 04/27/22 07:55 1 04/27/22 07:26 1 04/27/22 06:02 04/27/22 02:58 1 04/26/22 22:00 04/26/22 21:30 1 04/26/22 22:37 1 Laboratory Results 04/27/22 04/27/22 04/27/22 Range/Units 07:27 06:20 06:20 WBC 13.98 H (4.8-10.8) K/ul RBC 3.48 L (3.93-5.22) M/uL Hgb 8.5 L (12.0-16.0) g/dl Hct 27.6 L (34.1-44.9) % MCV 79.3 L (80.0-100.0) fL MCH 24.4 L (25.0-34.0) pg MCHC 30.8 L (32.0-36.0) g/dL RDW Std Deviation 47.1 H (36.4-46.3) fL RDW Coeff of Higinio 16.4 H (11.5-14.5) % Plt Count 358 (130-400) K/uL MPV 9.8 (9.4-12.3) fL Immature Gran % (Auto) 0.5 % Neut % (Auto) 62.0 % Lymph % (Auto) 26.0 % [place] % (Auto) 10.2 % Eos % (Auto) 0.9 % Baso % (Auto) 0.4 % Neut # (Auto) 8.67 H (1.4-6.5) K/uL Lymph # (Auto) 3.64 H (1.2-3.4) K/uL [place] # (Auto) 1.42 H (0.24-0.82) K/uL Eos # (Auto) 0.13 (0-0.50) K/uL Baso # (Auto) 0.05 (0-0.2) K/uL Immature Gran # (Auto) 0.07 H (0.00-0.02) K/uL Sodium 133 L (136-145) mmol/L Potassium 4.2 (3.5-5.1) mmol/L Chloride 99 (98-107) mmol/L Carbon Dioxide 29 (21-32) mmol/L Anion Gap 5 (3-11) BUN 16 (6-23) mg/dl Creatinine 0.95 (0.6-1.2) mg/dl Est Cr Clr Drug Dosing 44.7 ml/min Est GFR ( Amer) 65.6 ml/min Est GFR (Non-Af Amer) 56.6 ml/min BUN/Creatinine Ratio 16.8 (10-20) Glucose 83 (70-99(Fasting)) mg/dl POC Glucose 102 H (70-99) mg/dl Calcium 8.8 (8.5-10.1) mg/dl Total Bilirubin 0.7 (0.2-1.0) mg/dl AST 24 (13-39) U/L ALT 10 (7-52) U/L Alkaline Phosphatase 156 H (34-104) U/L Total Protein 6.5 (6.0-8.3) gm/dl Albumin 2.4 L (3.4-5.0) gm/dl Globulin 4.1 H (2.5-4.0) gm/dl Albumin/Globulin Ratio 0.6 L (0.9-2) 04/26/22 04/26/22 04/26/22 Range/Units 20:34 16:23 11:20 WBC (4.8-10.8) K/ul RBC (3.93-5.22) M/uL Hgb (12.0-16.0) g/dl Hct (34.1-44.9) % MCV (80.0-100.0) fL MCH (25.0-34.0) pg MCHC (32.0-36.0) g/dL RDW Std Deviation (36.4-46.3) fL RDW Coeff of Higinio (11.5-14.5) % Plt Count (130-400) K/uL MPV (9.4-12.3) fL Immature Gran % (Auto) % Neut % (Auto) % Lymph % (Auto) % [place] % (Auto) % Eos % (Auto) % Baso % (Auto) % Neut # (Auto) (1.4-6.5) K/uL Lymph # (Auto) (1.2-3.4) K/uL [place] # (Auto) (0.24-0.82) K/uL Eos # (Auto) (0-0.50) K/uL Baso # (Auto) (0-0.2) K/uL Immature Gran # (Auto) (0.00-0.02) K/uL Sodium (136-145) mmol/L Potassium (3.5-5.1) mmol/L Chloride (98-107) mmol/L Carbon Dioxide (21-32) mmol/L Anion Gap (3-11) BUN (6-23) mg/dl Creatinine (0.6-1.2) mg/dl Est Cr Clr Drug Dosing ml/min Est GFR ( Amer) ml/min Est GFR (Non-Af Amer) ml/min BUN/Creatinine Ratio (10-20) Glucose (70-99(Fasting)) mg/dl POC Glucose 130 H 95 96 (70-99) mg/dl Calcium (8.5-10.1) mg/dl Total Bilirubin (0.2-1.0) mg/dl AST (13-39) U/L ALT (7-52) U/L Alkaline Phosphatase (34-104) U/L Total Protein (6.0-8.3) gm/dl Albumin (3.4-5.0) gm/dl Globulin (2.5-4.0) gm/dl Albumin/Globulin Ratio (0.9-2)
[2022-04-27] MEDS: dilTIAZem HCL 240 MG CAPCR PO SCH (09:29)
[2022-04-27] MEDS: APIXABAN 2.5 MG TAB PO SCH ×2 (10:26→20:48)
[2022-04-27] MEDS: POLYETHYLENE (MIRALAX) 17 GM PACK PO SCH (10:26)
[2022-04-27] MEDS: MULTIVITAMIN TAB PO SCH (10:26)
[2022-04-27] MEDS: MAGNESIUM HYDROXIDE SUSP 30 ML UDC PO SCH (10:26)
[2022-04-27] MEDS: ACETAMINOPHEN 325 MG TAB PO PRN ×2 (10:26→20:48)
[2022-04-27] MEDS: ROSUVASTATIN CALCIUM 10 MG TAB PO SCH (10:26)
[2022-04-27] MEDS ORDERED: LACTATED RINGER'S 500 ML IV ONE (11:21)
[2022-04-27] MEDS: LACTATED RINGER'S 1,000 ML IV SCH ×2 (12:55→19:25)
[2022-04-27] MEDS: MECLIZINE HCL 25 MG TAB PO PRN (13:04)
--- NOTE | 2022-04-27 13:40 | Hospitalist Progress Note ---
Date of Service April 27, 2022 Assessment & Plan (1) Closed right ankle fracture: Plan: 81-year-old female with history of diabetes type 2, atrial fibrillation on Eliquis, irritable bowel syndrome, CKD stage III, vertigo, etc. Presenting with mechanical fall, and resultant ankle fracture. Mechanical fall Right ankle fracture Age-related osteoporosis with current pathologic fracture, R bimalleolar Right ankle x-ray: Bimalleolar fracture is seen with a Dyer B fracture of the fibula and medial malleolus fracture. Exam is limited by patient positioning. Pain control, bedrest for now Underwent open reduction and internal fixation on April 26 2022 Plan: Pain control PT OT evaluation Remove Vogel; trial of void Started on Eliquis. Chornic Atrial fibrillation on Eliquis Permanent Atrial Fibrillation Atrial fibrillation with controlled ventricular rate on Cardizem Eliquis on hold currently Elevated temperature Low-grade temperature of 38.0 C earlier in the admission 2 blood cultures done since admission on April 22 and ; both are negative. Urine culture showed different organisms; repeat urine culture ordered which is also negative. Received ertapenem earlier in the hospitalization; discontinued. CKD stage III At baseline History of diabetes type 2 Not on any medications History of vertigo As needed meclizine DVT prophylaxis Eliquis Disposition PT OT evaluation; will likely need rehab. Admission and Anticipated Discharge Date Admission Date: April 21, 2022 Subjective Patient seen and examined at bedside. She is comfortably lying in the bed; not in any distress. Intermittently hypotensive. Review of Systems Review of Systems: All systems reviewed & are unremarkable except as noted in Subjective Physical Exam Physical Exam: Constitutional: Awake, alert orient x3. Comfortable. Respiratory: normal respiratory effort, lungs clear to auscultation, no wheeze, rales, rhonchi. Normal insp/exp effort, no accessory muscle use Cardiovascular: Irregular, no murmur, no edema Vessels: no JVD or carotid bruit Chest: normal inspection of chest Abdomen: normal bowel sounds, soft, nontender, no hepatosplenomegaly Musculoskeletal: Bandage well intact on right foot. Skin: no rashes, warm and dry normal turgor Neurologic: PERRL, EOMI, accommodation nl, no face palsy, no dysarthria CN's II- XI intact bilaterally and moves all extremities Psychiatric: A+Ox3, euthymic affect : deferred Results & Data Results & Data ([facility]) Vital Signs (Past 12 Hours) Vital Signs Temp Pulse Pulse Pulse Resp BP BP 04/27/22 13:08 37 C 88 18 92/60 L 04/27/22 12:18 37.4 C 97 H 20 92/57 L 04/27/22 11:05 37.8 C H 82 20 88/53 L 04/27/22 10:10 37.3 C 85 85/49 L 04/27/22 09:19 37.1 C 91 H 18 90/53 L 95/55 L 04/27/22 08:43 37.7 C H 84 22 96/60 L 04/27/22 07:55 04/27/22 07:26 37.7 C H 86 22 92/56 L 04/27/22 06:02 94 H 04/27/22 02:58 37.7 C H 92 H 16 103/68 Pulse Ox O2 Del Method O2 Flow Rate 04/27/22 13:08 93 Nasal Cannula 1 04/27/22 12:18 92 Room Air, Nasal Cannula 1 04/27/22 11:05 92 Nasal Cannula 1 04/27/22 10:10 94 Nasal Cannula 1 04/27/22 09:19 92 Nasal Cannula 1 04/27/22 08:43 88 L Nasal Cannula 1 04/27/22 07:55 Nasal Cannula 1 04/27/22 07:26 93 Nasal Cannula 1 04/27/22 06:02 04/27/22 02:58 94 Nasal Cannula 1 Laboratory Results Laboratory Results WBC 13.98 K/ul (4.8-10.8) H 04/27/22 06:20 RBC 3.48 M/uL (3.93-5.22) L 04/27/22 06:20 Hgb 8.5 g/dl (12.0-16.0) L 04/27/22 06:20 Hct 27.6 % (34.1-44.9) L 04/27/22 06:20 MCV 79.3 fL (80.0-100.0) L 04/27/22 06:20 MCH 24.4 pg (25.0-34.0) L 04/27/22 06:20 MCHC 30.8 g/dL (32.0-36.0) L 04/27/22 06:20 RDW Std Deviation 47.1 fL (36.4-46.3) H 04/27/22 06:20 RDW Coeff of Higinio 16.4 % (11.5-14.5) H 04/27/22 06:20 Plt Count 358 K/uL (130-400) 04/27/22 06:20 MPV 9.8 fL (9.4-12.3) 04/27/22 06:20 Immature Gran % (Auto) 0.5 % 04/27/22 06:20 Neut % (Auto) 62.0 % 04/27/22 06:20 Lymph % (Auto) 26.0 % 04/27/22 06:20 [place] % (Auto) 10.2 % 04/27/22 06:20 Eos % (Auto) 0.9 % 04/27/22 06:20 Baso % (Auto) 0.4 % 04/27/22 06:20 Neut # (Auto) 8.67 K/uL (1.4-6.5) H 04/27/22 06:20 Lymph # (Auto) 3.64 K/uL (1.2-3.4) H 04/27/22 06:20 [place] # (Auto) 1.42 K/uL (0.24-0.82) H 04/27/22 06:20 Eos # (Auto) 0.13 K/uL (0-0.50) 04/27/22 06:20 Baso # (Auto) 0.05 K/uL (0-0.2) 04/27/22 06:20 Immature Gran # (Auto) 0.07 K/uL (0.00-0.02) H 04/27/22 06:20 PT 12.1 Seconds (9.0-12.0) H 04/21/22 15:41 INR 1.1 (0.9-1.1) 04/21/22 15:41 APTT 27.3 Seconds (21.0-31.0) 04/23/22 12:42 PTT Ratio 1.0 04/23/22 12:42 Sodium 133 mmol/L (136-145) L 04/27/22 06:20 Potassium 4.2 mmol/L (3.5-5.1) 04/27/22 06:20 Chloride 99 mmol/L (98-107) 04/27/22 06:20 Carbon Dioxide 29 mmol/L (21-32) 04/27/22 06:20 Anion Gap 5 (3-11) 04/27/22 06:20 BUN 16 mg/dl (6-23) 04/27/22 06:20 Creatinine 0.95 mg/dl (0.6-1.2) 04/27/22 06:20 Est Cr Clr Drug Dosing 44.7 ml/min 04/27/22 06:20 Est GFR ( Amer) 65.6 ml/min 04/27/22 06:20 Est GFR (Non-Af Amer) 56.6 ml/min 04/27/22 06:20 BUN/Creatinine Ratio 16.8 (10-20) 04/27/22 06:20 Glucose 83 mg/dl (70-99(Fasting)) 04/27/22 06:20 POC Glucose 114 mg/dl (70-99) H 04/27/22 11:32 Lactate 0.9 mmol/L (0.4-2.0) 04/22/22 05:54 Calcium 8.8 mg/dl (8.5-10.1) 04/27/22 06:20 Phosphorus 3.7 mg/dl (2.5-4.9) 04/22/22 03:46 Magnesium 1.8 mg/dl (1.7-2.4) 04/22/22 03:46 Total Bilirubin 0.7 mg/dl (0.2-1.0) 04/27/22 06:20 AST 24 U/L (13-39) 04/27/22 06:20 ALT 10 U/L (7-52) 04/27/22 06:20 Alkaline Phosphatase 156 U/L (34-104) H 04/27/22 06:20 Total Creatine Kinase 29 U/L (26-192) 04/21/22 15:41 Troponin I High Sens 12.1 pg/ml (0-14) 04/21/22 15:41 Total Protein 6.5 gm/dl (6.0-8.3) 04/27/22 06:20 Albumin 2.4 gm/dl (3.4-5.0) L 04/27/22 06:20 Globulin 4.1 gm/dl (2.5-4.0) H 04/27/22 06:20 Albumin/Globulin Ratio 0.6 (0.9-2) L 04/27/22 06:20 Procalcitonin 0.15 ng/ml (0-0.5) 04/22/22 03:46 TSH 2.558 uIu/ml (0.300-4.500) 04/21/22 15:41 Urine Color Dark Yellow 04/21/22 19:30 Urine Appearance Turbid (Clear) A 04/21/22 19:30 Urine pH 6.0 (4.5-7.5) 04/21/22 19:30 Ur Specific [place] 1.023 (1.000-1.030) 04/21/22 19:30 Urine Protein 1+ (Negative) H 04/21/22 19:30 Urine Glucose (UA) Negative (Negative) 04/21/22 19:30 Urine Ketones Negative (Negative) 04/21/22 19:30 Urine Blood 1+ (Negative) H 04/21/22 19:30 Urine Nitrite Negative (Negative) 04/21/22 19:30 Urine Bilirubin Negative (Negative) 04/21/22 19:30 Urine Urobilinogen Negative (Negative) 04/21/22 19:30 Ur Leukocyte Esterase 2+ (Negative) H 04/21/22 19:30 Urine WBC (Auto) >30 /hpf (0-5) H 04/21/22 19:30 Urine RBC (Auto) 0-4 /hpf (0-4) 04/21/22 19:30 U Hyaline Cast (Auto) 0 /lpf (0-5) 04/21/22 19:30 U Epithel Cells (Auto) 5-10 /lpf (0-5) H 04/21/22 19:30 Urine Bacteria (Auto) Negative (Negative) 04/21/22 19:30 Urine Yeast Not Reportable 04/21/22 19:30 Nasal Screen MRSA (PCR) Negative (Negative) 04/22/22 00:00 SARS-CoV-2, RNA, NAAT NEGATIVE (NEGATIVE) 04/21/22 17:05 Impressions Chest X-Ray 04/21/22 19:06 SINGLE VIEW CHEST CLINICAL HISTORY: Preoperative examination FINDINGS: An AP, portable, upright chest radiograph is compared to study dated 12/10/2021. The heart is mildly enlarged noting atherosclerotic calcification of the thoracic aorta. Pulmonary vasculature is noncongested. Chronic interstitial thickening is similar to previous. The lungs and pleural spaces are clear noting bibasilar atelectasis. No pneumothorax is seen. The skeletal structures are osteopenic. The bony thorax is grossly intact. IMPRESSION: No active disease in the chest. ACT 112: Negative or not required by law. Electronically signed by: Joshua Long M.D. 04/21/2022 8:31 PM Ankle X-Ray 04/26/22 00:00 FL ankle RT min 3V RTN CLINICAL HISTORY: ORIF RT ANKLE TECHNIQUE: 5 views were obtained with the C-arm in the OR with the above procedure. Total fluoroscopy time was 4.7 seconds. Radiation dose was 1.33 mGy. Comparison: None available at the time of this dictation. FINDINGS/IMPRESSION: Intraoperative images were obtained of right ankle open reduction internal fixation. Please correlate with intraoperative fluoroscopy and operative report. ACT 112: Negative or not required by law. Electronically signed by: Miki Ren M.D. 04/26/2022 9:41 AM
[2022-04-28] MEDS: ACETAMINOPHEN 325 MG TAB PO PRN ×3 (02:59→20:43)
[2022-04-28 06:18] LABS: Basophils # (auto) 0.05 K/uL (0-0.2); Basophils % (auto) 0.4 %; Eosinophils # (auto) 0.21 K/uL (0-0.50); Eosinophils % (auto) 1.6 %; Hematocrit (blood only) 25.4 % (34.1-44.9); Hemoglobin 7.9 g/dl (12.0-16.0); Immature Granulocytes # (auto) 0.08 K/uL (0.00-0.02); Immature Granulocytes % (auto) 0.6 %; Lymphocytes % (auto) 16.8 %; Mean Corpuscular Hemoglobin 24.8 pg (25.0-34.0); Mean Corpuscular Hgb Conc 31.1 g/dL (32.0-36.0); Mean Corpuscular Volume 79.9 fL (80.0-100.0); Mean Platelet Volume 9.4 fL (9.4-12.3); Monocytes # (auto) 0.88 K/uL (0.24-0.82); Monocytes % (auto) 6.7 %; Neutrophils # (auto) 9.66 K/uL (1.4-6.5); Neutrophils % (auto) 73.9 %; Platelet Count 324 K/uL (130-400); RDW Coefficient of Variation 16.1 % (11.5-14.5); RDW Standard Deviation 46.8 fL (36.4-46.3); Red Blood Count 3.18 M/uL (3.93-5.22); White Blood Count 13.08 K/ul (4.8-10.8)
[2022-04-28] MEDS: LACTATED RINGER'S 1,000 ML IV SCH (06:26)
[2022-04-28 06:50] LABS: Calcium 8.9 mg/dl (8.5-10.1); Creatinine Clr Calc Pharmacy 53.1 ml/min; Est GFR (African American) 79.5 ml/min; Est GFR (Non-African American) 68.6 ml/min; Potassium 4.1 mmol/L (3.5-5.1)
[2022-04-28 06:54] LABS: Hypochromasia Present; Microcytosis Present
[2022-04-28] MEDS: MAGNESIUM HYDROXIDE SUSP 30 ML UDC PO SCH (08:19)
[2022-04-28] MEDS: POLYETHYLENE (MIRALAX) 17 GM PACK PO SCH (08:19)
[2022-04-28] MEDS: dilTIAZem HCL 240 MG CAPCR PO SCH (08:19)
[2022-04-28] MEDS: APIXABAN 2.5 MG TAB PO SCH ×2 (08:19→20:39)
[2022-04-28] MEDS: MULTIVITAMIN TAB PO SCH (08:19)
[2022-04-28] MEDS: ROSUVASTATIN CALCIUM 10 MG TAB PO SCH (08:19)
[2022-04-28] MEDS: oxyCODONE HCL IR 5 MG TAB (IMMEDIATE RELEASE) PO PRN ×2 (10:13→10:15)
[2022-04-28] MEDS: MECLIZINE HCL 25 MG TAB PO PRN (10:37)
--- NOTE | 2022-04-28 14:54 | Hospitalist Progress Note ---
Date of Service April 28, 2022 Assessment & Plan (1) Closed right ankle fracture: Plan: 81-year-old female with history of diabetes type 2, atrial fibrillation on Eliquis, irritable bowel syndrome, CKD stage III, vertigo, etc. Presenting with mechanical fall, and resultant ankle fracture. Mechanical fall Right ankle fracture Age-related osteoporosis with current pathologic fracture, R bimalleolar Right ankle x-ray: Bimalleolar fracture is seen with a Dyer B fracture of the fibula and medial malleolus fracture. Exam is limited by patient positioning. Pain control, bedrest for now Underwent open reduction and internal fixation on April 26 2022 Plan: Pain control PT OT evaluation Remove Vogel; trial of void successful Started on Eliquis on postop day 1. Chornic Atrial fibrillation on Eliquis Permanent Atrial Fibrillation Atrial fibrillation with controlled ventricular rate on Cardizem On Eliquis Elevated temperature Low-grade temperature of 38.0 C earlier in the admission 2 blood cultures done since admission on April 22 and ; both are negative. Urine culture showed different organisms; repeat urine culture ordered which is also negative. Received ertapenem earlier in the hospitalization; discontinued. CKD stage III At baseline History of diabetes type 2 Not on any medications History of vertigo As needed meclizine DVT prophylaxis Eliquis Disposition PT OT evaluation; will need rehab placement. Case management on board. Admission and Anticipated Discharge Date Admission Date: April 21, 2022 Subjective Patient seen and examined at bedside. She is lying in the bed comfortably; not in any distress. She is voiding well. No bowel movement yet. Pain is well controlled on current medication. Telemetry shows persistent atrial fibrillation with ventricular rate in 80s to 100. Review of Systems Review of Systems: All systems reviewed & are unremarkable except as noted in Subjective Physical Exam Physical Exam: Constitutional: Awake, alert orient x3. Comfortable. Respiratory: normal respiratory effort, lungs clear to auscultation, no wheeze, rales, rhonchi. Normal insp/exp effort, no accessory muscle use Cardiovascular: Irregular, no murmur, no edema Vessels: no JVD or carotid bruit Chest: normal inspection of chest Abdomen: normal bowel sounds, soft, nontender, no hepatosplenomegaly Musculoskeletal: Bandage well intact on right foot. Skin: no rashes, warm and dry normal turgor Neurologic: PERRL, EOMI, accommodation nl, no face palsy, no dysarthria CN's II- XI intact bilaterally and moves all extremities Psychiatric: A+Ox3, euthymic affect : deferred Results & Data Results & Data ([facility]) Vital Signs (Past 12 Hours) Vital Signs Temp Pulse Pulse Resp BP Pulse Ox O2 Del Method 04/28/22 12:30 95 Room Air, Nasal Cannula 04/28/22 11:34 36.9 C 72 18 95/55 L 95 Room Air 04/28/22 10:00 103/56 L 04/28/22 08:00 Nasal Cannula 04/28/22 07:47 36.9 C 78 18 101/65 97 Nasal Cannula 04/28/22 05:58 76 04/28/22 06:00 89 04/28/22 04:54 94/56 L 94 Nasal Cannula 04/28/22 03:30 37.4 C 92 H 18 94/57 L 90 Nasal Cannula O2 Flow Rate 04/28/22 12:30 2 04/28/22 11:34 04/28/22 10:00 04/28/22 08:00 2 04/28/22 07:47 2 04/28/22 05:58 04/28/22 06:00 04/28/22 04:54 2 04/28/22 03:30 2 Laboratory Results Laboratory Results WBC 13.08 K/ul (4.8-10.8) H 04/28/22 05:56 RBC 3.18 M/uL (3.93-5.22) L 04/28/22 05:56 Hgb 7.9 g/dl (12.0-16.0) L 04/28/22 05:56 Hct 25.4 % (34.1-44.9) L 04/28/22 05:56 MCV 79.9 fL (80.0-100.0) L 04/28/22 05:56 MCH 24.8 pg (25.0-34.0) L 04/28/22 05:56 MCHC 31.1 g/dL (32.0-36.0) L 04/28/22 05:56 RDW Std Deviation 46.8 fL (36.4-46.3) H 04/28/22 05:56 RDW Coeff of Higinio 16.1 % (11.5-14.5) H 04/28/22 05:56 Plt Count 324 K/uL (130-400) 04/28/22 05:56 MPV 9.4 fL (9.4-12.3) 04/28/22 05:56 Immature Gran % (Auto) 0.6 % 04/28/22 05:56 Neut % (Auto) 73.9 % 04/28/22 05:56 Lymph % (Auto) 16.8 % 04/28/22 05:56 [place] % (Auto) 6.7 % 04/28/22 05:56 Eos % (Auto) 1.6 % 04/28/22 05:56 Baso % (Auto) 0.4 % 04/28/22 05:56 Neut # (Auto) 9.66 K/uL (1.4-6.5) H 04/28/22 05:56 Lymph # (Auto) 2.20 K/uL (1.2-3.4) 04/28/22 05:56 [place] # (Auto) 0.88 K/uL (0.24-0.82) H 04/28/22 05:56 Eos # (Auto) 0.21 K/uL (0-0.50) 04/28/22 05:56 Baso # (Auto) 0.05 K/uL (0-0.2) 04/28/22 05:56 Immature Gran # (Auto) 0.08 K/uL (0.00-0.02) H 04/28/22 05:56 Hypochromasia Present 04/28/22 05:56 Microcytosis Present 04/28/22 05:56 PT 12.1 Seconds (9.0-12.0) H 04/21/22 15:41 INR 1.1 (0.9-1.1) 04/21/22 15:41 APTT 27.3 Seconds (21.0-31.0) 04/23/22 12:42 PTT Ratio 1.0 04/23/22 12:42 Sodium 135 mmol/L (136-145) L 04/28/22 05:56 Potassium 4.1 mmol/L (3.5-5.1) 04/28/22 05:56 Chloride 100 mmol/L (98-107) 04/28/22 05:56 Carbon Dioxide 32 mmol/L (21-32) 04/28/22 05:56 Anion Gap 3 (3-11) 04/28/22 05:56 BUN 17 mg/dl (6-23) 04/28/22 05:56 Creatinine 0.81 mg/dl (0.6-1.2) 04/28/22 05:56 Est Cr Clr Drug Dosing 53.1 ml/min 04/28/22 05:56 Est GFR ( Amer) 79.5 ml/min 04/28/22 05:56 Est GFR (Non-Af Amer) 68.6 ml/min 04/28/22 05:56 BUN/Creatinine Ratio 21.0 (10-20) H 04/28/22 05:56 Glucose 108 mg/dl (70-99(Fasting)) H 04/28/22 05:56 POC Glucose 117 mg/dl (70-99) H 04/28/22 11:45 Lactate 0.9 mmol/L (0.4-2.0) 04/22/22 05:54 Calcium 8.9 mg/dl (8.5-10.1) 04/28/22 05:56 Phosphorus 3.7 mg/dl (2.5-4.9) 04/22/22 03:46 Magnesium 1.8 mg/dl (1.7-2.4) 04/22/22 03:46 Total Bilirubin 0.7 mg/dl (0.2-1.0) 04/27/22 06:20 AST 24 U/L (13-39) 04/27/22 06:20 ALT 10 U/L (7-52) 04/27/22 06:20 Alkaline Phosphatase 156 U/L (34-104) H 04/27/22 06:20 Total Creatine Kinase 29 U/L (26-192) 04/21/22 15:41 Troponin I High Sens 12.1 pg/ml (0-14) 04/21/22 15:41 Total Protein 6.5 gm/dl (6.0-8.3) 04/27/22 06:20 Albumin 2.4 gm/dl (3.4-5.0) L 04/27/22 06:20 Globulin 4.1 gm/dl (2.5-4.0) H 04/27/22 06:20 Albumin/Globulin Ratio 0.6 (0.9-2) L 04/27/22 06:20 Procalcitonin 0.15 ng/ml (0-0.5) 04/22/22 03:46 TSH 2.558 uIu/ml (0.300-4.500) 04/21/22 15:41 Urine Color Dark Yellow 04/21/22 19:30 Urine Appearance Turbid (Clear) A 04/21/22 19:30 Urine pH 6.0 (4.5-7.5) 04/21/22 19:30 Ur Specific [place] 1.023 (1.000-1.030) 04/21/22 19:30 Urine Protein 1+ (Negative) H 04/21/22 19:30 Urine Glucose (UA) Negative (Negative) 04/21/22 19: Urine Ketones Negative (Negative) 04/21/22 19:30 Urine Blood 1+ (Negative) H 04/21/22 19:30 Urine Nitrite Negative (Negative) 04/21/22 19:30 Urine Bilirubin Negative (Negative) 04/21/22 19:30 Urine Urobilinogen Negative (Negative) 04/21/22 19:30 Ur Leukocyte Esterase 2+ (Negative) H 04/21/22 19:30 Urine WBC (Auto) >30 /hpf (0-5) H 04/21/22 19:30 Urine RBC (Auto) 0-4 /hpf (0-4) 04/21/22 19:30 U Hyaline Cast (Auto) 0 /lpf (0-5) 04/21/22 19:30 U Epithel Cells (Auto) 5-10 /lpf (0-5) H 04/21/22 19:30 Urine Bacteria (Auto) Negative (Negative) 04/21/22 19:30 Urine Yeast Not Reportable 04/21/22 19:30 Nasal Screen MRSA (PCR) Negative (Negative) 04/22/22 00:00 SARS-CoV-2, RNA, NAAT NEGATIVE (NEGATIVE) 04/21/22 17:05 Impressions Chest X-Ray 04/21/22 19:06 SINGLE VIEW CHEST CLINICAL HISTORY: Preoperative examination FINDINGS: An AP, portable, upright chest radiograph is compared to study dated 12/10/2021. The heart is mildly enlarged noting atherosclerotic calcification of the thoracic aorta. Pulmonary vasculature is noncongested. Chronic interstitial thickening is similar to previous. The lungs and pleural spaces are clear noting bibasilar atelectasis. No pneumothorax is seen. The skeletal structures are osteopenic. The bony thorax is grossly intact. IMPRESSION: No active disease in the chest. ACT 112: Negative or not required by law. Electronically signed by: Joshua Long M.D. 04/21/2022 8:31 PM Ankle X-Ray 04/26/22 00:00 FL ankle RT min 3V RTN CLINICAL HISTORY: ORIF RT ANKLE TECHNIQUE: 5 views were obtained with the C-arm in the OR with the above procedure. Total fluoroscopy time was 4.7 seconds. Radiation dose was 1.33 mGy. Comparison: None available at the time of this dictation. FINDINGS/IMPRESSION: Intraoperative images were obtained of right ankle open reduction internal fixation. Please correlate with intraoperative fluoroscopy and operative report. ACT 112: Negative or not required by law. Electronically signed by: Miki Ren M.D. 04/26/2022 9:41 AM
[2022-04-29] MEDS: MELATONIN 3 MG TAB PO PRN ×2 (01:55→21:41)
[2022-04-29] MEDS: ACETAMINOPHEN 325 MG TAB PO PRN (05:51)
[2022-04-29] MEDS: MAGNESIUM HYDROXIDE SUSP 30 ML UDC PO SCH (07:47)
[2022-04-29] MEDS: POLYETHYLENE (MIRALAX) 17 GM PACK PO SCH (07:47)
[2022-04-29] MEDS: MECLIZINE HCL 25 MG TAB PO PRN ×2 (08:07→18:17)
[2022-04-29] MEDS: MULTIVITAMIN TAB PO SCH (08:08)
[2022-04-29] MEDS: APIXABAN 2.5 MG TAB PO SCH ×2 (08:08→21:41)
[2022-04-29] MEDS: ROSUVASTATIN CALCIUM 10 MG TAB PO SCH (08:08)
[2022-04-29] MEDS: dilTIAZem HCL 120 MG CAPCR PO SCH (08:08)
[2022-04-29 08:12] LABS: Basophils # (auto) 0.04 K/uL (0-0.2); Basophils % (auto) 0.3 %; Eosinophils # (auto) 0.18 K/uL (0-0.50); Eosinophils % (auto) 1.5 %; Hematocrit (blood only) 25.2 % (34.1-44.9); Hemoglobin 7.7 g/dl (12.0-16.0); Immature Granulocytes # (auto) 0.06 K/uL (0.00-0.02); Immature Granulocytes % (auto) 0.5 %; Lymphocytes # (auto) 2.26 K/uL (1.2-3.4); Lymphocytes % (auto) 18.3 %; Mean Corpuscular Hemoglobin 24.9 pg (25.0-34.0); Mean Corpuscular Hgb Conc 30.6 g/dL (32.0-36.0); Mean Corpuscular Volume 81.6 fL (80.0-100.0); Mean Platelet Volume 9.9 fL (9.4-12.3); Monocytes # (auto) 0.86 K/uL (0.24-0.82); Neutrophils # (auto) 8.93 K/uL (1.4-6.5); Neutrophils % (auto) 72.4 %; Platelet Count 338 K/uL (130-400); RDW Coefficient of Variation 15.7 % (11.5-14.5); RDW Standard Deviation 46.3 fL (36.4-46.3); Red Blood Count 3.09 M/uL (3.93-5.22); White Blood Count 12.33 K/ul (4.8-10.8)
[2022-04-29 08:33] LABS: Calcium 8.9 mg/dl (8.5-10.1); Potassium 3.9 mmol/L (3.5-5.1)
[2022-04-29 08:37] LABS: Hypochromasia Present; Microcytosis Present
[2022-04-29 08:38] LABS: BUN Creatinine Ratio 16.3 (10-20); Creatinine Clr Calc Pharmacy 53.1 ml/min; Est GFR (African American) 80.7 ml/min; Est GFR (Non-African American) 69.6 ml/min
--- NOTE | 2022-04-29 13:47 | Hospitalist Progress Note ---
Date of Service April 29, 2022 Assessment & Plan (1) Closed right ankle fracture: Plan: 81-year-old female with history of diabetes type 2, atrial fibrillation on Eliquis, irritable bowel syndrome, CKD stage III, vertigo, etc. Presenting with mechanical fall, and resultant ankle fracture. Mechanical fall Right ankle fracture Age-related osteoporosis with current pathologic fracture, R bimalleolar Right ankle x-ray: Bimalleolar fracture is seen with a Dyer B fracture of the fibula and medial malleolus fracture. Exam is limited by patient positioning. Pain control, bedrest for now Underwent open reduction and internal fixation on April 26 2022 Plan: Pain control PT OT evaluation Remove Vogel; trial of void successful Started on Eliquis on postop day 1. [place]orn[place] Atrial fibrillation on Eliquis Permanent Atrial Fibrillation Ventricular rate on lower side note on tele. Hypotensive intermittently Cardizem reduced to 120mg once daily. Elevated temperature Low-grade temperature of 38.0 C earlier in the admission 2 blood cultures done since admission on April 22 and ; both are negative. Urine culture showed different organisms; repeat urine culture ordered which is also negative. Received ertapenem earlier in the hospitalization; discontinued. CKD stage III At baseline History of diabetes type 2 Not on any medications History of vertigo As needed meclizine DVT prophylaxis Eliquis Disposition PT OT evaluation; will need rehab placement. Case management on board. Admission and Anticipated Discharge Date Admission Date: April 21, 2022 Subjective Patient seen and examined at bedside. Pain is well controlled. Regular BM; no complains of fever, chills or SOB. Voiding well. Review of Systems Review of Systems: All systems reviewed & are unremarkable except as noted in Subjective Physical Exam Physical Exam: Constitutional: Awake, alert orient x3. Comfortable. Respiratory: normal respiratory effort, lungs clear to auscultation, no wheeze, rales, rhonchi. Normal insp/exp effort, no accessory muscle use Cardiovascular: Irregular, no murmur, no edema Vessels: no JVD or carotid bruit Chest: normal inspection of chest Abdomen: normal bowel sounds, soft, nontender, no hepatosplenomegaly Musculoskeletal: Bandage well intact on right foot. Skin: no rashes, warm and dry normal turgor Neurologic: PERRL, EOMI, accommodation nl, no face palsy, no dysarthria CN's II- XI intact bilaterally and moves all extremities Psychiatric: A+Ox3, euthymic affect : deferred Results & Data Results & Data ([facility]) Vital Signs (Past 12 Hours) Vital Signs Temp Pulse Pulse Resp BP Pulse Ox O2 Del Method 04/29/22 11:41 36.8 C 52 L 18 102/57 L 93 Room Air 04/29/22 08:05 Nasal Cannula 04/29/22 08:13 94 Nasal Cannula 04/29/22 08:00 36.6 C 73 18 107/70 90 Room Air 04/29/22 07:09 86 04/29/22 03:20 37 C 73 18 95/46 L 94 Nasal Cannula O2 Flow Rate 04/29/22 11:41 04/29/22 08:05 2 04/29/22 08:13 2 04/29/22 08:00 04/29/22 07:09 04/29/22 03:20 2
[2022-04-29] MEDS: oxyCODONE HCL IR 5 MG TAB (IMMEDIATE RELEASE) PO PRN (21:41)
[2022-04-30 07:22] LABS: Basophils # (auto) 0.03 K/uL (0-0.2); Basophils % (auto) 0.3 %; Eosinophils # (auto) 0.16 K/uL (0-0.50); Eosinophils % (auto) 1.3 %; Hematocrit (blood only) 26.3 % (34.1-44.9); Hemoglobin 8.1 g/dl (12.0-16.0); Immature Granulocytes # (auto) 0.05 K/uL (0.00-0.02); Immature Granulocytes % (auto) 0.4 %; Mean Corpuscular Hemoglobin 25.2 pg (25.0-34.0); Mean Corpuscular Hgb Conc 30.8 g/dL (32.0-36.0); Mean Corpuscular Volume 81.7 fL (80.0-100.0); Mean Platelet Volume 9.7 fL (9.4-12.3); Monocytes # (auto) 0.91 K/uL (0.24-0.82); Monocytes % (auto) 7.6 %; Neutrophils # (auto) 7.85 K/uL (1.4-6.5); Neutrophils % (auto) 65.4 %; Platelet Count 376 K/uL (130-400); RDW Coefficient of Variation 16.4 % (11.5-14.5); RDW Standard Deviation 48.5 fL (36.4-46.3); Red Blood Count 3.22 M/uL (3.93-5.22)
[2022-04-30 07:43] LABS: Albumin Globulin Ratio 0.6 (0.9-2); Albumin Level 2.3 gm/dl (3.4-5.0); BUN Creatinine Ratio 14.9 (10-20); Bilirubin,Total 0.5 mg/dl (0.2-1.0); Calcium 8.9 mg/dl (8.5-10.1); Creatinine Clr Calc Pharmacy 57.1 ml/min; Est GFR (African American) 88.7 ml/min; Est GFR (Non-African American) 76.5 ml/min; Globulin 4.1 gm/dl (2.5-4.0); Potassium 4.1 mmol/L (3.5-5.1); Total Protein 6.4 gm/dl (6.0-8.3)
[2022-04-30] MEDS: ROSUVASTATIN CALCIUM 10 MG TAB PO SCH (08:36)
[2022-04-30] MEDS: APIXABAN 2.5 MG TAB PO SCH ×2 (08:36→20:52)
[2022-04-30] MEDS: dilTIAZem HCL 120 MG CAPCR PO SCH (08:36)
[2022-04-30] MEDS: MULTIVITAMIN TAB PO SCH (08:36)
[2022-04-30] MEDS: oxyCODONE HCL IR 5 MG TAB (IMMEDIATE RELEASE) PO PRN (08:43)
[2022-04-30] MEDS: MECLIZINE HCL 25 MG TAB PO PRN (10:45)
[2022-04-30] MEDS ORDERED: LOPERAMIDE HCL 2 MG CAP PO PRN (11:24)
--- NOTE | 2022-04-30 14:43 | Hospitalist Progress Note ---
Date of Service April 30, 2022 Assessment & Plan (1) Closed right ankle fracture: Plan: 81-year-old female with history of diabetes type 2, atrial fibrillation on Eliquis, irritable bowel syndrome, CKD stage III, vertigo, etc. Presenting with mechanical fall, and resultant ankle fracture. Mechanical fall Right ankle fracture Age-related osteoporosis with current pathologic fracture, R bimalleolar Right ankle x-ray: Bimalleolar fracture is seen with a Dyer B fracture of the fibula and medial malleolus fracture. Exam is limited by patient positioning. Pain control, bedrest for now Underwent open reduction and internal fixation on April 26 2022 Plan: Pain control PT OT evaluation Remove Vogel; trial of void successful Started on Eliquis on postop day 1. Chornic Atrial fibrillation on Eliquis Permanent Atrial Fibrillation Ventricular rate on lower side note on tele. Hypotensive intermittently Cardizem reduced to 120mg once daily. Elevated temperature Low-grade temperature of 38.0 C earlier in the admission 2 blood cultures done since admission on April 22 and ; both are negative. Urine culture showed different organisms; repeat urine culture ordered which is also negative. Received ertapenem earlier in the hospitalization; discontinued. CKD stage III At baseline History of diabetes type 2 Not on any medications History of vertigo As needed meclizine DVT prophylaxis Eliquis Disposition PT OT evaluation; will need rehab placement. Case management on board. Discharge when placement available. Admission and Anticipated Discharge Date Admission Date: April 21, 2022 Subjective Patient is comfortable; not in any distress. Awaiting placement. Review of Systems Review of Systems: All systems reviewed & are unremarkable except as noted in Subjective Physical Exam Physical Exam: Constitutional: Awake, alert orient x3. Comfortable. Respiratory: normal respiratory effort, lungs clear to auscultation, no wheeze, rales, rhonchi. Normal insp/exp effort, no accessory muscle use Cardiovascular: Irregular, no murmur, no edema Vessels: no JVD or carotid bruit Chest: normal inspection of chest Abdomen: normal bowel sounds, soft, nontender, no hepatosplenomegaly Musculoskeletal: Bandage well intact on right foot. Foot externally rotated which is chronic. Skin: no rashes, warm and dry normal turgor Neurologic: PERRL, EOMI, accommodation nl, no face palsy, no dysarthria CN's II- XI intact bilaterally and moves all extremities Psychiatric: A+Ox3, euthymic affect : deferred Results & Data Results & Data ([facility]) Vital Signs (Past 12 Hours) Vital Signs Temp Pulse Pulse Resp BP BP Pulse Ox 04/30/22 08:13 36.5 C 74 18 102/63 94 04/30/22 07:16 68 04/30/22 03:48 36.9 C 69 18 116/68 97 O2 Del Method O2 Flow Rate 04/30/22 08:13 Room Air 04/30/22 07:16 04/30/22 03:48 Nasal Cannula 2 Laboratory Results Laboratory Results WBC 12.00 K/ul (4.8-10.8) H 04/30/22 06:27 RBC 3.22 M/uL (3.93-5.22) L 04/30/22 06:27 Hgb 8.1 g/dl (12.0-16.0) L 04/30/22 06:27 Hct 26.3 % (34.1-44.9) L 04/30/22 06:27 MCV 81.7 fL (80.0-100.0) 04/30/22 06:27 MCH 25.2 pg (25.0-34.0) 04/30/22 06:27 MCHC 30.8 g/dL (32.0-36.0) L 04/30/22 06:27 RDW Std Deviation 48.5 fL (36.4-46.3) H 04/30/22 06:27 RDW Coeff of Higinio 16.4 % (11.5-14.5) H 04/30/22 06:27 Plt Count 376 K/uL (130-400) 04/30/22 06:27 MPV 9.7 fL (9.4-12.3) 04/30/22 06:27 Immature Gran % (Auto) 0.4 % 04/30/22 06:27 Neut % (Auto) 65.4 % 04/30/22 06:27 Lymph % (Auto) 25.0 % 04/30/22 06:27 Dent % (Auto) 7.6 % 04/30/22 06:27 Eos % (Auto) 1.3 % 04/30/22 06:27 Baso % (Auto) 0.3 % 04/30/22 06:27 Neut # (Auto) 7.85 K/uL (1.4-6.5) H 04/30/22 06:27 Lymph # (Auto) 3.00 K/uL (1.2-3.4) 04/30/22 06:27 Dent # (Auto) 0.91 K/uL (0.24-0.82) H 04/30/22 06:27 Eos # (Auto) 0.16 K/uL (0-0.50) 04/30/22 06:27 Baso # (Auto) 0.03 K/uL (0-0.2) 04/30/22 06:27 Immature Gran # (Auto) 0.05 K/uL (0.00-0.02) H 04/30/22 06:27 Hypochromasia Present 04/29/22 07:37 Microcytosis Present 04/29/22 07:37 PT 12.1 Seconds (9.0-12.0) H 04/21/22 15:41 INR 1.1 (0.9-1.1) 04/21/22 15:41 APTT 27.3 Seconds (21.0-31.0) 04/23/22 12:42 PTT Ratio 1.0 04/23/22 12:42 Sodium 140 mmol/L (136-145) 04/30/22 06:27 Potassium 4.1 mmol/L (3.5-5.1) 04/30/22 06:27 Chloride 103 mmol/L (98-107) 04/30/22 06:27 Carbon Dioxide 34 mmol/L (21-32) H 04/30/22 06:27 Anion Gap 3 (3-11) 04/30/22 06:27 BUN 11 mg/dl (6-23) 04/30/22 06:27 Creatinine 0.74 mg/dl (0.6-1.2) 04/30/22 06:27 Est Cr Clr Drug Dosing 57.1 ml/min 04/30/22 06:27 Est GFR ( Amer) 88.7 ml/min 04/30/22 06:27 Est GFR (Non-Af Amer) 76.5 ml/min 04/30/22 06:27 BUN/Creatinine Ratio 14.9 (10-20) 04/30/22 06:27 Glucose 78 mg/dl (70-99(Fasting)) 04/30/22 06:27 POC Glucose 103 mg/dl (70-99) H 04/30/22 11:40 Lactate 0.9 mmol/L (0.4-2.0) 04/22/22 05:54 Calcium 8.9 mg/dl (8.5-10.1) 04/30/22 06:27 Phosphorus 3.7 mg/dl (2.5-4.9) 04/22/22 03:46 Magnesium 1.8 mg/dl (1.7-2.4) 04/22/22 03:46 Total Bilirubin 0.5 mg/dl (0.2-1.0) 04/30/22 06:27 AST 17 U/L (13-39) 04/30/22 06:27 ALT 7 U/L (7-52) 04/30/22 06:27 Alkaline Phosphatase 168 U/L (34-104) H 04/30/22 06:27 Total Creatine Kinase 29 U/L (26-192) 04/21/22 15:41 Troponin I High Sens 12.1 pg/ml (0-14) 04/21/22 15:41 Total Protein 6.4 gm/dl (6.0-8.3) 04/30/22 06:27 Albumin 2.3 gm/dl (3.4-5.0) L 04/30/22 06:27 Globulin 4.1 gm/dl (2.5-4.0) H 04/30/22 06:27 Albumin/Globulin Ratio 0.6 (0.9-2) L 04/30/22 06:27 Procalcitonin 0.15 ng/ml (0-0.5) 04/22/22 03:46 TSH 2.558 uIu/ml (0.300-4.500) 04/21/22 15:41 Urine Color Dark Yellow 04/21/22 19:30 Urine Appearance Turbid (Clear) A 04/21/22 19:30 Urine pH 6.0 (4.5-7.5) 04/21/22 19:30 Ur Specific [place] 1.023 (1.000-1.030) 04/21/22 19:30 Urine Protein 1+ (Negative) H 04/21/22 19:30 Urine Glucose (UA) Negative (Negative) 04/21/22 19:30 Urine Ketones Negative (Negative) 04/21/22 19:30 Urine Blood 1+ (Negative) H 04/21/22 19:30 Urine Nitrite Negative (Negative) 04/21/22 19:30 Urine Bilirubin Negative (Negative) 04/21/22 19:30 Urine Urobilinogen Negative (Negative) 04/21/22 19:30 Ur Leukocyte Esterase 2+ (Negative) H 04/21/22 19:30 Urine WBC (Auto) >30 /hpf (0-5) H 04/21/22 19:30 Urine RBC (Auto) 0-4 /hpf (0-4) 04/21/22 19:30 U Hyaline Cast (Auto) 0 /lpf (0-5) 04/21/22 19:30 U Epithel Cells (Auto) 5-10 /lpf (0-5) H 04/21/22 19:30 Urine Bacteria (Auto) Negative (Negative) 04/21/22 19:30 Urine Yeast Not Reportable 04/21/22 19:30 Nasal Screen MRSA (PCR) Negative (Negative) 04/22/22 00:00 SARS-CoV-2, RNA, NAAT NEGATIVE (NEGATIVE) 04/21/22 17:05 Impressions Chest X-Ray 04/21/22 19:06 SINGLE VIEW CHEST CLINICAL HISTORY: Preoperative examination FINDINGS: An AP, portable, upright chest radiograph is compared to study dated 12/10/2021. The heart is mildly enlarged noting atherosclerotic calcification of the thoracic aorta. Pulmonary vasculature is noncongested. Chronic interstitial thickening is similar to previous. The lungs and pleural spaces are clear noting bibasilar atelectasis. No pneumothorax is seen. The skeletal structures are osteopenic. The bony thorax is grossly intact. IMPRESSION: No active disease in the chest. ACT 112: Negative or not required by law. Electronically signed by: Joshua Long M.D. 04/21/2022 8:31 PM Ankle X-Ray 04/26/22 00:00 FL ankle RT min 3V RTN CLINICAL HISTORY: ORIF RT ANKLE TECHNIQUE: 5 views were obtained with the C-arm in the OR with the above procedure. Total fluoroscopy time was 4.7 seconds. Radiation dose was 1.33 mGy. Comparison: None available at the time of this dictation. FINDINGS/IMPRESSION: Intraoperative images were obtained of right ankle open reduction internal fixation. Please correlate with intraoperative fluoroscopy and operative report. ACT 112: Negative or not required by law. Electronically signed by: Miki Ren M.D. 04/26/2022 9:41 AM
[2022-04-30] MEDS: ACETAMINOPHEN 325 MG TAB PO PRN (18:16)
[2022-04-30] MEDS: MELATONIN 3 MG TAB PO PRN (20:52)
[2022-05-01 07:57] LABS: BUN Creatinine Ratio 16.4 (10-20); Calcium 8.9 mg/dl (8.5-10.1); Creatinine Clr Calc Pharmacy 57.9 ml/min; Est GFR (African American) 90.2 ml/min; Est GFR (Non-African American) 77.8 ml/min; Potassium 4.2 mmol/L (3.5-5.1)
[2022-05-01] MEDS: ACETAMINOPHEN 325 MG TAB PO PRN ×2 (09:05→19:25)
[2022-05-01] MEDS: ROSUVASTATIN CALCIUM 10 MG TAB PO SCH (09:05)
[2022-05-01] MEDS: APIXABAN 2.5 MG TAB PO SCH ×2 (09:05→19:26)
[2022-05-01] MEDS: dilTIAZem HCL 120 MG CAPCR PO SCH (09:05)
[2022-05-01] MEDS: MULTIVITAMIN TAB PO SCH (09:05)
[2022-05-01 09:28] LABS: Basophils # (auto) 0.04 K/uL (0-0.2); Basophils % (auto) 0.3 %; Eosinophils # (auto) 0.11 K/uL (0-0.50); Eosinophils % (auto) 0.8 %; Hematocrit (blood only) 26.7 % (37.0-47.0); Hemoglobin 8.1 g/dl (12.0-16.0); Immature Granulocytes # (auto) 0.06 K/uL (0.01-0.20); Immature Granulocytes % (auto) 0.4 %; Lymphocytes % (auto) 16.8 %; Mean Corpuscular Hemoglobin 24.5 pg (25.0-34.0); Mean Corpuscular Hgb Conc 30.3 g/dL (32.0-36.0); Mean Corpuscular Volume 80.9 fL (80.0-100.0); Mean Platelet Volume 9.7 fL (9.4-12.4); Monocytes # (auto) 1.01 K/uL (0.11-0.59); Monocytes % (auto) 7.1 %; Neutrophils # (auto) 10.65 K/uL (1.40-6.50); Neutrophils % (auto) 74.6 %; Platelet Count 427 K/uL (130-400); RDW Coefficient of Variation 16.6 % (11.5-14.5); White Blood Count 14.27 K/ul (4.8-10.8)
[2022-05-01] MEDS: MECLIZINE HCL 25 MG TAB PO PRN (09:53)
[2022-05-01] MEDS ORDERED: SODIUM CHLORIDE 0.9% 1000ML 500 ML IV ONE ×2 (10:18→16:01)
[2022-05-01] MEDS: SODIUM CHLORIDE 0.9% 1000ML 1,000 ML IV SCH ×2 (10:50→22:05)
--- NOTE | 2022-05-01 11:07 | XRay Report ---
XR chest 1V portable CLINICAL HISTORY: fever, r/o pneumonia COMPARISON STUDY: Chest radiograph April 21, 2022. FINDINGS: There is no pneumothorax. Small bilateral pleural effusions have developed. Associated bib asilar opacities are greater on the right. Cardiomediastinal silhouette is stable. There is pulmonary vascular congestion without overt pulmonary edema. IMPRESSION: 1. Interval development of right basilar opacity which favors pneumonia. Radiographic follow-up to en sure resolution is recommended. Left basilar opacity likely reflect atelectasis. 2. Pulmonary vascular congestion. Small bilateral pleural effusions. ACT 112: Negative or not required by law. Electronically signed by: Rajat Beard M.D. 05/01/2022 11:05 AM
[2022-05-01] MEDS: CEFEPIME 2,000 MG in SYRINGE 0 ML IV SCH ×2 (11:57→22:05)
[2022-05-01 14:02] LABS: Appearance Urine Turbid (Clear); Bacteria Urine Automated Negative (Negative); Bilirubin Urine Negative (Negative); Blood Urine 2+ (Negative); Color Urine Yellow; Epithelial Cell Urine Auto >30 /lpf (0-5); Glucose Urine UA Negative (Negative); Ketones Urine Negative (Negative); Leukocyte Esterase Urine 3+ (Negative); Nitrite Urine Positive (Negative); Protein Urine 1+ (Negative); Urobilinogen Urine Negative (Negative); WBC Urine Automated >30 /hpf (0-5)
--- NOTE | 2022-05-01 18:12 | Hospitalist Progress Note ---
Date of Service May 01, 2022 Assessment & Plan (1) Closed right ankle fracture: Plan: per Dr. Melvin's notes with addendum: 81-year-old female with history of diabetes type 2, atrial fibrillation on Eliquis, irritable bowel syndrome, CKD stage III, vertigo, etc. (1) Closed right ankle fracture: Plan: 81-year-old female with history of diabetes type 2, atrial fibrillation on Eliquis, irritable bowel syndrome, CKD stage III, vertigo, etc. Presenting with mechanical fall, and resultant ankle fracture. Mechanical fall Right ankle fracture Age-related osteoporosis with current pathologic fracture, R bimalleolar Right ankle x-ray:Bimalleolar fracture is seen with a Dyer B fracture of the fibula and medial malleolus fracture. Exam is limited by patient positioning. Pain control, bedrest for now Underwent open reduction and internal fixation on April 26 2022 Plan: 05/01 Fever likely secondary to Pneumonia denies cough, dysphagia blood culture pending urine culture pending IV Cefepime Day 1 IV fluids repeat CXR in 2-3 days to monitor effusion Chornic Atrial fibrillation on Eliquis Permanent Atrial Fibrillation Ventricular rate on lower side note on tele. Hypotensive intermittently Cardizem reduced to 120mg once daily. IV fluids Elevated temperature Low-grade temperature of 38.0 C earlier in the admission 2 blood cultures done since admission on April 22 and ; both are negative. Urine culture showed different organisms; repeat urine culture ordered which is also negative. Received ertapenem earlier in the hospitalization; discontinued. 05/01 management per above CKD stage III At baseline History of diabetes type 2 Not on any medications History of vertigo As needed meclizine DVT prophylaxis Eliquis Disposition PT OT evaluation; will need rehab placement. Case management on board. Discharge when placement available.Presenting with mechanical fall, and resultant ankle fracture. Admission and Anticipated Discharge Date Admission Date: April 21, 2022 Subjective ff up for s/p R ankle surgery, etc seen resting in bed, comfortable states she feels ok overall, just bored spiking fever denies shortness of breath, cough, problems with swallowing denies abdominal pain, dysuria, nausea/vomiting, diarrhea no other symptoms Review of Systems Review of Systems: all noted and negative except for above Physical Exam Physical Exam: General- oriented x 3, not in distress, speaks in sentences with no effort or accessory muscle use Eyes- anicteric Neck- no JVD Lungs-decreased breath sounds at right lung base, no crackles or wheezing Clear on the left Heart- normal rate, regular rhythm; no murmurs Abdomen- normal bowel sounds, nondistended, soft, nontender Extremities- no pretibial edema, no calf tenderness Cast over the right lower extremity Neuro- alert, oriented x 3; no gross focal neurologic deficits Skin- warm & dry Results & Data Results & Data ([facility]) Vital Signs (Past 12 Hours) Vital Signs Temp Pulse Pulse Resp BP BP Pulse Ox 05/01/22 16:47 37.0 C 68 18 86/40 L 93/52 L 96 05/01/22 15:00 77 05/01/22 11:10 37.0 C 83 19 95/58 L 95 05/01/22 10:12 37.7 C H 92 H 20 91/48 L 94 05/01/22 07:20 107 H 05/01/22 07:48 38.3 C H 95 H 18 102/63 93 05/01/22 07:51 O2 Del Method O2 Flow Rate 05/01/22 16:47 Nasal Cannula 2 05/01/22 15:00 05/01/22 11:10 Nasal Cannula 05/01/22 10:12 Nasal Cannula 2 05/01/22 07:20 05/01/22 07:48 Room Air 05/01/22 07:51 Nasal Cannula 2 all noted and reviewed including below
[2022-05-01] MEDS: MELATONIN 3 MG TAB PO PRN (19:26)
[2022-05-02] MEDS: SODIUM CHLORIDE 0.9% 1000ML 1,000 ML IV SCH ×2 (07:34→17:21)
[2022-05-02] MEDS: APIXABAN 2.5 MG TAB PO SCH ×2 (07:37→21:58)
[2022-05-02] MEDS: dilTIAZem HCL 120 MG CAPCR PO SCH (07:39)
[2022-05-02] MEDS: MULTIVITAMIN TAB PO SCH (07:39)
[2022-05-02] MEDS: ROSUVASTATIN CALCIUM 10 MG TAB PO SCH (07:39)
[2022-05-02] MEDS: ACETAMINOPHEN 325 MG TAB PO PRN (07:42)
[2022-05-02] MEDS: CEFEPIME 2,000 MG in SYRINGE 0 ML IV SCH ×2 (09:33→22:00)
[2022-05-02] MEDS: MECLIZINE HCL 25 MG TAB PO PRN (09:33)
--- NOTE | 2022-05-02 13:53 | Hospitalist Progress Note ---
Date of Service May 02, 2022 Assessment & Plan (1) Closed right ankle fracture: Plan: per Dr. Melvin's notes with addendum: 81-year-old female with history of diabetes type 2, atrial fibrillation on Eliquis, irritable bowel syndrome, CKD stage III, vertigo, etc. Presenting with mechanical fall, and resultant ankle fracture. Right ankle fracture Status post mechanical fall Age-related osteoporosis with current pathologic fracture, R bimalleolar Right ankle x-ray: Bimalleolar fracture is seen with a Dyer B fracture of the fibula and medial malleolus fracture. Exam is limited by patient positioning. Pain control, bedrest for now Orthopedic service consult N.p.o. after midnight No medical contraindications for possible orthopedic surgery, patient low to moderate risk for cardiopulmonary complications given age, and other comorbidities 05/02 Fever likely secondary to Pneumonia CXR R lower lobe pneumonia denies cough, dysphagia blood culture pending urine culture pending IV Cefepime Day 2 IV fluids improving repeat CXR in 2-3 days to monitor effusion Chornic Atrial fibrillation on Eliquis Permanent Atrial Fibrillation Continue diltiazem 120 mg daily on Eliquis CKD stage III At baseline History of diabetes type 2 Not on any medications History of vertigo As needed meclizine DVT prophylaxis Eliquis Disposition will need acute rehab or jail facility Admission and Anticipated Discharge Date Admission Date: April 21, 2022 Subjective ff up for s/p r ankle surgery, pneumonia, etc seen resting in bed, comfortable on 2L nasal cannula feels fine overall no SOB, cough, fever resolved no other symptoms Review of Systems Review of Systems: all noted and negative except for above Physical Exam Physical Exam: General- oriented x 3, not in distress, speaks in sentences with no effort or accessory muscle use Eyes- anicteric Neck- no JVD Lungs- decreased BS R lower lobe, clear on the L Heart- normal rate, regular rhythm; no murmurs Abdomen- normal bowel sounds, nondistended, soft, nontender Extremities- no pretibial edema, no calf tenderness R LE- cast in place Neuro- alert, oriented x 3; no gross focal neurologic deficits Skin- warm & dry Results & Data Results & Data ([facility]) Vital Signs (Past 12 Hours) Vital Signs Temp Pulse Pulse Resp BP BP Pulse Ox 05/02/22 10:56 36.8 C 85 18 103/64 95 05/02/22 10:06 05/02/22 06:00 81 05/02/22 08:33 37.3 C 85 18 111/74 95 05/02/22 03:15 69 20 93/57 L 98 O2 Del Method O2 Flow Rate 05/02/22 10:56 Nasal Cannula 1 05/02/22 10:06 Nasal Cannula 2 05/02/22 06:00 05/02/22 08:33 Nasal Cannula 1 05/02/22 03:15 Nasal Cannula 2 all noted and reviewed including below
[2022-05-02] MEDS: MELATONIN 3 MG TAB PO PRN (21:58)
[2022-05-03] MEDS: SODIUM CHLORIDE 0.9% 1000ML 1,000 ML IV SCH ×2 (03:18→13:52)
[2022-05-03 07:00] LABS: Creatinine Clr Calc Pharmacy 56.4 ml/min; Est GFR (African American) 87.3 ml/min; Est GFR (Non-African American) 75.3 ml/min
[2022-05-03] MEDS: MECLIZINE HCL 25 MG TAB PO PRN ×3 (07:21→20:56)
[2022-05-03] MEDS: APIXABAN 2.5 MG TAB PO SCH (07:21)
[2022-05-03] MEDS: MULTIVITAMIN TAB PO SCH (07:22)
[2022-05-03] MEDS: ROSUVASTATIN CALCIUM 10 MG TAB PO SCH (07:22)
[2022-05-03] MEDS: dilTIAZem HCL 120 MG CAPCR PO SCH (07:22)
[2022-05-03] MEDS: ACETAMINOPHEN 325 MG TAB PO PRN (08:07)
--- NOTE | 2022-05-03 08:50 | XRay Report ---
XR chest 1V portable HISTORY: Pneumonia. Follow-up. COMPARISON: Chest 05/01/2022. FINDINGS: No pneumothorax. The heart remains enlarged. Bibasilar linear densities persist. Progressiv e hazy appearance to the right lung which may represent a layering pleural effusion with superimposed pneumonitis. No evidence for pulmonary edema. IMPRESSION: Progressive hazy appearance to the right lung which likely represents a layering pleural effusion wit h a superimposed pneumonitis. Partial collapse of the right upper lobe is considered less likely give n the stable appearance of the right minor fissure. This can be confirmed with PA and lateral views o f the chest. ACT 112: Negative or not required by law. Electronically signed by: Cyril Herrera M.D. 05/03/2022 8:48 AM
[2022-05-03] MEDS: CEFEPIME 2,000 MG in SYRINGE 0 ML IV SCH (09:29)
--- NOTE | 2022-05-03 11:07 | CT Scan Report ---
CT chest diagnostic wo con CT DOSE: 253.55 mGy.cm HISTORY: pneumonia, r/o effusion TECHNIQUE: Multiaxial CT images of the chest were performed without contrast. A dose lowering techni que was utilized adhering to the principles of ALARA. COMPARISON: Chest x-ray 05/03/2022. FINDINGS: Partial opacification of the distal right lower lobe bronchi. The remaining central airways are patent. No pneumothorax. There is a moderate layering right pleural effusion which corresponds t he chest x-ray abnormality. There is a small left pleural effusion. Subcentimeter mediastinal and hil ar lymph nodes do not meet CT criteria for pathologic involvement. Normal esophagus. The heart is mil dly enlarged. Trace pericardial effusion is noted. Calcified plaque within the normal caliber thoraci c aorta. Dense mitral annulus calcifications are noted. There are moderate to severe coronary artery calcifications. Limited views the upper abdomen demonstrate normal liver, spleen, left adrenal gland. Multifocal small right perinephric gas and fluid collections are partially visualized. These are con cerning for small perinephric abscesses or recent postoperative changes. These abut the undersurface of the right hemidiaphragm. There is mild thickening of the right posterior basal pleura. These perin ephric fluid collections. Therefore, secondary infection of the pleural/pleural effusion is not exclu ded. Fat stranding surrounding the right adrenal gland is likely reactive to the perinephric abnormal ity. There is a 1.7 cm stone within the right kidney, unchanged. Near-complete consolidation within t he right lower lobe and partial consolidation within the left lower lobe posteriorly favor compressiv e atelectasis from the pleural effusions. A pneumonia could also have a similar appearance in the jaydon ropriate clinical setting. No acute fractures identified. IMPRESSION: 1. Moderate right and small left pleural effusions. 2. Cardiomegaly and a trace pericardial effusion. 3. Partially visualized multifocal small right perinephric gas and fluid collections. These are nonsp ecific but could represent abscesses or could be due to prior surgical intervention. Clinical correla tion recommended. These abut the undersurface of the right hemidiaphragm were there is mild pleural t hickening within the right posterior pleura. Therefore, secondary infection of the right pleural effu sae is not excluded. 4. Bilateral lower lobe consolidation favors compressive atelectasis from the pleural effusions. A pn eumonia could also have a similar appearance in the appropriate clinical setting. 5. Additional findings as described above. ACT 112: Negative or not required by law. Electronically signed by: Cyril Herrera M.D. 05/03/2022 11:05 AM
[2022-05-03] MEDS ORDERED: ERTAPENEM SODIUM 1,000 MG in SYRINGE 0 ML IV SCH (12:30)
--- NOTE | 2022-05-03 13:03 | Pulmonary Consultation ---
Date of Consultation May 03, 2022 Assessment & Plan (1) Volume overload: She is 8.4 L positive since admission. Check BNP and if elevated, initiate low- dose IV Lasix. Discontinue further fluids. Patient able to take p.o. (2) Bilateral pleural effusion: Likely secondary to volume overload. Consider updated echo. Doubt infectious etiology as the patient is afebrile and does not appear septic. There are some small pockets of air below the liver that are concerning for a po ssible intra-abdominal process. Recommend CT abdomen and pelvis for further evaluation. Discussed with Dr. Jarvis at bedside who is seeing her for the possibility of a perinephric infection. I do not think the intra-abdominal process and pleural effusions are related. Procalcitonin ordered to evaluate for infectious process in the lungs. Will hold the evening dose of Eliquis tonight and the morning dose tomorrow and reevaluate need for thoracentesis tomorrow. (3) Atelectasis: Recommend continued use of the incentive spirometer. She used the device in front of me and was able to get approximately 750 mL volumes. I encouraged her to do this 10 times every hour. (4) UTI due to extended-spectrum beta lactamase (ESBL) producing Escherichia coli: Currently on IV ertapenem. Recommend contact isolation precautions due to ESBL organism. Plan Thank you for the consult. Please call with questions. History of Present Illness Reason for Consultation: "pleural effusion, pneumonia, hypoxia" Attending Physician: Jeffry Morris MD History of Present Illness 81-year-old female who presented to the hospital 04/21/2022 due to a mechanical fall which led to a right ankle fracture. She is status post surgical repair on 04/26/2022. She is started spiking fevers soon after and was started on antibiotics. She had a chest x-ray 05/01/2022 which revealed development of a right basilar opacity and left basilar opacity. Subsequent chest x-ray 2 days later revealed progressive haziness of the right lung with layering effusions. CT chest completed yesterday revealed small bilateral effusions, right greater than left. There was some concern of perinephric gas on the CT chest. Patient is currently on ertapenem, normal saline, rosuvastatin, Eliquis 2.5 twice daily and diltiazem 120 p.o. every morning. She currently denies any shortness of breath. She is on 2 L of oxygen saturating 97%. She denies any chest pain. No fevers, chills or night sweats. She did have some subjective fevers a couple of days ago. She denies any prior issues with her lungs except for having COVID-19 in December of last year. She is nonambulatory at this time due to the right ankle fracture. She also had a UA which revealed ESBL E. coli 05/01/2022. Echo 07/26/2022 revealed an LVEF of 55 to 60%. Moderate mitral annular danielle cification. Aortic valve sclerosis which is mild. She is 8.4 L positive since hospital admission. Allergies Allergy/AdvReac Type Severity Reaction Status Date / Time JAC Inhibitors Allergy Intermediate edema Verified 04/21/22 17:24 face/lips/tongue azithromycin AdvReac Intermediate severe Verified 04/21/22 17:24 [From Zithromax Z-Devon] vertigo diphenhydramine AdvReac Mild flushing, Verified 04/21/22 17:24 hyperactivity Home Medications Medication Instructions Recorded Confirmed Type diphenoxylate-atropine 2.5 1 tab PO .UD PRN Diarrhea 04/12/18 04/21/22 History mg-0.025 mg tablet meclizine 25 mg tablet 25 mg PO TID PRN Dizziness Or 04/12/18 04/21/22 History Vertigo tramadol 50 mg tablet 50 mg PO Q6H PRN Pain,severe' 06/20/20 04/21/22 History multivitamin 1 tab PO QAM 07/25/21 04/21/22 History apixaban 2.5 mg tablet (Eliquis) 2.5 mg PO AMHS 04/21/22 04/21/22 History diltiazem HCl 240 mg 240 mg PO QAM 04/21/22 04/21/22 History capsule,extended release 24 hr (Cardizem CD) lorazepam 1 mg tablet 1 mg PO TID PRN extreme vertigo 04/21/22 04/21/22 History rosuvastatin 10 mg tablet 10 mg PO QAM 04/21/22 04/21/22 History Patient History Medical History (Updated 05/03/22 @ 14:30 by Alex Nelson MD) Actinic keratosis Atelectasis Atrial fibrillation, new onset Bilateral pleural effusion Diabetes mellitus DIET CONTROLLED DM type 2 (diabetes mellitus, type 2) Hypertension Osteoarthritis UTI due to extended-spectrum beta lactamase (ESBL) producing Escherichia coli Vertigo Volume overload Surgical History History of bilateral tubal ligation History of total knee replacement LEFT Hx of right cataract extraction Family History Father Family history of diabetes mellitus Mother Family history of diabetes mellitus Brother Family history of diabetes mellitus Social History Smoking Status: Never smoker Tobacco Type: Cigarettes Second Hand Exposure: No; Hx Alcohol Use: No Hx Substance Use: No Preferred Language: Khmer Communication Ability: Effective Section Leader Screen Printing Required: No Beliefs That Will Affect Care: None Current Living Situation: Alone Current Living Situation Comment: DAUGHTER & GRANDSON NEARBY Other Information That Helps Us Care for You: No Feels Safe at Home: Yes Safety Concerns: Feels Safe At This Time Assistive Devices: Cane Review of Systems Review of Systems: All systems reviewed & are unremarkable except as noted in HPI & below Physical Exam Physical Exam: Constitutional: Patient appears to be of their stated age. Patient is in no apparent distress. Patient is well-developed. Eyes: Pupils are equal round and reactive to light. Conjunctivae are normal. Anicteric sclera. Ears nose, mouth and throat: Deferred. Neck: Trachea is midline. Visual inspection is normal. Respiratory: Clear to auscultation bilaterally. No use of accessory muscles. Mildly diminished at the bases bilaterally with crackles. Cardiovascular: Regular rate and rhythm. No murmurs. No edema. Gastrointestinal: Normal bowel sounds, soft, nontender and nondistended. No hepatosplenomegaly noted. Musculoskeletal: No cyanosis. Patient is able to move all extremities. Skin: No rashes, warm dry and intact. Neurologic: No obvious focal neurological deficits seen. Psychiatric: Alert and oriented x3 with a euthymic affect. Results & Data Results & Data ([facility]) Vital Signs (Past 12 Hours) Vital Signs Temp Pulse Pulse Resp BP BP Pulse Ox 05/03/22 12:18 36.8 C 78 18 96/56 L 97 05/03/22 11:24 05/03/22 07:30 37.8 C H 79 16 114/58 L 95 05/03/22 06:00 81 05/03/22 03:07 37.1 C 68 16 107/59 L 95 O2 Del Method O2 Flow Rate 05/03/22 12:18 Nasal Cannula 2 05/03/22 11:24 Nasal Cannula 2 05/03/22 07:30 Nasal Cannula 2 05/03/22 06:00 05/03/22 03:07 Nasal Cannula 2 PG Care Time/CCT Total # of Minutes Spent Total Time Spent with Patient: Total time spent is greater than 50% in coordination of care (as documented) at patient's floor/unit and/or counseling patient: Coding Level of Care Code 69787 INT INP/OBS CARE 3/75MIN Diagnoses Volume overload E87.70 Bilateral pleural effusion J90 Atelectasis J98.11 UTI due to extended-spectrum beta lactamase (ESBL) producing Escherichia coli N39.0; B96.29; Z16.12
--- NOTE | 2022-05-03 14:17 | Urology Consultation ---
Date of Consultation May 03, 2022 Assessment & Plan (1) UTI due to extended-spectrum beta lactamase (ESBL) producing Escherichia coli: Recent urine culture demonstrating E. coli with ESBL. She was switched to ertapenem based on cultures. Currently tolerating the medication well. She has been having intermittent low-grade fevers. (2) Staghorn renal calculus: Known history of right-sided staghorn renal stone. Nuclear medicine identified essentially no function of the right kidney. Stone has not been symptomatic in the past, so has been monitored. Prior discussion included radical nephrectomy. (3) Perinephric abscess: Perinephric gas and fluid collections near the right kidney, also right under the diaphragm currently of unclear etiology. No evidence of gas within the visualized kidney parenchyma or collecting system. I reviewed the images with radiology and there does not appear to be a fluid collection appropriate for percutaneous drainage at this point. Other possible interventions for perinephric infection would include surgical exploration and drainage with possible nephrectomy. She has no recent abdominal surgery to explain gas in this area. It does not have the appearance of free abdominal air to suggest perforated hollow organ. The close proximity to the lung suggests possible pleural process. Prior to any procedural intervention or drainage, I recommend further characterizing the collection and the kidneys with CT scan of the abdomen pelvis with contrast. Plan Recommendations: -Continue ertapenem based on recent culture -CT scan of the abdomen pelvis with contrast -Continue supportive care, hold off on procedural intervention for the moment Urology will follow along History of Present Illness Reason for Consultation: ? Perinephric abscess Attending Physician: Jeffry Morris MD History of Present Illness This is an 81-year-old female previously followed by urology for nephrolithiasis. She has a known staghorn stone in the right kidney. She previously had a nuclear medicine study which demonstrated essentially no function in the right kidney. She has previously discussed radical nephrectomy with Dr. Simpson, but at that time she was asymptomatic and they elected to defer intervention. She was admitted to the hospital on 04/21/2022 after sustaining a mechanical fall and associated right ankle fracture. She subsequently underwent right ORIF on 04/26/2022. Since her surgery, she has had intermittent fevers, thought to be related to pneumonia. She has had persistent supplemental oxygen requirement. She has had a persistent low-grade leukocytosis ranging from 11.214.27. Most recently, hemoglobin has been stable at 8.1. Creatinine from 05/03/2022 was 0.75. Urinal urine culture from 05/01 identified ESBL E. coli. She had previously been on cefepime, but when this culture returned she was switched to ertapenem based on sensitivities. Blood cultures from 05/01/2022 were negative at 48 hours. Due to ongoing oxygen requirement, CT scan of the chest was performed on 05/03/2022. This demonstrated bilateral pleural effusions, but also identified small perinephric gas and fluid collections near the right kidney. I independently reviewed these images. There did not appear to be any gas within the kidney or collecting system. The previously seen stone is still present, comparing it to prior images it is most likely still a staghorn calculus. I did not appreciate any distinct collection that would be a candidate for percutaneous drainage. The collections did not have the appearance of intra- abdominal free air. At the bedside, today she denies any recent dysuria. She denies any flank pain or abdominal pain. She has an umbilical hernia and there have been no changes with that, specifically no induration or ecchymosis. She is not having nausea or vomiting. Allergies Allergy/AdvReac Type Severity Reaction Status Date / Time JAC Inhibitors Allergy Intermediate edema Verified 04/21/22 17:24 face/lips/tongue azithromycin AdvReac Intermediate severe Verified 04/21/22 17:24 [From Zithromax Z-Devon] vertigo diphenhydramine AdvReac Mild flushing, Verified 04/21/22 17:24 hyperactivity Home Medications Medication Instructions Recorded Confirmed Type diphenoxylate-atropine 2.5 1 tab PO .UD PRN Diarrhea 04/12/18 04/21/22 History mg-0.025 mg tablet meclizine 25 mg tablet 25 mg PO TID PRN Dizziness Or 04/12/18 04/21/22 History Vertigo tramadol 50 mg tablet 50 mg PO Q6H PRN Pain,severe' 06/20/20 04/21/22 History multivitamin 1 tab PO QAM 07/25/21 04/21/22 History apixaban 2.5 mg tablet (Eliquis) 2.5 mg PO AMHS 04/21/22 04/21/22 History diltiazem HCl 240 mg 240 mg PO QAM 04/21/22 04/21/22 History capsule,extended release 24 hr (Cardizem CD) lorazepam 1 mg tablet 1 mg PO TID PRN extreme vertigo 04/21/22 04/21/22 History rosuvastatin 10 mg tablet 10 mg PO QAM 04/21/22 04/21/22 History Patient History Medical History Actinic keratosis Atrial fibrillation, new onset Diabetes mellitus DIET CONTROLLED DM type 2 (diabetes mellitus, type 2) Hypertension Osteoarthritis Vertigo Surgical History History of bilateral tubal ligation History of total knee replacement LEFT Hx of right cataract extraction Family History Father Family history of diabetes mellitus Mother Family history of diabetes mellitus Brother Family history of diabetes mellitus Social History Smoking Status: Never smoker Tobacco Type: Cigarettes Second Hand Exposure: No; Hx Alcohol Use: No Hx Substance Use: No Preferred Language: Macedonian Communication Ability: Effective Bias Binding Folder Required: No Beliefs That Will Affect Care: None Current Living Situation: Alone Current Living Situation Comment: DAUGHTER & GRANDSON NEARBY Other Information That Helps Us Care for You: No Feels Safe at Home: Yes Safety Concerns: Feels Safe At This Time Assistive Devices: Cane Review of Systems Review of Systems: 12 point review of systems negative except for otherwise indicated. Physical Exam Physical Exam: Frail-appearing, NAD Constitutional: Well-developed Eyes: Conjugate gaze Respiratory: Breathing comfortably on 2 L supplemental oxygen by nasal cannula Cardiovascular: Well-perfused. Gastrointestinal (Abdomen): Abdomen soft, nontender, nondistended. No ecchymoses. Non-peritonitic. No left CVA tenderness. Mild right CVA tenderness Musculoskeletal: RLE cast in place Skin: No flushing, nondiaphoretic Neurologic: Grossly normal Psychiatric: Appropriate affect Genitourinary: Mild right flank tenderness to percussion Results & Data ([facility]) Vital Signs (Past 12 Hours) Vital Signs Temp Pulse Pulse Resp BP BP Pulse Ox 05/03/22 12:18 36.8 C 78 18 96/56 L 97 05/03/22 11:24 05/03/22 07:30 37.8 C H 79 16 114/58 L 95 05/03/22 06:00 81 05/03/22 03:07 37.1 C 68 16 107/59 L 95 O2 Del Method O2 Flow Rate 05/03/22 12:18 Nasal Cannula 2 05/03/22 11:24 Nasal Cannula 2 05/03/22 07:30 Nasal Cannula 2 05/03/22 06:00 05/03/22 03:07 Nasal Cannula 2 PG Care Time/CCT Total # of Minutes Spent Total Time Spent with Patient: Total time spent is greater than 50% in coordination of care (as documented) at patient's floor/unit and/or counseling patient: Coding Level of Care Code 26143 INT INP/OBS CARE MIN Diagnoses UTI due to extended-spectrum beta lactamase (ESBL) producing Escherichia coli N39.0; B96.29; Z16.12 Staghorn renal calculus N20.0 Perinephric abscess N15.1
[2022-05-03] MEDS ORDERED: FUROSEMIDE INJ 20 MG/2 ML VIAL IV ONE (14:46)
[2022-05-03] MEDS ORDERED: OPTIRAY 320 500ml IV ONE (15:48)
--- NOTE | 2022-05-03 15:48 | Hospitalist Progress Note ---
Date of Service May 03, 2022 Assessment & Plan (1) Closed right ankle fracture: Plan: per Dr. Melvin's notes with addendum: 81-year-old female with history of diabetes type 2, atrial fibrillation on Eliquis, irritable bowel syndrome, CKD stage III, vertigo, etc. Presenting with mechanical fall, and resultant ankle fracture. Right ankle fracture Status post mechanical fall Age-related osteoporosis with current pathologic fracture, R bimalleolar Right ankle x-ray: Bimalleolar fracture is seen with a Dyer B fracture of the fibula and medial malleolus fracture. Exam is limited by patient positioning. Pain control, bedrest for now Orthopedic service consult N.p.o. after midnight No medical contraindications for possible orthopedic surgery, patient low to moderate risk for cardiopulmonary complications given age, and other comorbidities 05/02 Fever likely secondary to Pneumonia, E coli ESBL UTI Patient had a low-grade fever this morning CXR R lower lobe pneumonia CT chest: Bilateral pleural effusion right greater than left, possible pneumonia in the right lower lobe CT abdomen: Possible right kidney abscess Urine culture: E. coli ESBL Blood cultures: Negative Change cefepime to ertapenem day #1 Pulmonology service consulted for pleural effusion with pneumonia Urology service consulted for possible right kidney abscess-recommend CT abdomen pelvis with contrast [place] Atrial fibrillation on Eliquis Permanent Atrial Fibrillation Continue diltiazem 120 mg daily on Eliquis CKD stage III At baseline History of diabetes type 2 Not on any medications History of vertigo As needed meclizine DVT prophylaxis Eliquis Disposition will need acute rehab or [facility] facility Admission and Anticipated Discharge Date Admission Date: April 21, 2022 Subjective Follow-up for status post right ankle surgery, fever, etc. Had low-grade fever this morning Seen resting in bed, sitting up, comfortable, reading a book, on 2 L of oxygen via nasal cannula States she feels okay overall No shortness of breath, cough, fevers or chills, chest pain Denies abdominal pain, nausea vomiting No problems with urination No other symptoms Review of Systems Review of Systems: all noted and negative except for above Physical Exam Physical Exam: General- oriented x 3, not in distress, speaks in sentences with no effort or accessory muscle use Eyes- anicteric Neck- no JVD Lungs-decreased breath sounds right lower lobe, clear on the left Heart- normal rate, regular rhythm; no murmurs Abdomen- normal bowel sounds, nondistended, soft, nontender Extremities- no pretibial edema, no calf tenderness Right lower extremity-cast in place, no edema noted Neuro- alert, oriented x 3; no gross focal neurologic deficits Skin- warm & dry Results & Data Results & Data ([facility]) Vital Signs (Past 12 Hours) Vital Signs Temp Pulse Pulse Resp BP BP Pulse Ox 05/03/22 15:32 37.3 C 81 18 106/62 97 05/03/22 12:18 36.8 C 78 18 96/56 L 97 05/03/22 11:24 05/03/22 07:30 37.8 C H 79 16 114/58 L 95 05/03/22 06:00 81 O2 Del Method O2 Flow Rate 05/03/22 15:32 Nasal Cannula 2 05/03/22 12:18 Nasal Cannula 2 05/03/22 11:24 Nasal Cannula 2 05/03/22 07:30 Nasal Cannula 2 05/03/22 06:00 all noted and reviewed including below
[2022-05-03] MEDS ORDERED: OPTIRAY 350 100ml IV ONE (15:50)
--- NOTE | 2022-05-03 16:38 | CT Scan Report ---
ABDOMEN AND PELVIS CT WITH IV CONTRAST CT DOSE: 964.76 mGycm HISTORY: Abnormal chest CTA. Evaluate right kidney. r/o renal abscess TECHNIQUE: Multiaxial CT images of the abdomen and pelvis were performed following the use of intrave nous contrast. A dose lowering technique was utilized adhering to the principles of ALARA. COMPARISON STUDY: Abdomen and pelvis CT 06/03/2021. FINDINGS: A moderate right and small left pleural effusions are again noted. Consolidation of the elinor ateral lower lobes posteriorly right greater than left. This favors compressive atelectasis from the pleural effusions. A pneumonia could also have a similar appearance. A small pericardial effusion and mitral annulus calcifications are present. Small to moderate size fat-containing umbilical hernia, u nchanged. Cholelithiasis. Trace pericholecystic fluid is noted. This may be reactive. No hepatic or s plenic masses. The pancreas, left kidney, left adrenal gland are unremarkable. Inflammatory change vinson rrounding the right adrenal gland is noted. Mild right retroperitoneal lymphadenopathy which is likel y reactive. The main portal vein is patent. Normal caliber abdominal aorta. Bladder wall thickening i s noted. The uterus and ovaries are unremarkable. Colonic diverticulosis. No evidence for acute diver ticulitis. No bowel obstruction. Normal appendix. There is again noted a large staghorn calculus invo lving the majority of the right renal collecting system. Enlargement and hypodense calyces/medullary pyramids seen within the right kidney which demonstrates near diffuse cortical atrophy. There is infl ammatory change surrounding the right kidney with extensive urothelial thickening within the right re nal pelvis and proximal right ureter. In addition, there are multiloculated right perinephric fluid c ollections which extend into beyond Gerota's fascia and into the right lateral abdominal wall best se en on image 160. These are consistent with multiloculated abscesses. The right lateral abdominal wall abscess measures 3.8 x 2.5 cm. Total size of the multiloculated perinephric abscesses within the rig ht subdiaphragmatic space measure 6.0 x 5.0 cm. There appear to be a small fistulas extending to the right pleural space, ascending colon (image 172), and the duodenum (image 127). Small focus of gas no devin within the superior right perinephric abscess. Hyperdense material within the right ureter could represent hematuria. 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 There is mild thickening within the right posterior basal pleura. IMPRESSION: 1. 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 2. There are multiloculated right perinephric abscesses which extend into the right lateral abdominal wall as described above. These abscesses demonstrate small fistulas extending into the right pleural space, ascending colon, and duodenum. 3. Moderate right and small left pleural effusions. There is a possible fistula to the right pleural space from the right perinephric abscess which raises the possibility of a superinfected right pleura l effusion. 4. Additional findings as described above. 5. This report was called/faxed to the referring physician following dictation. ACT 112: Negative or not required by law. Electronically signed by: Cyril Herrera M.D. 05/03/2022 4:36 PM
--- NOTE | 2022-05-03 18:21 | Hospitalist Progress Note ---
Date of Service May 03, 2022 Assessment & Plan Admission and Anticipated Discharge Date Admission Date: April 21, 2022 Results & Data Results & Data ([facility] Vital Signs (Past 12 Hours) Vital Signs Temp Pulse Pulse Resp BP BP Pulse Ox 05/03/22 15:00 80 05/03/22 15:32 37.3 C 81 18 106/62 97 05/03/22 12:18 36.8 C 78 18 96/56 L 97 05/03/22 11:24 05/03/22 07:30 37.8 C H 79 16 114/58 L 95 O2 Del Method O2 Flow Rate 05/03/22 15:00 05/03/22 15:32 Nasal Cannula 2 05/03/22 12:18 Nasal Cannula 2 05/03/22 11:24 Nasal Cannula 2 05/03/22 07:30 Nasal Cannula 2
--- NOTE | 2022-05-03 18:22 | Discharge Summary ---
Discharge Summary Date of Service May 03, 2022 Notes For Next Care Provider PLEASE REFER TO ASSESSMENT AND PLAN BELOW Medication Changes From Visit ERTAPENEM IV ADDED ELIQUIS ON HOLD DILTIAZEM DECRESEAD TO 120MG DAILY Admission HPI Per Admitting Provider 81-year-old female with history of diabetes type 2, atrial fibrillation on Eliquis, irritable bowel syndrome, CKD stage III, vertigo, etc. Presenting with mechanical fall, and resultant ankle fracture. Patient was walking with her cane, tripped over her sliding door, and fell on the ground. Patient then developed pain over the right foot. Denies head trauma, loss of consciousness, chest pain, shortness of breath, palpitations, dizziness. At the ER, patient was found to have bimalleolar fracture on the right ankle per x-ray. Orthopedic service noted. Hospitalist consulted for admission. Seen resting in bed, comfortable, not in distress States right ankle pain is improving after splinting done No active shortness of breath, chest pain, palpitations, dizziness, nausea vomiting No chest pain, shortness of breath while ambulating at home Admission Exam Per Admitting Provider General- oriented x 3, not in distress, speaks in sentences with no effort or accessory muscle use Head- atraumatic Eyes- PERRL, EOMI, anicteric ENT- oropharynx clear Neck- supple, no JVD, no adenopathy, no thyromegaly; carotids +2/2, no bruits appreciated Lungs- clear to auscultation bilaterally, no rales/wheezes Heart- normal rate, regular rhythm; no murmur, no gallop, no rub appreciated Abdomen- normal bowel sounds, nondistended, soft, nontender, no masses or hepatosplenomegaly Extremities- Neuro- alert, oriented x 3; CN 2-12 grossly intact; motor 5/5 bilaterally;sensation 100% on all extremities; no other gross focal neurologic deficits Skin- warm & dry Principal Dx & Hospital Course #1 = Principal Diagnosis (1) Perinephric abscess: (2) Closed right ankle fracture: (3) UTI due to extended-spectrum beta lactamase (ESBL) producing Escherichia coli: (4) Bilateral pleural effusion: (1) Closed right ankle fracture: per Dr. Melvin's notes with addendum: 81-year-old female with history of diabetes type 2, atrial fibrillation on Eliquis, irritable bowel syndrome, CKD stage III, vertigo, etc. Presenting with mechanical fall, and resultant ankle fracture. Right ankle fracture Status post mechanical fall S/P ORIF 04/26/22 Age-related osteoporosis with current pathologic fracture, R bimalleolar Right ankle x-ray:Bimalleolar fracture is seen with a Dyer B fracture of the fibula and medial malleolus fracture. Exam is limited by patient positioning. s/p ORIF 04/26/[address] Payne non weightbearing R lower extremity ff up with Ortho in 2 weeks 05/01 (+) high grade fever, work up sent 05/03 Fever likely secondary to R Kidney Abscess, with Fistula to the R pleura, Ascending Colon and Duodedum, E coli ESBL UTI Patient had a low-grade fever this morning CXR R lower lobe pneumonia CT chest: Bilateral pleural effusion right greater than left, possible pneumonia in the right lower lobe CT abdomen/pelvis with contrast: . 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 2. There are multiloculated right perinephric abscesses which extend into the right lateral abdominal wall as described above. These abscesses demonstrate small fistulas extending into the right pleural space, ascending colon, and duodenum. 3. Moderate right and small left pleural effusions. There is a possible fistula to the right pleural space from the right perinephric abscess which raises the possibility of a superinfected right pleural effusion. 4. Additional findings as described above. Urine culture: E. coli ESBL Blood cultures: Negative Change cefepime to ertapenem day #1 Pulmonology service consulted for pleural effusion with pneumonia Urology service consulted for right kidney abscess-recommend transfer to Tertiary care center: "Based on these findings I would recommend transfer to a facility with interventional radiology for consideration of percutaneous drain placement to provide some measure of source control. She will likely require nephrectomy for removal of all infected tissue, however with the possible fistulous connections to surrounding tissues, I would recommend this be performed at a tertiary center with urology, colorectal surgery and cardiothoracic surgery all available." Chronic Atrial fibrillation on Eliquis Permanent Atrial Fibrillation diltiazem dose decreased from 240 mg to 120 mg daily due to BP being on the low normal side Eliquis held for possible procedures CKD stage III At baseline History of diabetes type 2 Not on any medications History of vertigo As needed meclizine DVT prophylaxis Eliquis--> on hold Disposition transfer to [facility] plan of care discussed with patient in detail and at length all questions answered she is understanding, agreeable, comfortable with the plan of care Discharge Exam General- oriented x 3, not in distress, speaks in sentences with no effort or accessory muscle use Eyes- anicteric Neck- no JVD Lungs-decreased breath sounds right lower lobe, clear on the left Heart- normal rate, regular rhythm; no murmurs Abdomen- normal bowel sounds, nondistended, soft, nontender Extremities- no pretibial edema, no calf tenderness Right lower extremity-cast in place, no edema noted Neuro- alert, oriented x 3; no gross focal neurologic deficits Skin- warm & dry Updated Medication List Medication Instructions Recorded Confirmed Type diphenoxylate-atropine 2.5 1 tab PO .UD PRN Diarrhea 04/12/18 04/21/22 History mg-0.025 mg tablet meclizine 25 mg tablet 25 mg PO TID PRN Dizziness Or 04/12/18 04/21/22 History Vertigo tramadol 50 mg tablet 50 mg PO Q6H PRN Pain,severe' 06/20/20 04/21/22 History multivitamin 1 tab PO QAM 07/25/21 04/21/22 History apixaban 2.5 mg tablet (Eliquis) 2.5 mg PO AMHS 04/21/22 04/21/22 History diltiazem HCl 240 mg 240 mg PO QAM 04/21/22 04/21/22 History capsule,extended release 24 hr (Cardizem CD) lorazepam 1 mg tablet 1 mg PO TID PRN extreme vertigo 04/21/22 04/21/22 History rosuvastatin 10 mg tablet 10 mg PO QAM 04/21/22 04/21/22 History diltiazem HCl 120 mg 120 mg PO QAM #30 caps 05/03/22 Rx capsule,extended release 24 hr (Cardizem CD) Hospital Stay Data Consultations 04/21/22 17:08 Consult Orthopedic Surgery Routine 04/21/22 17:31 ED Decision to Admit Stat 04/21/22 17:58 Consult Orthopedic Surgery Routine 05/03/22 12:17 Consult Pulmonology Routine 05/03/22 12:18 Consult Urology Routine Procedures Performed Operation Date: 04/26/22 07:30 Actual Procedures p Right Open Reduction Internal Fixation Ankle(Right) - Chivo Payne DO Diagnostic Imagining Performed 04/26/22 [place] ankle RT min 3V RTN Routine US - OR guided needle placemen Routine 05/03/22 09:33 CT chest diagnostic wo con Urgent COMPARISON: Chest x-ray 05/03/2022. FINDINGS: Partial opacification of the distal right lower lobe bronchi. The remaining central airways are patent. No pneumothorax. There is a moderate layering right pleural effusion which corresponds the chest x-ray abnormality. There is a small left pleural effusion. Subcentimeter mediastinal and hilar lymph nodes do not meet CT criteria for pathologic involvement. Normal esophagus. The heart is mildly enlarged. Trace pericardial effusion is noted. Calcified plaque within the normal caliber thoracic aorta. Dense mitral annulus calcifications are noted. There are moderate to severe coronary artery calcifications. Limited views the upper abdomen demonstrate normal liver, spleen, left adrenal gland. Multifocal small right perinephric gas and fluid collections are partially visualized. These are concerning for small perinephric abscesses or recent postoperative changes. These abut the undersurface of the right hemidiaphragm. There is mild thickening of the right posterior basal pleura. These perinephric fluid collections. Therefore, secondary infection of the pleural/pleural effusion is not excluded. Fat stranding surrounding the right adrenal gland is likely reactive to the perinephric abnormality. There is a 1.7 cm stone within the right kidney, unchanged. Near-complete consolidation within the right lower lobe and partial consolidation within the left lower lobe posteriorly favor compressive atelectasis from the pleural effusions. A pneumonia could also have a similar appearance in the appropriate clinical setting. No acute fractures identified. IMPRESSION: 1. Moderate right and small left pleural effusions. 2. Cardiomegaly and a trace pericardial effusion. 3. Partially visualized multifocal small right perinephric gas and fluid c ollections. These are nonspecific but could represent abscesses or could be due to prior surgical intervention. Clinical correlation recommended. These abut the undersurface of the right hemidiaphragm were there is mild pleural thickening within the right posterior pleura. Therefore, secondary infection of the right pleural effusion is not excluded. 4. Bilateral lower lobe consolidation favors compressive atelectasis from the pleural effusions. A pneumonia could also have a similar appearance in the appropriate clinical setting. 5. Additional findings as described above. 05/03/22 14:23 CT abd pelvis IV con only Routine COMPARISON STUDY: Abdomen and pelvis CT 06/03/2021. FINDINGS: A moderate right and small left pleural effusions are again noted. Consolidation of the bilateral lower lobes posteriorly right greater than left. This favors compressive atelectasis from the pleural effusions. A pneumonia could also have a similar appearance. A small pericardial effusion and mitral annulus calcifications are present. Small to moderate size fat-containing umbilical hernia, unchanged. Cholelithiasis. Trace pericholecystic fluid is noted. This may be reactive. No hepatic or splenic masses. The pancreas, left kidney, left adrenal gland are unremarkable. Inflammatory change surrounding the right adrenal gland is noted. Mild right retroperitoneal lymphadenopathy which is likely reactive. The main portal vein is patent. Normal caliber abdominal aorta. Bladder wall thickening is noted. The uterus and ovaries are unremarkable. Colonic diverticulosis. No evidence for acute diverticulitis. No bowel obstruction. Normal appendix. There is again noted a large staghorn calculus involving the majority of the right renal collecting system. Enlargement and hypodense calyces/medullary pyramids seen within the right kidney which demonstrates near diffuse cortical atrophy. There is inflammatory change surrounding the right kidney with extensive urothelial thickening within the right renal pelvis and proximal right ureter. In addition, there are multiloculated right perinephric fluid collections which extend into beyond Gerota's fascia and into the right lateral abdominal wall best seen on image 160. These are consistent with multiloculated abscesses. The right lateral abdominal wall abscess measures 3.8 x 2.5 cm. Total size of the multiloculated perinephric abscesses within the right subdiaphragmatic space measure 6.0 x 5.0 cm. There appear to be a small fistulas extending to the right pleural space, ascending colon (image 172), and the duodenum (image 127). Small focus of gas noted within the superior right perinephric abscess. Hyperdense material within the right ureter could represent hematuria. 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 There is mild thickening within the right posterior basal pleura. IMPRESSION: 1. 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 2. There are multiloculated right perinephric abscesses which extend into the right lateral abdominal wall as described above. These abscesses demonstrate small fistulas extending into the right pleural space, ascending colon, and duodenum. 3. Moderate right and small left pleural effusions. There is a possible fistula to the right pleural space from the right perinephric abscess which raises the possibility of a superinfected right pleural effusion. 4. Additional findings as described above. 5. This report was called/faxed to the referring physician following dictation. ACT 112: Negative or not required by law. Pending Results Patient Have Any Pending Studies at Discharge: Yes Total Time Total Time Spent Total Time Spent (In Minutes): > 30 minutes
[2022-05-03] MEDS: MELATONIN 3 MG TAB PO PRN (20:02)
== END 2022-05-03 21:37 | disposition short-term general hospital (02) | DRG 492 ==
LOC: ED 15:08 → EDINP 17:58 → SUATTDRO 17:58 → EDINP 18:18 → 3W 21:06 → 1E 23:54 → 2W 04-25 14:21

== ENCOUNTER 2024-04-15 09:18 | Observation (INO) ==
--- NOTE | 2024-04-15 09:47 | Emergency Department Note ---
Impression & Plan Vertigo, Bronchitis ED Provider Note NAME: EDGAR BRAUN AGE: 83 SEX: F : 1940 ARRIVES VIA: Ambulance INFORMANT: Patient, ED PROVIDER(S): Sam Jacobson DO CHIEF COMPLAINT: Vomiting HPI: The patient is an 83-year-old female who presented to the emergency department for an evaluation of vomiting. The patient states that she was recently diagnosed with a bronchitis. She was treated with an antibiotic. She thinks the antibiotic made her vertigo worse. She has a history of chronic vertigo in the past. The patient denies having any fever. She denies having any chest pain or abdominal pain. She did have some difficulty breathing and cough and this is why she was treated with the antibiotic. She denies having any headache or ringing in ears. She has a history of chronic vertigo. She has not been able to take her medications for vertigo because of the vomiting today. ROS: See above HPI for pertinent positives & negatives. A total of 10 systems reviewed and were otherwise negative. PAST MEDICAL HISTORY: See Below PAST SURGICAL HISTORY: See Below FAMILY HISTORY: See Below SOCIAL HISTORY: See Below HOME MEDICATIONS: See Below ALLERGIES: See Below VITALS: See Below PHYSICAL EXAMINATION: GENERAL: The patient is awake and alert. The patient is anxious appearing. EYES: The conjunctivae are clear. The pupils are round and reactive. EARS, NOSE, MOUTH AND THROAT: The nose is without any evidence of any deformity. NECK: The neck is nontender and supple. RESPIRATORY: Normal respiratory effort is noted there is no evidence of wheezing rhonchi or rales CARDIOVASCULAR: Regular rate and rhythm noted there no murmurs rubs or gallops normal S1 normal S2. GASTROINTESTINAL: The abdomen is soft. Abdomen is nontender. MUSCULOSKELETAL/EXTREMITIES: There is no evidence of gross deformity full range of motion is noted in the hips and shoulders. SKIN: Pedal edema was noted bilaterally with chronic venous stasis changes. NEUROLOGIC: Patient is awake alert and oriented x3. There is no nystagmus. Strength was symmetric. There is no facial droop. The patient is able to hold each leg off the bed for greater than 5 seconds. MEDICAL DECISION MAKING: The patient is an 83-year-old female who presented to the emergency department for vertigo. The patient states that she has a problem with vertigo anytime she started on certain antibiotics. The patient was started on an antibiotic recently because of bronchitis. She states that she is feeling somewhat improved from the bronchitis but started having problems with her vertigo. She has been trying to take her outpatient medications without significant relief. She was treated in the emergency department in usual fashion. I discussed the patient's laboratory and radiographic studies with her. She has no focal neurologic deficits. After treatment she tried to ambulate and was not doing well. For this reason I discussed her condition with the on-call [facility] hospitalist. Triage Nursing notes reviewed. Prior medical records reviewed Vital Signs: reviewed and remarkable for bradycardia Differential diagnosis: Benign positional vertigo, dehydration, hypovolemia, anemia, tumor, infection, hypoglycemia, electrolyte abnormalities, cardiac sources, intracerebral event, toxicologic, neurologic, as well as other pathologies. ER treatment provided: See below Diagnostics interpreted by me: ECG: EKG was obtained in the emergency department. My interpretation is normal sinus rhythm at 64 bpm. There was no ectopy. There was no acute ST segment abnormalities noted. This was compared to a tracing from April 21, 2022. Atrial fibrillation has been replaced with sinus rhythm compared to the earlier tracing. Cardiac Monitoring: An order was placed for continuous cardiac monitoring. The monitor shows a rate of 56 bpm with sinus bradycardia. Laboratory studies: As stated above and show below. Imaging studies: See below. Radiographic imaging was reviewed by myself Consultation(s): I discussed this case with Dr. Morris who is on-call for the [facility] Hospitalist group. 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) History of vertigo (Chronic) Chronic fatigue syndrome (Chronic) Myalgia and myositis, unspecified (Chronic) S/P tubal ligation (Chronic) Encounter for pre-operative examination Medical History Anemia Bacteremia Obesity (BMI 35.0-39.9 without comorbidity) Right maxillary sinusitis Hypokalemia CKD (chronic kidney disease), stage III Atrial fibrillation, new onset Vertigo Actinic keratosis Diabetes mellitus DIET CONTROLLED Osteoarthritis Hypertension DM type 2 (diabetes mellitus, type 2) Surgical History Hx of right cataract extraction History of bilateral tubal ligation History of total knee replacement LEFT Family History Father Family history of diabetes mellitus Mother Family history of diabetes mellitus Brother Family history of diabetes mellitus Social History Smoking Status: Never smoker Tobacco Type: Cigarettes Second Hand Exposure: No; Do You Dip or Chew Tobacco: No; Hx Alcohol Use: No Hx Substance Use: No Preferred Language: Georgian Communication Ability: Effective Transportation Services Representative Required: No Beliefs That Will Affect Care: None Current Living Situation: Alone Current Living Situation Comment: DAUGHTER & GRANDSON NEARBY Feels Safe at Home: Yes Assistive Devices: Cane Allergies Allergies Allergy/AdvReac Type Severity Reaction Status Date / Time sulfamethoxazole Allergy Severe Vertigo Unverified 04/15/24 14:20 [From Bactrim] trimethoprim [From Bactrim] Allergy Severe Vertigo Unverified 04/15/24 14:20 JAC Inhibitors Allergy Intermediate edema Verified 04/15/24 14:20 face/lips/tongue azithromycin AdvReac Intermediate severe Verified 04/15/24 14:20 [From Zithromax Z-Devon] vertigo diphenhydramine AdvReac Mild flushing, Verified 04/15/24 14:20 hyperactivity Home Meds Home Medications Medication Instructions Recorded Confirmed meclizine 25 mg tablet 25 mg PO TID PRN Dizziness Or 04/12/18 04/15/24 Vertigo multivitamin 1 tab PO QAM 07/25/21 04/15/24 acetaminophen 500 mg tablet 500 mg PO Q6H PRN Pain 04/15/24 04/15/24 apixaban 5 mg tablet (Eliquis) 5 mg PO BID 04/15/24 04/15/24 diltiazem HCl 180 mg 180 mg PO DAILY 04/15/24 04/15/24 capsule,extended release 24 hr loperamide 2 mg capsule 4 mg PO QPM 04/15/24 04/15/24 oxybutynin chloride 10 mg 10 mg PO QAM 04/15/24 04/15/24 tablet,extended release 24 hr tramadol 100 mg tablet 100 mg PO TID PRN Pain 04/15/24 04/15/24 Previous Rx's Medication Instructions Recorded mupirocin 2 % topical ointment 1 applic topical TID #22 grams 12/20/22 Results & Data (ED) Vital Signs Vital Signs - 24 hr 04/15/24 09:13 04/15/24 09:13 04/15/24 09:30 Temperature 36.8 C Temperature Source Oral Pulse Rate - Sitting Pulse Rate - Standing Pulse Rate 68 67 Pulse Rate [Apical] 68 Pulse Rate from SpO2 Sensor Pulse Rhythm Regular Pulse Rhythm [Apical] Regular Pulse Strength Normal Pulse Strength [Apical] Normal Respiratory Rate 12 12 Respiratory Effort / Characteristics Non-Labored Non-Labored Spontaneous Respiratory Depth Normal Normal Respiratory Pattern Regular Regular Blood Pressure - Sitting Blood Pressure- Standing Blood Pressure 137/70 Blood Pressure [Left Arm] 137/70 Blood Pressure Mean 92 Blood Pressure Mean [Left Arm] 92 Pulse Oximetry 97 97 Oxygen Delivery Method Room Air Room Air Oxygen Flow Rate Sepsis Recent Fever Within 48 Hours No Sepsis New/Unexplained Change in Mental Status No Sepsis Action Taken by Nursing No Action Required 04/15/24 09:38 04/15/24 10:00 04/15/24 10:30 Temperature Temperature Source Pulse Rate - Sitting Pulse Rate - Standing Pulse Rate 68 84 59 L Pulse Rate [Apical] Pulse Rate from SpO2 Sensor 84 59 L Pulse Rhythm Regular Pulse Rhythm [Apical] Pulse Strength Pulse Strength [Apical] Respiratory Rate 12 18 17 Respiratory Effort / Characteristics Respiratory Depth Respiratory Pattern Blood Pressure - Sitting Blood Pressure- Standing Blood Pressure 132/65 134/64 Blood Pressure [Left Arm] Blood Pressure Mean 94 87 Blood Pressure Mean [Left Arm] Pulse Oximetry 97 99 91 Oxygen Delivery Method Room Air Nasal Cannula Nasal Cannula Oxygen Flow Rate 2 2 Sepsis Recent Fever Within 48 Hours Sepsis New/Unexplained Change in Mental Status Sepsis Action Taken by Nursing 04/15/24 11:00 04/15/24 11:30 04/15/24 12:03 Temperature Temperature Source Pulse Rate - Sitting Pulse Rate - Standing Pulse Rate 52 L 70 58 L Pulse Rate [Apical] Pulse Rate from SpO2 Sensor 52 L 71 58 L Pulse Rhythm Pulse Rhythm [Apical] Pulse Strength Pulse Strength [Apical] Respiratory Rate 15 21 21 Respiratory Effort / Characteristics Respiratory Depth Respiratory Pattern Blood Pressure - Sitting Blood Pressure- Standing Blood Pressure 141/72 H 138/68 138/60 Blood Pressure [Left Arm] Blood Pressure Mean 103 91 86 Blood Pressure Mean [Left Arm] Pulse Oximetry 98 99 96 Oxygen Delivery Method Nasal Cannula Nasal Cannula Nasal Cannula Oxygen Flow Rate 2 2 2 Sepsis Recent Fever Within 48 Hours Sepsis New/Unexplained Change in Mental Status Sepsis Action Taken by Nursing 04/15/24 12:30 04/15/24 12:42 04/15/24 13:00 Temperature Temperature Source Pulse Rate - Sitting Pulse Rate - Standing Pulse Rate 55 L 62 Pulse Rate [Apical] 64 Pulse Rate from SpO2 Sensor 55 L 62 Pulse Rhythm Pulse Rhythm [Apical] Pulse Strength Pulse Strength [Apical] Respiratory Rate 15 20 15 Respiratory Effort / Characteristics Non-Labored Spontaneous Respiratory Depth Normal Respiratory Pattern Blood Pressure - Sitting Blood Pressure- Standing Blood Pressure 138/69 135/73 Blood Pressure [Left Arm] 138/69 Blood Pressure Mean 117 85 Blood Pressure Mean [Left Arm] 92 Pulse Oximetry 96 99 98 Oxygen Delivery Method Nasal Cannula Nasal Cannula Nasal Cannula Oxygen Flow Rate 2 2 2 Sepsis Recent Fever Within 48 Hours Sepsis New/Unexplained Change in Mental Status Sepsis Action Taken by Nursing 04/15/24 13:27 04/15/24 14:00 Temperature Temperature Source Pulse Rate - Sitting 60 Pulse Rate - Standing 75 Pulse Rate 56 L Pulse Rate [Apical] Pulse Rate from SpO2 Sensor Pulse Rhythm Pulse Rhythm [Apical] Pulse Strength Pulse Strength [Apical] Respiratory Rate Respiratory Effort / Characteristics Respiratory Depth Respiratory Pattern Blood Pressure - Sitting 149/65 H Blood Pressure- Standing 138/76 Blood Pressure Blood Pressure [Left Arm] Blood Pressure Mean Blood Pressure Mean [Left Arm] Pulse Oximetry Oxygen Delivery Method Oxygen Flow Rate Sepsis Recent Fever Within 48 Hours Sepsis New/Unexplained Change in Mental Status Sepsis Action Taken by Longterm Medications Current Medication List: was personally reviewed by me Laboratory Data Attestation: I reviewed the patient's lab results. 04/15/24 10:22 04/15/24 10:22 Lab Results 04/15/24 04/15/24 Range/Units 09:43 10:22 WBC 6.34 (4.8-10.8) K/ul RBC 4.74 (4.20-5.40) M/uL Hgb 13.2 (12.0-16.0) g/dl Hct 41.3 (37.0-47.0) % MCV 87.1 (80.0-100.0) fL MCH 27.8 (25.0-34.0) pg MCHC 32.0 (32.0-36.0) g/dL RDW Std Deviation 46.9 H (36.4-46.3) fL RDW Coeff of Higinio 14.6 H (11.5-14.5) % Plt Count 262 (130-400) K/uL MPV 10.4 (9.4-12.4) fL Immature Gran % (Auto) 0.2 % Neut % (Auto) 58.9 % Lymph % (Auto) 33.0 % [place] % (Auto) 6.8 % Eos % (Auto) 0.6 % Baso % (Auto) 0.5 % Neut # (Auto) 3.74 (1.40-6.50) K/uL Lymph # (Auto) 2.09 (1.20-3.40) K/uL [place] # (Auto) 0.43 (0.11-0.59) K/uL Eos # (Auto) 0.04 (0.00-0.50) K/uL Baso # (Auto) 0.03 (0.00-0.20) K/uL Immature Gran # (Auto) 0.01 (0.01-0.20) K/uL PT 11.1 (9.0-12.0) Seconds INR 1.0 (0.9-1.1) APTT 25 (21-31) Seconds PTT Ratio 0.9 Sodium 141 (136-145) mmol/L Potassium 4.6 (3.5-5.1) mmol/L Chloride 107 (98-107) mmol/L Carbon Dioxide 27 (21-32) mmol/L Anion Gap 7 (3-11) BUN 25 H (6-23) mg/dl Creatinine 0.83 (0.6-1.2) mg/dl Est Cr Clr Drug Dosing 55.2 ml/min eGFR 70.34 BUN/Creatinine Ratio 30.1 H (10-20) Glucose 114 H (70-99(Fasting)) mg/dl Calcium 9.6 (8.6-10.3) mg/dl Total Bilirubin 0.9 (0.2-1.0) mg/dl AST 86 H (13-39) U/L ALT 83 H (7-52) U/L Alkaline Phosphatase 227 H (34-104) U/L Troponin I High Sens 7.7 (0-14) pg/ml Total Protein 8.5 H (6.0-8.3) gm/dl Albumin 4.2 (3.4-5.0) gm/dl Globulin 4.3 H (2.5-4.0) gm/dl Albumin/Globulin Ratio 1.0 (0.9-2) Lipase 9 L (11-82) U/L Adenovirus (PCR) Not Detected (NotDetected) B. pertussis DNA (PCR) Not Detected (NotDetected) B.parapertussis DNA PCR Not Detected (NotDetected) C. pneumoniae DNA (PCR) Not Detected (NotDetected) Coronavirus OC43 (PCR) Not Detected (NotDetected) Coronavirus HKU1 (PCR) Not Detected (NotDetected) Coronavirus 229E (PCR) Not Detected (NotDetected) SARS-CoV-2 (PCR) Not Detected (NotDetected) Coronavirus NL63 (PCR) Not Detected (NotDetected) Human Metapneumovir PCR Not Detected (NotDetected) Influenza Type A (PCR) Not Detected (NotDetected) Influenza Type B (PCR) Not Detected (NotDetected) M. pneumoniae (PCR) Not Detected (NotDetected) Parainfluenza 1 (PCR) Not Detected (NotDetected) Parainfluenza 2 (PCR) Not Detected (NotDetected) Parainfluenza 3 (PCR) Not Detected (NotDetected) Parainfluenza 4 (PCR) Not Detected (NotDetected) RSV (PCR) Not Detected (NotDetected) Entero/Rhino (PCR) Not Detected (NotDetected) Administered Medications Discontinued Medications Sodium Chloride (Nss) 500 mls @ 999 mls/hr IV .Q31M ONE Stop: 04/15/24 12:56 Last Infusion: 04/15/24 13:11 Dose: Infused Documented By: Admin: 04/15/24 12:43 Dose: 999 mls/hr Documented By: Lorazepam (Lorazepam 1 Mg/1 Ml Syr Ed Inj Use) 0.5 mg IV ONE STA Stop: 04/15/24 09:40 Last Admin: 04/15/24 10:38 Dose: 0.5 mg Documented By: AURORA Meclizine HCl (Meclizine Hcl 25 Mg Tab) 25 mg PO NOW STA Stop: 04/15/24 14:03 Last Admin: 04/15/24 14:21 Dose: 25 mg Documented By: AURORA Ondansetron HCl (Ondansetron Inj 2 Mg/Ml 2 Ml Vial) 4 mg IV NOW STA Stop: 04/15/24 09:39 Last Admin: 04/15/24 10:38 Dose: 4 mg Documented By: AURORA Imaging Data Attestation: I personally reviewed and interpreted this imaging study as follows: My Impression: CT the brain was obtained in the emergency department. My interpretation is no intracranial hemorrhage or mass effect, final report below. Chest x-ray was obtained in the emergency department. My interpretation is no free air or definite infiltrate, final report below. Radiologist's Impression: Head CT 04/15/24 09:38 CT head/brain wo con CLINICAL HISTORY: 83 years-old Female with vertigo. Acute vertigo TECHNIQUE: Multiple axial CT images of the head were obtained without contrast. A dose lowering technique was utilized adhering to the principles of ALARA. CT DOSE: 766.29 mGy.cm COMPARISON: 12/10/2021 FINDINGS: No acute intracranial hemorrhage, midline shift, intracranial mass, hydrocephalus, territorial ischemia or abnormal extra-axial collection. Involutional changes with white matter hypodensities suggestive of chronic microvascular ischemic disease. Senescent mineralization of the lentiform nuclei. Cerebral vascular calcifications. The calvarium is intact. Trace right mastoid effusion. The middle ear cavities are clear. Paranasal sinuses are clear. Unremarkable soft tissues. Prior bilateral lens repair. IMPRESSION: No acute intracranial abnormality. ACT 112: Negative or not required by law. The above report was generated using voice recognition software. It may contain grammatical, syntax or spelling errors. Electronically signed by: Chivo Mcallister M.D. 04/15/2024 10:45 AM Chest X-Ray 04/15/24 09:39 XR chest 1V portable CLINICAL HISTORY: vertigo COMPARISON STUDY: Chest radiograph and chest CT May 03, 2022. FINDINGS: Lung volumes are mildly diminished. Lungs are clear. There is no pneumothorax or pleural effusion. The heart is mildly enlarged. Mediastinal contours are normal. There is no evidence for pulmonary edema. Bilateral pleural effusions and airspace opacity shown on prior chest radiograph and chest CT have resolved. IMPRESSION: No acute cardiopulmonary findings. ACT 112: Negative or not required by law. Electronically signed by: Rajat Beard M.D. 04/15/2024 10:30 AM KUB X-Ray 04/15/24 09:39 KUB HISTORY: Acute generalized abdominal pain vertigo COMPARISON: CT 05/03/2022 FINDINGS: Cholecystectomy clips. Cardiomegaly with mitral annular calcifications. Nonobstructive bowel gas pattern. Renal shadows are obscured by bowel gas. No renal calculi. No ureteral calculi. No pneumoperitoneum or pneumatosis. No fracture. IMPRESSION: Nonobstructive bowel gas pattern. ACT 112: Negative or not required by law. The above report was generated using voice recognition software. It may contain grammatical, syntax or spelling errors. Electronically signed by: Chivo Mcallister M.D. 04/15/2024 10:17 AM Discharge Plan Visit Data Chief Complaint: Vertigo Stated Complaint: VERTIGO SX ED Provider: aSm Jacobson Discharge Problem: Vertigo, Bronchitis Patient Disposition: Being Evaluated by Hospitalist Forms Stand Alone Forms: [facility] Prescriptions Prescriptions: No Action meclizine 25 mg Tablet 25 mg PO TID PRN (Reason: Dizziness Or Vertigo) Rx Instructions: takes every morning multivitamin Tablet 1 tab PO QAM mupirocin 2 % ointment 1 applic topical TID Qty: 22 0RF loperamide 2 mg capsule 4 mg PO QPM oxybutynin chloride 10 mg tablet extended release 24hr 10 mg PO QAM diltiazem HCl 180 mg capsule,extended release 24hr 180 mg PO DAILY Eliquis 5 mg tablet 5 mg PO BID tramadol 100 mg tablet 100 mg PO TID PRN (Reason: Pain) acetaminophen [Tylenol Ex Str Rapid Release] 500 mg Tablet 500 mg PO Q6H PRN (Reason: Pain) Referrals Referrals: Stu Eisenberg MD [Primary Care Provider] -
--- NOTE | 2024-04-15 10:19 | XRay Report ---
KUB HISTORY: Acute generalized abdominal pain vertigo COMPARISON: CT 05/03/2022 FINDINGS: Cholecystectomy clips. Cardiomegaly with mitral annular calcifications. Nonobstructive jp l gas pattern. Renal shadows are obscured by bowel gas. No renal calculi. No ureteral calculi. No pn eumoperitoneum or pneumatosis. No fracture. IMPRESSION: Nonobstructive bowel gas pattern. ACT 112: Negative or not required by law. The above report was generated using voice recognition software. It may contain grammatical, syntax o r spelling errors. Electronically signed by: Chivo Mcallister M.D. 04/15/2024 10:17 AM
--- NOTE | 2024-04-15 10:32 | XRay Report ---
XR chest 1V portable CLINICAL HISTORY: vertigo COMPARISON STUDY: Chest radiograph and chest CT May 03, 2022. FINDINGS: Lung volumes are mildly diminished. Lungs are clear. There is no pneumothorax or pleural ef fusion. The heart is mildly enlarged. Mediastinal contours are normal. There is no evidence for pulmo nary edema. Bilateral pleural effusions and airspace opacity shown on prior chest radiograph and ches t CT have resolved. IMPRESSION: No acute cardiopulmonary findings. ACT 112: Negative or not required by law. Electronically signed by: Rajat Beard M.D. 04/15/2024 10:30 AM
[2024-04-15] MEDS: ONDANSETRON INJ 2 MG/ML 2 ML VIAL IV STA (10:38)
[2024-04-15] MEDS: LORazepam 1 MG/1 ML SYR ED Inj Use IV STA (10:38)
[2024-04-15 10:46] LABS: Basophils # (auto) 0.03 K/uL (0.00-0.20); Basophils % (auto) 0.5 %; Eosinophils # (auto) 0.04 K/uL (0.00-0.50); Eosinophils % (auto) 0.6 %; Hematocrit (blood only) 41.3 % (37.0-47.0); Hemoglobin 13.2 g/dl (12.0-16.0); Immature Granulocytes # (auto) 0.01 K/uL (0.01-0.20); Immature Granulocytes % (auto) 0.2 %; Lymphocytes # (auto) 2.09 K/uL (1.20-3.40); Mean Corpuscular Hemoglobin 27.8 pg (25.0-34.0); Mean Corpuscular Volume 87.1 fL (80.0-100.0); Mean Platelet Volume 10.4 fL (9.4-12.4); Monocytes # (auto) 0.43 K/uL (0.11-0.59); Monocytes % (auto) 6.8 %; Neutrophils # (auto) 3.74 K/uL (1.40-6.50); Neutrophils % (auto) 58.9 %; Platelet Count 262 K/uL (130-400); RDW Coefficient of Variation 14.6 % (11.5-14.5); RDW Standard Deviation 46.9 fL (36.4-46.3); Red Blood Count 4.74 M/uL (4.20-5.40); White Blood Count 6.34 K/ul (4.8-10.8)
--- NOTE | 2024-04-15 10:46 | CT Scan Report ---
CT head/brain wo con CLINICAL HISTORY: 83 years-old Female with vertigo. Acute vertigo TECHNIQUE: Multiple axial CT images of the head were obtained without contrast. A dose lowering tech nique was utilized adhering to the principles of ALARA. CT DOSE: 766.29 mGy.cm COMPARISON: 12/10/2021 FINDINGS: No acute intracranial hemorrhage, midline shift, intracranial mass, hydrocephalus, territorial ischem ia or abnormal extra-axial collection. Involutional changes with white matter hypodensities suggestiv e of chronic microvascular ischemic disease. Senescent mineralization of the lentiform nuclei. Cerebr al vascular calcifications. The calvarium is intact. Trace right mastoid effusion. The middle ear cavities are clear. Paranasal sinuses are clear. Unremarkable soft tissues. Prior bilateral lens repair. IMPRESSION: No acute intracranial abnormality. ACT 112: Negative or not required by law. The above report was generated using voice recognition software. It may contain grammatical, syntax o r spelling errors. Electronically signed by: Chivo Mcallister M.D. 04/15/2024 10:45 AM
[2024-04-15 11:08] LABS: Albumin Level 4.2 gm/dl (3.4-5.0); BUN Creatinine Ratio 30.1 (10-20); Bilirubin,Total 0.9 mg/dl (0.2-1.0); Calcium 9.6 mg/dl (8.6-10.3); Creatinine Clr Calc Pharmacy 55.2 ml/min; Globulin 4.3 gm/dl (2.5-4.0); Potassium 4.6 mmol/L (3.5-5.1); Total Protein 8.5 gm/dl (6.0-8.3)
[2024-04-15 11:13] LABS: Partial Thromboplastin Ratio 0.9; Partial Thromboplastin Time 25 Seconds (21-31); Prothrombin Time 11.1 Seconds (9.0-12.0); Troponin I High Sensitivity 7.7 pg/ml (0-14)
[2024-04-15 11:15] LABS: Adenovirus PCR Not Detected (NotDetected); Bordetella parapertussis PCR Not Detected (NotDetected); Bordetella pertussis PCR Not Detected (NotDetected); Chlamydia pneumoniae PCR Not Detected (NotDetected); Coronavirus 229E PCR Not Detected (NotDetected); Coronavirus CoV-2 (COVID19)PCR Not Detected (NotDetected); Coronavirus HKU1 PCR Not Detected (NotDetected); Coronavirus NL63 PCR Not Detected (NotDetected); Coronavirus OC43PCR Not Detected (NotDetected); Human Metapneumovirus PCR Not Detected (NotDetected); Influenza A PCR Not Detected (NotDetected); Influenza B PCR Not Detected (NotDetected); Mycoplasma pneumoniae PCR Not Detected (NotDetected); Parainfluenza Virus 1 PCR Not Detected (NotDetected); Parainfluenza Virus 2 PCR Not Detected (NotDetected); Parainfluenza Virus 3 PCR Not Detected (NotDetected); Parainfluenza Virus 4 PCR Not Detected (NotDetected); Respiratory Syncytial VirusPCR Not Detected (NotDetected); Rhinovirus/Enterovirus PCR Not Detected (NotDetected)
[2024-04-15] MEDS: SODIUM CHLORIDE 0.9% 500 ML IV ONE (12:43)
--- OUTSIDE RECORDS SUMMARY | 2024-04-15 13:30 | External Medical Summary | Summary of Care ---
Author Name Unknown Organization [facility] Address [address] [place] [address] Phone [phone] Care Team Providers Care Instrumentation And Controls Designer Name Role Phone Stu Eisenberg MD Primary Care Provider [phone] Reason for Visit * Reason Comments Congestion Pt here for c/o ches t congestion for the last 10 days. Pt has been taking mucinex at home and does help some. Encounter Details Date Type Department Care Team (Late st Contact Info) Description 04/08/2024 10:00 AM EST Office Visit Family Practice [facility] [address] [facility] [facility] [address] Jl Allison MD [address] [place] [address] Bronchopneumonia*; Venous stasis ulcer of left calf limited to breakdown of skin with varicose veins (HCC); Chronic heart failure with preserved ejection fraction (HFpEF) (HCC); Persistent atrial fibrillation (HCC); Charcot foot due to diabetes mellitus (HCC) Allergies Active Allergy Reactions Criticality Noted Date Comments Afshin Inhibitors Edema face/lips/tongue High 3 Amoxicillin Diarrhea Low 10/13/2017 Azithromycin Neuro complications (Please comment) 05/01/2004 vertigo Sulfamethoxazole-Trimet hoprim Unknown 03/02/2024 Vertigo Diphenhydramine-Zinc Acetate Flushing 04/20/2013 hyperactivity Lisinopril Edema face/lips/tongue High 05/28/2015 Metoprolol Diarrhea 01/10/2022 documented as of this encounter (statuses as of 04/08/2024) Medications LORazepam 1 MG Oral Tablet (Ativan)Indication s:SAIMA (generalized anxiety disorder) TAKE 1 TABLET BY MOUTH 3 TIMES A DAY NEEDED FOR ANXIETY 10 Tab 12/21/19 21 Active OneTouch UltraSoft Lancets Use as directed daily . E11.9 100 Each 3 06/29/19 22 Active OneTouch Ultra Blue In Vitro Strip (Glucose Blood) Use as directed daily . E11.9 100 Strip 3 06/29/19 22 Active OneTouch Ultra 2 w/Device Kit Check sugars once daily E11.9 1 Kit 06/29/19 22 Active Melatonin 3 MG Oral Capsule Take 1 Capsule by mouth at bedtime. Active Iron 325 (65 Fe) MG Oral TabletIndications: Iron deficiency anemia due to chronic blood loss Take 1 Tablet by mouth in the morning and 1 Tablet in the evening. 60 Tablet 06/18/19 23 Active Apixaban 5 MG Oral Tablet (Eliquis)Indicatio ns:Persistent atrial fibrillation (HCC) Take 1 Tablet by mouth in the morning and 1 Tablet before bedtime. 180 Tablet 06/08/19 24 Active dilTIAZem HCl ER Coated Beads 180 MG Oral Capsule Extended Release 24 Hour (Cardizem CD)Indications:Per sistent atrial fibrillation (HCC) Take 1 Capsule by mouth in the morning. 90 Capsule 3 07/07/19 24 Active oxyBUTYnin Chloride ER 10 MG Oral Tablet Extended Release 24 HourIndications:OA B (overactive bladder) Take 1 Tablet by mouth in the morning. Do not cut, crush or chew. 90 Tablet 3 07/14/19 24 Active Meclizine HCl 25 MG Oral Tablet (Antivert)Indicati ons:Benign paroxysmal vertigo, unspecified laterality TAKE 1 TABLET BY MOUTH THREE TIMES A DAY NEEDED FOR DIZZINESS, 90 Tablet 1 12/31/19 24 Active Loperamide HCl 2 MG Oral Capsule (Imodium) TAKE 2 TABLETS BY MOUTH EVERY EVENING 60 Capsule 3 12/31/19 24 Active Rosuvastatin Calcium 10 MG Oral Tablet (Crestor)Indicatio ns:Dyslipidemia TAKE 1 TABLET BY MOUTH EVERY DAY IN THE MORNING 90 Tablet 02/12/20 24 Active traMADol HCl 100 MG Oral TabletIndications: Primary osteoarthritis involving multiple joints Take 100 mg by mouth every 8 hours as needed for Pain, Severe. 90 Tablet 3 02/23/20 24 Active Meclizine HCl 25 MG Oral Tablet (Antivert) Take 1 Tablet by mouth 3 times a day as needed for Dizziness. 90 Tablet 1 03/18/20 24 Active levoFLOXacin 500 MG Oral Tablet (Levaquin) Take 1 Tablet by mouth in the morning for 5 days. until gone.. 5 Tablet 04/08/19 25 025 Active Mupirocin 2 % External Ointment (Bactroban) Apply 1 Application topically to affected area in the morning and 1 Application at noon and 1 Application before bedtime. Do all this for 14 days. Apply to affected area.. 22 g 04/08/19 25 025 Active documented as of this encounter (statuses as of 04/08/2024) Active Problems Problem Noted Date Diagnosed Date Obesity, Class I, BMI 30.0-34.9 (see actual BMI) 01/06/2023 Persistent atrial fibrillation 06/13/2022 Status post nephrectomy 06/13/2022 Chronic heart failure with p reserved ejection fraction (HFpEF) 06/13/2022 Controlled substance agreement signed 01/27/2022 Parotid mass 06/28/2021 Primary osteoarthritis involving multiple joints 12/21/2020 Small vessel disease, cerebrovascular 12/21/2020 Benign paroxysmal positional vertigo due to bilateral vestibular disorder 07/02/2020 Charcot foot due to diabetes mellitus 11/09/2019 SAIMA (generalized anxiety disorder) 10/04/2019 Dyslipidemia 10/04/2019 Irritable bowel syndrome with diarrhea 0 Type 2 diabetes mellitus wit h hemoglobin A1c goal of less than 8.0% documented as of this encounter (statuses as of 04/08/2024) Resolved Problems Problem Noted Date Diagnosed Date Resolved Date Unilateral vestibular schwannoma 04/08/2024 04/08/2024 Overview (10/04/2019): Left sided. No change since 2006 Type 2 diabetes mellitus wit h stage 3a chronic kidney disease, without long-term current use of insulin 06/13/2022 01/06/2023 Perforation of gallbladder 06/13/2022 1 Closed bimalleolar fracture of right ankle 06/13/2022 01/06/2023 Bile leak 05/17/2022 01/06/2023 S/P ERCP 05/17/2022 01/06/2023 Overview (05/17/2022): Sphincterotomy and plastic stent placed. Liver injury, laceration 05/16/202206/2022 Laceration of gallbladder 05/16/2022 S/P cholecystectomy 05/14/2022 01/07/20 Overview (05/16/2022): Open. 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 05/04/2022 01/06/2023 Kidney, perinephric abscess 05/04/2022 01/06/2023 Paroxysmal atrial fibrillation 07/29/2021 01/06/2023 Staghorn calculus 06/28/2021 03/02/2024 Nonfunctioning kidney 12/21/20202022 Vasomotor phenomenon 12/21/2020 023 Prediabetes 11/15/2019 11/15/2019 Stage 3a chronic kidney disease 10/04/2019 04/08/2024 Diabetes mellitus with stage 3 chronic kidney disease 06/14/2018 10/04/2019 Overview: Per CKD protocol #1 Acute sinusitis 03/15/2014 09/04/2015 AFSHIN inhibitor intolerance 09/12/2012 Left facial swelling 08/30/2011 012 Left facial swelling 08/30/2011 014 Lip swelling 08/30/2011 01/31/2014 Cellulitis of face 06/19/2011 4 Obesity, Class II, BMI 35-39 .9, isolated (see actual BMI) 07/02/2009 10/04/2019 Overview (07/02/2009): Per Obesity Taxonomy ADVANCE DIRECTIVE INFORMATION 03/09/2006 10/04/2019 Overview (03/09/2006): Information offered-patient declined Menopause 04/13/2001 01/31/2014 OBESITY, UNSPECIFIED 04/13/2001 010 Overview (07/02/2009): Per Obesity Taxonomy Chronic fatigue syndrome Myalgia and myositis 017 documented as of this encounter (statuses as of 04/08/2024) Immunizations Name Administration Dates Next Due Pneumococcal Conjugate Vacc, 13 Valent (Prevnar) 11/23/2014 Pneumococcal Polysaccharide PPV23 (Pneumovax) 02/04/2008 Seasonal Influenza Vac., MDV , IM, 0.5 mL (Fluzone) 01/31/2014,01/17/2013,03/11/2012,03/04,12/24/2009,01/08/2009,02/04/2008 ,03/09/2006 Seasonal Influenza, High Dos e, Trivalent, PF, IM (Fluzone HD) 02/23/2024 Seasonal Influenza, PF, 6 M & above, IM , (FluLaval or Fluzone) 02/24/2019,02/02/2018,01/12/2017 Seasonal Influenza, Quadriva lent Hd (Fluzone Hd) 01/07/2023,01/27/2022,12/21/2020 Seasonal Influenza, Quadriva lent, No Preserve, IM 12/06/2015,05/24/2015 TDAP (age 10 and older)(Boostrix) 01/17/2013 documented as of this encounter Social History Tobacco Use Types Packs/Day Years Used Date Smoking Tobacco: Never Passive Smoke Exposure: Past Smokeless Tobacco: Never Tobacco Cessation:Counseling Given: Not Answered Alcohol Use Standard Drinks/Week Comments Yes 0 (1 standard drink = 0.6 oz pur e alcohol) rare PHQ-2 Answer Date Recorded PHQ Adult Total Score 0 01/27/2022 Hunger Vital Sign Answer Date Recorded Within the past 12 months, y ou worried that your food would run out before you got the money to buy more. Never true 01/28/20 22 Within the past 12 months, t he food you bought just didn't last and you didn't have money to get more. Never true 01/27/2022 Comments No Sex and Gender Information Value Date Recorded Sex Assigned at Not on file Legal Sex Female 5:57 AM EST Gender Identity Not on file Sexual Orientation Not on file Occupation Industry Job Start Date Job End Date retired Not on file Not on file Not on file documented as of this encounter Last Filed Vital Signs Vital Sign Reading Time Taken Comments Blood Pressure 132/70 04/08/2024 10:04 AM EST Pulse 62 04/08/2024 10:04 AM EST Temperature 36.9 C (98.5 F) 04/08/2024 10:[address] Respiratory Rate 16 04/08/2024 10:04 AM EST Oxygen Saturation 97% 04/08/2024 10:04 AM EST Inhaled Oxygen Concentration - - Weight 83.9 kg (185 lb) 04/08/2024 10:04 AM EST Height 160 cm (5' 3") 04/08/2024 10:04 AM EST Body Mass Index 32.77 04/08/2024 10:04 AM EST documented in this encounter Functional Status * Are you deaf or do you have serious difficulty hearing? Answer Date of Assessment Author No 05/03/2022 10:59 PM Rancho Escobar RN * Are you blind or do you have serious difficulty seeing, even when wearing glasses? Answer Date of Assessment Author No 05/03/2022 10:59 PM Rancho Escobar RN * Do you have serious difficulty walking or climbing stairs? (5 years old or older) Answer Date of Assessment Author Yes 05/06/2022 11:25 AM EST Juany Ryan RN * Do you have difficulty dressing or bathing? (5 years old or older) Answer Date of Assessment Author No 05/03/2022 10:59 PM Rancho Escobar RN * Because of a physical, mental, or emotional condition, do you have difficulty doing errands alone such as visiting a doctors office or shopping? (15 years old or older) Answer Date of Assessment Author Yes 05/03/2022 10:59 PM Rancho Escobar RN documented as of this encounter Mental Status * Because of a physical, mental, or emotional condition, do you have serious difficulty concentrating, remembering, or making decisions? (5 years old or older) Answer Entry Date Author No 05/03/2022 10:59 PM Rancho Escobar RN documented in this encounter Progress Notes * Jl Allison MD - 04/08/2024 10:25 AM EST Images from the original note were not included. History of Present Illness Marcy Lundberg is a 83 year old female that presents for Congestion (Pt here for c/o chest congestion for the last 10 days. Pt has been taking mucinex at home and does help some. ) Physical Exam BP 132/70 (BP Site: Left Arm, BP Position: Sitting, BP Cuff Size: Regular) | Pulse 62 | Temp 98.5 F (36.9 C) (Tympanic) | Resp 16 | Ht 5' 3" (1.6 m) | Wt 185 lb (83.9 kg) | SpO2 97% | BMI 32.77 kg/m | BSA 1.93 m AAOx3 Normal affect NCAT/ Neck supple Throat clear Irregularly irregular rhythm with normal rate Lungs with b/l upper airway rhonchi Abd soft +BS Ext warm and well perfused No gross neuro deficits Antalgic gait pattern Using canes + healing/scabbed x2 venous stasis ulcer left anterior foreleg and lateral aspect above ankle without mo signs of infection - there is some dried drainage around the lower lesion. No malodor. + tenderness. + venous stasis skin changes with varicosities and edema. Surrounding skin is dry. I have reviewed most recent labs labs 02/2024 Assessment and Plan Bronchopneumonia - w/ concerns for atypical pneumonia considering symptoms as well as exam. Will treat. Short 5 dayscourse levofloxacin - should also help with below. Her most recent GFR will support this dose. I amaware of bleeding risk with apixaban, but this is tolerable for a short course. Venous stasis ulcer of left calf limited to breakdown of skin with varicose veins (HCC) - moisturize/ointment. Cont to keep covered and reduce edema/oncotic pressure by elevating. Wrap-Up Prn/scheduled Time: I spent a total of 20-29 minutes (exact time 22 mins) on the date of service in preparation, delivery, and documentation of the care provided to Marcy Lundberg excluding any time spent in the performance of separately billed services. documented in this encounter Plan of Treatment Upcoming Encounters Date Type Department Care Team (Late st Contact Info) Description 07/08/2024 9:30 AM EDT Office Visit Cardiology, [facility] [address] [place] [address] Jose Mantilla PA-C [address] [place] [address] 08/24/2024 11:40 AM EDT Office Visit Family Practice [facility] [address] [place] [address] Stu Eisenberg MD [address] [place] [address] Health Maintenance Due Date Last Done Comments Zoster Vaccines (1 of 2) 1991 Adult Wellness Visit 2007 Diabetic Foot Exam 06/28/2022 06/28/2021, 0 06/28/2021, 12/01/2017, Additional history exists DTap/Tdap Vaccines (2 - Td or Tdap) 01/17/2023 01/17/2013, 01/01/2004 Depression Screening 01/27/2023 01/27/2022 Diabetic Eye Exam 01/27/2023 01/27/2022, , 02/04/2008 CKD PHOS USE SMARTSET 09472 08/18/202408/04, 05/19/2022, 2022, Additional history exists GFR 08/22/2024 02/23/2024, 08/04, 09/22/2022, Additional history exists HbA1c 08/22/2024 02/23/2024, 08/04, 06/13/2022, Additional history exists Albumin/Creatinine Ratio 02/22/2025 024, 09/23/2022, 07/22/2021, Additional history exists CKD HGB USE SMARTSET 17593 02/22/202502/22, 06/13/2022, 06/13/2022, Additional history exists DXA Scan 08/12/2028 08/12/2021, 05/08, 01/19/2002, Additional history exists Pneumococcal Vaccine: 50+ Years Completed 11/23/2014, 02/04/2008 Influenza Vaccine (FLU shot) Completed 02/23/2024, 01/07/2023, 01/27/2022, Additional history exists COVID-19 Vaccine Discontinued HPV (Gardasil) Vaccine Aged Out No lo nger eligible based on patient's age to complete this topic Hepatitis B Vaccine Aged Out No longe r eligible based on patient's age to complete this topic MENINGOCOCCAL (MENACTRA/MENVEO) Aged Out No longer eligible based on patient's age to complete this topic documented as of this encounter Medical Devices Implanted Type Area Rod Drawer Device Identifier Shelf Expiration Date Model / Serial / Lot More Richardson [id number] - [id number] Implanted:Qty: 1 on 05/05/2022 at [facility] COOK : DIAGNOSTIC INTERVENTION [id number] 01/14/2025 [id number] / / [id number] Stent 10fr 9cm Clso-10-9 - [id number] Implanted:Qty: 1 on 05/16/2022 by Dean Catalan MD at [facility] : ADENIKE MENDES 02/12/2025 [id number] / / [id number] documented as of this encounter Visit Diagnoses Diagnosis Bronchopneumonia- Primary Bronchopneumonia, organism unspecified Venous stasis ulcer of left calf limited to breakdown of skin with varicose veins (HCC) Chronic heart failure with preserved ejection fraction (HFpEF) (HCC) Persistent atrial fibrillation (HCC) Atrial fibrillation Charcot foot due to diabetes mellitus (HCC) Type II or unspecified type diabetes mellitus with neurological manifestations, not stated as uncontrolled documented in this encounter Advance Directives * Full Code (Latest Code Status on File) Date Activated Date Inactivated Comments 05/07/2022 1:25 PM 05/27/2022 9:16 PM This order re flects the patients wishes and were consensually agreed upon. Question Answer Comments Discussion of Advance Directives occurred with: Patient * No Code Date Activated Date Inactivated Comments 05/04/2022 12:55 AM 05/07/2022 1:25 PM This order r eflects the patients wishes and were consensually agreed upon. Question Answer Comments Discussion of Advance Directives occurred with: Patient Care Teams Instrumentation And Controls Designer Relationship Specialty Start Date End Date Stu Eisenberg MD [address] [place] [address] PCP - General Family Medicine 04/09/23 documented as of this encounter
--- OUTSIDE RECORDS SUMMARY | 2024-04-15 13:30 | External Medical Summary | Summary of Care ---
Author Name Unknown Organization [facility] Address [address] [place] [address] Phone [phone] Care Team Providers Care Tube Turner Name Role Phone Stu Eisenberg MD Primary Care Provider [phone] Reason for Visit * Reason Onset Date Comments Information 03/18/2024 Encounter Details Date Type Department Care Team (Late st Contact Info) Description 03/18/2024 Refill Family Practice [facility] [address] [place] [address] Stu Eisenberg MD [address] [place] [id number] Allergies Active Allergy Reactions Criticality Noted Date Comments Afshin Inhibitors Edema face/lips/tongue High 3 Amoxicillin Diarrhea Low 10/13/2017 Azithromycin Neuro complications (Please comment) 05/01/2004 vertigo Sulfamethoxazole-Trimet hoprim Unknown 03/02/2024 Vertigo Diphenhydramine-Zinc Acetate Flushing 04/20/2013 hyperactivity Lisinopril Edema face/lips/tongue High 05/28/2015 Metoprolol Diarrhea 01/10/2022 documented as of this encounter (statuses as of 03/18/2024) Medications LORazepam 1 MG Oral Tablet (Ativan)Indications :SAIMA (generalized anxiety disorder) TAKE 1 TABLET BY MOUTH 3 TIMES A DAY NEEDED FOR ANXIETY 10 Tab 1 Active OneTouch UltraSoft Lancets Use as directed daily . E11.9 100 Each 3 2 Active OneTouch Ultra Blue In Vitro Strip (Glucose Blood) Use as directed daily . E11.9 100 Strip 3 2 Active CareShareTouch Ultra 2 w/Device Kit Check sugars once daily E11.9 1 Kit 2 Active Melatonin 3 MG Oral Capsule Take 1 Capsule by mouth at bedtime. Active Iron 325 (65 Fe) MG Oral TabletIndications:I yasmine deficiency anemia due to chronic blood loss Take 1 Tablet by mouth in the morning and 1 Tablet in the evening. 60 Tablet 3 Active Apixaban 5 MG Oral Tablet (Eliquis)Indication s:Persistent atrial fibrillation (HCC) Take 1 Tablet by mouth in the morning and 1 Tablet before bedtime. 180 Tablet 4 Active dilTIAZem HCl ER Coated Beads 180 MG Oral Capsule Extended Release 24 Hour (Cardizem CD)Indications:Pers istent atrial fibrillation (HCC) Take 1 Capsule by mouth in the morning. 90 Capsule 3 4 Active oxyBUTYnin Chloride ER 10 MG Oral Tablet Extended Release 24 HourIndications:OAB (overactive bladder) Take 1 Tablet by mouth in the morning. Do not cut, crush or chew. 90 Tablet 3 4 Active Meclizine HCl 25 MG Oral Tablet (Antivert)Indicatio ns:Benign paroxysmal vertigo, unspecified laterality TAKE 1 TABLET BY MOUTH THREE TIMES A DAY NEEDED FOR DIZZINESS, 90 Tablet 1 4 Active Loperamide HCl 2 MG Oral Capsule (Imodium) TAKE 2 TABLETS BY MOUTH EVERY EVENING 60 Capsule 3 4 Active Rosuvastatin Calcium 10 MG Oral Tablet (Crestor)Indication s:Dyslipidemia TAKE 1 TABLET BY MOUTH EVERY DAY IN THE MORNING 90 Tablet 4 Active traMADol HCl 100 MG Oral TabletIndications:P rimary osteoarthritis involving multiple joints Take 100 mg by mouth every 8 hours as needed for Pain, Severe. 90 Tablet 3 4 Active Meclizine HCl 25 MG Oral Tablet (Antivert) Take 1 Tablet by mouth 3 times a day as needed for Dizziness. 90 Tablet 1 4 Active documented as of this encounter (statuses as of 03/18/2024) Active Problems Problem Noted Date Diagnosed Date [...] Charcot foot due to diabetes mellitus 11/09/2019 Stage 3a chronic kidney disease 10/04/2019 SAIMA (generalized anxiety disorder) 10/04/2019 Dyslipidemia 10/04/2019 Irritable bowel syndrome with diarrhea 0 Type 2 diabetes mellitus wit h hemoglobin A1c goal of less than 8.0% Unilateral vestibular schwannoma Overview (10/04/2019): Left sided. 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 01/06/2023 Kidney, perinephric abscess 05/04/2022 01/06/2023 Paroxysmal atrial fibrillation 07/29/2021 01/06/2023 Staghorn calculus 06/28/2021 03/02/2024 Nonfunctioning kidney 12/21/20202022 Vasomotor phenomenon 12/21/2020 023 Prediabetes 11/15/2019 11/15/2019 Diabetes mellitus with stage 3 chronic kidney [...] as of this encounter (statuses as of 03/18/2024) Immunizations Name Administration Dates Next Due Pneumococcal [...] Packs/Day Years Used Date Smoking Tobacco: Never Smokeless Tobacco: Never Alcohol Use Standard Drinks/Week Comments Yes 0 [...] on file documented as of this encounter Functional Status * Are you [...] of Assessment Author Yes 05/06/2022 11:25 AM Juany Barragan RN * Do you have difficulty dressing or bathing? (5 years old or older) Answer Date of Assessment Author No 05/03/2022 10:59 PM Rancho Ecsobar RN * Because of a physical, mental, [...] Rancho Escobar RN documented in this encounter Miscellaneous Notes * Telephone Encounter - Sagrario Mcdaniel, graphic manager - 03/18/2024 1:02 PM EST Pt calling to request meclizine. Informed pt that RX is available at their pharmacy. Pt verbalized understanding and stated they will check with their pharmacy regarding this medication. Sagrario Thapa [employer] [facility] 03/18/2024 1:03 PM documented in this encounter Plan of Treatment Upcoming Encounters Date Type Department Care Team (Late st Contact Info) Description 07/08/2024 9:30 AM EDT Office Visit Cardiology, [facility] [address] [place] [address] Jose Mantilla PA-C [address] [place] [address] 08/24/2024 11:40 AM EDT Office Visit Family Practice [facility] [address] [address] Stu Eisenberg MD [address] [place] [address] Health Maintenance Due Date Last Done Comments Zoster Vaccines (1 of 2) 1991 Adult Wellness Visit 2007 Diabetic Foot Exam 06/28/2022 06/28/2021, 0 06/28/2021, 12/01/2017, Additional history exists DTap/Tdap Vaccines (2 - Td or Tdap) 01/17/2023 01/17/2013, 01/01/2004 Depression Screening 01/27/2023 01/27/2022 Diabetic Eye Exam 01/27/2023 01/27/2022, , 02/04/2008 COVID-19 Vaccine ( season) 2023 CKD PHOS USE SMARTSET 95324 08/18/202408/04, 05/19/2022, 2022, Additional history exists GFR 08/22/2024 02/23/2024, 08/04, 09/22/2022, Additional history exists HbA1c 08/22/2024 02/23/2024, 08/04, 06/13/2022, Additional history exists Albumin/Creatinine Ratio 02/22/2025 024, 09/23/2022, 07/22/2021, Additional history exists CKD HGB USE SMARTSET 20634 02/22/202502/22, 06/13/2022, 06/13/2022, Additional history exists DXA Scan 08/12/2028 08/12/2021, 05/08, 01/19/2002, Additional history exists Pneumococcal Vaccine: 65+ Years Completed 11/23/2014, 02/04/2008 Influenza Vaccine (FLU shot) Completed , 01/07/2023, 01/27/2022, Additional history exists HPV (Gardasil) Vaccine Aged Out No lo nger eligible based on patient's age to complete this topic Hepatitis B Vaccine Aged Out No longe r eligible based on patient's age to complete this topic MENINGOCOCCAL (MENACTRA/MENVEO) Aged Out No longer eligible based on patient's age to complete this topic documented as of this encounter Medical Devices Implanted Type Area Dough Mixer Device Identifier Shelf Expiration Date Model / Serial / Lot More Richardson [id number] - [id number] Implanted:Qty: 1 on 05/05/2022 at [facility] COOK : DIAGNOSTIC INTERVENTION [id number] 01/14/2025 [id number] / / [id number] Stent 10fr 9cm Clso-10-9 - [id number] Implanted:Qty: 1 on 05/16/2022 by Dean Catalan MD at [facility] COOK : ADENIKE MENDES 02/12/2025 [id number] / / [id number] documented as of this encounter Advance Directives * Full Code [...] Advance Directives occurred with: Patient Care Teams Tube Turner Relationship Specialty Start Date End Date Stu Eisenberg MD [address] [facility] [place] [address] PCP - General Family Medicine 04/09/23 documented as of this encounter
--- OUTSIDE RECORDS SUMMARY | 2024-04-15 13:30 | External Medical Summary | Summary of Care ---
Author Name Unknown Organization [facility] Address [address] [place] [address] Phone [phone] Care Team Providers Care Personnel Arbitrator Name Role Phone Hazel Hatch MD Primary Care Provider [phone] Reason for Visit * Reason Comments eRx-Medication Refill Encounter Details Date Type Department Care Team (Late st Contact Info) Description 04/12/2024 Refill Family Practice [facility] [address] [place] [address] Hazel Hatch MD [address] [place] [address] Allergies Active Allergy Reactions Criticality Noted Date Comments Afshin Inhibitors Edema face/lips/tongue High 3 Amoxicillin Diarrhea Low 10/13/2017 Azithromycin Neuro complications (Please comment) 05/01/2004 vertigo Sulfamethoxazole-Trimet hoprim Unknown 03/02/2024 Vertigo Diphenhydramine-Zinc Acetate Flushing 04/20/2013 hyperactivity Lisinopril Edema face/lips/tongue High 05/28/2015 Metoprolol Diarrhea 01/10/2022 documented as of this encounter (statuses as of 04/13/2024) Medications LORazepam 1 MG Oral Tablet (Ativan)Indicatio ns:SAIMA (generalized anxiety disorder) TAKE 1 TABLET BY MOUTH 3 TIMES A DAY NEEDED FOR ANXIETY 10 Tab 021 Active OneTouch UltraSoft Lancets Use as directed daily . E11.9 100 Each 3 022 Active CuremarkTouch Ultra Blue In Vitro Strip (Glucose Blood) Use as directed daily . E11.9 100 Strip 3 Active CuremarkTouch Ultra 2 w/Device Kit Check sugars once daily E11.9 1 Kit 022 Active Melatonin 3 MG Oral Capsule Take 1 Capsule by mouth at bedtime. Active Iron 325 (65 Fe) MG Oral TabletIndications :Iron deficiency anemia due to chronic blood loss Take 1 Tablet by mouth in the morning and 1 Tablet in the evening. 60 Tablet 023 Active Apixaban 5 MG Oral Tablet (Eliquis)Indicati ons:Persistent atrial fibrillation (HCC) Take 1 Tablet by mouth in the morning and 1 Tablet before bedtime. 180 Tablet 024 Active dilTIAZem HCl ER Coated Beads 180 MG Oral Capsule Extended Release 24 Hour (Cardizem CD)Indications:Pe rsistent atrial fibrillation (HCC) Take 1 Capsule by mouth in the morning. 90 Capsule 3 024 Active oxyBUTYnin Chloride ER 10 MG Oral Tablet Extended Release 24 HourIndications:O AB (overactive bladder) Take 1 Tablet by mouth in the morning. Do not cut, crush or chew. 90 Tablet 3 024 Active Meclizine HCl 25 MG Oral Tablet (Antivert)Indicat ions:Benign paroxysmal vertigo, unspecified laterality TAKE 1 TABLET BY MOUTH THREE TIMES A DAY NEEDED FOR DIZZINESS, 90 Tablet 1 024 Active Rosuvastatin Calcium 10 MG Oral Tablet (Crestor)Indicati ons:Dyslipidemia TAKE 1 TABLET BY MOUTH EVERY DAY IN THE MORNING 90 Tablet 024 Active traMADol HCl 100 MG Oral TabletIndications :Primary osteoarthritis involving multiple joints Take 100 mg by mouth every 8 hours as needed for Pain, Severe. 90 Tablet 3 024 Active Meclizine HCl 25 MG Oral Tablet (Antivert) Take 1 Tablet by mouth 3 times a day as needed for Dizziness. 90 Tablet 1 024 Active levoFLOXacin 500 MG Oral Tablet (Levaquin) Take 1 Tablet by mouth in the morning for 5 days. until gone.. 5 Tablet 025 2024 Active Mupirocin 2 % External Ointment (Bactroban) Apply 1 Application topically to affected area in the morning and 1 Application at noon and 1 Application before bedtime. Do all this for 14 days. Apply to affected area.. 22 g 025 2024 Active Loperamide HCl 2 MG Oral Capsule (Imodium) TAKE 2 TABLETS BY MOUTH EVERY EVENING 60 Capsule 3 025 Active Loperamide HCl 2 MG Oral Capsule (Imodium) TAKE 2 TABLETS BY MOUTH EVERY EVENING 60 Capsule 3 024 2024 Discontinued documented as of this encounter (statuses as of 04/13/2024) Active Problems Problem Noted Date Diagnosed Date [...] as of this encounter (statuses as of 04/13/2024) Resolved Problems Problem Noted Date Diagnosed Date [...] as of this encounter (statuses as of 04/13/2024) Immunizations Name Administration Dates Next Due Pneumococcal [...] Passive Smoke Exposure: Past Smokeless Tobacco: Never Alcohol Use Standard Drinks/Week [...] encounter Miscellaneous Notes * Telephone Encounter - Hazel Hatch MD - 04/13/2024 9:25 AM ESTSigned Prescriptions: Disp Refills Loperamide HCl 2 MG Oral Capsule (Imodium) 60 Cap*3 Sig: TAKE 2 TABLETS BY MOUTH EVERY EVENING Authorizing Provider: HAZEL HATCH * Telephone Encounter - Jovita Davis LPN - 04/13/2024 7:24 AM ESTPending Prescriptions: Disp Refills Loperamide HCl 2 MG Oral Capsule [Pharmacy*60 Cap*3 Sig: TAKE 2 TABLETS BY MOUTH EVERY EVENING * Telephone Encounter - Jovita Davis LPN - 04/13/2024 7:23 AM EST Did you pend patient's preferred pharmacy and medication before forwarding?yes Pharmacy: [id number] [address] [facility] Pending Prescriptions: Disp Refills Loperamide HCl 2 MG Oral Capsule (Imodium*60 Cap*3 Sig: TAKE 2 TABLETS BY MOUTH EVERY EVENING Last Visit: 04/08/2024 (in office), Visit date not found (telemedicine) Next Visit: 08/24/2024 If no future appointments scheduled, and last appointment is greater than a year ago, please schedule patient for a follow-up appointment Last date the medication was ordered: 12/31/2023 Is this request for a controlled substance?No Urine Drug Screen: Results for orders placed or performed in visit on 09/23/22 PAIN MANAGEMENT DRUG PANEL, URINE W/ INTERPRETATION Result Value Compliance Interpretation Based on medication info provided, The presence of tramadol and desmethyltramadol is CONSISTENT with Tramadol prescription. Amphetamines Screen, U Negative Benzodiazepines Screen, U Negative Cannabinoids Screen, U Negative Cocaine Metabolite Screen, U Negative Fentanyl Screen, U Negative Hydrocodone Screen, U Negative Methadone Metabolite Screen, U Negative Morphine/Codeine Screen, U Negative Oxycodone Screen, U Negative Valid Interpretation Normal Creatinine, U 132 Narrative Cutoff Concentrations: Drug Level Amphetamines 500 ng/mL Benzodiazepines 100 ng/mL Cannabinoids 50 ng/mL Cocaine Metabolite 150 ng/mL Fentanyl 1 ng/mL Hydrocodone / Hydromorphone 300 ng/mL Methadone Metabolite 100 ng/mL Morphine / Codeine 300 ng/mL Oxycodone / Oxymorphone 100 ng/mL Screening results are presumptive and can only be used for medical purposes. Confirmatory testing is available upon request. Results for orders placed or performed in visit on 12/21/20 TOXICOLOGY, URINE SCREEN W/ CONFIRMATION Result Value Amphetamines Screen, U Negative Benzodiazepines Screen, U Negative Cannabinoids Screen, U Negative Cocaine Metabolite Screen, U Negative Hydrocodone Screen, U Negative Methadone Metabolite Screen, U Negative Morphine/Codeine Screen, U Negative Oxycodone Screen, U Negative Narrative Cutoff Concentrations: Drug Level Amphetamines 500 ng/mL Benzodiazepines 100 ng/mL Cannabinoids 50 ng/mL Cocaine Metabolite 150 ng/mL Hydrocodone / Hydromorphone 100 ng/mL Methadone Metabolite 100 ng/mL Morphine / Codeine 300 ng/mL Oxycodone / Oxymorphone 100 ng/mL Screening results are presumptive and can only be used for medical purposes. Positive screening results are reflexed to confirmatory testing. *Note: Due to a large number of results and/or encounters for the requested time period, some results have not been displayed. A complete set of results can be found in Results Review. Patient Phone Numbers Labs: Lab Results Component Value Date/Time CREAT 0.9 02/23/2024 12:18 PM CREAT 0.9 11/09/2019 12:20 PM POTASSIUM 4.2 02/23/2024 12:18 PM POTASSIUM 4.3 11/09/2019 12:20 PM TSH 5.35 (H) 03/14/2022 12:54 PM TSH 3.24 01/17/2013 11:24 AM LDL 87 07/22/2021 01:40 PM LDL 83 11/09/2019 12:20 PM LDL NOT APPLICABLE 11/09/2019 12:20 PM ALT 17 2022 06:46 AM ALT 22 05/26/2017 04:45 PM HGBA1C 6.3 (H) 02/23/2024 12:18 PM HGBA1C 6.4 (H) 06/07/2018 04:00 PM * Telephone Encounter - Jose Alfredo Barlow - 04/12/2024 7:44 PM ESTPending Prescriptions: Disp Refills Loperamide HCl 2 MG Oral Capsule [Pharmacy*60 Cap*3 Sig: TAKE 2TABLETS BY MOUTH EVERY EVENING documented in this encounter Plan of Treatment Upcoming Encounters Date Type Department Care Team (Late st Contact Info) Description 07/08/2024 9:30 AM EDT Office Visit Cardiology, [facility] [address] [address] Jose Mantilla PA-C [address] [place] [address] 08/24/2024 11:40 AM EDT Office Visit Family Practice [facility] [address] [address] Hazel Hatch MD [address] [place] [address] Health Maintenance Due Date Last Done Comments Zoster Vaccines (1 of 2) 1991 Adult Wellness Visit 2007 Diabetic Foot Exam 06/28/2022 06/28/2021, 0 06/28/2021, 12/01/2017, Additional history exists DTap/Tdap Vaccines (2 - Td or Tdap) 01/17/2023 01/17/2013, 01/01/2004 Depression Screening 01/27/2023 01/27/2022 Diabetic Eye Exam 01/27/2023 01/27/2022, , 02/04/2008 CKD PHOS USE SMARTSET 15510 08/18/2024 0508/2023, 05/19/2022, 2022, Additional history exists HbA1c 08/22/2024 02/23/2024, 08/04, 06/13/2022, Additional history exists Albumin/Creatinine Ratio 02/22/2025 024, 09/23/2022, 07/22/2021, Additional history exists CKD HGB USE SMARTSET 15497 02/22/202502/22, 06/13/2022, 06/13/2022, Additional history exists GFR 02/22/2025 02/23/2024, 08/04, 09/22/2022, Additional history exists DXA Scan 08/12/2028 08/12/2021, [...] this encounter Medical Devices Implanted Type Area Pneumatic Tester Device Identifier Shelf Expiration Date Model / Serial / Lot More Richardson [id number] - [id number] Implanted:Qty: 1 on 05/05/2022 at [facility] : DIAGNOSTIC INTERVENTION [id number] 01/14/2025 [id number] / / [id number] Stent 10fr 9cm Clso-10-9 - [id number] Implanted:Qty: 1 on 05/16/2022 by Dean Catalan MD at [facility] : ADENIKE MENDES 02/12/2025 [id number] / / [id number] documented as of this encounter Advance Directives [...] Advance Directives occurred with: Patient Care Teams Personnel Arbitrator Relationship Specialty Start Date End Date Hazel Hatch MD [address] [place] [address] PCP - General Family Medicine 04/09/23 documented as of this encounter
--- OUTSIDE RECORDS SUMMARY | 2024-04-15 13:30 | External Medical Summary | Summary of Care ---
Author Name Unknown Organization [facility] Address [address] [place] [address] Phone [phone] Care Team Providers Care Box Office Attendant Name Role Phone Stu Eisenberg MD Primary Care Provider [phone] Reason for Referral * Evaluate & Treat - Unlimited Visits (Within 10 days (routine)) - Authorized Specialty Diagnoses / Procedures Referred By Contdidi t Referred To Contact Cardiovascular Medicine / Cardiology Diagnoses Persistent atrial fibrillation (HCC) Stu Eisenberg MD [address] [place] [address] Phone: tel: fax: Referral ID Status Reason Start Date Expiration Date Visits Requested Visits Authorized [id number] Authorized Specialty Services Required 4 [phone] Question Answer Referral Priority Within 10 days (routine) Where should this appointment be scheduled? [facility] To which of the following clinics are you referring your patient? General Cardiology Clinic Reason for Visit * Reason Comments Follow Up Patient presents in office today for a 6m follow-up visit and follow- up on R lower leg. Encounter Details Date Type Department Care Team (Late st Contact Info) Description 03/02/2024 4:00 PM EST Office Visit Family Practice [facility] [address] [place] [address] Stu Eisenberg MD [address] [facility] [address] Type 2 diabetes mellitus with hemoglobin A1c goal of less than 8.0% (HCC)*; Dyslipidemia; Charcot foot due to diabetes mellitus (HCC); Stage 3a chronic kidney disease (HCC); SAIMA (generalized anxiety disorder); Obesity, Class I, BMI 30.0-34.9 (see actual BMI); Small vessel disease, cerebrovascular; Persistent atrial fibrillation (HCC); Chronic heart failure with preserved ejection fraction (HFpEF) (HCC) Allergies Active Allergy Reactions Criticality Noted Date Comments Afshin Inhibitors Edema face/lips/tongue High 3 Amoxicillin Diarrhea Low 10/13/2017 Azithromycin Neuro complications (Please comment) 05/01/2004 vertigo Sulfamethoxazole-Trimet hoprim Unknown 03/02/2024 Vertigo Diphenhydramine-Zinc Acetate Flushing 04/20/2013 hyperactivity Lisinopril Edema face/lips/tongue High 05/28/2015 Metoprolol Diarrhea 01/10/2022 documented as of this encounter (statuses as of 03/04/2024) Medications LORazepam 1 MG Oral Tablet (Ativan)Indicatio [...] 23 Active Apixaban 5 MG Oral Tablet (Eliquis)Indicati [...] THE MORNING 90 Tablet 02/12/20 24 Active Mupirocin 2 % External Ointment (Bactroban) Apply topically to affected area 3 times a day for 14 days. To affected area for up to 14 days. 22 g 1 02/23/20 24 Active traMADol HCl 100 MG Oral TabletIndications :Primary osteoarthritis involving multiple joints Take 100 mg by mouth every 8 hours as needed for Pain, Severe. 90 Tablet 3 02/23/20 24 Active Cephalexin 500 MG Oral Capsule Take 1 Capsule by mouth in the morning and 1 Capsule before bedtime. Do all this for 10 days. 20 Capsule 02/24/20 24 Active Multi-Vitamin Daily Oral Tablet Take 1 Tablet by mouth in the morning. Discontinued Acetaminophen 500 MG Oral Tablet (Tylenol) Take 1 Tablet by mouth every 6 hours as needed. Discontinued Sulfamethoxazole- Trimethoprim 800-160 MG Oral Tablet (Bactrim DS) Take 1 Tablet by mouth in the morning and 1 Tablet before bedtime. Do all this for 10 days. Until gone.. 20 Tablet 02/23/20 24 Discontinued documented as of this encounter (statuses as of 03/04/2024) Active Problems Problem Noted Date Diagnosed Date [...] as of this encounter (statuses as of 03/04/2024) Resolved Problems Problem Noted Date Diagnosed Date [...] as of this encounter (statuses as of 03/04/2024) Immunizations Name Administration Dates Next Due Pneumococcal [...] Sign Reading Time Taken Comments Blood Pressure 126/64 03/02/2024 3:57 PM EST Pulse 67 03/02/2024 3:57 PM EST Temperature - - Respiratory Rate 16 03/02/2024 3:57 PM EST Oxygen Saturation 97% 03/02/2024 3:57 PM EST Inhaled Oxygen Concentration - - Weight 88.5 kg (195 lb) 03/02/2024 3:57 PM EST Height - - Body Mass Index 34.54 02/23/2024 11:27 AM EST documented in this encounter Functional Status * Are you deaf or do you have serious difficulty hearing? Answer Date of Assessment Author No 05/03/2022 10:59 PM EST KariRancho terry RN * Are you blind or do [...] documented in this encounter Progress Notes * Stu Eisenberg MD - 03/03/2024 11:50 PM EST SUBJECTIVE: Marcy Lundberg is a 83 year old female. Chief Complaint Patient presents with Follow Up Patient presents in office today for a 6m follow-up visit and follow-up on R lower leg. HPI: Routine visit. Her right leg cellulitis has all but resolved. She does have two small open areas she is concerned about. Seems she is picking at them. Advised her not to do this. Infection has cleared. She does have charcot foot which makes walking difficult. She uses a walker. 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 She has some financial concerns she briefly discussed with myself and my nurse. I reviewed all of her medications today. Patient Active Problem List Diagnosis Type 2 diabetes mellitus with hemoglobin A1c goal of less than 8.0% (HCC) Unilateral vestibular schwannoma (HCC) Stage 3a chronic kidney disease (HCC) SAIMA (generalized anxiety disorder) Dyslipidemia Irritable bowel syndrome with diarrhea Charcot foot due to diabetes mellitus (HCC) Benign paroxysmal positional vertigo due to bilateral vestibular disorder Primary osteoarthritis involving multiple joints Small vessel disease, cerebrovascular Parotid mass Controlled substance agreement signed Persistent atrial fibrillation (HCC) Status post nephrectomy Chronic heart failure with preserved ejection fraction (HFpEF) ([facility]) Obesity, Class I, BMI 30.0-34.9 (see actual BMI) Current Outpatient Medications Medication Sig Dispense Refill LORazepam 1 MG Oral Tablet (Ativan) TAKE 1 TABLET BY MOUTH 3 TIMES A DAY NEEDED FOR ANXIETY 10 Tab 0 OneTouch UltraSoft Lancets Use as directed daily . E11.9 100 Each 3 OneTouch Ultra Blue In Vitro Strip (Glucose Blood) Use as directed daily . E11.9 100 Strip 3 CardicaTouch Ultra 2 w/Device Kit Check sugars once daily E11.9 1 Kit 0 Melatonin 3 MG Oral Capsule Take 1 Capsule by mouth at bedtime. Iron 325 (65 Fe) MG Oral Tablet Take 1 Tablet by mouth in the morning and 1 Tablet in the evening. 60 Tablet 0 Apixaban 5 MG Oral Tablet (Eliquis) Take 1 Tablet by mouth in the morning and 1 Tablet before bedtime. 180 Tablet 0 dilTIAZem HCl ER Coated Beads 180 MG Oral Capsule Extended Release 24 Hour (Cardizem CD) Take 1 Capsule by mouth in the morning. 90 Capsule 3 oxyBUTYnin Chloride ER 10 MG Oral Tablet Extended Release 24 Hour Take 1 Tablet by mouth in the morning. Do not cut, crush or chew. 90 Tablet 3 Meclizine HCl 25 MG Oral Tablet (Antivert) TAKE 1 TABLET BY MOUTH THREE TIMES A DAY NEEDED FOR DIZZINESS, 90 Tablet 1 Loperamide HCl 2 MG Oral Capsule (Imodium) TAKE 2 TABLETS BY MOUTH EVERY EVENING 60 Capsule 3 Rosuvastatin Calcium 10 MG Oral Tablet (Crestor) TAKE 1 TABLET BY MOUTH EVERY DAY IN THE MORNING 90Tablet 0 Mupirocin 2 % External Ointment (Bactroban) Apply topically to affected area 3 times a day for 14 days. To affected area for up to 14 days. 22 g 1 traMADol HCl 100 MG Oral Tablet Take 100 mg by mouth every 8 hours as needed for Pain, Severe. 90 Tablet 3 Cephalexin 500 MG Oral Capsule Take 1 Capsule by mouth in the morning and 1 Capsule before bedtime.Do all this for 10 days. 20 Capsule 0 No current facility-administered medications for this visit. Allergy: Review of patient's allergies indicates: Allergen Reactions Afshin Inhibitors Edema face/lips/tongue Lisinopril Edema face/lips/tongue Azithromycin Neuro complications (Please comment) vertigo Bactrim [Sulfamethoxazole-Trimethoprim] Unknown Vertigo Diphenhydramine-Zinc Acetate Flushing hyperactivity Metoprolol Diarrhea Amoxicillin Diarrhea OBJECTIVE: BP 126/64 | Pulse 67 | Resp 16 | Wt 195 lb (88.5 kg) | SpO2 97% | BMI 34.54 kg/m | BSA 1.98 m General: alert, healthy, and no distress Head: Normocephalic, No masses, lesions, tenderness or abnormalities Neck: supple, no adenopathy, no bruits, thyroid normal size, non-tender, without nodularity Lungs: chest symmetric with normal AP diameter, no chest deformities noted, no chest wall tenderness, lungs clear to auscultation Heart: regular rate & rhythm, no murmur, and no gallops Abdomen: abdomen soft, non-tender, normal bowel sounds, and no masses or organomegaly Extremities: stasis dermatitis of both legs, right lower leg with resolving cellulitis as well as two open lesions with early scab formation; no drainage ASSESSMENT AND PLAN: (E11.9) Type 2 diabetes mellitus with hemoglobin A1c goal of less than 8.0% ([facility]) (primary encounter diagnosis) Plan: diet controlled (E78.5) Dyslipidemia Plan: stable (E11.610) Charcot foot due to diabetes mellitus (HCC) Plan: stable (N18.31) Stage 3a chronic kidney disease (HCC) Plan: stable (F41.1) SAIMA (generalized anxiety disorder) Plan: stable (E66.811) Obesity, Class I, BMI 30.0-34.9 (see actual BMI) Plan: stable; she is elderly and likely will never be able to attain healthy bmi (I67.9) Small vessel disease, cerebrovascular Plan: stable (I48.19) Persistent atrial fibrillation (HCC) Plan: CARDIOLOGY REFERRAL OP -she has completely fallen out of follow up with cardiology --- re-referred (I50.32) Chronic heart failure with preserved ejection fraction (HFpEF) ([facility]) Plan: stable on rx Follow up as needed. No other complaints were offered at this time. Stu Eisenberg MD documented in this encounter Nursing Notes * Ayleen Barkley MED ASSIST - 03/02/2024 3:55 PM EST The patient has been properly identified by confirmation of name and date of . Chief Complaint Patient presents with Follow Up Patient presents in office today for a 6m follow-up visit and follow-up on R lower leg. documented in this encounter Plan of Treatment Upcoming Encounters Date Type Department Care Team (Late st Contact Info) Description 07/08/2024 9:30 AM EDT Office Visit Cardiology, [facility] [address] [place] [address] Jose Mantilla PA-C [address] [place] [address] 08/24/2024 11:40 AM EDT Office Visit Family Practice [facility] [address] [place] [address] Stu Eisenberg MD [address] [place] [address] Scheduled Referrals Name Type Priority Associated Diagnoses Orde r Schedule CARDIOLOGY REFERRAL OP Referral Within 10 days (routine) Persistent atrial fibrillation (HCC) Ordered: 03/02/2024 Health Maintenance Due Date Last Done Comments Zoster Vaccines (1 of 2) 1991 Adult Wellness Visit 2007 Diabetic Foot Exam 06/28/2022 06/28/2021, 0 06/28/2021, 12/01/2017, Additional history exists DTap/Tdap Vaccines (2 - Td or Tdap) 01/17/2023 01/17/2013, 01/01/2004 Depression Screening 01/27/2023 01/27/2022 Diabetic Eye Exam 01/27/2023 01/27/2022, , 02/04/2008 COVID-19 Vaccine ( season) 2023 CKD PHOS USE SMARTSET 06477 08/18/202408/04, 05/19/2022, 2022, Additional history exists GFR 08/22/2024 02/23/2024, 08/04, 09/22/2022, Additional history exists HbA1c 08/22/2024 02/23/2024, 08/04, 06/13/2022, Additional history exists Albumin/Creatinine Ratio 02/22/2025 024, 09/23/2022, 07/22/2021, Additional history exists CKD HGB USE SMARTSET 08906 02/22/202502/22, 06/13/2022, 06/13/2022, Additional history exists DXA [...] this encounter Medical Devices Implanted Type Area Sock Examiner Device Identifier Shelf Expiration Date Model / Serial / Lot More Richardson [id number] - [id number] Implanted:Qty: 1 on 05/05/2022 at [facility] : DIAGNOSTIC INTERVENTION [id number] 01/14/2025 [id number] / / [id number] Stent 10fr 9cm Clso-10-9 - [id number] Implanted:Qty: 1 on 05/16/2022 by Dean Catalan MD at [facility] : ADENIKE MENDES 02/12/2025 [id number] / / [id number] documented as of this encounter Visit Diagnoses Diagnosis Type 2 diabetes mellitus with hemoglobin A1c goal of less than 8.0% (HCC)- Primary Dyslipidemia Other and unspecified hyperlipidemia Charcot foot due to diabetes mellitus (HCC) Type II or unspecified type diabetes mellitus with neurological manifestations, not stated as uncontrolled Stage 3a chronic kidney disease (HCC) SAIMA (generalized anxiety disorder) Generalized anxiety disorder Obesity, Class I, BMI 30.0-34.9 (see actual BMI) Obesity, unspecified Small vessel disease, cerebrovascular Cerebrovascular disease, unspecified Persistent atrial fibrillation (HCC) Atrial fibrillation Chronic heart failure with preserved ejection fraction (HFpEF) (HCC) documented in this encounter Advance Directives * [...] Advance Directives occurred with: Patient Care Teams Box Office Attendant Relationship Specialty Start Date End Date Stu Eisenberg MD [address] [facility] [place] [address] PCP - General Family Medicine 04/09/23 documented as of this encounter"
--- OUTSIDE RECORDS SUMMARY | 2024-04-15 13:30 | External Medical Summary | Summary of Care ---
Author Name Unknown Organization [facility] Address [address] [place] [address] Phone [phone] Care Team Providers Care Jointer Machine Operator Name Role Phone Stu Eisenberg MD Primary Care Provider [phone] Reason for Visit * Reason Onset Date Comments Advice 02/24/2024 Encounter Details Date Type Department Care Team (Late st Contact Info) Description 02/24/2024 Telephone [address] [facility] [address] [facility] [place] [address] Stu Eisenberg MD [address] [facility] [place] [id number] Advice Allergies Active Allergy Reactions Criticality Noted Date Comments Afshin Inhibitors Edema face/lips/tongue High 3 Amoxicillin Diarrhea Low 10/13/2017 Azithromycin Neuro complications (Please comment) 05/01/2004 vertigo Diphenhydramine-Zinc Acetate Flushing 04/20/2013 hyperactivity Lisinopril Edema face/lips/tongue High 05/28/2015 Metoprolol Diarrhea 01/10/2022 documented as of this encounter (statuses as of 02/25/2024) Medications LORazepam 1 MG Oral Tablet (Ativan)Indication s:SAIMA (generalized anxiety disorder) TAKE 1 TABLET BY MOUTH 3 TIMES A DAY NEEDED FOR ANXIETY 10 Tab 1 Active Multi-Vitamin Daily Oral Tablet Take 1 Tablet by mouth in the morning. Active OneTouch UltraSoft Lancets Use as directed daily . E11.9 100 Each 3 2 Active OneTouch Ultra Blue In Vitro Strip (Glucose Blood) Use as directed daily . E11.9 100 Strip 3 2 Active RentHome.ruTouch Ultra 2 w/Device Kit Check sugars once [...] 3 Active Apixaban 5 MG Oral Tablet (Eliquis)Indicatio [...] or chew. 90 Tablet 3 4 Active Acetaminophen 500 MG Oral Tablet (Tylenol) Take 1 Tablet by mouth every 6 hours as needed. Active Meclizine HCl 25 MG Oral Tablet [...] IN THE MORNING 90 Tablet 4 Active Mupirocin 2 % External Ointment (Bactroban) Apply topically to affected area 3 times a day for 14 days. To affected area for up to 14 days. 22 g 1 4 03/08/20 24 Active Sulfamethoxazole-T rimethoprim 800-160 MG Oral Tablet (Bactrim DS) Take 1 Tablet by mouth in the morning and 1 Tablet before bedtime. Do all this for 10 days. Until gone.. 20 Tablet 4 03/04/20 24 Active traMADol HCl 100 MG Oral TabletIndications: Primary osteoarthritis involving multiple joints Take 100 mg by mouth every 8 hours as needed for Pain, Severe. 90 Tablet 3 4 Active Cephalexin 500 MG Oral Capsule Take 1 Capsule by mouth in the morning and 1 Capsule before bedtime. Do all this for 10 days. 20 Capsule 4 03/05/20 24 Active documented as of this encounter (statuses as of 02/25/2024) Active Problems Problem Noted Date Diagnosed Date Obesity, Class I, BMI 30.0-34.9 (see actual BMI) 01/06/2023 Persistent atrial fibrillation 06/13/2022 Status post nephrectomy 06/13/2022 Chronic heart failure with p reserved ejection fraction (HFpEF) 06/13/2022 Controlled substance agreement signed 01/27/2022 Parotid mass 06/28/2021 Staghorn calculus 06/28/2021 Primary osteoarthritis involving multiple joints 12/21/2020 [...] as of this encounter (statuses as of 02/25/2024) Resolved Problems Problem Noted Date Diagnosed Date [...] 05/04/2022 01/06/2023 Paroxysmal atrial fibrillation 07/29/2021 01/06/2023 Nonfunctioning kidney 12/21/20202022 Vasomotor phenomenon 12/21/2020 023 [...] as of this encounter (statuses as of 02/25/2024) Immunizations Name Administration Dates Next Due Pneumococcal [...] encounter Miscellaneous Notes * Telephone Encounter - Jovita Davis LPN - 02/25/2024 10:21 AM EST Sent my g. Confirmed that pt has been recently active on the [employer] chart portal. * Telephone Encounter - Stu Eisenberg MD - 02/24/2024 5:10 PM EST Keflex sent as alternative * Telephone Encounter - Claudine Bailon OSA - 02/24/2024 4:06 PM EST Pt is requesting a call back from Shanta. She has some more questions. Pt wouldn't give me much info.Pt just said that Shanta would know what it's about. Pt just mentioned she spoke to Shanta earlier today. Please call pt back, pt is requesting a call back today she said. I did give pt turn around time for call back. * Telephone Encounter - Shanta Nesbitt LPN - 02/24/2024 12:41 PM EST Called transferred to office. Pt is having extreme nausea from Bactrim about 30 minutes after taking medication. Pt is taking medication with food. Pt denies diarrhea or any other symptoms and is asking if we can send her something in for the nausea. Please send to [facility] if appropriate * Telephone Encounter - Divya Mckinney tea room manager - 02/24/2024 12:38 PM EST Patient called in with side effects from Sulfamethoxazole-Trimethoprim 800-160 MG Oral Tablet (Bactrim DS. Warm transferred to office for consultation. Thank you, Divya Mckinney Chief Deputy Sheriff I [facility] 02/24/2024,12:40 PM documented in this encounter Plan of Treatment Upcoming Encounters Date Type Department Care Team (Late st Contact Info) Description 03/02/2024 4:00 PM EST Office Visit Family [facility] [address] [place] [address] [address] Stu Eisenberg MD [address] [place] [address] Health Maintenance Due Date Last Done Comments Zoster Vaccines (1 of 2) 1991 Adult Wellness Visit 2007 Diabetic Foot Exam 06/28/2022 06/28/2021, 0 06/28/2021, 12/01/2017, Additional history exists DTap/Tdap Vaccines (2 - Td or Tdap) 01/17/2023 01/17/2013, 01/01/2004 Depression Screening 01/27/2023 01/27/2022 Diabetic Eye Exam 01/27/2023 01/27/2022, , 02/04/2008 COVID-19 Vaccine ( season) 2023 CKD PHOS USE SMARTSET 97922 08/18/202408/04, 05/19/2022, 2022, Additional history exists GFR 08/22/2024 02/23/2024, 08/04, 09/22/2022, Additional history exists HbA1c 08/22/2024 02/23/2024, 08/04, 06/13/2022, Additional history exists Albumin/Creatinine Ratio 02/22/2025 024, 09/23/2022, 07/22/2021, Additional history exists CKD HGB USE SMARTSET 50560 02/22/202502/22, 06/13/2022, 06/13/2022, Additional history exists DXA [...] this encounter Medical Devices Implanted Type Area Evp And Chief Operating Officer Device Identifier Shelf Expiration Date Model / Serial / Lot More Richardson [id number] - [id number] Implanted:[facility] : DIAGNOSTIC INTERVENTION [id number] 01/14/2025 [id number] / / [id number] Stent 10fr 9cm Clso-10-9 - [id number] Implanted:Qty: 1 on 05/16/2022 by Dean Catalan MD at [facility] COOK : ADENIKE MENDES 02/12/2025 [id number] / / [id number] documented as of this encounter Advance Directives [...] Advance Directives occurred with: Patient Care Teams Jointer Machine Operator Relationship Specialty Start Date End Date Stu Eisenberg MD [address] [facility] [place] [address] PCP - General Family Medicine 04/09/23 documented as of this encounter
--- OUTSIDE RECORDS SUMMARY | 2024-04-15 13:30 | External Medical Summary | Summary of Care ---
Author Name Unknown Organization [facility] Address [address] [place] [address] Phone [phone] Care Team Providers Care Braddisher Name Role Phone Hazel Hatch MD Primary Care Provider [phone] Reason for Visit * Reason Comments eRx-Medication Refill Encounter Details Date Type Department Care Team (Late st Contact Info) Description 03/17/2024 Refill Family Practice [facility] [address] [place] [address] Hazel Hatch MD [address] [place] [address] Benign paroxysmal vertigo, unspecified laterality Allergies Active Allergy Reactions Criticality Noted Date [...] . 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 Authorizing Provider: HAZEL HATCH Refused Prescriptions: Disp Refills Meclizine HCl 25 MG Oral Tablet (Antivert) 90 Tab*1 Sig: TAKE 1 TABLET BY MOUTH THREE TIMES A DAY NEEDED< BR> FOR DIZZINESS, Refused By: VANESSA SPEARS Reason for Refusal: Duplicate Request Reason for Refusal Comment: another request pending with pcp * Telephone Encounter - Vanessa Spears, [facility] - 03/18/2024 10:09 AM ESTPending Prescriptions: Disp Refills Meclizine HCl 25 MG Oral Tablet (Antivert) 90 Tab*1 Sig: Take 1 Tablet by mouth 3 times a day as needed for Dizziness. Refused Prescriptions: Disp Refills Meclizine HCl 25 MG Oral Tablet (Antivert) 90 Tab*1 Sig: TAKE 1 TABLET BY MOUTH THREE TIMES A DAY NEEDED FOR DIZZINESS, Refused By: Santosh SPEARS Reason for Refusal: Duplicate Request Reason for Refusal Comment: another request pending with pcp * Telephone Encounter - Vanessa Spears RPh - 03/18/2024 10:07 AM EST Unable to authorize medication refills for pended medication(s) at this time. Part of the protocol criteria used for refill authorization was not satisfied: The last prescription was ordered before the Planned Duration and Indication questions were implemented, so these have not been selected. Meclizine is typically intended for acute use as a PRN medication and not for long-term routine use, and the patient has been taking meclizine for more than 3 months. Please consider referral to one of the following: Otolaryngology if there are associated aural complaints (hearing loss, tinnitus) associated with the dizziness or if the dizziness evolves spontaneously. Neurology if the dizziness is associated with migraine headache, diplopia, limb incoordination, weakness, dysarthria, dysphagia or inability to ambulate/highly frequent falls. Vestibular physical therapist if the dizziness is primarily related to position changes or head movement (BPPV). Thanks, Vanessa Spears, PharmD Clinical Pharmacist [facility] [phone] 03/18/2024 10:09 AM documented in this encounter Plan of Treatment Upcoming Encounters Date Type Department Care Team (Late st Contact Info) Description 07/08/2024 9:30 AM EDT Office Visit Cardiology, [address] [place] [address] Jose Mantilla PA-C [address] [place] [id number] 08/24/2024 11:40 AM EDT Office Visit Family Practice [facility] [address] [place] [address] Hazel Hatch MD [address] [place] [address] Health Maintenance Due Date Last Done Comments Zoster Vaccines (1 of 2) 1991 Adult Wellness Visit 2007 Diabetic Foot Exam 06/28/2022 06/28/2021, 0 06/28/2021, 12/01/2017, Additional history exists DTap/Tdap Vaccines (2 - Td or Tdap) 01/17/2023 01/17/2013, 01/01/2004 Depression Screening 01/27/2023 01/27/2022 Diabetic Eye Exam 01/27/2023 01/27/2022, , 02/04/2008 COVID-19 Vaccine ( season) 2023 CKD PHOS USE SMARTSET 43866 08/18/202408/04, 05/19/2022, 2022, Additional history exists GFR 08/22/2024 02/23/2024, 08/04, 09/22/2022, Additional history exists HbA1c 08/22/2024 02/23/2024, 08/04, 06/13/2022, Additional history exists Albumin/Creatinine Ratio 02/22/2025 024, 09/23/2022, 07/22/2021, Additional history exists CKD HGB USE SMARTSET 87178 02/22/202502/22, 06/13/2022, 06/13/2022, Additional history exists DXA [...] this encounter Medical Devices Implanted Type Area Marine Fire Fighter Device Identifier Shelf Expiration Date Model / Serial / Lot More Richardson [id number] - [id number] Implanted:Qty: 1 on 05/05/2022 at [facility] COOK : DIAGNOSTIC INTERVENTION [id number] 01/14/2025 [id number] / / [id number] Stent 10fr 9cm Clso-10-9 - [id number] Implanted:Qty: 1 on 05/16/2022 by Dean Catalan MD at [facility] COOK : ADENIKE MENDES 02/12/2025 [id number] / / [id number] documented as of this encounter Visit Diagnoses Diagnosis Benign paroxysmal vertigo, unspecified laterality documented in this encounter Advance Directives * [...] Advance Directives occurred with: Patient Care Teams Braddisher Relationship Specialty Start Date End Date Hazel Hatch MD [address] [place] [address] PCP - General Family Medicine 04/09/23 documented as of this encounter
--- OUTSIDE RECORDS SUMMARY | 2024-04-15 13:31 | External Medical Summary ---
Author Name Unknown Address Unknown Organization [id number]:[facility] [place] [address] [facility] [address] Laboratory Report Ordering Provider Test Date Status HOLDEN OLIVA 02/23/2024 12:18:06 Final Observation Date Value Abnormality Reference (Units ) Status HbA1C 02/23/2024 12:18:06 6.3 Above high normal 4. 0-5.6 (%) Final The use of HbA1c to monitor glycemic status is based on normal hemoglobin and HbA composition. This test should not be used in patients with abnormal hemoglobin that affects the half life of the red blood cell or the in vivo glycation rates. Glucose, estimated average 02/23/2024 12:18:06 134 Above high normal <126 (mg/dL) Gilmar peng Performing Location LAB[facility] [place] [address] [facility] [address]
--- OUTSIDE RECORDS SUMMARY | 2024-04-15 13:31 | External Medical Summary | Summary of Care ---
Author Name Unknown Organization [facility] Address [address] [place] [address] Phone [phone] Care Team Providers Care Road Roller Operator Hot Mix Name Role Phone Stu Eisenberg MD Primary Care Provider [phone] [phone] Reason for Visit * Reason Comments Outpatient Testing Encounter Details Date Type Department Care Team (Late st Contact Info) Description 02/23/2024 12:30 PM EST Laboratory Laboratory, [facility] [address] [place] [address] [facility] [address] [place] [address] Stage 3a chronic kidney disease (HCC); Type 2 diabetes mellitus with hemoglobin A1c goal of less than 8.0% ([facility]) Allergies Active Allergy Reactions Criticality Noted Date Comments Afshin Inhibitors Edema face/lips/tongue High 3 Amoxicillin Diarrhea Low 10/13/2017 Azithromycin Neuro complications (Please comment) 05/01/2004 vertigo Diphenhydramine-Zinc Acetate Flushing 04/20/2013 hyperactivity Lisinopril Edema face/lips/tongue High 05/28/2015 Metoprolol Diarrhea 01/10/2022 documented as of this encounter (statuses as of 02/23/2024) Medications LORazepam 1 MG Oral Tablet (Ativan)Indication [...] . E11.9 100 Strip 3 2 Active OneTouch Ultra 2 w/Device Kit Check [...] Pain, Severe. 90 Tablet 3 4 Active documented as of this encounter (statuses as of 02/23/2024) Active Problems Problem Noted Date Diagnosed Date [...] as of this encounter (statuses as of 02/23/2024) Resolved Problems Problem Noted Date Diagnosed Date Resolved Date Type 2 diabetes mellitus wit h stage 3a chronic kidney disease, without long-term current use of insulin 06/13/2022 01/06/2023 Perforation of gallbladder 06/13/2022 1 Closed bimalleolar fracture of right ankle 06/13/2022 01/06/2023 Bile leak 05/17/2022 01/06/2023 S/P ERCP 05/17/2022 01/06/2023 Overview (05/17/2022): Sphincterotomy and plastic stent placed. Liver injury, laceration 05/16/20223 Laceration of gallbladder 05/16/2022 S/P cholecystectomy 05/14/2022 [...] as of this encounter (statuses as of 02/23/2024) Immunizations Name Administration Dates Next Due Pneumococcal Conjugate Vacc, 13 Valent (Prevnar) 11/23/2014 Pneumococcal Polysaccharide PPV23 (Pneumovax) 02/04/2008 Seasonal Influenza Vac., MDV , IM, 0.5 mL (Fluzone) 01/31/2014,01/17/2013,03/11/2012,03/04,12/24/2009,01/08/2009,02/04/2008 ,03/09/2006,01/22/2005 Seasonal Influenza, High Dos e, Trivalent, PF, IM (Fluzone HD) 02/23/2024 Seasonal Influenza, PF, 6 M & above, IM , (FluLaval or Fluzone) 02/24/2019,02/02/2018,01/12/2017 Seasonal Influenza, Quadriva lent Hd (Fluzone Hd) 01/07/2023,01/27/2022,12/21/2020 Seasonal Influenza, Quadriva lent, No Preserve, IM 12/06/2015,05/24/2015 TD - Tetanus/Diptheria (ADULT) 01/01/2004 TDAP (age 10 and older)(Boostrix) 01/17/2013 documented [...] Rancho Escobar RN documented in this encounter Plan of Treatment Upcoming Encounters Date Type Department Care Team (Late st Contact Info) Description 03/02/2024 4:00 PM EST Office Visit Family Practice [facility] [address] [place] [address] Stu Eisenberg MD [address] [place] [address] Pending Results Name Type Priority Associated Diagnoses Date /Time CBC Lab Routine Stage 3a chronic kidney disease (HCC) 02/23/2024 12:18 PM EST HEMOGLOBIN A1C Lab Routine Type 2 diabetes mellitus with hemoglobin A1c goal of less than 8.0% (HCC) 02/23/2024 12:18 PM EST BASIC METABOLIC PANEL Lab Routine Stage 3a chronic kidney disease (HCC) 02/23/2024 12:18 PM EST ALBUMIN / CREATININE RATIO, URINE Lab Routine Stage 3a chronic kidney disease (HCC) 02/23/2024 12:27 PM EST Health Maintenance Due Date Last Done Comments Zoster Vaccines (1 of 2) 1990 Adult Wellness Visit 2007 Diabetic Foot Exam 06/28/2022 06/28/2021, 0 06/28/2021, 12/01/2017, Additional history exists DTap/Tdap Vaccines (2 - Td or Tdap) 01/17/2023 01/17/2013, 01/01/2004 Depression Screening 01/27/2023 01/27/2022 Diabetic Eye Exam 01/27/2023 01/27/2022, , 02/04/2008 CKD HGB USE SMARTSET 44923 06/14/202306/13, 06/13/2022, 05/24/2022, Additional history exists Albumin/Creatinine Ratio 09/24/2023 023, 07/22/2021, 10/09/2017, Additional history exists COVID-19 Vaccine ( season) 2023 GFR 02/19/2024 08/19/2023, 09/04, 06/13/2022, Additional history exists HbA1c 02/19/2024 08/19/2023, 06/04, 10/01/2021, Additional history exists CKD PHOS USE SMARTSET 32428 08/18/202408/04, 05/19/2022, 2022, Additional history exists DXA Scan 08/12/2028 08/12/2021, [...] this encounter Medical Devices Implanted Type Area Drug Abuse Treatment Specialist Device Identifier Shelf Expiration Date Model / Serial / Lot More Richardson [id number] - [id number] Implanted:Qty: 1 on 05/05/2022 at [facility] COOK : DIAGNOSTIC INTERVENTION [id number] 01/14/2025 [id number] / / [id number] Stent 10fr 9cm Clso-10-9 - [id number] Implanted:Qty: 1 on 05/16/2022 by Dean Catalan MD at [facility] COOK : ADENIKE MENDES 02/12/2025 [id number] / / [id number] documented as of this encounter Visit Diagnoses Diagnosis Stage 3a chronic kidney disease (HCC) Type 2 diabetes mellitus with hemoglobin A1c goal of less than 8.0% (HCC) documented in this encounter Advance Directives [...] Advance Directives occurred with: Patient Care Teams Road Roller Operator Hot Mix Relationship Specialty Start Date End Date Stu Eisenberg MD [address] [facility] [place] [address] PCP - General Family Medicine 04/09/23 documented as of this encounter
--- OUTSIDE RECORDS SUMMARY | 2024-04-15 13:31 | External Medical Summary ---
Author Name Unknown Address Unknown Organization [id number]:LABORATORY [facility] [place] [address] - [address] [place] [address] Laboratory Report Ordering Provider Test Date Status HOLDEN OLIVA 02/23/2024 12:18:06 Final Observation Date Value Abnormality Reference (Units ) Status WBC, Total 02/23/2024 12:18:06 6.29 4.00-10.8 0 (K/uL) Final RBC 02/23/2024 12:18:06 3.95 3.85-5.15 (M/uL) Final Hemoglobin 02/23/2024 12:18:06 11.3 Below low normal 12 .0-15.3 (g/dL) Final HCT 02/23/2024 12:18:06 36.3 36.0-45.2 (%) Final MCV 02/23/2024 12:18:06 91.9 81.5-97.5 (fL) Final MCH 02/23/2024 12:18:06 28.6 27.0-34.0 (pg) Final MCHC 02/23/2024 12:18:06 31.1 32.0-36.0 (g/dL) Final RDW 02/23/2024 12:18:06 14.4 11.5-15.5 (%) Final Platelets 02/23/2024 12:18:06 228 140-400 (K /uL) Final MPV 02/23/2024 12:18:06 10.3 6.6-11.1 ( fL) Final Performing Location LABORATORY [facility] [place] [address] - [address] [place] [address]
--- OUTSIDE RECORDS SUMMARY | 2024-04-15 13:31 | External Medical Summary ---
Author Name Unknown Address Unknown Organization K01:LABORATORY [facility] [place] - [address] [place] [address] Laboratory Report Ordering Provider Test Date Status HAZELHOLDEN 02/23/2024 12:27:08 Final Normal: <30 mg/g creatinine< br/>High: 30-300 mg/g creatinine
Very High: >300 mg/g creatinine
Nephrotic: >2200 mg/g creatinine Observation Date Value Abnormality Reference (Units ) Status Albumin, Urine 02/23/2024 12:27:08 2.00 (mg/dL) Final Creatinine, Urine 02/23/2024 12:27:08 108 (mg/dL) Final Albumin/Creatinine [Mass Ratio] in Urine 02/23/2024 12:27:08 19 <30 (mg/g Creat) Final Performing Location LABORATORY [facility] [place] - [address] [place] [address]
--- OUTSIDE RECORDS SUMMARY | 2024-04-15 13:31 | External Medical Summary | Summary of Care ---
Author Name Unknown Organization [facility] Address [address] [place] [address] Phone [phone] Care Team Providers Care Process Laboratory Specialist Name Role Phone Hazel Hatch MD Primary Care Provider [phone] Reason for Visit * Reason Comments eRx-Medication Refill Encounter Details Date Type Department Care Team (Late st Contact Info) Description 02/11/2024 Refill Family Practice [facility] [address] [place] [address] Hazel Hatch MD [address] [place] [address] Dyslipidemia Allergies Active Allergy Reactions Criticality Noted Date Comments Afshin Inhibitors Edema face/lips/tongue High 3 Amoxicillin Diarrhea Low 10/13/2017 Azithromycin Neuro complications (Please comment) 05/01/2004 vertigo Diphenhydramine-Zinc Acetate Flushing 04/20/2013 hyperactivity Lisinopril Edema face/lips/tongue High 05/28/2015 Metoprolol Diarrhea 01/10/2022 documented as of this encounter (statuses as of 02/12/2024) Medications LORazepam 1 MG Oral Tablet (Ativan)Indication s:SAIMA (generalized anxiety disorder) TAKE 1 TABLET BY MOUTH 3 TIMES A DAY NEEDED FOR ANXIETY 10 Tab 12/21/19 21 Active Multi-Vitamin Daily Oral Tablet Take 1 [...] chew. 90 Tablet 3 07/14/19 24 Active Acetaminophen 500 MG Oral Tablet (Tylenol) [...] EVENING 60 Capsule 3 12/31/19 24 Active traMADol HCl 50 MG Oral Tablet (Ultram)Indication s:Primary osteoarthritis involving multiple joints Take 1 Tablet by mouth every 6 hours as needed for Pain, Severe. 30 Tablet 01/18/20 24 Active Rosuvastatin Calcium 10 MG Oral Tablet (Crestor)Indicatio ns:Dyslipidemia TAKE 1 TABLET BY MOUTH EVERY DAY IN THE MORNING 90 Tablet 02/12/20 24 Active Rosuvastatin Calcium 10 MG Oral Tablet (Crestor)Indicatio ns:Dyslipidemia Take 1 Tablet by mouth in the morning. 90 Tablet 3 04/13/19 24 024 Discontinued documented as of this encounter (statuses as of 02/12/2024) Active Problems Problem Noted Date Diagnosed Date [...] as of this encounter (statuses as of 02/12/2024) Resolved Problems Problem Noted Date Diagnosed Date [...] as of this encounter (statuses as of 02/12/2024) Immunizations Name Administration Dates Next Due Pneumococcal Conjugate Vacc, 13 Valent (Prevnar) 11/23/2014 Pneumococcal Polysaccharide PPV23 (Pneumovax) 02/04/2008 Seasonal Influenza Vac., MDV , IM, 0.5 mL (Fluzone) 01/31/2014,01/17/2013,03/11/2012,03/04,12/24/2009,01/08/2009,02/04/2008 ,03/09/2006 Seasonal Influenza, PF, 6 M & above, [...] money to get more. Never true 01/27/2022 Utilities Answer Date Recorded Do you have trouble paying y our heating, water, or electric bill? (Adult - for ages 18 years and over) Not on file 09/22/2023 Is your family able to pay t he heat, water, or electric bill? (Household - for ages 0-17 years) Not on file 09/22/2023 Does your family have access to good internet? (Household - for ages 0-17 years) Not on file 09/22/2023 Social Connections Answer Date Recorded How often do you feel lonely or isolated from those around you? (Adult - for ages 18 years and over) Not on file 09/22/2023 Comments No Sex and Gender Information Value [...] encounter Miscellaneous Notes * Telephone Encounter - James Anand RPh - 02/12/2024 9:30 AM ESTSigned Prescriptions: Disp Refills Rosuvastatin Calcium 10 MG Oral Tablet (Cr*90 Tab*0 Sig: TAKE 1 TABLET BY MOUTH EVERY DAY IN THE MORNINGAuthorizing Provider: HAZEL HATCH User: JAMES ANAND * Telephone Encounter - James Anand RPh - 02/12/2024 9:28 AM EST RX authorized. Zero refills given until upcoming appt. 03/02/2024 James Perez, PharmD Clinical Pharmacist [facility] ([facility]) [phone] 02/12/2024 9:29 AM documented in this encounter Plan of Treatment Upcoming Encounters Date Type Department Care Team (Late st Contact Info) Description 03/02/2024 4:00 PM EST Office Visit [facility] [address] [place] [address] Hazel Hatch MD [address] [place] [address] Health Maintenance Due Date Last Done Comments Zoster Vaccines (1 of 2) 1991 Adult Wellness Visit 2007 Diabetic Foot Exam 06/28/2022 06/28/2021, 0 06/28/2021, 12/01/2017, Additional history exists DTap/Tdap Vaccines (2 - Td or Tdap) 01/17/2023 01/17/2013, 01/01/2004 Depression Screening 01/27/2023 01/27/2022 Diabetic Eye Exam 01/27/2023 01/27/2022, , 02/04/2008 CKD HGB USE SMARTSET 55137 06/14/202306/13, 06/13/2022, 05/24/2022, Additional history exists Albumin/Creatinine Ratio 09/24/2023 023, 07/22/2021, 10/09/2017, Additional history exists COVID-19 Vaccine ( - season) 2023 Influenza Vaccine (FLU shot) (#1) 2023 01/07/2023, 01/27/2022, 12/21/2020, Additional history exists GFR 02/19/2024 08/19/2023, 09/04, 06/13/2022, Additional history exists HbA1c 02/19/2024 08/19/2023, 06/04, 10/01/2021, Additional history exists CKD PHOS USE SMARTSET 11984 08/18/202408/04, 05/19/2022, 2022, Additional history exists DXA Scan 08/12/2028 08/12/2021, 05/08, 01/19/2002, Additional history exists Pneumococcal Vaccine: 65+ Years Completed 11/23/2014, 02/04/2008 HPV (Gardasil) Vaccine Aged Out No lo nger eligible based on patient's age to complete this topic Hepatitis B Vaccine Aged Out No longe r eligible based on patient's age to complete this topic MENINGOCOCCAL (MENACTRA/MENVEO) Aged Out No longer eligible based on patient's age to complete this topic documented as of this encounter Medical Devices Implanted Type Area Civil Geotechnical Engineer Device Identifier Shelf Expiration Date Model / Serial / Lot Cath Jackson Richardson [id number] - [id number] Implanted:Qty: 1 on 05/05/2022 at [facility] [facility] COOK : DIAGNOSTIC INTERVENTION [id number] 01/14/2025 [id number] / / [id number] Stent 10fr 9cm Clso-10-9 - [id number] Implanted:Qty: 1 on 05/16/2022 by Dean Catalan MD at [facility] COOK : ADENIKE MENDES 02/12/2025 [id number] / / [id number] documented as of this encounter Visit Diagnoses Diagnosis Dyslipidemia Other and unspecified hyperlipidemia documented in this encounter Advance Directives * [...] Advance Directives occurred with: Patient Care Teams Process Laboratory Specialist Relationship Specialty Start Date End Date Hazel Hatch MD [address] [place] [address] PCP - General Family Medicine 04/09/23 documented as of this encounter
--- OUTSIDE RECORDS SUMMARY | 2024-04-15 13:31 | External Medical Summary | Summary of Care ---
Author Name Unknown Organization [facility] Address [address] [place] [address] Phone [phone] Care Team Providers Care Drilling Fluids Specialist Name Role Phone Stu Eisenberg MD Primary Care Provider [phone] Reason for Visit * Reason Comments Outpatient Testing Encounter Details Date Type Department Care Team (Late st Contact Info) Description 02/23/2024 12:30 PM EST Laboratory Laboratory, [facility] [address] [place] [address] [facility] [address] [place] [address] Stage 3a chronic kidney disease (HCC); Type 2 diabetes mellitus with hemoglobin A1c goal of less than 8.0% ([facility]) Allergies Active Allergy Reactions Criticality Noted [...] 05/03/2022 10:59 PM Rancho Ecsobar RN * Are you blind or do [...] 4:00 PM EST Office Visit Family Practice [facility] [address] [place] [address] Stu Eisenberg MD [address] [place] [address] Pending Results Name Type Priority Associated Diagnoses [...] 01/27/2022, , 02/04/2008 CKD HGB USE SMARTSET 35613 06/14/202306/13, 06/13/2022, 05/24/2022, Additional history exists Albumin/Creatinine Ratio 09/24/2023 023, 07/22/2021, 10/09/2017, Additional history exists COVID-19 Vaccine ( season) 2023 GFR 02/19/2024 08/19/2023, 09/04, 06/13/2022, Additional history exists HbA1c 02/19/2024 08/19/2023, 06/04, 10/01/2021, Additional history exists CKD PHOS USE SMARTSET 27257 08/18/202408/04, 05/19/2022, 2022, Additional history exists DXA [...] this encounter Medical Devices Implanted Type Area Cheesemaking Laborer Device Identifier Shelf Expiration Date Model / Serial / Lot More Richardson [id number] - [id number] Implanted:Qty: 1 on 05/05/2022 at [employer] [facility] : DIAGNOSTIC INTERVENTION [id number] 01/14/2025 [id number] / / [id number] Stent 10fr 9cm Clso-10-9 - [id number] Implanted:Qty: 1 on 05/16/2022 by Dean Catalan MD at [facility] COOK : ADENIKE MENDES 02/12/2025 [id number] / / [id number] documented as of this encounter Visit Diagnoses [...] Advance Directives occurred with: Patient Care Teams Drilling Fluids Specialist Relationship Specialty Start Date End Date Stu Eisenberg MD [address] [facility] [place] [address] PCP - General Family Medicine 04/09/23 documented as of this encounter
--- OUTSIDE RECORDS SUMMARY | 2024-04-15 13:31 | External Medical Summary ---
Author Name Unknown Address Unknown Organization K0[facility] [place] [address] Laboratory Report Ordering Provider Test Date Status HOLDEN OLIVA 02/23/2024 12:18:06 Final Observation Date Value Abnormality Reference (Units ) Status BUN 02/23/2024 12:18:06 22 Above high normal 6-20 (mg/dL) Final Creatinine 02/23/2024 12:18:06 0.9 0.5-1.0 (mg/dL) Final Glomerular filtration rate/1.73 sq M.predicted [Volume Rate/Area] in Serum, Plasma or Blood by Creatinine-based formula (CKD-EPI) 02/23/2024 12:18:06 61 >=60 (mL/min) Final eGFR is calculated based on the CKD-EPI 2020 equation. Sodium 02/23/2024 12:18:06 139 135-146 (m mol/L) Final Potassium 02/23/2024 12:18:06 4.2 3.5-5.1 (m mol/L) Final Cl 02/23/2024 12:18:06 103 98-107 (mm ol/L) Final CO2 02/23/2024 12:18:06 24 22-32 (mmo l/L) Final Anion gap 02/23/2024 12:18:06 12 7-15 (mmol /L) Final Glucose 02/23/2024 12:18:06 93 70-120 (mg /dL) Final Calcium 02/23/2024 12:18:06 9.0 8.4-10.2 ( mg/dL) Final Performing Location [facility] [address] [place] [address]
--- OUTSIDE RECORDS SUMMARY | 2024-04-15 13:31 | External Medical Summary | Summary of Care ---
Author Name Unknown Organization [facility] Address [address] [place] [address] Phone [phone] Care Team Providers Care Medicinal Plant Picker Name Role Phone Hazel Hatch MD Primary Care Provider [phone] Reason for Visit * Reason Onset Date Comments Medication Refill 02/19/2024 Encounter Details Date Type Department Care Team (Late st Contact Info) Description 02/19/2024 Refill Family Practice [facility] [address] [place] [address] Hazel Hatch MD [address] [place] [phone] Primary osteoarthritis involving multiple joints Allergies Active Allergy Reactions Criticality Noted Date Comments Afshin Inhibitors Edema face/lips/tongue High 3 Amoxicillin Diarrhea Low 10/13/2017 Azithromycin Neuro complications (Please comment) 05/01/2004 vertigo Diphenhydramine-Zinc Acetate Flushing 04/20/2013 hyperactivity Lisinopril Edema face/lips/tongue High 05/28/2015 Metoprolol Diarrhea 01/10/2022 documented as of this encounter (statuses as of 02/19/2024) Medications LORazepam 1 MG Oral Tablet (Ativan)Indication s:SAIMA (generalized anxiety disorder) TAKE 1 TABLET BY MOUTH 3 TIMES A DAY NEEDED FOR ANXIETY 10 Tab 1 Active Multi-Vitamin Daily Oral Tablet Take 1 Tablet by mouth in the morning. Active OneTouch UltraSoft Lancets Use as directed daily . E11.9 100 Each 3 03/25/202 2 Active OneTouch Ultra Blue In Vitro [...] MORNING 90 Tablet 4 Active traMADol HCl 50 MG Oral Tablet (Ultram)Indication s:Primary osteoarthritis involving multiple joints Take 1 Tablet by mouth every 6 hours as needed for Pain, Severe. 30 Tablet 4 Active traMADol HCl 50 MG Oral Tablet (Ultram)Indication s:Primary osteoarthritis involving multiple joints Take 1 Tablet by mouth every 6 hours as needed for Pain, Severe. 30 Tablet 10/14/ 024 Discontin ued(Refil l) documented as of this encounter (statuses as of 02/19/2024) Active Problems Problem Noted Date Diagnosed Date [...] as of this encounter (statuses as of 02/19/2024) Resolved Problems Problem Noted Date Diagnosed Date [...] as of this encounter (statuses as of 02/19/2024) Immunizations Name Administration Dates Next Due Pneumococcal [...] Telephone Encounter - Hazel Hatch MD - 02/19/2024 10:18 AM ESTSigned Prescriptions: Disp Refills traMADol HCl 50 MG Oral Tablet (Ultram) 30 Tab*0 Sig: Take 1 Tablet by mouth every 6 hours as needed for Pain, Severe. Authorizing Provider: HAZEL HATCH * [facility] - [facility] - 02/19/2024 9:00 AM ESTPending Prescriptions: Disp Refills traMADol HCl 50 MG Oral Tablet (Ultram) 30 Tab*0 Sig: Take 1 Tablet by mouth every 6 hours as needed for Pain, Severe. * Telephone Encounter - Alex Smith [facility] - 02/19/2024 8:58 AM EST I have reviewed the patients controlled substance dispensing history in the Prescription Drug Monitoring Program in compliance with the [facility] regulations before prescribing a controlled substance. PDMP checked on 02/19/2024. Pending Prescriptions: Disp Refills traMADol HCl 50 MG Oral Tablet (Ultram) 30 Tab*0 Sig: Take 1 Tablet by mouth every 6 hours as needed for Pain, Severe. Last Visit: 08/19/2023 (in office), Visit date not found (telemedicine) Next Visit: 03/02/2024 Date medication was last filled: 01/18/24 Date medication is due for refill: 01/24/24 Pharmacy: [id number] Is this request for a controlled substance? Yes and Urine Drug Screen Not completed Toxicology results: Results for orders placed or performed in [...] results can be found in Results Review. Please approve if appropriate. Thank You, Alex Badillo [facility] Clinical Pharmacist [facility] ([facility]) 02/19/2024, 8:58 AM * Telephone Encounter - Karen Kapoor PHARM Tech - 02/19/2024 8:53 AM EST Pt is out of medication and is asking for high priority Did you pend patient's preferred pharmacy and medication before forwarding?yes Pharmacy: [id number] [facility] Pending Prescriptions: Disp Refills traMADol HCl 50 MG Oral Tablet (Ultram) 30 Tab*0 Sig: Take 1 Tablet by mouth every 6 hours as needed for Pain, Severe. Last Visit: 08/19/2023 (in office), Visit date not found (telemedicine) Next Visit: 03/02/2024 If no future appointments scheduled, and last appointment is greater than a year ago, please schedule patient for a follow-up appointment Last date the medication was ordered: 01/18/2024 Is this request for a controlled substance?Yes, What was the last refill date 01/18/2024 w/ quantity 30 and dosage 50mg and Urine Drug Screen Not completed Urine Drug Screen: Results for orders placed [...] found in Results Review. Patient Phone Numbers mobile [phone] Labs: Lab Results Component Value Date/Time CREAT 1.1 (H) 08/19/2023 04:36 PM CREAT 0.9 11/09/2019 12:20 PM POTASSIUM 5.0 08/19/2023 04:36 PM POTASSIUM 4.3 11/09/2019 12:20 PM TSH 5.35 (H) 03/14/2022 12:54 PM TSH 3.24 01/17/2013 11:24 AM LDL 87 07/22/2021 01:40 PM LDL 83 11/09/2019 12:20 PM LDL NOT APPLICABLE 11/09/2019 12:20 PM ALT 17 2022 06:46 AM ALT 22 05/26/2017 04:45 PM HGBA1C 6.1 (H) 08/19/2023 04:36 PM HGBA1C 6.4 (H) 06/07/2018 04:00 PM documented in this encounter Plan of Treatment Upcoming Encounters Date Type Department Care Team (Late st Contact Info) Description 03/02/2024 4:00 PM EST Office Visit [facility] [address] [place] [address] Hazel Hatch MD [address] [place] [address] Health Maintenance Due Date Last Done Comments Zoster Vaccines (1 of 2) 1991 Adult Wellness Visit 2007 Diabetic Foot Exam 06/28/2022 06/28/2021, 0 06/28/2021, 12/01/2017, Additional history exists DTap/Tdap Vaccines (2 - Td or Tdap) 01/17/2023 01/17/2013, 01/01/2004 Depression Screening 01/27/2023 01/27/2022 Diabetic Eye Exam 01/27/2023 01/27/2022, , 02/04/2008 CKD HGB USE SMARTSET 32941 06/14/202306/13, 06/13/2022, 05/24/2022, Additional history exists Albumin/Creatinine Ratio 09/24/2023 023, 07/22/2021, 10/09/2017, Additional history exists COVID-19 Vaccine ( season) 2023 Influenza Vaccine (FLU shot) (#1) 2023 01/07/2023, 01/27/2022, 12/21/2020, Additional history exists GFR 02/19/2024 08/19/2023, 09/04, 06/13/2022, Additional history exists HbA1c 02/19/2024 08/19/2023, 06/04, 10/01/2021, Additional history exists CKD PHOS USE SMARTSET 37391 08/18/202408/04, 05/19/2022, 2022, Additional history exists DXA [...] this encounter Medical Devices Implanted Type Area Wood Heel Flap Trimmer Device Identifier Shelf Expiration Date Model / Serial / Lot More Richardson [id number] - [id number] Implanted:Qty: 1 on 05/05/2022 at [employer] [facility] COOK : DIAGNOSTIC INTERVENTION [id number] 01/14/2025 [id number] / / [id number] Stent 10fr 9cm Clso-10-9 - [id number] Implanted:Qty: 1 on 05/16/2022 by Dean Catalan MD at [facility] COOK : ADENIKE MENDES 02/12/2025 [id number] / / [id number] documented as of this encounter Visit Diagnoses Diagnosis Primary osteoarthritis involving multiple joints documented in this encounter Advance Directives * [...] Advance Directives occurred with: Patient Care Teams Medicinal Plant Picker Relationship Specialty Start Date End Date Hazel Hatch MD [address] [place] [address] PCP - General Family Medicine 04/09/23 documented as of this encounter
--- OUTSIDE RECORDS SUMMARY | 2024-04-15 13:31 | External Medical Summary | Summary of Care ---
Author Name Unknown Organization [facility] Address [address] [place] [address] Phone [phone] Care Team Providers Care Forest Science Professor Name Role Phone Stu Eisenberg MD Primary Care Provider [phone] Reason for Visit * Reason Comments Cellulitis Pt states she has muhammad d cellulitis in RLE for the past month, pt states she was treated with cephalexin starting 01/19/2024. Pt states the infection never resolved completely and is now worsening Encounter Details Date Type Department Care Team (Latest Contact Info) Description 02/23/2024 11:20 AM EST Office Visit Family Practice [facility] [address] [facility] [place] [address] Stu Eisenberg MD [address] [facility] [place] [id number] Cellulitis of right lower extremity*; Primary osteoarthritis involving multiple joints; Type 2 diabetes mellitus with hemoglobin A1c goal of less than 8.0% ([facility]); Stage 3a chronic kidney disease ([facility]) Allergies Active Allergy Reactions Criticality Noted Date [...] 14 days. 22 g 1 02/23/20 24 024 Active Sulfamethoxazole-T rimethoprim 800-160 MG Oral Tablet (Bactrim DS) Take 1 Tablet by mouth in the morning and 1 Tablet before bedtime. Do all this for 10 days. Until gone.. 20 Tablet 02/23/20 24 024 Active traMADol HCl 100 MG Oral TabletIndications: Primary osteoarthritis involving multiple joints Take 100 mg by mouth every 8 hours as needed for Pain, Severe. 90 Tablet 3 02/23/20 24 Active traMADol HCl 50 MG Oral Tablet (Ultram)Indication s:Primary osteoarthritis involving multiple joints Take 1 Tablet by mouth every 6 hours as needed for Pain, Severe. 30 Tablet 02/19/20 24 024 Discontin ued(Refil l) documented as of [...] pyelonephritis 05/05/2022 01/06/2023 Other specified anemias 05/05/2022 10/06/2022 Severe protein-energy malnutrition 05/05/2022 01/07/2023 ESBL Escherichia [...] the money to buy more. Never true 10/24/20 22 Within the past 12 months, t [...] Sign Reading Time Taken Comments Blood Pressure 128/62 02/23/2024 11:27 AM EST Pulse 84 02/23/2024 11:27 AM EST Temperature 36.6 C (97.8 F) 02/23/2024 11:[address] Respiratory Rate - - Oxygen Saturation - - Inhaled Oxygen Concentration - - Weight 89.4 kg (197 lb) 02/23/2024 11:27 AM EST Height 160 cm (5' 3") 02/23/2024 11:27 AM EST Body Mass Index 34.9 02/23/2024 11:27 AM EST documented in this [...] Progress Notes * Stu Eisenberg MD - 02/23/2024 12:16 PM EST SUBJECTIVE: Marcy Lundberg is a 83 year old female. Chief Complaint Patient presents with Cellulitis Pt states she has had cellulitis in RLE for the past month, pt states she was treated with cephalexin starting 01/19/2024. Pt states the infection never resolved completely and is now worsening HPI: Here for continued right lower leg cellulitis. She was seen in the ED for this one month ago and prescribed keflex. She notes that she had a lot of improvement initially, but still has two open soreson the leg that are not healing. She says she has not picked at them, however they do seem to have been recently scabbed over and deroofed somehow. She is requesting to have her tramadol dose increased due to increasing overall pain, but mostly related to her charcot foot. 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 To affected area for up to 14 days. 22 g 1 Sulfamethoxazole-Trimethoprim 800-160 MG Oral Tablet (Bactrim DS) Take 1 Tablet by mouth in the morning and 1 Tablet before bedtime. Do all this for 10 days. Until gone.. 20 Tablet 0 traMADol HCl 100 MG Oral Tablet Take 100 mg by mouth every 8 hours as needed for Pain, Severe. 90 Tablet 3 LORazepam 1 MG Oral Tablet (Ativan) TAKE 1 TABLET BY MOUTH 3 TIMES A DAY NEEDED FOR ANXIETY 10 Tab 0 Multi-Vitamin Daily Oral Tablet Take 1 Tablet by mouth in the morning. OneTouch UltraSoft Lancets Use as directed daily . E11.9 100 Each 3 OneTouch Ultra Blue In Vitro Strip (Glucose Blood) Use as directed daily . E11.9 100 Strip 3 OneTouch Ultra 2 w/Device Kit Check sugars [...] cut, crush or chew. 90 Tablet 3 Acetaminophen 500 MG Oral Tablet (Tylenol) Take 1 Tablet by mouth every 6 hours as needed. Meclizine HCl 25 MG Oral Tablet (Antivert) TAKE 1 TABLET BY MOUTH THREE TIMES A DAY NEEDED FOR DIZZINESS, 90 Tablet 1 Loperamide HCl 2 MG Oral Capsule (Imodium) TAKE 2 TABLETS BY MOUTH EVERY EVENING 60 Capsule 3 Rosuvastatin Calcium 10 MG Oral Tablet (Crestor) TAKE 1 TABLET BY MOUTH EVERY DAY IN THE MORNING 90Tablet 0 No current facility-administered medications for this visit. Allergy: Review of patient's allergies indicates: Allergen Reactions Afshin Inhibitors Edema face/lips/tongue Lisinopril Edema face/lips/tongue Azithromycin Neuro complications (Please comment) vertigo Diphenhydramine-Zinc Acetate Flushing hyperactivity Metoprolol Diarrhea Amoxicillin Diarrhea OBJECTIVE: BP 128/62 | Pulse 84 | Temp 97.8 F (36.6 C) | Ht 5' 3" (1.6 m) | Wt 197 lb (89.4 kg) | BMI 34.90 kg/m | BSA 1.99 m General: alert, healthy, and no distress Head: Normocephalic, No masses, lesions, tenderness or abnormalities Lungs: chest symmetric with normal AP diameter, no chest deformities noted, no chest wall tenderness, lungs clear to auscultation Heart: regular rate & rhythm, no murmur, and no gallops Extremities: left lower leg with multiple scabs, as well as two open sores with clear drainage; diffuse erythema; slight warmth; minimal tenderness ASSESSMENT AND PLAN: (L03.115) Cellulitis of right lower extremity (primary encounter diagnosis) Plan: will give 10 more days of Bactrim and treat the open areas with mupirocin; ER indications given (M15.0) Primary osteoarthritis involving multiple joints Plan: traMADol HCl 100 MG Oral Tablet (E11.9) Type 2 diabetes mellitus with hemoglobin A1c goal of less than 8.0% (HCC) Plan: HEMOGLOBIN A1C (N18.31) Stage 3a chronic kidney disease (HCC) Plan: CBC, ALBUMIN / CREATININE RATIO, URINE, BASIC METABOLIC PANEL Follow up as needed. No other complaints were offered at this time. Stu Eisenberg MD documented in this encounter Plan of Treatment Upcoming Encounters Date Type Department Care Team (Late st Contact Info) Description 03/02/2024 4:00 PM EST Office Visit [facility] [address] [facility] [place] [id number] Stu Eisenberg MD [address] [place] [address] Pending Results Name Type Priority Associated Diagnoses Date /Time CBC Lab Routine Stage 3a chronic kidney disease (HCC) 02/23/2024 12:18 PM EST HEMOGLOBIN A1C Lab Routine Type 2 diabetes mellitus with hemoglobin A1c goal of less than 8.0% (HCC) 02/23/2024 12:18 PM EST ALBUMIN / CREATININE RATIO, URINE Lab Routine Stage 3a chronic kidney disease (HCC) 02/23/2024 12:27 PM EST BASIC METABOLIC PANEL Lab Routine Stage 3a chronic kidney disease (HCC) 02/23/2024 12:18 PM EST Scheduled Orders Name Type Priority Associated Diagnoses Orde r Schedule CBC Lab Routine Stage 3a chronic kidney disease (HCC) Expected: 02/23/2024 (Approximate), Expires: 02/22/2025 HEMOGLOBIN A1C Lab Routine Type 2 diabetes mellitus with hemoglobin A1c goal of less than 8.0% (HCC) Expected: 02/23/2024 (Approximate), Expires: 02/22/2025 ALBUMIN / CREATININE RATIO, URINE Lab Routine Stage 3a chronic kidney disease (HCC) Expected: 02/23/2024 (Approximate), Expires: 02/22/2025 BASIC METABOLIC PANEL Lab Routine Stage 3a chronic kidney disease (HCC) Expected: 02/23/2024 (Approximate), Expires: 02/22/2025 Health Maintenance Due Date Last Done Comments Zoster Vaccines (1 of 2) 1991 Adult Wellness Visit 2007 Diabetic Foot Exam 06/28/2022 06/28/2021, 0 06/28/2021, 12/01/2017, Additional history exists DTap/Tdap Vaccines (2 - Td or Tdap) 01/17/2023 01/17/2013, 01/01/2004 Depression Screening 01/27/2023 01/27/2022 Diabetic Eye Exam 01/27/2023 01/27/2022, , 02/04/2008 CKD HGB USE SMARTSET 72574 06/14/202306/13, 06/13/2022, 05/24/2022, Additional history exists Albumin/Creatinine Ratio 09/24/2023 023, 07/22/2021, 10/09/2017, Additional history exists COVID-19 Vaccine ( season) 2023 GFR 02/19/2024 08/19/2023, 09/04, 06/13/2022, Additional history exists HbA1c 02/19/2024 08/19/2023, 06/04, 10/01/2021, Additional history exists CKD PHOS USE SMARTSET 42449 08/18/202408/04, 05/19/2022, 2022, Additional history exists DXA [...] this encounter Medical Devices Implanted Type Area Roto Gravure Press Operator Device Identifier Shelf Expiration Date Model / Serial / Lot More Richardson [id number] - [id number] Implanted:Qty: 1 on 05/05/[address] [facility] [employer] : DIAGNOSTIC INTERVENTION [id number] 01/14/2025 [id number] / / [id number] Stent 10fr 9cm Clso-10-9 - [id number] Implanted:Qty: 1 on 05/16/2022 by Dean Catalan MD at [facility] COOK : ADENIKE MENDES 02/12/2025 [id number] / / [id number] documented as of this encounter Visit Diagnoses Diagnosis Cellulitis of right lower extremity- Primary Cellulitis and abscess of leg, except foot Primary osteoarthritis involving multiple joints Type 2 diabetes mellitus with hemoglobin A1c goal of less than 8.0% (HCC) Stage 3a chronic kidney disease (HCC) documented in this encounter Advance Directives [...] Advance Directives occurred with: Patient Care Teams Forest Science Professor Relationship Specialty Start Date End Date Stu Eisenberg MD [address] [id number] PCP - General Family Medicine 04/09/23 documented as of this encounter
--- OUTSIDE RECORDS SUMMARY | 2024-04-15 13:31 | External Medical Summary | Summary of Care ---
Author Name Unknown Organization [facility] Address [address] [place] [address] Phone [phone] Care Team Providers Care Color Printer Operator Name Role Phone Stu Eisenberg MD Primary Care Provider [phone] Reason for Visit * Reason Onset Date Comments Medication Administration 02/23/2024 Flu an d/or Pneumo Inj Encounter Details Date Type Department Care Team (Late st Contact Info) Description 02/23/2024 11:40 AM EST Immunization Ancillary [facility] [address] [place] [address] [facility] Shot [facility] [address] [place] [address] Need for prophylactic vaccination and inoculation against influenza* Allergies Active Allergy Reactions Criticality Noted Date Comments Afshin Inhibitors Edema face/lips/tongue High 3 Amoxicillin Diarrhea Low 10/13/2017 Azithromycin Neuro complications (Please comment) 05/01/2004 vertigo Diphenhydramine-Zinc Acetate Flushing 04/20/2013 hyperactivity Lisinopril Edema face/lips/tongue High 05/28/2015 Metoprolol Diarrhea 01/10/2022 documented as of this encounter (statuses as of 02/23/2024) Medications LORazepam 1 MG Oral Tablet (Ativan)Indications [...] Active traMADol HCl 50 MG Oral Tablet (Ultram)Indications :Primary osteoarthritis involving multiple joints Take 1 Tablet by mouth every 6 hours as needed for Pain, Severe. 30 Tablet 4 Active documented as of this encounter [...] documented in this encounter Progress Notes * Pia Mix LPN - 02/23/2024 11:12 AM EST PRE - ADMINISTRATION DOCUMENTATION Are you experiencing any cold symptoms or fever? No Have you had Guillain-Manchester Syndrome (an illness that causes paralysis) within the last 6 weeks? No Have you had the flu shot in the past? YES Have you ever had a reaction to the flu shot? No Pia Mix LPN, 02/23/2024 11:12 AM Immunization Administration Documentation Time Out Procedure Performed: Yes Patient Identified (Ask Name/Date of ): Yes Does the patient have a fever greater than 101 degrees today? No Patient allergic to latex? No VFC Stock: No Immunization(s) verified: Yes, Immunization Name: Flu, VIS Sheet(s) given: Yes Injection(s) verified: Yes, Injection Name: flu Verified Side and Site: Yes Verified Shot(s) with Parent(s)/Patient: Yes documented in this encounter Plan of Treatment Upcoming Encounters Date Type Department Care Team (Late st Contact Info) Description 03/02/2024 4:00 PM EST Office Visit Family Practice [facility] [address] [place] [address] Stu Eisenberg MD [address] [place] [address] Health Maintenance Due Date Last Done Comments Zoster Vaccines (1 of 2) 1991 Adult Wellness Visit 2007 Diabetic Foot Exam 06/28/2022 06/28/2021, 0 06/28/2021, 12/01/2017, Additional history exists DTap/Tdap Vaccines (2 - Td or Tdap) 01/17/2023 01/17/2013, 01/01/2004 Depression Screening 01/27/2023 01/27/2022 Diabetic Eye Exam 01/27/2023 01/27/2022, , 02/04/2008 CKD HGB USE SMARTSET 26172 06/14/202306/13, 06/13/2022, 05/24/2022, Additional history exists Albumin/Creatinine Ratio 09/24/2023 023, 07/22/2021, 10/09/2017, Additional history exists COVID-19 Vaccine ( season) 2023 GFR 02/19/2024 08/19/2023, 09/04, 06/13/2022, Additional history exists HbA1c 02/19/2024 08/19/2023, 06/04, 10/01/2021, Additional history exists CKD PHOS USE SMARTSET 52623 08/18/202408/04, 05/19/2022, 2022, Additional history exists DXA [...] this encounter Medical Devices Implanted Type Area Orchestra Director Device Identifier Shelf Expiration Date Model / Serial / Lot More Richardson [id number] - [id number] Implanted:Qty: 1 on 05/05/2022 at [facility] [employer] : DIAGNOSTIC INTERVENTION [id number] 01/14/2025 [id number] / / [id number] Stent 10fr 9cm Clso-10-9 - [id number] Implanted:Qty: 1 on 05/16/2022 by Dean Catalan MD at [facility] COOK : ADENIKE MENDES 02/12/2025 [id number] / / [id number] documented as of this encounter Visit Diagnoses Diagnosis Need for prophylactic vaccination and inoculation against influenza- Primary documented in this encounter Advance Directives * [...] Advance Directives occurred with: Patient Care Teams Color Printer Operator Relationship Specialty Start Date End Date Stu Eisenberg MD [address] [place] [address] PCP - General Family Medicine 04/09/23 documented as of this encounter
[2024-04-15] MEDS: MECLIZINE HCL 25 MG TAB PO STA (14:21)
--- NOTE | 2024-04-15 15:38 | History & Physical Report ---
Date of Service April 15, 2024 Assessment & Plan (1) Vertigo: Plan: 83 year old female with history of CHFpEF, A fib on Eliquis, Cerebrovasculas small vessel disease, Benign Positional Vertigo, other problems below presenting with dizziness x 2 days. DIZZINESS, VOMITING, SECONDARY TO VERTIGO ATTACK HISTORY OF BPPV completed 5 day course of Levaquin 2 days ago since that time, has been having severe dizziness, nausea/vomiting, ambulatory dysfunction CT head negative for acute CVA CXR no pneumonia given Meclizine, Ativan, Zofran at the ER with improvement of dizziness, but still unsteady with ambulating PRN Meclizine, Ativan, Phenergan PT/OT eval Brain MRI tomorrow if without improvement still having productive cough but less sputum culture Mucinex, Incentive spirometry and flutter valve CHF,pEF euvolemic A FIB continue Diltiazem, Eliquis SMALL VESSEL CEREBROVASCULAR DISEASE continue Rosuvastatin IBS Anxiety s/p Nephrectomy - stable DVT prophylaxis already on Eliquis DNR as per patient Disposition lives with daughter at home PT/OT eval History of Present Illness Primary Care Provider: Stu Eisenberg MD 83 year old female with history of CHFpEF, A fib on Eliquis, Cerebrovasculas small vessel disease, Benign Positional Vertigo, other problems below presenting with dizziness x 2 days. Patient reports she was started on Levaquin PO last Apr 08, 2023 for bronchitis, which she completed last Thursday. Since that time, she started to have severe dizziness, reminiscent of her vertigo attacks. Patient states antibiotics causes her vertigo to flare up. Today, her dizziness progressed and as associated with multiple episodes of vomiting, and inability to ambulate. At the ER, CT head negative, CXR no pneumonia. She was given Ativan, Meclizine and Zofran which improved her dizziness but patient was still unable to stand and ambulate properly. On exam, patient seen resting in bed, comfortable. States dizziness is better, no nausea, chest pain, shortness of breath,abdominal pain, focal neuro symptoms on my exam. Allergies Allergy/AdvReac Type Severity Reaction Status Date / Time sulfamethoxazole Allergy Severe Vertigo Unverified 04/15/24 14:20 [From Bactrim] trimethoprim [From Bactrim] Allergy Severe Vertigo Unverified 04/15/24 14:20 JAC Inhibitors Allergy Intermediate edema Verified 04/15/24 14:20 face/lips/tongue azithromycin AdvReac Intermediate severe Verified 04/15/24 14:20 [From Zithromax Z-Devon] vertigo diphenhydramine AdvReac Mild flushing, Verified 04/15/24 14:20 hyperactivity Home Medications Medication Instructions Recorded Confirmed Type meclizine 25 mg tablet 25 mg PO TID PRN Dizziness Or 04/12/18 04/15/24 History Vertigo multivitamin 1 tab PO QAM 07/25/21 04/15/24 History mupirocin 2 % topical ointment 1 applic topical TID #22 grams 12/20/22 04/15/24 Rx acetaminophen 500 mg tablet 500 mg PO Q6H PRN Pain 04/15/24 04/15/24 History apixaban 5 mg tablet (Eliquis) 5 mg PO BID 04/15/24 04/15/24 History diltiazem HCl 180 mg 180 mg PO DAILY 04/15/24 04/15/24 History capsule,extended release 24 hr loperamide 2 mg capsule 6 mg PO QAM 04/15/24 04/15/24 History oxybutynin chloride 10 mg 10 mg PO QAM 04/15/24 04/15/24 History tablet,extended release 24 hr rosuvastatin 10 mg tablet 10 mg PO QAM 04/15/24 04/15/24 History tramadol 100 mg tablet 100 mg PO TID PRN Pain 04/15/24 04/15/24 History 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) History of vertigo (Chronic) Chronic fatigue syndrome (Chronic) Myalgia and myositis, unspecified (Chronic) S/P tubal ligation (Chronic) Encounter for pre-operative examination Medical History Anemia Bacteremia Obesity (BMI 35.0-39.9 without comorbidity) Right maxillary sinusitis Hypokalemia CKD (chronic kidney disease), stage III Atrial fibrillation, new onset Vertigo Actinic keratosis Diabetes mellitus DIET CONTROLLED Osteoarthritis Hypertension DM type 2 (diabetes mellitus, type 2) Surgical History Hx of right cataract extraction History of bilateral tubal ligation History of total knee replacement LEFT Family History Father Family history of diabetes mellitus Mother Family history of diabetes mellitus Brother Family history of diabetes mellitus Social History Smoking Status: Never smoker Tobacco Type: Cigarettes Second Hand Exposure: No; Do You Dip or Chew Tobacco: No; Hx Alcohol Use: No Hx Substance Use: No Preferred Language: Serbian Communication Ability: Effective Flight Service Specialist Required: No Beliefs That Will Affect Care: None Current Living Situation: Alone Current Living Situation Comment: DAUGHTER & GRANDSON NEARBY Feels Safe at Home: Yes Assistive Devices: Cane Review of Systems Review of Systems: all noted and negative except for above Physical Exam Physical Exam: General- oriented x 3, not in distress, speaks in sentences with no effort or accessory muscle use somewhat weak Head- atraumatic Eyes- PERRL, EOMI, anicteric ENT- oropharynx clear Neck- supple, no JVD, no adenopathy, no thyromegaly; carotids +2/2, no bruits appreciated Lungs- clear to auscultation bilaterally, no rales/wheezes Heart- normal rate, regular rhythm; no murmur, no gallop, no rub appreciated Abdomen- normal bowel sounds, nondistended, soft, nontender, no masses or hepatosplenomegaly Extremities- trace pretibial edema, no calf tenderness; peripheral pulses intact 2 small healing wounds on the R lower le g Neuro- alert, oriented x 3; CN 2-12 grossly intact; motor 5/5 bilaterally;sensation 100% on all extremities; no other gross focal neurologic deficits Skin- warm & dry Results & Data Results & Data Vital Signs (Past 12 Hours) Vital Signs Temp Pulse Pulse Resp BP BP Pulse Ox 04/15/24 13:27 56 L 04/15/24 13:00 62 15 135/73 98 04/15/24 12:42 64 20 138/69 99 04/15/24 12:30 55 L 15 138/69 96 04/15/24 12:03 58 L 21 138/60 96 04/15/24 11:30 70 21 138/68 99 04/15/24 11:00 52 L 15 141/72 H 98 04/15/24 10:30 59 L 17 134/64 91 04/15/24 10:00 84 18 132/65 99 04/15/24 09:38 68 12 97 04/15/24 09:30 67 04/15/24 09:13 68 12 137/70 97 04/15/24 09:13 36.8 C 68 12 137/70 97 O2 Del Method O2 Flow Rate 04/15/24 13:27 04/15/24 13:00 Nasal Cannula 2 04/15/24 12:42 Nasal Cannula 2 04/15/24 12:30 Nasal Cannula 2 04/15/24 12:03 Nasal Cannula 2 04/15/24 11:30 Nasal Cannula 2 04/15/24 11:00 Nasal Cannula 2 04/15/24 10:30 Nasal Cannula 2 04/15/24 10:00 Nasal Cannula 2 04/15/24 09:38 Room Air 04/15/24 09:30 04/15/24 09:13 Room Air 04/15/24 09:13 Room Air all noted and reviewed including below Code Status & VTE Plan VTE Prophylaxis Plan VTE Prophylaxis will be ordered: Yes
[2024-04-15] MEDS ORDERED: PROMETHAZINE 12.5 MG/50.5 ML BAG IV PRN (16:47)
--- NOTE | 2024-04-15 17:45 | Electrocardiogram Report ---
Test Reason : Blood Pressure : */* mmHG Vent. Rate : 64 BPM Atrial Rate : 64 BPM P-R Int : 156 ms QRS Dur : 82 ms QT Int : 440 ms P-R-T Axes : 77 54 47 degrees QTcB Int : 453 ms Normal sinus rhythm Normal ECG When compared with ECG of 21-Apr-2022 22:25, Sinus rhythm has replaced Atrial fibrillation Confirmed by Andrea Mason ([id number]) on 04/15/2024 5:45:00 PM Referred By: REFERRED SELF Confirmed By: Andrea Mason
[2024-04-15] MEDS ORDERED: ACETAMINOPHEN 500 MG TAB PO PRN (19:38)
[2024-04-15] MEDS ORDERED: traMADol HCL 50 MG TABLET PO PRN (19:46)
[2024-04-15] MEDS: APIXABAN 5 MG TABLET PO SCH (20:46)
[2024-04-15] MEDS: guaiFENesin 600 MG TABCR PO SCH (20:47)
[2024-04-15] MEDS: MUPIROCIN 2% OINT 22 GM TUBE TOP SCH (20:47)
[2024-04-16 06:39] LABS: Basophils # (auto) 0.04 K/uL (0.00-0.20); Basophils % (auto) 0.6 %; Eosinophils # (auto) 0.12 K/uL (0.00-0.50); Eosinophils % (auto) 1.7 %; Hemoglobin 11.1 g/dl (12.0-16.0); Immature Granulocytes # (auto) 0.03 K/uL (0.01-0.20); Immature Granulocytes % (auto) 0.4 %; Lymphocytes # (auto) 2.81 K/uL (1.20-3.40); Lymphocytes % (auto) 39.6 %; Mean Corpuscular Hgb Conc 31.7 g/dL (32.0-36.0); Mean Corpuscular Volume 88.2 fL (80.0-100.0); Mean Platelet Volume 10.4 fL (9.4-12.4); Monocytes # (auto) 0.68 K/uL (0.11-0.59); Monocytes % (auto) 9.6 %; Neutrophils # (auto) 3.42 K/uL (1.40-6.50); Neutrophils % (auto) 48.1 %; Platelet Count 215 K/uL (130-400); RDW Coefficient of Variation 14.4 % (11.5-14.5); RDW Standard Deviation 46.3 fL (36.4-46.3); Red Blood Count 3.97 M/uL (4.20-5.40)
[2024-04-16 07:02] LABS: Appearance Urine Turbid (Clear); Bacteria Urine Automated None Seen (None Seen); Bilirubin Urine Negative (Negative); Blood Urine Negative (Negative); Color Urine Yellow; Epithelial Cell Urine Auto 0-2 /hpf (0-2); Glucose Urine UA Negative (Negative); Ketones Urine Trace (Negative); Leukocyte Esterase Urine 2+ (Negative); Nitrite Urine Negative (Negative); Protein Urine 1+ (Negative); RBC Urine Automated 0-2 /hpf (0-2); Specific Gravity Urine 1.028 (1.000-1.030); Urobilinogen Urine Negative (Negative); WBC Urine Automated >50 /hpf (0-5); pH Urine 5.5 (4.5-7.5)
[2024-04-16 07:04] LABS: Calcium 8.3 mg/dl (8.6-10.3); Creatinine Clr Calc Pharmacy 44.6 ml/min; Potassium 4.2 mmol/L (3.5-5.1)
[2024-04-16] MEDS: cefTRIAXone SODIUM 2,000 MG/50 ML BAG IV ONE (08:02)
[2024-04-16] MEDS: dilTIAZem HCL 180 MG CAPCR PO SCH (08:03)
[2024-04-16] MEDS: MECLIZINE HCL 25 MG TAB PO PRN (08:03)
[2024-04-16] MEDS: ROSUVASTATIN CALCIUM 10 MG TAB PO SCH (08:04)
[2024-04-16] MEDS: MULTIVITAMIN TAB PO SCH (08:04)
[2024-04-16] MEDS: OXYBUTYNIN CHLORIDE XL 5 MG TABCR PO SCH (08:05)
[2024-04-16] MEDS: LORazepam 2 MG/1 ML VIAL IV PRN (08:29)
[2024-04-16] MEDS: LOPERAMIDE HCL 2 MG CAP PO SCH (09:52)
--- NOTE | 2024-04-16 15:20 | Discharge Summary ---
Discharge Summary Date of Service April 16, 2024 Principal Dx & Hospital Course #1 = Principal Diagnosis (1) Vertigo: Notes For Next Care Provider Medication Changes From Visit Patient was given prescription for 30 tablets of Ativan 0.5 mg to be used as needed twice daily for episodes of vertigo Admission HPI Per Admitting Provider Patient is a 83 year old female with history of CHFpEF, A fib on Eliquis, Cerebrovasculas small vessel disease, Benign Positional Vertigo, who was admitted for worsened vertigo. Looking into her history, patient has been diagnosed with this 3 to 4 years ago and at home for mild occasions she uses meclizine and for severe cases she uses Ativan both have been effective. Patient apparently had comprehensive workup in the past, MRI was done in 2020 which did not show any suspicious finding explaining this picture, patient tells me that she was seen by ENT as well but she was not given any diagnosis. She was admitted with another episode of the same but this time it was severe and she did not have Ativan at home apparently. Patient was placed in observation, initial head CT was unremarkable, neurologically patient was intact on examination at rest, she tried a dose of Ativan and apparently that helped. I explained to her that I do not think that additional imaging would be bene ficial, I told her to revisit consulting ENT as outpatient if her condition becomes refractory to treatment. We are going to ambulate her and if she does well she might be discharged home with a prescription for Ativan. She was not orthostatic and she did not have otherwise any abnormal blood work. She denied having any urinary symptoms however the urine appeared cloudy with numerous WBCs, I would empirically treat her with 5 days of cefdinir. She recently came off 5 days of treatment with Levaquin so this is very unlikely to be due to infection but will complete a course. Recently she was treated for upper respiratory tract infection so she thinks that this might be antibiotic related however is not very uncommon for viral infection to cause vestibular dysfunction in the recovery. Continue the same meclizine and Ativan regimen at home. Updated Medication List Medication Instructions Recorded Confirmed Type meclizine 25 mg tablet 25 mg PO TID PRN Dizziness Or 04/12/18 04/15/24 History Vertigo multivitamin 1 tab PO QAM 07/25/21 04/15/24 History mupirocin 2 % topical ointment 1 applic topical TID #22 grams 12/20/22 04/15/24 Rx acetaminophen 500 mg tablet 500 mg PO Q6H PRN Pain 04/15/24 04/15/24 History apixaban 5 mg tablet (Eliquis) 5 mg PO BID 04/15/24 04/15/24 History diltiazem HCl 180 mg 180 mg PO DAILY 04/15/24 04/15/24 History capsule,extended release 24 hr loperamide 2 mg capsule 6 mg PO QAM 04/15/24 04/15/24 History oxybutynin chloride 10 mg 10 mg PO QAM 04/15/24 04/15/24 History tablet,extended release 24 hr rosuvastatin 10 mg tablet 10 mg PO QAM 04/15/24 04/15/24 History tramadol 100 mg tablet 100 mg PO TID PRN Pain 04/15/24 04/15/24 History lorazepam 0.5 mg tablet (Ativan) 0.5 mg PO Q12H PRN vertigo #30 tabs 04/16/24 Rx Hospital Stay Data Consultations 04/15/24 14:40 ED Decision to Admit Stat Diagnostic Imagining Performed 04/15/24 09:38 CT head/brain wo con Stat Pending Results Patient Have Any Pending Studies at Discharge: No Discharge Instructions Given to Patient (Per Discharging Provider) No further recommendation, may inquire about revisiting ENT as outpatient Total Time Total Time Spent Total Time Spent (In Minutes): More than 35 minutes
[2024-04-16] MEDS: DOCUSATE SODIUM/SENNA 50/8.6MG TAB PO SCH (22:05)
[2024-04-17 07:46] VITALS: RESP 18
[2024-04-17] MEDS: GADOBUTROL 65ML VIAL IV ONE (09:54)
--- NOTE | 2024-04-17 11:19 | Magnetic Resonance Report ---
MR brain IAC wo/w con CLINICAL HISTORY: vertigo TECHNIQUE: Multiplanar and multisequence MR images of the brain were obtained prior to and following administration of gadolinium contrast. Comparison: Comparison is made to CT head 04/15/2024 and MRI brain 07/25/2021 FINDINGS: No abnormal restricted diffusion is identified. Foci of T2 and FLAIR hyperintensity are noted in the paraventricular areas consistent with chronic small vessel ischemic disease. Ex vacuo ventriculomegal y and sulcal enlargement is noted compatible with diffuse volume loss. No mass or abnormal enhancemen t is seen. There is no mass effect or midline shift. There is no evidence of acute intraparenchymal h emorrhage. No extra axial fluid collections are seen. The corpus callosum, pituitary gland, and cereb ellar tonsils appear grossly unremarkable. No abnormalities of the internal auditory canal or inner e ar bilaterally. Cranial nerves VII and VIII are normal. Erosions of the calvarium are seen posteriorl y compatible with venous lakes. Flow voids of the major intracranial arterial vessels are identified. Sinus mucosal thickening is see n most prominent in the left greater than right maxillary sinuses. IMPRESSION: No acute abnormalities and in particular no evidence of abnormality in cranial nerves VII and VIII. N o inner or middle ear abnormality. ACT 112: Negative or not required by law. Electronically signed by: Miki Ren M.D. 04/17/2024 11:16 AM
--- NOTE | 2024-04-17 11:39 | Communication Note ---
Date of Service: April 17, 2024 Patient was in fact discharged yesterday however she requested to stay another day because she did not have a ride, her daughter was at work. This morning patient was seen and examined, she was relatively stable, I decided to go ahead and order MRI which was done and did not report any finding. I was given the report that patient continued to get every now and then dizzy while on the MRI. I attended her room again and explained the findings of MRI, she told me that this has been going on and off for about 20 years. I personally do not think that I have more answer for her other than suppressing her symptoms with Ativan, I we will make sure that she has enough Ativan tablets, otherwise she can go home.
[2024-04-17 11:48] VITALS: TEMP 97.9; O2SAT 96
[2024-04-17 12:49] VITALS: BP 120/51; PULSE 61
== END 2024-04-17 13:36 | disposition home or self-care (01) ==
LOC: 2W 09:18 → ED 09:18 → SUATTDRO 14:55 → 2W 16:24